=== PATIENT | male | born 1940 | race Caucasian/White ===

== ENCOUNTER → 2016-12-01 | Outpatient (CLI) | payer MEDICARE ==
[~2016-12-01] MED LIST: /WARF5TA; AMLO10TA; ASPI81TA83; CATA0.1T; DIGO0.126; GLUC1000; IMDU60TA; ISOS30BRAN; LASI40TA; LISI40TA; LOPR100T; METO200T3; MEVA40TA; POTA-77; POTA20TA2
[2016-12-01 17:26] LABS: INR 1.79
== END ==
LOC: M WUC 11:57
PROVIDERS: ATTEND Student in an Organized Health Care Education/Training Program
DX: I48.0 Paroxysmal atrial fibrillation (principal)

== ENCOUNTER → 2016-12-08 | Outpatient (CLI) | payer MEDICARE ==
[2016-12-08 13:13] LABS: INR 2.66
== END ==
LOC: M WUC 09:03
PROVIDERS: ATTEND Student in an Organized Health Care Education/Training Program
DX: I48.0 Paroxysmal atrial fibrillation (principal)

== ENCOUNTER → 2016-12-21 | Outpatient (CLI) | payer MEDICARE ==
[2016-12-21 17:55] LABS: INR 3.21
== END ==
LOC: M WUC 11:39
PROVIDERS: ATTEND Student in an Organized Health Care Education/Training Program
DX: I48.0 Paroxysmal atrial fibrillation (principal)

== ENCOUNTER → 2017-01-04 | Outpatient (CLI) | payer MEDICARE ==
[2017-01-04 13:23] LABS: INR 3.26
== END ==
LOC: M WUC 11:01
PROVIDERS: ATTEND Student in an Organized Health Care Education/Training Program
DX: I48.0 Paroxysmal atrial fibrillation (principal)

== ENCOUNTER → 2017-01-19 | Outpatient (CLI) | payer MEDICARE ==
[2017-01-19 12:53] LABS: INR 4.65
== END ==
LOC: M WUC 10:37
PROVIDERS: ATTEND Student in an Organized Health Care Education/Training Program
DX: I48.0 Paroxysmal atrial fibrillation (principal)

== ENCOUNTER → 2017-02-02 | Outpatient (CLI) | payer MEDICARE ==
[2017-02-02 17:40] LABS: INR 2.22
== END ==
LOC: M WUC 10:58
PROVIDERS: ATTEND Student in an Organized Health Care Education/Training Program
DX: I48.0 Paroxysmal atrial fibrillation (principal)

== ENCOUNTER → 2017-02-10 | Outpatient (CLI) | payer MEDICARE ==
[2017-02-10 16:49] LABS: INR 2.53
== END ==
LOC: M WUC 12:43
PROVIDERS: ATTEND Student in an Organized Health Care Education/Training Program
DX: I48.0 Paroxysmal atrial fibrillation (principal)

== ENCOUNTER → 2017-02-25 | Outpatient (CLI) | payer MEDICARE ==
[2017-02-25 14:34] LABS: INR 3.5
== END ==
LOC: M WUC 10:41
PROVIDERS: ATTEND Student in an Organized Health Care Education/Training Program
DX: I48.0 Paroxysmal atrial fibrillation (principal)

== ENCOUNTER → 2017-03-09 | Outpatient (CLI) | payer MEDICARE ==
[2017-03-09 18:02] LABS: INR 1.84
== END ==
LOC: M WUC 13:23
PROVIDERS: ATTEND Student in an Organized Health Care Education/Training Program
DX: I48.0 Paroxysmal atrial fibrillation (principal)

== ENCOUNTER → 2017-03-23 | Outpatient (CLI) | payer MEDICARE ==
[2017-03-23 17:25] LABS: INR 2.8
== END ==
LOC: M WUC 11:18
PROVIDERS: ATTEND Student in an Organized Health Care Education/Training Program
DX: I48.0 Paroxysmal atrial fibrillation (principal)

== ENCOUNTER → 2017-05-19 | Outpatient (CLI) | payer MEDICARE ==
[2017-05-19 16:45] LABS: INR 2.4
== END ==
LOC: M WUC 13:37
PROVIDERS: ATTEND Student in an Organized Health Care Education/Training Program
DX: I48.0 Paroxysmal atrial fibrillation (principal)

== ENCOUNTER 2017-10-06 09:10 | Inpatient (IN) | payer MEDICARE ==
[2017-10-06] MEDS: ALBUTEROL SULFATE 2.5 MG/0.5 ML INH NEB SOLN INH (09:11)
[2017-10-06] MEDS: IPRATROPIUM 0.5MG/ALBUTEROL 2.5MG INH SOL UD 3ML (DUONEB)(J7620) NEB ×3 (09:11→20:49)
[2017-10-06 09:31] LABS: ABG BASE EXCESS -5.6 (-2.0-2.0); ABG HCO3 17.7 MEQ/L (22.0-26.0); ABG O2 SATURATION 98.5 % (95.0-99.0); ABG PARTIAL PRESSURE CO2 27.9 mmHg (35.0-45.0); ABG PARTIAL PRESSURE O2 122.3 mmHg (75.0-100.0); ABG STANDARD HCO3 19.9 MEQ/L (22.0-26.0); ABG TOTAL CO2 18.6 MEQ/L (23.0-31.0); ABG pH (ARTERIAL) 7.421 UNITS (7.350-7.450)
[2017-10-06] MEDS: methylPREDNISolone INJ 125 MG/2 ML VIAL (J2930) IV (09:37)
[2017-10-06] MEDS: CEFEPIME HCL 2 GM in D5W MINI-BAG PLUS 50 ML IV (09:50)
[2017-10-06 09:54] LABS: BASO % 0.1 % (0.0-1.0); EOS # 0.1 10^3/uL (0.0-0.50); EOS % 0.9 % (0.0-3.0); HEMATOCRIT 30.7 % (42.0-52.0); HEMOGLOBIN 10.4 g/dl (13.5-17.5); IMMATURE GRANULOCYTE % 0.5 % (0-3.0); LYMPH # 0.5 10^3/uL (1.5-4.5); LYMPH % 5.5 % (24.0-44.0); MEAN CORPUSCULAR HEMOGLOBIN 30.7 pg (27.0-33.0); MEAN CORPUSCULAR HGB CONC 33.9 g/dl (32.0-36.5); MEAN CORPUSCULAR VOLUME 90.6 fl (80.0-96.0); MONO # 0.5 10^3/uL (0.0-0.8); MONO % 5.4 % (0.0-5.0); NEUTROPHILS # 7.4 10^3/uL (1.8-7.7); NEUTROPHILS % 87.6 % (36.0-66.0); PLATELET COUNT, AUTOMATED 122 10^3/uL (150-450); RED BLOOD COUNT 3.39 10^6/uL (4.30-6.10); RED CELL DISTRIBUTION WIDTH 14.9 % (11.5-14.5); WHITE BLOOD COUNT 8.5 10^3/uL (4.0-10.0)
[2017-10-06] MEDS: NS 500 ML IV ×2 (09:56→10:25)
[2017-10-06 10:08] LABS: ALBUMIN 3.7 GM/DL (3.2-5.2); ALBUMIN/GLOBULIN RATIO 1.12 (1.00-1.93); ALKALINE PHOSPHATASE 82 U/L (45-117); ALT/SGPT 16 U/L (12-78); ANION GAP 11 MEQ/L (8-16); AST/SGOT 14 U/L (7-37); BILIRUBIN,DIRECT 0.2 MG/DL (0.0-0.2); BILIRUBIN,TOTAL 0.9 MG/DL (0.2-1.0); BLOOD UREA NITROGEN 49 MG/DL (7-18); CALCIUM LEVEL 8.3 MG/DL (8.8-10.2); CARBON DIOXIDE LEVEL 20 MEQ/L (21-32); CHLORIDE LEVEL 111 MEQ/L (98-107); CPK CREATINE PHOSPHOKINASE 80 U/L (39-308); CREATININE FOR GFR 2.49 MG/DL (0.70-1.30); GLUCOSE, FASTING 334 MG/DL (70-100); POTASSIUM SERUM 3.8 MEQ/L (3.5-5.1); SODIUM LEVEL 142 MEQ/L (136-145); THYROXINE (T4) 9.2 UG/DL (4.5-12.0); TROPONIN I 0.03 NG/ML (< 0.10)
[2017-10-06 10:11] LABS: INR 2.84; PROTHROMBIN TIME 31.1 SECONDS (12.4-14.5)
[2017-10-06 10:12] LABS: PARTIAL THROMBOPLASTIN TIME 42.7 SECONDS (26.8-37.9)
[2017-10-06 10:14] LABS: CK-MB VALUE MASS 3.1 NG/ML (<3.6); MB/CK RELATIVE INDEX 3.87 (< OR =4); NT-PRO BNP 8286 PG/ML (<450)
[2017-10-06 10:15] LABS: LACTIC ACID SEPSIS PROTOCOL 2.6 MMOL/L (0.4-2.0)
[2017-10-06 10:20] LABS: INFLUENZA A AMPLIFICATION NEGATIVE (NEGATIVE); INFLUENZA B AMPLIFICATION NEGATIVE (NEGATIVE)
[2017-10-06] MEDS: VANCOMYCIN HCL 1,000 MG, VIAL MATE ADAPTER 1 EACH in D5W 250 ML IV (10:40)
[2017-10-06] MEDS ORDERED: ONDANSETRON 4 MG TAB (S0181) PO (11:00)
[2017-10-06] MEDS ORDERED: GLUCOSE 4 GM CHEW TABLET PO (11:00)
[2017-10-06] MEDS ORDERED: GLUCAGON FOR INJ 1 MG VIAL (J1610) SC (11:00)
[2017-10-06] MEDS ORDERED: DEXTROSE 50% 50 ML SYRINGE IV (11:00)
[2017-10-06] MEDS ORDERED: IPRATROPIUM 0.5MG/ALBUTEROL 2.5MG INH SOL UD 3ML (DUONEB)(J7620) NEB (11:00)
[2017-10-06] MEDS ORDERED: ACETAMINOPHEN TAB 650MG DOSE (2X325MG) PO (11:15)
[2017-10-06] MEDS: HumaLOG INSULIN (NovoLOG) PER UNIT SC ×4 (13:05→21:00)
[2017-10-06] MEDS: FUROSEMIDE 40 MG/4 ML VIAL (J1940) IV ×2 (13:06→23:04)
[2017-10-06] MEDS: AZITHROMYCIN INJ 500 MG, VIAL MATE ADAPTER 1 EACH in D5W 250 ML IV (13:06)
[2017-10-06 13:10] LABS: BEDSIDE GLUCOSE 373 MG/DL (83-110)
[2017-10-06] MEDS: **hydrALAZINE HCL** 25 MG TAB PO (13:44)
[2017-10-06] MEDS: NITROGLYCERIN 2% OINT 1 GM *U/D* PKT TOP (16:05)
[2017-10-06 17:26] LABS: BEDSIDE GLUCOSE 395 MG/DL (83-110)
[2017-10-06] MEDS ORDERED: SODIUM CHLORIDE 0.9% 1000 ML IV (17:30)
[2017-10-06] MEDS ORDERED: diltiaZEM **CD** 180 MG CAP PO (17:30)
[2017-10-06] MEDS ORDERED: SLF 3 ML SYR IV (17:30)
[2017-10-06] MEDS ORDERED: **hydrALAZINE** 50 MG TAB PO (17:30)
[2017-10-06] MEDS: WARFARIN SOD 3 MG TAB PO (17:50)
[2017-10-06] MEDS: cefTRIAXone SOD 1 GM in D5W MINI-BAG PLUS 50 ML IV (17:51)
[2017-10-06] MEDS ORDERED: PILL CRUSHER/CUTTER 1 EACH XX (18:30)
[2017-10-06 18:52] LABS: LACTIC ACID SEPSIS PROTOCOL 3.1 MMOL/L (0.4-2.0)
[2017-10-06 20:07] LABS: BEDSIDE GLUCOSE 532 MG/DL (83-110)
[2017-10-06] MEDS: ATORVASTATIN 10 MG TAB PO (20:57)
[2017-10-06] MEDS: CARVedilol 12.5 MG TAB PO (20:57)
[2017-10-06] MEDS: SLF 3 ML SYR IV (20:58)
[2017-10-06] MEDS: **hydrALAZINE** 50 MG TAB PO (20:58)
[2017-10-06 20:59] LABS: BEDSIDE GLUCOSE CONFIRMATION 415 MG/DL (LESS THAN 200)
[2017-10-06] MEDS ORDERED: ATORVASTATIN 5MG PER 1/2 TABLET PO (21:00)
[2017-10-06 22:54] LABS: BEDSIDE GLUCOSE 387 MG/DL (83-110)
[2017-10-07] MEDS: IPRATROPIUM 0.5MG/ALBUTEROL 2.5MG INH SOL UD 3ML (DUONEB)(J7620) NEB ×4 (02:00→19:47)
[2017-10-07 04:56] LABS: BASO % 0.2 % (0.0-1.0); HEMATOCRIT 29.1 % (42.0-52.0); IMMATURE GRANULOCYTE % 0.5 % (0-3.0); LYMPH # 0.3 10^3/uL (1.5-4.5); LYMPH % 5.9 % (24.0-44.0); MEAN CORPUSCULAR HEMOGLOBIN 30.7 pg (27.0-33.0); MEAN CORPUSCULAR HGB CONC 34.4 g/dl (32.0-36.5); MEAN CORPUSCULAR VOLUME 89.3 fl (80.0-96.0); MONO # 0.2 10^3/uL (0.0-0.8); MONO % 3.4 % (0.0-5.0); NEUTROPHILS # 5.1 10^3/uL (1.8-7.7); PLATELET COUNT, AUTOMATED 106 10^3/uL (150-450); RED BLOOD COUNT 3.26 10^6/uL (4.30-6.10); RED CELL DISTRIBUTION WIDTH 14.6 % (11.5-14.5); WHITE BLOOD COUNT 5.6 10^3/uL (4.0-10.0)
[2017-10-07 05:07] LABS: INR 3.26; PROTHROMBIN TIME 34.8 SECONDS (12.4-14.5)
[2017-10-07 05:10] LABS: ANION GAP 11 MEQ/L (8-16); BLOOD UREA NITROGEN 54 MG/DL (7-18); CALCIUM LEVEL 8.2 MG/DL (8.8-10.2); CARBON DIOXIDE LEVEL 19 MEQ/L (21-32); CHLORIDE LEVEL 111 MEQ/L (98-107); CREATININE FOR GFR 2.79 MG/DL (0.70-1.30); GLOMERULAR FILTRATION RATE 23.7 (>42); GLUCOSE, FASTING 295 MG/DL (70-100); POTASSIUM SERUM 3.6 MEQ/L (3.5-5.1); SODIUM LEVEL 141 MEQ/L (136-145)
[2017-10-07] MEDS: FUROSEMIDE 40 MG/4 ML VIAL (J1940) IV (05:26)
[2017-10-07] MEDS: SLF 3 ML SYR IV ×3 (05:27→21:31)
[2017-10-07 08:06] LABS: ALPHA 1 ANTITRYPSIN 124 mg/dL (90-200)
[2017-10-07 08:09] LABS: MAGNESIUM LEVEL 2.3 MG/DL (1.8-2.4)
[2017-10-07] MEDS: ASPIRIN 81 MG ENTERIC TAB PO (09:12)
[2017-10-07] MEDS: CYANOCOBALAMIN 500 MCG TAB PO (09:13)
[2017-10-07] MEDS: predniSONE 20 MG TAB PO (09:13)
[2017-10-07] MEDS: FINASTERIDE 5 MG TAB PO (09:13)
[2017-10-07] MEDS: TAMSULOSIN 0.4 MG CAP PO (09:13)
[2017-10-07] MEDS: CARVedilol 12.5 MG TAB PO ×2 (09:14→21:33)
[2017-10-07] MEDS: diltiaZEM **CD** 180 MG CAP PO (09:14)
[2017-10-07] MEDS: HumaLOG INSULIN (NovoLOG) PER UNIT SC ×4 (09:15→21:31)
[2017-10-07] MEDS: **hydrALAZINE** 50 MG TAB PO (09:15)
[2017-10-07 10:39] LABS: ESTIMATED AVERAGE GLUCOSE 186 MG/DL (60-110); HEMOGLOBIN A1c 8.1 %
[2017-10-07 11:19] LABS: BEDSIDE GLUCOSE 431 MG/DL (83-110)
[2017-10-07] MEDS: CARBAMIDE PEROXIDE 6.5% OTIC SOLN 15ML AS ×2 (12:36→21:32)
[2017-10-07] MEDS: FUROSEMIDE 100 MG/10 ML VIAL (J1940) IV ×2 (12:36→21:32)
[2017-10-07] MEDS: POTASSIUM CHLORIDE 10 MEQ SR TABLET PO ×3 (12:38→21:33)
[2017-10-07 14:19] LABS: APPEARANCE, URINE CLEAR (CLEAR); BACTERIA, URINE AUTO NEGATIVE (NEGATIVE); BILIRUBIN, URINE AUTO NEGATIVE (NEGATIVE); BLOOD, URINE BLOOD NEGATIVE (NEGATIVE); COLOR, URINE STRAW (YELLOW); GLUCOSE, URINE (UA) AUTO 3+ mg/dL (NEGATIVE); KETONE, URINE AUTO NEGATIVE (NEGATIVE); LEUKOCYTE ESTERASE, URINE AUTO NEGATIVE (NEGATIVE); NITRITE, URINE AUTO NEGATIVE (NEGATIVE); PROTEIN, URINE AUTO 2+ mg/dL (NEGATIVE); RBC, URINE AUTO 1 /HPF (0-3); SPECIFIC GRAVITY URINE AUTO 1.007 (1.002-1.035); SQUAMOUS EPITHELIAL CELL UR AU 0 /HPF (0-6); UROBILINOGEN, URINE AUTO 0.2 mg/dL (0.0-2.0); WBC, URINE AUTO 1 /HPF (0-3)
[2017-10-07] MEDS: WARFARIN SOD 3 MG TAB PO (16:30)
[2017-10-07 16:40] LABS: BEDSIDE GLUCOSE 415 MG/DL (83-110)
[2017-10-07 20:37] LABS: BEDSIDE GLUCOSE 438 MG/DL (83-110)
[2017-10-07] MEDS: LEVEMIR (INSULIN DETEMIR) 1 UNITS/0.01ML SC (21:31)
[2017-10-08] MEDS: IPRATROPIUM 0.5MG/ALBUTEROL 2.5MG INH SOL UD 3ML (DUONEB)(J7620) NEB ×4 (01:49→20:14)
[2017-10-08 05:07] LABS: BASO % 0.1 % (0.0-1.0); HEMATOCRIT 31.4 % (42.0-52.0); HEMOGLOBIN 10.7 g/dl (13.5-17.5); IMMATURE GRANULOCYTE % 0.7 % (0-3.0); LYMPH # 0.5 10^3/uL (1.5-4.5); LYMPH % 5.4 % (24.0-44.0); MEAN CORPUSCULAR HEMOGLOBIN 30.7 pg (27.0-33.0); MEAN CORPUSCULAR HGB CONC 34.1 g/dl (32.0-36.5); MONO # 0.7 10^3/uL (0.0-0.8); MONO % 8.6 % (0.0-5.0); NEUTROPHILS # 7.1 10^3/uL (1.8-7.7); NEUTROPHILS % 85.2 % (36.0-66.0); PLATELET COUNT, AUTOMATED 121 10^3/uL (150-450); RED BLOOD COUNT 3.49 10^6/uL (4.30-6.10); WHITE BLOOD COUNT 8.4 10^3/uL (4.0-10.0)
[2017-10-08 05:19] LABS: INR 4.33; PROTHROMBIN TIME 43.8 SECONDS (12.4-14.5)
[2017-10-08 05:31] LABS: ANION GAP 9 MEQ/L (8-16); BLOOD UREA NITROGEN 69 MG/DL (7-18); CALCIUM LEVEL 8.6 MG/DL (8.8-10.2); CARBON DIOXIDE LEVEL 26 MEQ/L (21-32); CHLORIDE LEVEL 109 MEQ/L (98-107); GLOMERULAR FILTRATION RATE 24.6 (>42); GLUCOSE, FASTING 187 MG/DL (70-100); POTASSIUM SERUM 3.4 MEQ/L (3.5-5.1); SODIUM LEVEL 144 MEQ/L (136-145)
[2017-10-08] MEDS: SLF 3 ML SYR IV ×3 (05:35→20:04)
[2017-10-08] MEDS: FUROSEMIDE 100 MG/10 ML VIAL (J1940) IV (05:35)
[2017-10-08] MEDS: HumaLOG INSULIN (NovoLOG) PER UNIT SC ×4 (07:36→20:03)
[2017-10-08] MEDS: FINASTERIDE 5 MG TAB PO (08:51)
[2017-10-08] MEDS: CARVedilol 12.5 MG TAB PO ×2 (08:51→20:01)
[2017-10-08] MEDS: diltiaZEM **CD** 180 MG CAP PO (08:51)
[2017-10-08] MEDS: POTASSIUM CHLORIDE 10 MEQ SR TABLET PO ×3 (08:52→20:01)
[2017-10-08] MEDS: ASPIRIN 81 MG ENTERIC TAB PO (08:52)
[2017-10-08] MEDS: CYANOCOBALAMIN 500 MCG TAB PO (08:52)
[2017-10-08] MEDS: TAMSULOSIN 0.4 MG CAP PO (08:52)
[2017-10-08] MEDS: LEVEMIR (INSULIN DETEMIR) 1 UNITS/0.01ML SC ×2 (08:53→20:02)
[2017-10-08] MEDS: CARBAMIDE PEROXIDE 6.5% OTIC SOLN 15ML AS ×2 (08:53→20:03)
[2017-10-08] MEDS ORDERED: FUROSEMIDE 40 MG TAB PO (09:00)
[2017-10-08 11:57] LABS: BEDSIDE GLUCOSE 275 MG/DL (83-110)
[2017-10-08] MEDS: amLODIPine 10 MG TAB PO (12:23)
[2017-10-08] MEDS: TORSEMIDE 20 MG TAB PO (16:30)
[2017-10-08 16:34] LABS: BEDSIDE GLUCOSE 263 MG/DL (83-110)
[2017-10-08 19:58] LABS: BEDSIDE GLUCOSE 277 MG/DL (83-110)
[2017-10-09] MEDS: IPRATROPIUM 0.5MG/ALBUTEROL 2.5MG INH SOL UD 3ML (DUONEB)(J7620) NEB ×4 (02:00→19:58)
[2017-10-09 03:39] LABS: BASO % 0.1 % (0.0-1.0); EOS # 0.1 10^3/uL (0.0-0.50); EOS % 0.9 % (0.0-3.0); HEMATOCRIT 33.6 % (42.0-52.0); HEMOGLOBIN 11.2 g/dl (13.5-17.5); IMMATURE GRANULOCYTE % 0.6 % (0-3.0); LYMPH # 0.7 10^3/uL (1.5-4.5); LYMPH % 9.4 % (24.0-44.0); MEAN CORPUSCULAR HGB CONC 33.3 g/dl (32.0-36.5); MEAN CORPUSCULAR VOLUME 90.1 fl (80.0-96.0); MONO # 0.7 10^3/uL (0.0-0.8); MONO % 10.3 % (0.0-5.0); NEUTROPHILS # 5.5 10^3/uL (1.8-7.7); NEUTROPHILS % 78.7 % (36.0-66.0); PLATELET COUNT, AUTOMATED 124 10^3/uL (150-450); RED BLOOD COUNT 3.73 10^6/uL (4.30-6.10); RED CELL DISTRIBUTION WIDTH 14.8 % (11.5-14.5)
[2017-10-09 03:55] LABS: INR 4.38; PROTHROMBIN TIME 44.2 SECONDS (12.4-14.5)
[2017-10-09] MEDS: SLF 3 ML SYR IV ×3 (04:10→20:54)
[2017-10-09 04:14] LABS: ANION GAP 8 MEQ/L (8-16); BLOOD UREA NITROGEN 65 MG/DL (7-18); CALCIUM LEVEL 8.1 MG/DL (8.8-10.2); CARBON DIOXIDE LEVEL 27 MEQ/L (21-32); CHLORIDE LEVEL 110 MEQ/L (98-107); CREATININE FOR GFR 2.54 MG/DL (0.70-1.30); GLOMERULAR FILTRATION RATE 26.4 (>42); GLUCOSE, FASTING 240 MG/DL (70-100); POTASSIUM SERUM 3.4 MEQ/L (3.5-5.1); SODIUM LEVEL 145 MEQ/L (136-145)
[2017-10-09 07:15] LABS: ALBUMIN 3.7 GM/DL (3.2-5.2)
[2017-10-09] MEDS: CYANOCOBALAMIN 500 MCG TAB PO (08:28)
[2017-10-09] MEDS: TORSEMIDE 20 MG TAB PO ×2 (08:28→16:54)
[2017-10-09] MEDS: CARVedilol 12.5 MG TAB PO ×2 (08:32→20:51)
[2017-10-09] MEDS: FINASTERIDE 5 MG TAB PO (08:32)
[2017-10-09] MEDS: diltiaZEM **CD** 180 MG CAP PO (08:33)
[2017-10-09] MEDS: ASPIRIN 81 MG ENTERIC TAB PO (08:33)
[2017-10-09] MEDS: POTASSIUM CHLORIDE 10 MEQ SR TABLET PO ×2 (08:33→20:52)
[2017-10-09] MEDS: LEVEMIR (INSULIN DETEMIR) 1 UNITS/0.01ML SC ×2 (08:34→20:53)
[2017-10-09] MEDS: HumaLOG INSULIN (NovoLOG) PER UNIT SC ×4 (08:34→20:53)
[2017-10-09] MEDS: TAMSULOSIN 0.4 MG CAP PO (08:34)
[2017-10-09] MEDS: CARBAMIDE PEROXIDE 6.5% OTIC SOLN 15ML AS ×2 (08:35→20:53)
[2017-10-09] MEDS ORDERED: POTASSIUM CHLORIDE 10 MEQ SR TABLET PO (09:00)
[2017-10-09 12:18] LABS: BEDSIDE GLUCOSE 262 MG/DL (83-110)
[2017-10-09 21:10] LABS: BEDSIDE GLUCOSE 353 MG/DL (83-110)
[2017-10-09] MEDS: amLODIPine 5 MG TAB PO (22:18)
[2017-10-10] MEDS: IPRATROPIUM 0.5MG/ALBUTEROL 2.5MG INH SOL UD 3ML (DUONEB)(J7620) NEB ×4 (02:00→19:17)
[2017-10-10 05:14] LABS: BASO % 0.1 % (0.0-1.0); EOS # 0.2 10^3/uL (0.0-0.50); EOS % 2.2 % (0.0-3.0); HEMOGLOBIN 11.8 g/dl (13.5-17.5); IMMATURE GRANULOCYTE % 0.7 % (0-3.0); LYMPH # 0.9 10^3/uL (1.5-4.5); LYMPH % 12.5 % (24.0-44.0); MEAN CORPUSCULAR HGB CONC 33.7 g/dl (32.0-36.5); MEAN CORPUSCULAR VOLUME 89.1 fl (80.0-96.0); MONO # 0.9 10^3/uL (0.0-0.8); NEUTROPHILS # 5.1 10^3/uL (1.8-7.7); NEUTROPHILS % 71.5 % (36.0-66.0); PLATELET COUNT, AUTOMATED 129 10^3/uL (150-450); RED BLOOD COUNT 3.93 10^6/uL (4.30-6.10); RED CELL DISTRIBUTION WIDTH 14.4 % (11.5-14.5); WHITE BLOOD COUNT 7.2 10^3/uL (4.0-10.0)
[2017-10-10 05:28] LABS: INR 3.02; PROTHROMBIN TIME 32.7 SECONDS (12.4-14.5)
[2017-10-10 05:29] LABS: ANION GAP 6 MEQ/L (8-16); BLOOD UREA NITROGEN 59 MG/DL (7-18); CALCIUM LEVEL 8.7 MG/DL (8.8-10.2); CARBON DIOXIDE LEVEL 30 MEQ/L (21-32); CHLORIDE LEVEL 111 MEQ/L (98-107); CREATININE FOR GFR 2.45 MG/DL (0.70-1.30); GLOMERULAR FILTRATION RATE 27.5 (>42); GLUCOSE, FASTING 139 MG/DL (70-100); POTASSIUM SERUM 3.5 MEQ/L (3.5-5.1); SODIUM LEVEL 147 MEQ/L (136-145)
[2017-10-10] MEDS: SLF 3 ML SYR IV ×3 (06:00→21:59)
[2017-10-10] MEDS: HumaLOG INSULIN (NovoLOG) PER UNIT SC ×4 (07:51→20:21)
[2017-10-10] MEDS: LEVEMIR (INSULIN DETEMIR) 1 UNITS/0.01ML SC ×2 (07:51→20:20)
[2017-10-10] MEDS: CARBAMIDE PEROXIDE 6.5% OTIC SOLN 15ML AS ×2 (07:55→20:20)
[2017-10-10] MEDS: CARVedilol 12.5 MG TAB PO ×2 (07:56→20:19)
[2017-10-10] MEDS: diltiaZEM **CD** 180 MG CAP PO (07:56)
[2017-10-10] MEDS: TORSEMIDE 20 MG TAB PO (07:57)
[2017-10-10] MEDS: FINASTERIDE 5 MG TAB PO (07:57)
[2017-10-10] MEDS: ASPIRIN 81 MG ENTERIC TAB PO (07:57)
[2017-10-10] MEDS: POTASSIUM CHLORIDE 10 MEQ SR TABLET PO ×2 (07:57→20:20)
[2017-10-10] MEDS: CYANOCOBALAMIN 500 MCG TAB PO (07:57)
[2017-10-10] MEDS: TAMSULOSIN 0.4 MG CAP PO (07:58)
[2017-10-10] MEDS: **hydrALAZINE HCL** 25 MG TAB PO (11:26)
[2017-10-10 11:34] LABS: BEDSIDE GLUCOSE 404 MG/DL (83-110)
[2017-10-10] MEDS: WARFARIN SOD 3 MG TAB PO (16:26)
[2017-10-10 17:22] LABS: BEDSIDE GLUCOSE 299 MG/DL (83-110)
[2017-10-10 17:34] LABS: BEDSIDE GLUCOSE 322 MG/DL (83-110)
[2017-10-10 20:07] LABS: BEDSIDE GLUCOSE 322 MG/DL (83-110)
[2017-10-10] MEDS: **hydrALAZINE** 50 MG TAB PO (20:19)
[2017-10-10] MEDS ORDERED: **hydrALAZINE HCL** 25 MG TAB PO (21:00)
[2017-10-11] MEDS: IPRATROPIUM 0.5MG/ALBUTEROL 2.5MG INH SOL UD 3ML (DUONEB)(J7620) NEB ×4 (01:55→20:08)
[2017-10-11 05:49] LABS: BASO % 0.1 % (0.0-1.0); EOS # 0.2 10^3/uL (0.0-0.50); EOS % 3.3 % (0.0-3.0); HEMATOCRIT 34.9 % (42.0-52.0); HEMOGLOBIN 11.9 g/dl (13.5-17.5); LYMPH # 0.9 10^3/uL (1.5-4.5); LYMPH % 12.8 % (24.0-44.0); MEAN CORPUSCULAR HEMOGLOBIN 30.5 pg (27.0-33.0); MEAN CORPUSCULAR HGB CONC 34.1 g/dl (32.0-36.5); MEAN CORPUSCULAR VOLUME 89.5 fl (80.0-96.0); MONO # 0.8 10^3/uL (0.0-0.8); MONO % 11.6 % (0.0-5.0); NEUTROPHILS # 4.9 10^3/uL (1.8-7.7); NEUTROPHILS % 71.2 % (36.0-66.0); PLATELET COUNT, AUTOMATED 127 10^3/uL (150-450); RED CELL DISTRIBUTION WIDTH 14.5 % (11.5-14.5); WHITE BLOOD COUNT 6.9 10^3/uL (4.0-10.0)
[2017-10-11 06:00] LABS: INR 2.23; PROTHROMBIN TIME 25.5 SECONDS (12.4-14.5)
[2017-10-11] MEDS: SLF 3 ML SYR IV ×3 (06:00→20:59)
[2017-10-11 06:11] LABS: ANION GAP 7 MEQ/L (8-16); BLOOD UREA NITROGEN 51 MG/DL (7-18); CALCIUM LEVEL 8.3 MG/DL (8.8-10.2); CARBON DIOXIDE LEVEL 27 MEQ/L (21-32); CHLORIDE LEVEL 112 MEQ/L (98-107); CREATININE FOR GFR 2.24 MG/DL (0.70-1.30); GLOMERULAR FILTRATION RATE 30.5 (>42); GLUCOSE, FASTING 146 MG/DL (70-100); POTASSIUM SERUM 3.7 MEQ/L (3.5-5.1); SODIUM LEVEL 146 MEQ/L (136-145)
[2017-10-11] MEDS: HumaLOG INSULIN (NovoLOG) PER UNIT SC ×4 (08:40→20:58)
[2017-10-11] MEDS: TORSEMIDE 20 MG TAB PO (08:41)
[2017-10-11] MEDS: CYANOCOBALAMIN 500 MCG TAB PO (08:41)
[2017-10-11] MEDS: ASPIRIN 81 MG ENTERIC TAB PO (08:41)
[2017-10-11] MEDS: **hydrALAZINE** 50 MG TAB PO ×2 (08:41→20:57)
[2017-10-11] MEDS: LEVEMIR (INSULIN DETEMIR) 1 UNITS/0.01ML SC ×2 (08:41→20:57)
[2017-10-11] MEDS: FINASTERIDE 5 MG TAB PO (08:42)
[2017-10-11] MEDS: CARVedilol 12.5 MG TAB PO ×2 (08:42→20:56)
[2017-10-11] MEDS: TAMSULOSIN 0.4 MG CAP PO (08:42)
[2017-10-11] MEDS: diltiaZEM **CD** 180 MG CAP PO (08:42)
[2017-10-11] MEDS: POTASSIUM CHLORIDE 10 MEQ SR TABLET PO ×2 (08:43→20:57)
[2017-10-11 12:18] LABS: BEDSIDE GLUCOSE 231 MG/DL (83-110)
[2017-10-11] MEDS: WARFARIN SOD 2.5 MG TAB PO (17:28)
[2017-10-11 20:29] LABS: BEDSIDE GLUCOSE 275 MG/DL (83-110)
[2017-10-12] MEDS: IPRATROPIUM 0.5MG/ALBUTEROL 2.5MG INH SOL UD 3ML (DUONEB)(J7620) NEB ×4 (00:57→20:28)
[2017-10-12 05:20] LABS: BASO % 0.2 % (0.0-1.0); EOS # 0.2 10^3/uL (0.0-0.50); EOS % 3.4 % (0.0-3.0); HEMATOCRIT 34.1 % (42.0-52.0); HEMOGLOBIN 11.6 g/dl (13.5-17.5); IMMATURE GRANULOCYTE % 1.3 % (0-3.0); LYMPH # 0.9 10^3/uL (1.5-4.5); LYMPH % 14.2 % (24.0-44.0); MEAN CORPUSCULAR HEMOGLOBIN 30.3 pg (27.0-33.0); MONO # 0.7 10^3/uL (0.0-0.8); MONO % 11.3 % (0.0-5.0); NEUTROPHILS # 4.3 10^3/uL (1.8-7.7); NEUTROPHILS % 69.6 % (36.0-66.0); PLATELET COUNT, AUTOMATED 121 10^3/uL (150-450); RED BLOOD COUNT 3.83 10^6/uL (4.30-6.10); RED CELL DISTRIBUTION WIDTH 14.3 % (11.5-14.5); WHITE BLOOD COUNT 6.2 10^3/uL (4.0-10.0)
[2017-10-12 05:31] LABS: INR 1.69; PROTHROMBIN TIME 20.3 SECONDS (12.4-14.5)
[2017-10-12 05:35] LABS: ANION GAP 4 MEQ/L (8-16); BLOOD UREA NITROGEN 53 MG/DL (7-18); CALCIUM LEVEL 8.4 MG/DL (8.8-10.2); CARBON DIOXIDE LEVEL 27 MEQ/L (21-32); CHLORIDE LEVEL 111 MEQ/L (98-107); CREATININE FOR GFR 2.22 MG/DL (0.70-1.30); GLOMERULAR FILTRATION RATE 30.8 (>42); GLUCOSE, FASTING 147 MG/DL (70-100); MAGNESIUM LEVEL 2.1 MG/DL (1.8-2.4); POTASSIUM SERUM 3.9 MEQ/L (3.5-5.1); SODIUM LEVEL 142 MEQ/L (136-145)
[2017-10-12] MEDS: SLF 3 ML SYR IV ×3 (06:01→20:52)
[2017-10-12] MEDS: CARVedilol 12.5 MG TAB PO ×2 (08:24→20:50)
[2017-10-12] MEDS: TORSEMIDE 20 MG TAB PO (08:25)
[2017-10-12] MEDS: **hydrALAZINE** 50 MG TAB PO ×2 (08:25→20:51)
[2017-10-12] MEDS: POTASSIUM CHLORIDE 10 MEQ SR TABLET PO (08:25)
[2017-10-12] MEDS: CYANOCOBALAMIN 500 MCG TAB PO (08:25)
[2017-10-12] MEDS: TAMSULOSIN 0.4 MG CAP PO (08:25)
[2017-10-12] MEDS: HumaLOG INSULIN (NovoLOG) PER UNIT SC ×4 (08:26→20:52)
[2017-10-12] MEDS: ASPIRIN 81 MG ENTERIC TAB PO (08:26)
[2017-10-12] MEDS: FINASTERIDE 5 MG TAB PO (08:26)
[2017-10-12] MEDS: diltiaZEM **CD** 180 MG CAP PO (08:26)
[2017-10-12] MEDS: LEVEMIR (INSULIN DETEMIR) 1 UNITS/0.01ML SC ×2 (08:27→20:51)
[2017-10-12] MEDS: SPIRONOLACTONE 12.5MG PER 1/2 TABLET PO (10:14)
[2017-10-12 10:50] LABS: BEDSIDE GLUCOSE 296 MG/DL (83-110)
[2017-10-12 12:03] LABS: BEDSIDE GLUCOSE 215 MG/DL (83-110)
[2017-10-12 15:21] LABS: CK-MB VALUE MASS 1.4 NG/ML (<3.6); CPK CREATINE PHOSPHOKINASE 49 U/L (39-308); MB/CK RELATIVE INDEX 2.85 (< OR =4); TROPONIN I 0.02 NG/ML (< 0.10)
[2017-10-12 16:46] LABS: BEDSIDE GLUCOSE 322 MG/DL (83-110)
[2017-10-12] MEDS: WARFARIN SOD 3 MG TAB PO (16:58)
[2017-10-12 20:30] LABS: BEDSIDE GLUCOSE 263 MG/DL (83-110)
[2017-10-12 23:19] LABS: CPK CREATINE PHOSPHOKINASE 42 U/L (39-308); TROPONIN I 0.02 NG/ML (< 0.10)
[2017-10-12 23:20] LABS: CK-MB VALUE MASS 1.6 NG/ML (<3.6)
[2017-10-13] MEDS: IPRATROPIUM 0.5MG/ALBUTEROL 2.5MG INH SOL UD 3ML (DUONEB)(J7620) NEB ×2 (02:35→07:47)
[2017-10-13] MEDS: SLF 3 ML SYR IV (05:47)
[2017-10-13 06:36] LABS: BASO % 0.2 % (0.0-1.0); EOS # 0.2 10^3/uL (0.0-0.50); EOS % 3.1 % (0.0-3.0); HEMATOCRIT 34.3 % (42.0-52.0); HEMOGLOBIN 11.6 g/dl (13.5-17.5); IMMATURE GRANULOCYTE % 0.9 % (0-3.0); LYMPH # 0.9 10^3/uL (1.5-4.5); LYMPH % 13.6 % (24.0-44.0); MEAN CORPUSCULAR HEMOGLOBIN 30.2 pg (27.0-33.0); MEAN CORPUSCULAR HGB CONC 33.8 g/dl (32.0-36.5); MEAN CORPUSCULAR VOLUME 89.3 fl (80.0-96.0); MONO # 0.8 10^3/uL (0.0-0.8); MONO % 12.1 % (0.0-5.0); NEUTROPHILS # 4.5 10^3/uL (1.8-7.7); NEUTROPHILS % 70.1 % (36.0-66.0); PLATELET COUNT, AUTOMATED 109 10^3/uL (150-450); RED BLOOD COUNT 3.84 10^6/uL (4.30-6.10); RED CELL DISTRIBUTION WIDTH 14.4 % (11.5-14.5); WHITE BLOOD COUNT 6.4 10^3/uL (4.0-10.0)
[2017-10-13 06:49] LABS: INR 1.56; PROTHROMBIN TIME 19.1 SECONDS (12.4-14.5)
[2017-10-13 07:15] LABS: ANION GAP 6 MEQ/L (8-16); BLOOD UREA NITROGEN 47 MG/DL (7-18); CALCIUM LEVEL 8.5 MG/DL (8.8-10.2); CARBON DIOXIDE LEVEL 26 MEQ/L (21-32); CHLORIDE LEVEL 111 MEQ/L (98-107); CK-MB VALUE MASS 1.5 NG/ML (<3.6); CPK CREATINE PHOSPHOKINASE 35 U/L (39-308); CREATININE FOR GFR 2.24 MG/DL (0.70-1.30); GLOMERULAR FILTRATION RATE 30.5 (>42); GLUCOSE, FASTING 145 MG/DL (70-100); MB/CK RELATIVE INDEX 4.28 (< OR =4); POTASSIUM SERUM 4.1 MEQ/L (3.5-5.1); SODIUM LEVEL 143 MEQ/L (136-145); TROPONIN I 0.02 NG/ML (< 0.10)
[2017-10-13] MEDS: HumaLOG INSULIN (NovoLOG) PER UNIT SC ×2 (07:33→11:48)
[2017-10-13] MEDS: TAMSULOSIN 0.4 MG CAP PO (08:39)
[2017-10-13] MEDS: ASPIRIN 81 MG ENTERIC TAB PO (08:40)
[2017-10-13] MEDS: FINASTERIDE 5 MG TAB PO (08:40)
[2017-10-13] MEDS: SPIRONOLACTONE 12.5MG PER 1/2 TABLET PO (08:40)
[2017-10-13] MEDS: diltiaZEM **CD** 180 MG CAP PO (08:40)
[2017-10-13] MEDS: TORSEMIDE 20 MG TAB PO (08:41)
[2017-10-13] MEDS: CARVedilol 12.5 MG TAB PO (08:41)
[2017-10-13] MEDS: **hydrALAZINE** 50 MG TAB PO (08:41)
[2017-10-13] MEDS: CYANOCOBALAMIN 500 MCG TAB PO (08:41)
[2017-10-13] MEDS: LEVEMIR (INSULIN DETEMIR) 1 UNITS/0.01ML SC (08:42)
[2017-10-13 11:52] LABS: BEDSIDE GLUCOSE 249 MG/DL (83-110)
== END 2017-10-13 13:00 | disposition home or self-care (01) | DRG 291 ==
LOC: M ED 09:10 → M ED INP 10:16 → M PCU 16:55
DX: I13.0 Hypertensive heart and chronic kidney disease with heart failure and stage 1 through stage 4 chronic kidney disease, or unspecified chronic kidney disease (principal); I50.33 Acute on chronic diastolic (congestive) heart failure; E87.2 Acidosis; N17.9 Acute kidney failure, unspecified; E87.0 Hyperosmolality and hypernatremia; N18.3 Chronic kidney disease, stage 3 (moderate); H61.22 Impacted cerumen, left ear; E11.9 Type 2 diabetes mellitus without complications; H00.11 Chalazion right upper eyelid; N13.9 Obstructive and reflux uropathy, unspecified; I27.20 Pulmonary hypertension, unspecified; G47.33 Obstructive sleep apnea (adult) (pediatric); I48.91 Unspecified atrial fibrillation; E78.5 Hyperlipidemia, unspecified; D69.6 Thrombocytopenia, unspecified; Z79.82 Long term (current) use of aspirin; Z79.01 Long term (current) use of anticoagulants; Z79.84 Long term (current) use of oral hypoglycemic drugs; Z79.899 Other long term (current) drug therapy; Z90.49 Acquired absence of other specified parts of digestive tract; Z87.442 Personal history of urinary calculi; Z87.891 Personal history of nicotine dependence

== ENCOUNTER → 2017-10-27 | Outpatient (CLI) | payer MEDICARE ==
[2017-10-27 15:07] LABS: INR 3.24; PROTHROMBIN TIME 34.6 SECONDS (12.4-14.5)
[2017-10-27 15:11] LABS: ANION GAP 13 MEQ/L (8-16); BLOOD UREA NITROGEN 44 MG/DL (7-18); CALCIUM LEVEL 8.5 MG/DL (8.8-10.2); CARBON DIOXIDE LEVEL 22 MEQ/L (21-32); CHLORIDE LEVEL 107 MEQ/L (98-107); CREATININE FOR GFR 2.53 MG/DL (0.70-1.30); GLOMERULAR FILTRATION RATE 26.5 (>42); GLUCOSE, FASTING 223 MG/DL (70-100); POTASSIUM SERUM 3.8 MEQ/L (3.5-5.1); SODIUM LEVEL 142 MEQ/L (136-145)
[2017-10-29 00:08] LABS: PSA TOTAL 3.1 ng/mL (0.0-4.0)
== END ==
LOC: M WUC 13:39
DX: R97.20 Elevated prostate specific antigen [PSA] (principal); I48.2 Chronic atrial fibrillation; I50.30 Unspecified diastolic (congestive) heart failure
CPT/HCPCS: 80048

== ENCOUNTER → 2017-11-12 | Outpatient (CLI) | payer MEDICARE ==
[2017-11-12 17:20] LABS: PROTHROMBIN TIME 35.9 SECONDS (12.4-14.5)
== END ==
LOC: M WUC 12:26
DX: I48.2 Chronic atrial fibrillation (principal)
CPT/HCPCS: 85610

== ENCOUNTER → 2017-12-03 | Outpatient (CLI) | payer MEDICARE ==
[2017-12-03 13:02] LABS: ANION GAP 12 MEQ/L (8-16); BLOOD UREA NITROGEN 57 MG/DL (7-18); CALCIUM LEVEL 8.7 MG/DL (8.8-10.2); CARBON DIOXIDE LEVEL 23 MEQ/L (21-32); CHLORIDE LEVEL 107 MEQ/L (98-107); CREATININE FOR GFR 2.66 MG/DL (0.70-1.30); GLUCOSE, FASTING 234 MG/DL (70-100); NT-PRO BNP 3922 PG/ML (<450); POTASSIUM SERUM 4.3 MEQ/L (3.5-5.1); SODIUM LEVEL 142 MEQ/L (136-145)
[2017-12-03 13:07] LABS: INR 3.77; PROTHROMBIN TIME 39.1 SECONDS (12.4-14.5)
[2017-12-03 13:25] LABS: MAU/CREAT RATIO 787.3 MCG/MG (0.0-30.0)
[2017-12-03 13:27] LABS: ESTIMATED AVERAGE GLUCOSE 160 MG/DL (60-110); HEMOGLOBIN A1c 7.2 %
== END ==
LOC: M WUC 09:02
DX: R91.8 Other nonspecific abnormal finding of lung field (principal)
CPT/HCPCS: 83036

== ENCOUNTER → 2017-12-22 | Outpatient (CLI) | payer MEDICARE ==
[2017-12-22 13:27] LABS: INR 3.19; PROTHROMBIN TIME 33.4 SECONDS (12.1-14.4)
== END ==
LOC: M WUC 10:21
DX: I48.2 Chronic atrial fibrillation (principal)
CPT/HCPCS: 85610

== ENCOUNTER → 2018-01-05 | Outpatient (CLI) | payer MEDICARE ==
[2018-01-05 15:15] LABS: INR 2.73; PROTHROMBIN TIME 29.5 SECONDS (12.1-14.4)
== END ==
LOC: M WUC 13:41
DX: Z51.81 Encounter for therapeutic drug level monitoring (principal); Z79.01 Long term (current) use of anticoagulants
CPT/HCPCS: 85610

== ENCOUNTER → 2018-01-19 | Outpatient (CLI) | payer MEDICARE | LOC: M RAD 15:10 | DX: R91.8 Other nonspecific abnormal finding of lung field (principal); J90 Pleural effusion, not elsewhere classified; I31.3 Pericardial effusion (noninflammatory); R59.0 Localized enlarged lymph nodes; Z95.828 Presence of other vascular implants and grafts | CPT/HCPCS: 71250 ==

== ENCOUNTER → 2018-01-31 | Outpatient (CLI) | payer MEDICARE | LOC: M RAD 06:21 | DX: I70.1 Atherosclerosis of renal artery (principal); N28.1 Cyst of kidney, acquired; N40.0 Benign prostatic hyperplasia without lower urinary tract symptoms; N18.9 Chronic kidney disease, unspecified | CPT/HCPCS: 76775 ==

== ENCOUNTER 2018-02-18 11:11 | Emergency (ER) | payer MEDICARE ==
[2018-02-18 12:11] LABS: BASO % 0.1 % (0.0-1.0); EOS # 0.1 10^3/uL (0.0-0.50); EOS % 0.7 % (0.0-3.0); HEMATOCRIT 33.7 % (42.0-52.0); HEMOGLOBIN 11.6 g/dl (13.5-17.5); IMMATURE GRANULOCYTE % 0.5 % (0-3.0); LYMPH # 0.6 10^3/uL (1.5-4.5); LYMPH % 6.9 % (24.0-44.0); MEAN CORPUSCULAR HEMOGLOBIN 30.1 pg (27.0-33.0); MEAN CORPUSCULAR HGB CONC 34.4 g/dl (32.0-36.5); MEAN CORPUSCULAR VOLUME 87.3 fl (80.0-96.0); MONO # 0.9 10^3/uL (0.0-0.8); MONO % 10.4 % (0.0-5.0); NEUTROPHILS # 6.9 10^3/uL (1.8-7.7); NEUTROPHILS % 81.4 % (36.0-66.0); PLATELET COUNT, AUTOMATED 113 10^3/uL (150-450); RED BLOOD COUNT 3.86 10^6/uL (4.30-6.10); RED CELL DISTRIBUTION WIDTH 14.5 % (11.5-14.5); WHITE BLOOD COUNT 8.5 10^3/uL (4.0-10.0)
[2018-02-18 12:34] LABS: ANION GAP 11 MEQ/L (8-16); BLOOD UREA NITROGEN 46 MG/DL (7-18); CALCIUM LEVEL 8.7 MG/DL (8.8-10.2); CARBON DIOXIDE LEVEL 24 MEQ/L (21-32); CHLORIDE LEVEL 106 MEQ/L (98-107); CREATININE FOR GFR 2.75 MG/DL (0.70-1.30); GLUCOSE, FASTING 268 MG/DL (70-100); POTASSIUM SERUM 3.9 MEQ/L (3.5-5.1); SODIUM LEVEL 141 MEQ/L (136-145)
[2018-02-18] MEDS: IPRATROPIUM 0.5MG/ALBUTEROL 2.5MG INH SOL UD 3ML (DUONEB)(J7620) NEB (13:11)
[2018-02-18 13:28] LABS: ABG BASE EXCESS -0.4 (-2.0-2.0); ABG HCO3 23.1 MEQ/L (22.0-26.0); ABG O2 SATURATION 94.8 % (95.0-99.0); ABG PARTIAL PRESSURE CO2 34.2 mmHg (35.0-45.0); ABG PARTIAL PRESSURE O2 74.6 mmHg (75.0-100.0); ABG STANDARD HCO3 24.1 MEQ/L (22.0-26.0); ABG TOTAL CO2 24.1 MEQ/L (23.0-31.0); ABG pH (ARTERIAL) 7.447 UNITS (7.350-7.450)
[2018-02-18 13:38] LABS: INR 2.61; PROTHROMBIN TIME 28.5 SECONDS (12.1-14.4)
[2018-02-18] MEDS: **hydrALAZINE HCL** 25 MG TAB PO (14:26)
[2018-02-18] MEDS: SPIRONOLACTONE 12.5MG PER 1/2 TABLET PO (14:30)
[2018-02-19] MEDS ORDERED: SPIRONOLACTONE 12.5MG PER 1/2 TABLET PO (09:00)
== END 2018-02-18 14:52 | disposition home or self-care (01) ==
LOC: M ED 11:11
DX: R91.8 Other nonspecific abnormal finding of lung field (principal); J02.0 Streptococcal pharyngitis; I48.91 Unspecified atrial fibrillation; I11.9 Hypertensive heart disease without heart failure; N17.9 Acute kidney failure, unspecified; F79 Unspecified intellectual disabilities; Z79.899 Other long term (current) drug therapy; Z79.82 Long term (current) use of aspirin; Z79.01 Long term (current) use of anticoagulants
CPT/HCPCS: 71045

== ENCOUNTER → 2018-02-21 | Outpatient (CLI) | payer MEDICARE ==
[2018-02-21 12:38] LABS: PROTHROMBIN TIME 33.5 SECONDS (12.1-14.4)
== END ==
LOC: M WUC 09:47
DX: Z79.01 Long term (current) use of anticoagulants (principal)
CPT/HCPCS: 85610

== ENCOUNTER → 2018-04-06 | Outpatient (CLI) | payer MEDICARE ==
[2018-04-06 18:18] LABS: INR 3.55; PROTHROMBIN TIME 36.3 SECONDS (12.1-14.4)
== END ==
LOC: M WUC 14:02
DX: Z51.81 Encounter for therapeutic drug level monitoring (principal); Z79.01 Long term (current) use of anticoagulants
CPT/HCPCS: 85610

== ENCOUNTER → 2018-05-30 | Outpatient (CLI) | payer MEDICARE ==
[~2018-05-30] MED LIST changes: +ASPI1TAB PO; +ATOR1TAB19; +ATOR1TAB19 PO; +BREO1INH INH; +CARV25TA; +CATA0.2D TD; +CHLO50TA; +CHLO50TA PO; +CLON0.1D3 TD; +CORE25TA PO; +DEMA20TA6 PO; +DILT1CAP46 PO; +DILT360C16; +FINA5TAB2 PO; +FLOM0.4C39 PO; +GLIM4TAB; +GLIM4TAB PO; +HYDR100T; +HYDR100T PO; +HYDR50TA PO; +LISI-538; +LISI-538 PO; +PENI500T PO; +POTA10TA67 PO; +SPIR-10 PO; +TORS10TA3; +TORS10TA3 PO; +VENTAER INH; +VITA500T3; +VITRTAB4; +VITRTAB4 PO; +WARF4TAB52 PO; +[UNRECOGNIZED DRUG - OTHER] PO
[2018-05-30 12:28] LABS: BASO % 0.3 % (0.0-1.0); EOS % 0.4 % (0.0-3.0); HEMATOCRIT 36.8 % (42.0-52.0); HEMOGLOBIN 11.6 g/dl (13.5-17.5); LYMPH # 0.6 10^3/uL (1.5-4.5); LYMPH % 8.2 % (24.0-44.0); MEAN CORPUSCULAR HEMOGLOBIN 28.9 pg (27.0-33.0); MEAN CORPUSCULAR HGB CONC 31.5 g/dl (32.0-36.5); MEAN CORPUSCULAR VOLUME 91.8 fl (80.0-96.0); MONO # 0.7 10^3/uL (0.0-0.8); MONO % 10.1 % (0.0-5.0); NEUTROPHILS # 5.4 10^3/uL (1.8-7.7); NEUTROPHILS % 80.4 % (36.0-66.0); PLATELET COUNT, AUTOMATED 122 10^3/uL (150-450); RED BLOOD COUNT 4.01 10^6/uL (4.30-6.10); WHITE BLOOD COUNT 6.7 10^3/uL (4.0-10.0)
[2018-05-30 12:52] LABS: INR 3.65; PROTHROMBIN TIME 37.2 SECONDS (12.1-14.4)
[2018-05-30 13:05] LABS: CALCIUM LEVEL 8.2 MG/DL (8.8-10.2); CREATININE FOR GFR 2.34 MG/DL (0.70-1.30); GLOMERULAR FILTRATION RATE 28.9 (>42); POTASSIUM SERUM 4.1 MEQ/L (3.5-5.1)
== END ==
LOC: M WUC 10:45
PROVIDERS: ATTEND Surgery Vascular Surgery
DX: Z01.818 Encounter for other preprocedural examination (principal); I70.213 Atherosclerosis of native arteries of extremities with intermittent claudication, bilateral legs; D69.8 Other specified hemorrhagic conditions

== ENCOUNTER → 2018-07-07 | Outpatient (CLI) | payer MEDICARE ==
[2018-07-07 13:09] LABS: INR 3.45; PROTHROMBIN TIME 35.5 SECONDS (12.1-14.4)
[2018-07-07 13:37] LABS: CALCIUM LEVEL 8.4 MG/DL (8.8-10.2); CREATININE FOR GFR 2.63 MG/DL (0.70-1.30); GLOMERULAR FILTRATION RATE 25.3 (>42); POTASSIUM SERUM 4.2 MEQ/L (3.5-5.1)
[2018-07-07 16:01] LABS: HEMOGLOBIN A1c 8.2 %
[2018-07-07 18:23] LABS: CREATININE, URINE 92.4 MG/DL; MAU/CREAT RATIO 286.7 MCG/MG (0.0-30.0)
== END ==
LOC: M WUC 10:38
PROVIDERS: ATTEND Family Medicine
DX: Z51.81 Encounter for therapeutic drug level monitoring (principal); Z79.01 Long term (current) use of anticoagulants; E11.22 Type 2 diabetes mellitus with diabetic chronic kidney disease; N18.9 Chronic kidney disease, unspecified

== ENCOUNTER → 2018-07-23 | Outpatient (CLI) | payer MEDICARE ==
[~2018-07-23] MED LIST changes: +CARV25TA PO; +ESCI10TA2 PO; +GLIP-163 PO; +TORS20TA2 PO
[2018-07-23 13:32] LABS: INR 2.38; PROTHROMBIN TIME 26.5 SECONDS (12.1-14.4)
== END ==
LOC: M WUC 11:15
PROVIDERS: ATTEND Family Medicine
DX: Z51.81 Encounter for therapeutic drug level monitoring (principal); Z79.01 Long term (current) use of anticoagulants

== ENCOUNTER 2018-07-25 09:09 | Inpatient (IN) | payer MEDICARE ==
[~2018-07-25] VITALS: Ht 175.3 cm; Wt 78.8 kg
[~2018-07-25 09:09] MED LIST changes: -CARV25TA PO; -ESCI10TA2 PO; -GLIP-163 PO; -TORS20TA2 PO
--- NOTE | 2018-07-25 09:49 | REP ---
Portable chest, 09:20 a.m., single AP view, the patient upright: Comparisons are the portable chest dated 02/18/[address] of 01/19/2018. Multiple lung parenchymal densities are again noted bilaterally, unchanged from the comparison portable chest and comparison chest CT. No acute infiltrates or effusions are identified. Cardiac size appears enlarged, unchanged. [place], mediastinum, and skeletal structures are unremarkable. Impression: Chronic parenchymal densities bilaterally. Chronic cardiomegaly. No new or acute cardiopulmonary findings. Electronically Signed by Chris Monk MD 07/25/2018 09:40 A
[2018-07-25 09:52] LABS: ABG HCO3 18.4 MEQ/L (22.0-26.0); ABG O2 SATURATION 96.4 % (95.0-99.0); ABG PARTIAL PRESSURE CO2 32.4 mmHg (35.0-45.0); ABG PARTIAL PRESSURE O2 88.4 mmHg (75.0-100.0); ABG STANDARD HCO3 19.6 MEQ/L (22.0-26.0); ABG TOTAL CO2 19.4 MEQ/L (23.0-31.0); ABG pH (ARTERIAL) 7.372 UNITS (7.350-7.450)
[2018-07-25 09:55] LABS: BASO % 0.4 % (0.0-1.0); EOS % 0.2 % (0.0-3.0); HEMATOCRIT 34.1 % (42.0-52.0); HEMOGLOBIN 10.7 g/dl (13.5-17.5); LYMPH # 0.3 10^3/uL (1.5-4.5); LYMPH % 5.3 % (24.0-44.0); MEAN CORPUSCULAR HEMOGLOBIN 29.2 pg (27.0-33.0); MEAN CORPUSCULAR HGB CONC 31.4 g/dl (32.0-36.5); MEAN CORPUSCULAR VOLUME 92.9 fl (80.0-96.0); MONO # 0.5 10^3/uL (0.0-0.8); NEUTROPHILS # 4.5 10^3/uL (1.8-7.7); NEUTROPHILS % 84.3 % (36.0-66.0); PLATELET COUNT, AUTOMATED 101 10^3/uL (150-450); RED BLOOD COUNT 3.67 10^6/uL (4.30-6.10); WHITE BLOOD COUNT 5.3 10^3/uL (4.0-10.0)
[2018-07-25 10:05] LABS: INR 3.15; PROTHROMBIN TIME 33.1 SECONDS (12.1-14.4)
[2018-07-25 10:28] LABS: ALBUMIN 3.9 GM/DL (3.2-5.2); BILIRUBIN,DIRECT 0.2 MG/DL (0.0-0.2); BILIRUBIN,TOTAL 0.6 MG/DL (0.2-1.0); CALCIUM LEVEL 8.6 MG/DL (8.8-10.2); CREATININE FOR GFR 2.65 MG/DL (0.70-1.30); GLOMERULAR FILTRATION RATE 25.1 (>42); MB/CK RELATIVE INDEX 5.39 (< OR =4); THYROID STIMULATING HORMONE 1.2 uIU/ML (0.358-3.740); TOTAL PROTEIN 7.1 GM/DL (6.4-8.2); TROPONIN I 0.36 NG/ML (< 0.10)
[2018-07-25 10:43] LABS: INFLUENZA A AMPLIFICATION NEGATIVE (NEGATIVE); INFLUENZA B AMPLIFICATION NEGATIVE (NEGATIVE)
[2018-07-25] MEDS ORDERED: IPRATROPIUM 0.5MG/ALBUTEROL 2.5MG INH SOL UD 3ML (DUONEB)(J7620) NEB ONE (12:30)
[2018-07-25] MEDS ORDERED: FUROSEMIDE 100 MG/10 ML VIAL (J1940) IV ONE (14:15)
--- NOTE | 2018-07-25 14:27 | REP ---
CT NECK WITHOUT CONTRAST: HISTORY: Dyspnea. Calcifications are present in the tonsils and lateral flynn of the oropharynx. This is secondary to previous inflammatory disease. The naso-, rima-, and hypopharynx, larynx, and subglottic trachea are otherwise normal in appearance. The salivary and thyroid glands are normal in size and density. Small lymph nodes less than 1 cm in size are present in the internal jugular chains, posterior triangles, and submandibular areas. Atherosclerotic calcification is present at the carotid bifurcations. Degenerative change is present in the cervical spine. A right pleural effusion is present. The visualized sinuses are clear. IMPRESSION: 1. There is no neck mass or adenopathy. 2. Right pleural effusion. Electronically Signed by Esteban Webb MD 07/25/2018 02:39 P
[2018-07-25 14:33] LABS: MB/CK RELATIVE INDEX 5.45 (< OR =4); TROPONIN I 0.36 NG/ML (< 0.10)
[2018-07-25] MEDS ORDERED: METOPROLOL 5 MG/5 ML VIAL IV STA (15:58)
[2018-07-25] MEDS ORDERED: BISACODYL 5 MG TAB PO PRN (16:00)
[2018-07-25] MEDS ORDERED: FLOM0.4C39 PO (16:00)
[2018-07-25] MEDS ORDERED: FINA5TAB2 PO (16:00)
[2018-07-25] MEDS ORDERED: CARV25TA PO (16:00)
[2018-07-25] MEDS ORDERED: WARF4TAB52 PO ×2 (16:00)
[2018-07-25] MEDS ORDERED: ESCI10TA2 PO (16:00)
[2018-07-25] MEDS ORDERED: SPIR-10 PO (16:00)
[2018-07-25] MEDS ORDERED: HYDR100T PO (16:00)
[2018-07-25] MEDS ORDERED: TORS20TA2 PO (16:00)
[2018-07-25] MEDS ORDERED: ALBUTEROL 90 MCG/ACT 8GM HFA INHALER INH PRN (16:00)
[2018-07-25] MEDS ORDERED: GLIP-163 PO (16:01)
[2018-07-25] MEDS ORDERED: GLUCOSE 4 GM CHEW TABLET PO PRN (16:15)
[2018-07-25] MEDS ORDERED: DEXTROSE 50% 50 ML SYRINGE IV PRN (16:15)
[2018-07-25] MEDS ORDERED: GLUCAGON FOR INJ 1 MG VIAL (J1610) SC PRN (16:15)
[2018-07-25 16:28] LABS: MAGNESIUM LEVEL 2.3 MG/DL (1.8-2.4)
[2018-07-25] MEDS ORDERED: PILL CRUSHER/CUTTER 1 EACH XX PRN (16:30)
--- NOTE | 2018-07-25 16:41 | REP ---
CT CHEST WITHOUT IV CONTRAST: CT chest was performed without IV contrast. Sagittal and coronal reconstruction images are performed. Comparison made with prior study of 01/19/2018. Once again, there are nodular areas of scarring in the right upper lobe with some mild scattered bilateral scarring more inferiorly. There are new interstitial infiltrates/edema in both lower lung zones. There is a moderate right pleural effusion. There is a small left pleural effusion. Multiple lymph nodes are seen in the mediastinum. A few enlarged up to 1.5 cm in short axis. There is moderate atherosclerotic calcification of the thoracic aorta without aneurysm. There is cardiomegaly. There is a tiny amount of pericardial fluid. There are degenerative changes of the spine. In the visualized portions of the upper abdomen there is a tiny amount of perihepatic ascites. IMPRESSION: Cardiomegaly. Bilateral interstitial infiltrates/edema. Moderate right pleural effusion. Small left pleural effusion. A tiny amount of pericardial fluid. Tiny amount of perihepatic ascites. Electronically Signed by Chris Bird MD 07/25/2018 11:52 P
[2018-07-25] MEDS: HumaLOG INSULIN (NovoLOG) PER UNIT SC SCH ×2 (18:25→20:53)
[2018-07-25 18:45] VITALS: BP 127/73
--- NOTE | 2018-07-25 20:00 | HPE ---
DATE OF ADMISSION: 07/25/[address] Katherine Booth PRIMARY CARE PROVIDER: Dr. Adrian Herrera HISTORY OF THE PRESENT ILLNESS: Mr. Zuleta is a 77-year-old male with an extensive past medical history listed below. He is overall hard of hearing and a poor historian. He presented to the emergency room (ER) for gradually worsening shortness of breath over the past few weeks. He denies any recent fevers, chills, changes in medications, sick contacts, or recent travel. Denies orthopnea, paroxysmal nocturnal dyspnea, and lower extremity edema. He states he does have a cough where he sometimes brings up brown sputum but otherwise has no other symptoms. Denies any chest pain or chest tightness. He states his dyspnea is worse with activity and movement, better with rest. No other notable aggravating or alleviating factors. He states he has had similar episodes a few times in the past where those episodes of shortness of breath were also found to be secondary to his heart failure. On this admission thus far in the ER, he has received one DuoNeb treatment and Lasix 60 mg IV times one. On chest x-ray, there is notable cardiomegaly, as well as pleural effusion, greater on the right than the left. Hospitalist was called to admit for dyspnea and pleural effusion. PAST MEDICAL HISTORY: Diastolic congestive heart failure (CHF) with an ejection fraction (EF) of 65% with severe pulmonary hypertension and left ventricular hypertrophy as of 09/2017 echo. Type 2 diabetes mellitus. Severe central sleep apnea. Chronic kidney disease stage III with a baseline creatinine of 1.6 to 1.7. Renal artery stenosis, status post stent. Severe hypertension with hypertensive heart disease. Chronic atrial fibrillation, on long-term Coumadin. Hyperlipidemia. Chronic anemia. Cirrhosis of the liver. Obstructive uropathy with renal cysts and trabeculated bladder. Valvular heart disease. Moderate aortic and mitral valve stenosis. HOME MEDICATIONS: - Ventolin - aspirin 81 mg - atorvastatin 5 mg - carvedilol 25 mg by mouth twice a day - diltiazem 360 mg by mouth daily - escitalopram oxalate 10 mg by mouth daily - cyanocobalamin - ferrous ascorbate - finasteride 5 mg by mouth daily - glimepiride 4 mg by mouth daily - glipizide 2.5 mg by mouth daily - hydralazine 100 mg by mouth twice a day - spironolactone 12.5 mg by mouth twice a day - Flomax daily - torsemide 20 mg by mouth daily - warfarin 1 mg on Wednesday, Wednesday, Wednesday and 2 mg on Wednesday, Wednesday, , Wednesday. ALLERGIES: No known allergies. SURGICAL HISTORY: Left arm hematoma. Cholecystectomy. Appendectomy. Mid back surgery secondary to trauma. Left kidney stone status post lithotripsy and a left renal artery stent. SOCIAL HISTORY: Quit cigarettes 30 years ago. Smoked one pack per day for about 10 years. Currently drinks about two glasses of whisky per night. Denies any other illicit substances. Currently is and retired. FAMILY HISTORY: Noncontributory. REVIEW OF SYSTEMS: GENERAL: Denies fever, chills, night sweats, weight loss. HEENT: Denies blurred vision, eye pain, ear pain, dysphagia, or headache. CARDIAC: Denies any chest pain or palpitations, or tightness. Denies any extremity edema. No orthopnea, paroxysmal nocturnal dyspnea. RESPIRATORY: Admits to gradually worsening dyspnea on exertion over the past few weeks associated with brown sputum. No wheezing. GASTROINTESTINAL: Denies nausea, vomiting, abdominal pain, or change in bowel habits. SKIN: Denies any new rashes or lesions. HEMATOLOGIC/ONCOLOGIC: Admits to easy bleeding and bruising due to being on blood thinners. MUSCULOSKELETAL: Denies any new muscle aches or weaknesses. NEUROLOGIC: Denies any new loss of sensations. PHYSICAL EXAMINATION; VITAL SIGNS: Temperature 97.8, pulse 90, respirations 20, blood pressure 170/92, mean arterial pressure (MAP) of 118, pulse oximetry (ox) 97% on two liters nasal cannula. GENERAL: Pleasant elderly gentleman, resting comfortably in bed, in no acute distress, able to converse in full sentences, is a poor historian overall and hard of hearing. HEENT: Normocephalic, atraumatic. Pupils equal, round, reactive to light and accommodation. Extraocular muscles intact. Anicteric sclerae. Dry mucous membranes. NECK: Neck is supple without any appreciable jugular venous distention (JVD). CARDIAC: Irregular rhythm. Rate is controlled in the 80s to 90s, on the monitor, is in atrial fibrillation, which he has a history of. No appreciable murmurs. LUNGS: Clear to auscultation bilaterally. No appreciable wheezing, rhonchi, or rales. Equal chest rise bilaterally. Equal breath sounds bilaterally. He is in no respiratory distress. No accessory muscle use. ABDOMEN: Soft, nontender, nondistended. Positive bowel sounds. EXTREMITIES: 2+ radial pulses bilaterally. No peripheral edema. Appears euvolemic on exam. SKIN: No visible rashes. There is an area of ecchymosis on the right posterior flank, which he states is from a recent fall and him being on anticoagulants. MUSCULOSKELETAL: Able to move all extremities. LABORATORY: WBC 5.3, hemoglobin and hematocrit 10.7 and 34.1, platelets 101. Sodium, potassium 140 and 4. BUN and creatinine 69 and 2.67 with a GFR of 25. Liver panel normal. Troponin 0.36. Pro-BNP 12,880. TSH normal 1.2. ABG essentially normal. PT/INR 33.1 and 3.15 respectively. Influenza negative. Blood culture is pending. Respiratory panel negative. IMAGING: Chest x-ray reveals chronic densities of the parenchyma bilaterally and cardiomegaly. No new findings. Neck CT: No neck mass or adenopathy. There is a right pleural effusion. Chest CT: Cardiomegaly. Bilateral interstitial infiltrate/edema. Moderate right pleural effusion. Small left pleural effusion. Tiny amount of pericardial effusion. Tiny amount of perihepatic ascites. IMPRESSION AND PLAN: 1. Gradually progressive dyspnea on exertion. Patient has had worsened shortness of breath with brown sputum over the past few months. He states this is similar to his previous episodes of CHF. On this admission, his pro-BNP is greater than 12,000 with notable infiltrates bilaterally on imaging, as well as cardiomegaly. He does have a history of diastolic CHF, as well as hypertensive heart disease and preserved ejection fraction of 65% on the echo as of 09/2017. We will repeat an echo and treat this as CHF exacerbation. Start IV Lasix, strict intake and output, elevate head of bed and fluid restriction. Will continue his home spironolactone and hold his home torsemide. His respiratory panel and influenza screen was negative on admission. This is less likely to be infectious given he is afebrile with a normal white count. However, we will culture his brown sputum. Pulmonary embolism (PE) is lower on the differential. He is in no respiratory distress and this has been ongoing over the past few months. He is not tachycardic or showing signs of PE on EKG. He also is chronically anticoagulated with warfarin for his atrial fibrillation (a fib) and has a supratherapeutic international normalized ratio (INR) on admission. Also, he is saturating well on room air on admission. He did improve slightly with Lasix dose in the ER. Consider a V/Q scan if he does not improve over time given he has chronic kidney disease and will not tolerate a CT angiogram. His cardiomegaly and bilateral pleural effusions raise suspicion of CHF exacerbation the most. Currently, interventional radiology is not available. However, when services are available tomorrow during work hours, consider thoracentesis, especially on the right side of effusion for culture and for cell counts. Malignancy cannot be ruled out; it is lower on the differential. 2. Supratherapeutic INR. Patient has a history of atrial fibrillation for which he is on warfarin. His INR is 3.15 on admission. We will currently place the Coumadin on hold and check INR daily and consider resuming once he is in his goal of 2-3 INR. 3. Elevated troponins. The patient does not complain of any chest pain or tightness. He is in no distress. Admission EKG revealed atrial fibrillation with a heart rate of 80. No appreciable ST changes. His troponin is 0.36, remains stable when rechecked 4 hours later in the ER. We will recheck additional set every 8 hours, as well as an EKG in the morning. This is unlikely to be a concern for acute coronary syndrome (ACS) and more likely to be secondary to his acutely decompensated CHF in the setting of his chronic kidney disease. 4. For the remainder of his chronic medical conditions, we will continue his home medications and replace his diabetic regimen with insulin sliding scale inpatient. 5. Deep vein thrombosis (DVT) prophylaxis. Thromboembolism deterrents (TEDs) and sequential compression devices (SCDs). He is chronically on Coumadin, which is currently on hold given his supratherapeutic INR. DISPOSITION: Will admit to the hospital and sign out to the appropriate team who will be taking over care. My faculty preceptor for this patient encounter was physically present during the encounter and was fully available. All aspects of the patient interview, examination, medical decision making process, and medical care plan development were reviewed and approved by the faculty preceptor. The faculty preceptor is aware and concurs with the plan as stated in the body of this note and will attest to such by his/her cosignature. GALO
[2018-07-25] MEDS: ATORVASTATIN 10 MG TAB PO SCH (20:52)
[2018-07-25] MEDS: **hydrALAZINE** 50 MG TAB PO SCH (20:52)
[2018-07-25] MEDS: CARVedilol 12.5 MG TAB PO SCH (20:53)
[2018-07-25 22:00] VITALS: BP 162/78
[2018-07-25 22:10] LABS: MB/CK RELATIVE INDEX 4.38 (< OR =4); TROPONIN I 0.27 NG/ML (< 0.10)
[2018-07-26] MEDS ORDERED: FUROSEMIDE 40 MG/4 ML VIAL (J1940) IV SCH
[2018-07-26 01:00] VITALS: BP 162/80
[2018-07-26] MEDS: FUROSEMIDE 40 MG/4 ML VIAL (J1940) IV SCH ×2 (01:00→12:44)
[2018-07-26 06:00] VITALS: BP 164/90
[2018-07-26 06:56] LABS: HEMATOCRIT 34.7 % (42.0-52.0); HEMOGLOBIN 10.9 g/dl (13.5-17.5); MEAN CORPUSCULAR HEMOGLOBIN 28.8 pg (27.0-33.0); MEAN CORPUSCULAR HGB CONC 31.4 g/dl (32.0-36.5); MEAN CORPUSCULAR VOLUME 91.8 fl (80.0-96.0); PLATELET COUNT, AUTOMATED 105 10^3/uL (150-450); RED BLOOD COUNT 3.78 10^6/uL (4.30-6.10); WHITE BLOOD COUNT 4.5 10^3/uL (4.0-10.0)
[2018-07-26 07:10] LABS: INR 2.82; PROTHROMBIN TIME 30.3 SECONDS (12.1-14.4)
[2018-07-26 07:25] LABS: CALCIUM LEVEL 8.8 MG/DL (8.8-10.2); CREATININE FOR GFR 2.48 MG/DL (0.70-1.30); MAGNESIUM LEVEL 2.3 MG/DL (1.8-2.4); MB/CK RELATIVE INDEX 4.29 (< OR =4); POTASSIUM SERUM 3.2 MEQ/L (3.5-5.1); TROPONIN I 0.31 NG/ML (< 0.10)
[2018-07-26] MEDS ORDERED: POTASSIUM CHLORIDE 10 MEQ SR TABLET PO ONE (08:00)
--- NOTE | 2018-07-26 08:03 | ECGEPIP ---
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
[2018-07-26] MEDS: HumaLOG INSULIN (NovoLOG) PER UNIT SC SCH ×4 (09:04→21:31)
[2018-07-26] MEDS: **hydrALAZINE** 50 MG TAB PO SCH ×2 (09:05→21:32)
[2018-07-26] MEDS: CARVedilol 12.5 MG TAB PO SCH ×2 (09:06→21:31)
[2018-07-26] MEDS: FINASTERIDE 5 MG TAB PO SCH (09:06)
[2018-07-26] MEDS: TAMSULOSIN 0.4 MG CAP PO SCH (09:07)
[2018-07-26] MEDS: ASPIRIN 81 MG ENTERIC TAB PO SCH (09:07)
[2018-07-26] MEDS: ESCITALOPRAM OXALATE 10 MG TAB (LEXAPRO) PO SCH (09:07)
[2018-07-26] MEDS: CYANOCOBALAMIN 500 MCG TAB PO SCH (09:07)
[2018-07-26] MEDS: diltiaZEM **CD** 180 MG CAP PO SCH (09:15)
[2018-07-26 14:00] VITALS: BP 147/87
--- NOTE | 2018-07-26 14:39 | IPNPDOC ---
Text Note Date of Service The patient was seen on 07/26/18. NOTE Subjective: Patient is a 77-year-old male with a PMHx of Diastolic CHF, Chronic A. fib (on Coumadin), Moderate Aortic and Mitral valve stenosis, HTN, DM2, DLP, Central sleep apnea, CKD3, Renal artery stenosis s/p stent, Anemia, Cirrhosis, Obstructive uropathy with trabeculated bladder, who presented to the ER with complaints of worsening shortness of breath. Patient has noted that he has some sputum for reduction with brown colored expectorate. Patient was made to hospitalist service for suspected CHF exacerbation. Patient was seen and examined at the bedside. Patient noted some improvement in his breathing. He denies any chest pain or palpitations. Still reports a cough with brown sputum. Denies any nausea, vomiting, abdominal pain, constipation, diarrhea or discomfort with urination. Objective: Vitals (See below) General: Lying in bed, no acute distress, comfortable, AAOx3 HEENT: NC, AT CVS: RRR, +S1S2 Lungs: Fair air entry b/l, -w/r/r Abdomen: Soft, ND, NT Extremities: - Edema, - Calf tenderness Assessment and plan: Shortness of breath - likely 2/2 acute Diastolic CHF exacerbation, less likely 2/2 pneumonia - Presented to the ER with complaints of shortness of breath, associate with sputum production - Physical does not reveal any signs of fluid overload; has remained afebrile since admission - BNP on admission was significantly elevated - No leukocytosis or lactic acidosis - CTA Chest 07/25: Cardiomegaly. Bilateral interstitial infiltrates/edema. Moderate right pleural effusion. Small left pleural effusion. A tiny amount of pericardial fluid. Tiny amount of perihepatic ascites. - Continue with strict ins and outs, daily weights, and head of bed elevation - Continue with furosemide 40 IV q12h and Spironolactone Right sided pleural effusion - possibly 2/2 above - Will c/w Diuresis - Will repeat imaging in next 24 hours to evaluate for improvement Troponin elevation - likely 2/2 demand ischemia - 2/2 diastolic CHF exacerbation - Patient denies any chest pain or palpitations - Troponin count has remained stable - EKG without ischemic change Chronic A. fib - c/w rate control with Carvedilol and Diltiazem - INR therapeutic; will resume - c/w full anticoagulation with Coumadin Moderate Aortic and Mitral valve stenosis HTN - BP well controlled - c/w Carvedilol, Diltiazem, Hydralazine, DM2 - c/w ISS DLP - c/w Atorvastatin Central sleep apnea CKD3 / Obstructive uropathy with trabeculated bladder - Baseline creatinine of 2.3-2.7 - Creatinine appears to be improving over last 24 hours; appears to be at baseline - c/w Finasteride, Tamsulosin Renal artery stenosis s/p stent Anemia - Hg baseline of - - Anemia appears to be around baseline Cirrhosis - Liver function test appear to be within normal limits Depression - c/w Escitalopram DVT prophylaxis - On full anticoagulation with Coumadin VS,Fishbone, I+O VS, Fishbone, I+O Laboratory Tests 07/26/18 05:57 Red Blood Count 3.78 L, Mean Corpuscular Volume 91.8, Mean Corpuscular Hemoglobin 28.8, Mean Corpuscular Hemoglobin Concent 31.4 L, Red Cell Distribution Width 14.9 H, Calcium Level 8.8, Total Creatine Kinase 63 Vital Signs Date Time Temp Pulse Resp B/P (MAP) Pulse Ox O2 Delivery O2 Flow Rate FiO2 07/26/18 09:15 97 07/26/18 09:05 182/84 07/26/18 09:00 1.0 07/26/18 06:00 98.6 22 95 07/25/18 18:30 Room Air I&O- Last 24 Hours up to 6 AM 07/26/18 06:00 Intake Total 565 ml Output Total 1675 ml Balance -1110 ml AMANDEEP CARMEN MD Jul 26, 2018 14:39
[2018-07-26] MEDS: WARFARIN SOD 2 MG TAB PO SCH (16:15)
[2018-07-26] MEDS: SPIRONOLACTONE 12.5MG PER 1/2 TABLET PO SCH (16:15)
--- NOTE | 2018-07-26 18:44 | ECGEPIP ---
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
[2018-07-26] MEDS: ATORVASTATIN 10 MG TAB PO SCH (21:32)
[2018-07-26 22:00] VITALS: BP 134/63
[2018-07-27] MEDS: FUROSEMIDE 40 MG/4 ML VIAL (J1940) IV SCH ×2 (00:13→17:38)
[2018-07-27 06:00] VITALS: BP 144/78
[2018-07-27 06:29] LABS: HEMATOCRIT 33.5 % (42.0-52.0); HEMOGLOBIN 10.6 g/dl (13.5-17.5); MEAN CORPUSCULAR HEMOGLOBIN 28.9 pg (27.0-33.0); MEAN CORPUSCULAR HGB CONC 31.6 g/dl (32.0-36.5); MEAN CORPUSCULAR VOLUME 91.3 fl (80.0-96.0); RED BLOOD COUNT 3.67 10^6/uL (4.30-6.10); WHITE BLOOD COUNT 4.2 10^3/uL (4.0-10.0)
[2018-07-27 06:30] LABS: PLATELET COUNT, AUTOMATED 104 10^3/uL (150-450)
[2018-07-27 06:41] LABS: INR 2.64; PROTHROMBIN TIME 28.7 SECONDS (12.1-14.4)
[2018-07-27 06:51] LABS: CALCIUM LEVEL 8.5 MG/DL (8.8-10.2); CREATININE FOR GFR 2.63 MG/DL (0.70-1.30); GLOMERULAR FILTRATION RATE 25.3 (>42); MAGNESIUM LEVEL 2.2 MG/DL (1.8-2.4); POTASSIUM SERUM 3.4 MEQ/L (3.5-5.1)
[2018-07-27] MEDS ORDERED: POTASSIUM CHLORIDE 10 MEQ SR TABLET PO ONE (08:00)
[2018-07-27] MEDS: HumaLOG INSULIN (NovoLOG) PER UNIT SC SCH ×4 (08:17→21:00)
[2018-07-27] MEDS: TAMSULOSIN 0.4 MG CAP PO SCH (08:18)
[2018-07-27] MEDS: diltiaZEM **CD** 180 MG CAP PO SCH (08:18)
[2018-07-27] MEDS: ASPIRIN 81 MG ENTERIC TAB PO SCH (08:18)
[2018-07-27] MEDS: CYANOCOBALAMIN 500 MCG TAB PO SCH (08:18)
[2018-07-27] MEDS: SPIRONOLACTONE 12.5MG PER 1/2 TABLET PO SCH (08:18)
[2018-07-27] MEDS: FINASTERIDE 5 MG TAB PO SCH (08:19)
[2018-07-27] MEDS: ESCITALOPRAM OXALATE 10 MG TAB (LEXAPRO) PO SCH (08:19)
[2018-07-27] MEDS: **hydrALAZINE** 50 MG TAB PO SCH ×2 (08:19→21:07)
[2018-07-27] MEDS: CARVedilol 12.5 MG TAB PO SCH ×2 (08:19→21:06)
--- NOTE | 2018-07-27 10:58 | REP ---
Chest two views HISTORY: Right pleural effusion Comparison: 07/25/2018 An increase in interstitial markings is present in the lungs unchanged compared to the previous study. Nodular parenchymal densities are present in the right upper lobe unchanged compared to the previous study. Small bilateral pleural effusions are present. The cardiac silhouette is enlarged. The pulmonary vasculature is prominent. The bony structure is intact. IMPRESSION: 1. There is an increase in interstitial markings in the lungs unchanged compared to the previous study. 2. There are nodular parenchymal densities in the right upper lobe unchanged compared to the previous study. 3. Small bilateral pleural effusions. 4. Cardiomegaly. Electronically Signed by Esteban Webb MD 07/27/2018 10:49 A
[2018-07-27 14:00] VITALS: BP 153/73
--- NOTE | 2018-07-27 16:30 | IPNPDOC ---
Text Note Date of Service The patient was seen on 07/27/18. NOTE Subjective: Patient is a 77-year-old male with a PMHx of Diastolic CHF, Chronic A. fib (on Coumadin), Moderate Aortic and Mitral valve stenosis, HTN, DM2, DLP, Central sleep apnea, CKD3, Renal artery stenosis s/p stent, Anemia, Cirrhosis, Obstructive uropathy with trabeculated bladder, who presented to the ER with complaints of worsening shortness of breath. Patient has noted that he has some sputum for reduction with brown colored expectorate. Patient was made to hospitalist service for suspected CHF exacerbation. Patient was seen and examined at the bedside. Currently patient notes that he feels slightly better, however, still some shortness of breath. Denies any chest pain or palpitations. Denies any nausea, vomiting, abdominal pain, consultation, diarrhea or discomfort with urination. Objective: Vitals (See below) General: Lying in bed, no acute distress, comfortable, AAOx3 HEENT: NC, AT CVS: RRR, +S1S2 Lungs: Fair air entry b/l, no evidence of rhonchi or wheezing, crackles at bilateral bases Abdomen: Soft, nondistended, without tenderness Extremities: No evidence of LE edema, - Calf tenderness Assessment and plan: Shortness of breath - likely 2/2 acute diastolic CHF exacerbation, less likely 2/2 pneumonia - Presented to the ER with complaints of shortness of breath associate with sputum production - . She notes that his sputum production has resolved - Physical does not reveal any signs of fluid overload; has remained afebrile since admission - BNP on admission was significantly elevated - No leukocytosis or lactic acidosis - CTA Chest 07/25: Cardiomegaly. Bilateral interstitial infiltrates/edema. Moderate right pleural effusion. Small left pleural effusion. A tiny amount of pericardial fluid. Tiny amount of perihepatic ascites. - c/w strict ins and outs, daily weights, and head of bed elevation - c/w Spironolactone; will increase furosemide into net negative protocol Right sided pleural effusion - possibly 2/2 above - Repeat CXR 07/27: 1. There is an increase in interstitial markings in the lungs unchanged compared to the previous study. 2. There are nodular parenchymal densities in the right upper lobe unchanged compared to the previous study. 3. Small bilateral pleural effusions. 4. Cardiomegaly. - c/w Diuresis; will increase frequency Troponin elevation - likely 2/2 demand ischemia - 2/2 diastolic CHF exacerbation - Patient denies any chest pain or palpitations - Troponin count has remained stable - EKG without ischemic change Chronic A. fib - c/w rate control with Carvedilol and Diltiazem - INR therapeutic - c/w full anticoagulation with Coumadin - continue with outpatient regimen Moderate Aortic and Mitral valve stenosis HTN - BP well controlled - c/w Carvedilol, Diltiazem, Hydralazine, DM2 - c/w ISS DLP - c/w Atorvastatin Central sleep apnea CKD3 / Obstructive uropathy with trabeculated bladder - Baseline creatinine of 2.3-2.7 - Creatinine appears to be improving over last 24 hours; appears to be at baseline - c/w Finasteride, Tamsulosin Renal artery stenosis s/p stent Anemia - Hg baseline of 11-12 - Anemia appears to be around baseline Cirrhosis - Liver function test appear to be within normal limits Depression - c/w Escitalopram DVT prophylaxis - On full anticoagulation with Coumadin VS,Toño, I+O VS, Toño, I+O Laboratory Tests 07/27/18 06:05 Red Blood Count 3.67 L, Mean Corpuscular Volume 91.3, Mean Corpuscular Hemoglobin 28.9, Mean Corpuscular Hemoglobin Concent 31.6 L, Red Cell Distribution Width 14.7 H, Calcium Level 8.5 L Vital Signs Date Time Temp Pulse Resp B/P (MAP) Pulse Ox O2 Delivery O2 Flow Rate FiO2 07/27/18 14:36 94 07/27/18 14:00 97.4 66 18 153/73 (99) 07/27/18 12:59 1.0 07/25/18 18:30 Room Air I&O- Last 24 Hours up to 6 AM 07/27/18 06:00 Intake Total 1810 ml Output Total 3171 ml Balance -1361 ml AMANDEEP CARMEN MD Jul 27, 2018 16:30
[2018-07-27] MEDS ORDERED: WARFARIN SOD 1 MG TAB PO SCH (17:00)
[2018-07-27] MEDS: ATORVASTATIN 10 MG TAB PO SCH (21:07)
[2018-07-27 22:00] VITALS: BP 132/80
[2018-07-28] MEDS: FUROSEMIDE 40 MG/4 ML VIAL (J1940) IV SCH ×4 (00:29→18:18)
[2018-07-28 06:00] VITALS: BP 135/86
[2018-07-28 06:22] LABS: HEMATOCRIT 34.6 % (42.0-52.0); MEAN CORPUSCULAR HGB CONC 31.8 g/dl (32.0-36.5); PLATELET COUNT, AUTOMATED 111 10^3/uL (150-450); RED BLOOD COUNT 3.93 10^6/uL (4.30-6.10); WHITE BLOOD COUNT 4.7 10^3/uL (4.0-10.0)
[2018-07-28 06:38] LABS: INR 2.06; PROTHROMBIN TIME 23.6 SECONDS (12.1-14.4)
[2018-07-28 06:50] LABS: CALCIUM LEVEL 8.6 MG/DL (8.8-10.2); CREATININE FOR GFR 2.38 MG/DL (0.70-1.30); GLOMERULAR FILTRATION RATE 28.4 (>42); MAGNESIUM LEVEL 2.3 MG/DL (1.8-2.4); POTASSIUM SERUM 3.6 MEQ/L (3.5-5.1)
[2018-07-28] MEDS: SPIRONOLACTONE 12.5MG PER 1/2 TABLET PO SCH (08:39)
[2018-07-28] MEDS: FINASTERIDE 5 MG TAB PO SCH (08:39)
[2018-07-28] MEDS: ESCITALOPRAM OXALATE 10 MG TAB (LEXAPRO) PO SCH (08:40)
[2018-07-28] MEDS: TAMSULOSIN 0.4 MG CAP PO SCH (08:40)
[2018-07-28] MEDS: CARVedilol 12.5 MG TAB PO SCH ×2 (08:40→20:16)
[2018-07-28] MEDS: **hydrALAZINE** 50 MG TAB PO SCH ×2 (08:40→20:16)
[2018-07-28] MEDS: CYANOCOBALAMIN 500 MCG TAB PO SCH (08:41)
[2018-07-28] MEDS: diltiaZEM **CD** 180 MG CAP PO SCH (08:41)
[2018-07-28] MEDS: HumaLOG INSULIN (NovoLOG) PER UNIT SC SCH ×4 (08:41→20:18)
[2018-07-28] MEDS: ASPIRIN 81 MG ENTERIC TAB PO SCH (08:41)
--- NOTE | 2018-07-28 12:27 | IPNPDOC ---
Text Note Date of Service The patient was seen on 07/28/18. NOTE Subjective: Patient is a 77-year-old male with a PMHx of Diastolic CHF, Chronic A. fib (on Coumadin), Moderate Aortic and Mitral valve stenosis, HTN, DM2, DLP, Central sleep apnea, CKD3, Renal artery stenosis s/p stent, Anemia, Cirrhosis, Obstructive uropathy with trabeculated bladder, who presented to the ER with complaints of worsening shortness of breath. Patient has noted that he has some sputum for reduction with brown colored expectorate. Patient was made to hospitalist service for suspected CHF exacerbation. Patient was seen and examined at the bedside. Patient is that his breathing is doing better. Denies any chest pain, shortness breath or palpitations. Denies nausea, vomiting, abdominal pain, constipation, diarrhea or discomfort with urination. Patient was seen on room air without nasal cannula in place, was not expressing any issues. Objective: Vitals (See below) General: Lying in bed, no acute distress, comfortable, AAOx3 HEENT: NC, AT CVS: RRR, +S1S2 Lungs: Fair air entry b/l, there does not appear to be auscultated evidence of wheezing, rhonchi or rales Abdomen: Soft, abdomen is nondistended without tenderness Extremities: No evidence of LE edema, - Calf tenderness Assessment and plan: Shortness of breath - likely 2/2 acute diastolic CHF exacerbation, less likely 2/2 pneumonia - Presented to the ER with complaints of shortness of breath associate with sputum production - . She notes that his sputum production has resolved - Physical does not reveal any signs of fluid overload; has remained afebrile since admission - BNP on admission was significantly elevated - No leukocytosis or lactic acidosis - CTA Chest 07/25: Cardiomegaly. Bilateral interstitial infiltrates/edema. Moderate right pleural effusion. Small left pleural effusion. A tiny amount of pericardial fluid. Tiny amount of perihepatic ascites. - c/w strict ins and outs, daily weights, and head of bed elevation - Will repeat CXR tomorrow AM - c/w Spironolactone and Furosemide (Net negative protocol) Right sided pleural effusion - possibly 2/2 above - Repeat CXR 07/27: 1. There is an increase in interstitial markings in the lungs unchanged compared to the previous study. 2. There are nodular parenchymal densities in the right upper lobe unchanged compared to the previous study. 3. Small bilateral pleural effusions. 4. Cardiomegaly. - c/w Diuresis (see above) Troponin elevation - likely 2/2 demand ischemia - 2/2 diastolic CHF exacerbation - Patient denies any chest pain or palpitations - Troponin count has remained stable - EKG without ischemic change Chronic A. fib - c/w rate control with Carvedilol and Diltiazem - INR therapeutic - c/w full anticoagulation with Coumadin - continue with outpatient regimen Moderate Aortic and Mitral valve stenosis HTN - BP well controlled - c/w Carvedilol, Diltiazem, Hydralazine, DM2 - c/w ISS DLP - c/w Atorvastatin Central sleep apnea CKD3 / Obstructive uropathy with trabeculated bladder - Baseline creatinine of 2.3-2.7 - Creatinine appears to be improving over last 24 hours; appears to be at baseline - c/w Finasteride, Tamsulosin Renal artery stenosis s/p stent Anemia - Hg baseline of 11-12 - Anemia appears to be around baseline Cirrhosis - Liver function test appear to be within normal limits Depression - c/w Escitalopram DVT prophylaxis - On full anticoagulation with Coumadin VS,Fishbone, I+O VS, Fishbone, I+O Laboratory Tests 07/28/18 06:04 Red Blood Count 3.93 L, Mean Corpuscular Volume 88.0, Mean Corpuscular Hemoglobin 28.0, Mean Corpuscular Hemoglobin Concent 31.8 L, Red Cell Distribution Width 14.7 H, Calcium Level 8.6 L Vital Signs Date Time Temp Pulse Resp B/P (MAP) Pulse Ox O2 Delivery O2 Flow Rate FiO2 07/28/18 08:40 101 187/85 07/28/18 06:00 96.9 18 95 07/27/18 12:59 1.0 07/25/18 18:30 Room Air I&O- Last 24 Hours up to 6 AM 07/28/18 06:00 Intake Total 1988 ml Output Total 3575 ml Balance -1587 ml AMANDEEP CARMEN MD Jul 28, 2018 12:27
[2018-07-28 14:00] VITALS: BP 132/75
[2018-07-28] MEDS: WARFARIN SOD 2 MG TAB PO SCH (18:19)
[2018-07-28] MEDS: ATORVASTATIN 10 MG TAB PO SCH (20:17)
[2018-07-28 22:00] VITALS: BP 165/93
[2018-07-29] MEDS: FUROSEMIDE 40 MG/4 ML VIAL (J1940) IV SCH ×2 (00:15→05:32)
[2018-07-29 05:50] LABS: HEMATOCRIT 36.6 % (42.0-52.0); HEMOGLOBIN 11.9 g/dl (13.5-17.5); MEAN CORPUSCULAR HEMOGLOBIN 28.9 pg (27.0-33.0); MEAN CORPUSCULAR HGB CONC 32.5 g/dl (32.0-36.5); MEAN CORPUSCULAR VOLUME 88.8 fl (80.0-96.0); PLATELET COUNT, AUTOMATED 118 10^3/uL (150-450); RED BLOOD COUNT 4.12 10^6/uL (4.30-6.10); WHITE BLOOD COUNT 5.4 10^3/uL (4.0-10.0)
[2018-07-29 05:59] LABS: INR 1.69; PROTHROMBIN TIME 20.2 SECONDS (12.1-14.4)
[2018-07-29 06:00] VITALS: BP 158/92
[2018-07-29 06:10] LABS: CALCIUM LEVEL 8.8 MG/DL (8.8-10.2); CREATININE FOR GFR 2.57 MG/DL (0.70-1.30); POTASSIUM SERUM 3.6 MEQ/L (3.5-5.1)
--- NOTE | 2018-07-29 06:29 | ECHO ---
DATE OF PROCEDURE: 07/27/2018 DATE OF : 1940 AGE: 77 GENDER: Male. HEIGHT: 69 inches. WEIGHT: 175 pounds BODY SURFACE AREA: 1.95 meter squared INPATIENT: [address] [place] [address], Room 4213 REFERRING PHYSICIAN: Dr. Kenyon Barron INDICATION: Dyspnea. MEASUREMENTS: 2-D Measurements: RV: 5.1 cm LV: 4.9 cm Septum: 1.4 cm Posterior wall: 1.3 cm Aortic root: 3.4 cm LA: 4.9 cm LVEF: 65% Doppler Measurements: AV: 1.4 m/s LVOT: 0.68 m/s LVOT diameter: 1.9 cm MV - E 92 Early mitral deceleration time: 102 ms E prime: 6.1 E/E prime ratio: 15 PCWP: 18 mmHg PV: 0.75 m/s Pulmonary artery acceleration time: 67 ms RVSP: 89 mmHg IVC: 3.0 cm COMMENTS: Underlying atrial fibrillation with controlled ventricular response. No apparent intraventricular conduction disturbance. Technically challenging study in light of the patient's body habitus but diagnostically useful information was still obtained. At least mild concentric left ventricle hypertrophy with septal wall motion abnormality due to right ventricular pressure overload yet preserved global resting systolic function. Prominently dilated left atrium with current estimated mean left atrial pressure at least mildly increased. Prominently dilated right heart chambers with right ventricular hypokinesis and Doppler evidence of severe pulmonary hypertension. Prominently dilated inferior vena cava with absent respiratory collapse in keeping with elevated central venous pressure/right heart failure. Aortic valvular sclerosis with adequate cusp separation, but premature cusp closure in keeping with reduced forward stroke volume. Normal aortic root size. Mitral annular calcification with "low flow "appearance to leaflet excursion. No posterior systolic buckling, but at least moderate insufficiency. Normal appearing tricuspid valve with severe tricuspid insufficiency. No apparent intracardiac mass or pericardial effusion. MTDD
--- NOTE | 2018-07-29 08:16 | REP ---
PA and lateral chest: Comparisons are the PA and lateral chest dated 07/27/[address] dated 07/25/2018. There is a right pleural effusion, unchanged. By CT there is a small left pleural effusion, not visible on plain films. There are nodular densities in the right lung, better appreciated on the comparison CT. Cardiac size is enlarged, unchanged. The accentuated interstitium identified on 07/27/2018 is no longer appreciated. Electronically Signed by Chris Monk MD 07/29/2018 08:08 A
[2018-07-29] MEDS: FINASTERIDE 5 MG TAB PO SCH (08:59)
[2018-07-29] MEDS: ASPIRIN 81 MG ENTERIC TAB PO SCH (08:59)
[2018-07-29] MEDS: diltiaZEM **CD** 180 MG CAP PO SCH (08:59)
[2018-07-29] MEDS: CYANOCOBALAMIN 500 MCG TAB PO SCH (08:59)
[2018-07-29] MEDS: HumaLOG INSULIN (NovoLOG) PER UNIT SC SCH ×4 (08:59→22:18)
[2018-07-29] MEDS: **hydrALAZINE** 50 MG TAB PO SCH ×2 (08:59→22:17)
[2018-07-29] MEDS: TAMSULOSIN 0.4 MG CAP PO SCH (08:59)
[2018-07-29] MEDS: ESCITALOPRAM OXALATE 10 MG TAB (LEXAPRO) PO SCH (09:00)
[2018-07-29] MEDS: CARVedilol 12.5 MG TAB PO SCH ×2 (09:00→22:18)
[2018-07-29] MEDS: SPIRONOLACTONE 12.5MG PER 1/2 TABLET PO SCH (09:00)
[2018-07-29 14:00] VITALS: BP 130/67
[2018-07-29] MEDS: TORSEMIDE 20 MG TAB PO SCH (14:29)
--- NOTE | 2018-07-29 15:38 | IPNPDOC ---
Text Note Date of Service The patient was seen on 07/29/18. NOTE Subjective: Patient is a 77-year-old male with a PMHx of Diastolic CHF, Chronic A. fib (on Coumadin), Moderate Aortic and Mitral valve stenosis, HTN, DM2, DLP, Central sleep apnea, CKD3, Renal artery stenosis s/p stent, Anemia, Cirrhosis, Obstructive uropathy with trabeculated bladder, who presented to the ER with complaints of worsening shortness of breath. Patient has noted that he has some sputum for reduction with brown colored expectorate. Patient was made to hospitalist service for suspected CHF exacerbation. Patient was seen and examined at the bedside. Currently patient denies any chest pain, shortness of breath or palpitations. Patient denies any nausea, vomiting, abdominal pain, constipation or diarrhea. Objective: Vitals (See below) General: Lying in bed, no acute distress, comfortable, AAOx3 HEENT: NC, AT CVS: RRR, +S1S2 Lungs: Fair air entry b/l, auscultation is, again without any rhonchi, rales or wheezing Abdomen: Abdomen remains soft, nontender and nondistended Extremities: No evidence of LE edema, - Calf tenderness Assessment and plan: Shortness of breath - likely 2/2 acute diastolic CHF exacerbation, less likely 2/2 pneumonia - Presented to the ER with complaints of shortness of breath associate with sputum production - Physical does not reveal any signs of fluid overload; has remained afebrile since admission - BNP on admission was significantly elevated - No leukocytosis or lactic acidosis - CTA Chest 07/25: Cardiomegaly. Bilateral interstitial infiltrates/edema. Moderate right pleural effusion. Small left pleural effusion. A tiny amount of pericardial fluid. Tiny amount of perihepatic ascites. - c/w strict ins and outs, daily weights - c/w Spironolactone; will c/w Furosemide; will transition to PO Right sided pleural effusion - possibly 2/2 above - Repeat CXR 07/27: 1. There is an increase in interstitial markings in the lungs unchanged compared to the previous study. 2. There are nodular parenchymal densities in the right upper lobe unchanged compared to the previous study. 3. Small bilateral pleural effusions. 4. Cardiomegaly. - Repeat CXR 07/29: Comparisons are the PA and lateral chest dated 07/27/[address] dated 07/25/2018. There is a right pleural effusion, unchanged. By CT there is a small left pleural effusion, not visible on plain films. There are nodular densities in the right lung, better appreciated on the comparison CT. Cardiac size is enlarged, unchanged. The accentuated interstitium identified on 07/27/2018 is no longer appreciated. - c/w Diuresis (see above) Troponin elevation - likely 2/2 demand ischemia - 2/2 diastolic CHF exacerbation - Patient denies any chest pain or palpitations - Troponin count has remained stable - EKG without ischemic change Chronic A. fib - c/w rate control with Carvedilol and Diltiazem - INR subtherapeutic - c/w full anticoagulation with Coumadin; dose increased Moderate Aortic and Mitral valve stenosis HTN - BP well controlled - c/w Carvedilol, Diltiazem, Hydralazine, DM2 - c/w ISS DLP - c/w Atorvastatin Central sleep apnea CKD3 / Obstructive uropathy with trabeculated bladder - Baseline creatinine of 2.3-2.7 - Creatinine appears to be improving over last 24 hours; appears to be at baseline - c/w Finasteride, Tamsulosin Renal artery stenosis s/p stent Anemia - Hg baseline of 11-12 - Anemia appears to be around baseline Cirrhosis - Liver function test appear to be within normal limits Depression - c/w Escitalopram DVT prophylaxis - On full anticoagulation with Coumadin Disposition: - Anticipate discharge within 24 hours VS,Toño, I+O VS, Kerwinbone, I+O Laboratory Tests 07/29/18 05:25 Red Blood Count 4.12 L, Mean Corpuscular Volume 88.8, Mean Corpuscular Hemog lobin 28.9, Mean Corpuscular Hemoglobin Concent 32.5, Red Cell Distribution Width 14.5, Calcium Level 8.8 Vital Signs Date Time Temp Pulse Resp B/P (MAP) Pulse Ox O2 Delivery O2 Flow Rate FiO2 07/29/18 14:00 97.3 76 17 130/67 (88) 96 07/27/18 12:59 1.0 07/25/18 18:30 Room Air I&O- Last 24 Hours up to 6 AM 07/29/18 06:00 Intake Total 1980 ml Output Total 2600 ml Balance -620 ml AMANDEEP CARMEN MD Jul 29, 2018 15:38
[2018-07-29] MEDS: WARFARIN SOD 3 MG TAB PO SCH (17:26)
[2018-07-29 22:00] VITALS: BP 176/82
[2018-07-29] MEDS: ATORVASTATIN 10 MG TAB PO SCH (22:16)
[2018-07-30 06:00] VITALS: BP 150/74
[2018-07-30 06:29] LABS: HEMATOCRIT 35.6 % (42.0-52.0); HEMOGLOBIN 11.3 g/dl (13.5-17.5); MEAN CORPUSCULAR HEMOGLOBIN 28.1 pg (27.0-33.0); MEAN CORPUSCULAR HGB CONC 31.7 g/dl (32.0-36.5); MEAN CORPUSCULAR VOLUME 88.6 fl (80.0-96.0); PLATELET COUNT, AUTOMATED 115 10^3/uL (150-450); RED BLOOD COUNT 4.02 10^6/uL (4.30-6.10); WHITE BLOOD COUNT 5.7 10^3/uL (4.0-10.0)
[2018-07-30 06:43] LABS: INR 1.8; PROTHROMBIN TIME 21.2 SECONDS (12.1-14.4)
[2018-07-30 06:52] LABS: CALCIUM LEVEL 8.8 MG/DL (8.8-10.2); CREATININE FOR GFR 2.5 MG/DL (0.70-1.30); GLOMERULAR FILTRATION RATE 26.8 (>42); MAGNESIUM LEVEL 1.9 MG/DL (1.8-2.4); POTASSIUM SERUM 3.4 MEQ/L (3.5-5.1)
[2018-07-30] MEDS ORDERED: POTASSIUM CHLORIDE 10 MEQ SR TABLET PO ONE (07:15)
[2018-07-30] MEDS: TAMSULOSIN 0.4 MG CAP PO SCH (09:00)
[2018-07-30] MEDS ORDERED: FUROSEMIDE 80 MG TAB PO SCH (09:00)
[2018-07-30] MEDS: FINASTERIDE 5 MG TAB PO SCH (09:01)
[2018-07-30] MEDS: CYANOCOBALAMIN 500 MCG TAB PO SCH (09:01)
[2018-07-30] MEDS: ASPIRIN 81 MG ENTERIC TAB PO SCH (09:01)
[2018-07-30] MEDS: SPIRONOLACTONE 25 MG TAB PO SCH (09:01)
[2018-07-30] MEDS: ESCITALOPRAM OXALATE 10 MG TAB (LEXAPRO) PO SCH (09:01)
[2018-07-30] MEDS: CARVedilol 12.5 MG TAB PO SCH ×2 (09:02→21:33)
[2018-07-30] MEDS: **hydrALAZINE** 50 MG TAB PO SCH ×2 (09:03→21:34)
[2018-07-30] MEDS: diltiaZEM **CD** 180 MG CAP PO SCH (09:03)
[2018-07-30] MEDS: HumaLOG INSULIN (NovoLOG) PER UNIT SC SCH ×4 (09:03→21:33)
[2018-07-30] MEDS ORDERED: TORS20TA2 PO (09:28)
[2018-07-30] MEDS ORDERED: SPIR-10 PO (09:28)
[2018-07-30] MEDS ORDERED: WARF-58 PO (09:28)
[2018-07-30] MEDS ORDERED: CORE25TA PO (09:28)
[2018-07-30 14:00] VITALS: BP 129/60
[2018-07-30] MEDS: TORSEMIDE 20 MG TAB PO SCH (14:31)
--- NOTE | 2018-07-30 14:53 | IPNPDOC ---
Text Note Date of Service The patient was seen on 07/30/18. NOTE Subjective: Patient is a 77-year-old male with a PMHx of Diastolic CHF, Chronic A. fib (on Coumadin), Moderate Aortic and Mitral valve stenosis, HTN, DM2, DLP, Central sleep apnea, CKD3, Renal artery stenosis s/p stent, Anemia, Cirrhosis, Obstructive uropathy with trabeculated bladder, who presented to the ER with complaints of worsening shortness of breath. Patient has noted that he has some sputum for reduction with brown colored expectorate. Patient was made to hospitalist service for suspected CHF exacerbation. Patient was seen and examined at the bedside. Currently patient will be working with physical therapy. Diuretics have been adjusted to oral. Currently, he denies any chest pain, shortness breath or palpitations. Denies any cough. D enies nausea, vomiting, abdominal pain, constipation, diarrhea or discomfort with urination. Objective: Vitals (See below) General: Lying in bed, no acute distress, comfortable, AAOx3 HEENT: NC, AT CVS: RRR, +S1S2 Lungs: Fair air entry b/l, auscultation does not reveal any evidence of rhonchi, wheezing or rales Abdomen: Abdomen remains soft, ND without tenderness Extremities: LE are without edema, - Calf tenderness Assessment and plan: Shortness of breath - likely 2/2 acute diastolic CHF exacerbation, less likely 2/2 pneumonia - Clinically has had resolution of his symptoms; denies shortness of breath or cough - Physical does not reveal any signs of fluid overload; has remained afebrile since admission - BNP on admission was significantly elevated - No leukocytosis or lactic acidosis - CTA Chest 07/25: Cardiomegaly. Bilateral interstitial infiltrates/edema. Moderate right pleural effusion. Small left pleural effusion. A tiny amount of pericardial fluid. Tiny amount of perihepatic ascites. - c/w strict ins and outs, daily weights - c/w Spironolactone; c/w Torsemide PO at adjust dose Right sided pleural effusion - possibly 2/2 above - Repeat CXR 07/27: 1. There is an increase in interstitial markings in the lungs unchanged compared to the previous study. 2. There are nodular parenchymal densities in the right upper lobe unchanged compared to the previous study. 3. Small bilateral pleural effusions. 4. Cardiomegaly. - Repeat CXR 07/29: Comparisons are the PA and lateral chest dated 07/27/[address] dated 07/25/2018. There is a right pleural effusion, unchanged. By CT there is a small left pleural effusion, not visible on plain films. There are nodular densities in the right lung, better appreciated on the comparison CT. Cardiac size is enlarged, unchanged. The accentuated interstitium identified on 07/27/2018 is no longer appreciated. - c/w Diuresis (see above) Troponin elevation - likely 2/2 demand ischemia - 2/2 diastolic CHF exacerbation - Patient denies any chest pain or palpitations - Troponin count has remained stable - EKG without ischemic change Chronic A. fib - c/w rate control with Carvedilol and Diltiazem - INR subtherapeutic - c/w full anticoagulation with Coumadin; dose increased Moderate Aortic and Mitral valve stenosis HTN - BP well controlled - c/w Carvedilol, Diltiazem, Hydralazine, DM2 - c/w ISS DLP - c/w Atorvastatin Central sleep apnea CKD3 / Obstructive uropathy with trabeculated bladder - Baseline creatinine of 2.3-2.7 - Creatinine appears to be improving over last 24 hours; appears to be at baseline - c/w Finasteride, Tamsulosin Renal artery stenosis s/p stent Anemia - Hg baseline of 11-12 - Anemia appears to be around baseline Cirrhosis - Liver function test appear to be within normal limits Depression - c/w Escitalopram DVT prophylaxis - On full anticoagulation with Coumadin Disposition: - Will likely discharge Wednesday after clearance with PT VS,Fishbone, I+O VS, Fishbone, I+O Laboratory Tests 07/30/18 06:09 Red Blood Count 4.02 L, Mean Corpuscular Volume 88.6, Mean Corpuscular Hemoglobin 28.1, Mean Corpuscular Hemoglobin Concent 31.7 L, Red Cell Distribution Width 14.1, Calcium Level 8.8 Vital Signs Date Time Temp Pulse Resp B/P (MAP) Pulse Ox O2 Delivery O2 Flow Rate FiO2 07/30/18 14:00 98.2 80 18 129/60 (83) 93 07/27/18 12:59 1.0 07/25/18 18:30 Room Air I&O- Last 24 Hours up to 6 AM 07/30/18 06:00 Intake Total 900 ml Output Total 1920 ml Balance -1020 ml AMANDEEP CARMEN MD Jul 30, 2018 14:53
[2018-07-30] MEDS: WARFARIN SOD 3 MG TAB PO SCH (17:08)
[2018-07-30] MEDS: ATORVASTATIN 10 MG TAB PO SCH (21:34)
[2018-07-30 22:00] VITALS: BP 180/76
[2018-07-31 06:00] VITALS: BP 170/70
[2018-07-31 06:38] LABS: HEMATOCRIT 34.3 % (42.0-52.0); HEMOGLOBIN 11.1 g/dl (13.5-17.5); MEAN CORPUSCULAR HEMOGLOBIN 28.4 pg (27.0-33.0); MEAN CORPUSCULAR HGB CONC 32.4 g/dl (32.0-36.5); MEAN CORPUSCULAR VOLUME 87.7 fl (80.0-96.0); PLATELET COUNT, AUTOMATED 114 10^3/uL (150-450); RED BLOOD COUNT 3.91 10^6/uL (4.30-6.10)
[2018-07-31 07:00] LABS: INR 2.11; PROTHROMBIN TIME 24.1 SECONDS (12.1-14.4)
[2018-07-31 07:12] LABS: CALCIUM LEVEL 8.5 MG/DL (8.8-10.2); CREATININE FOR GFR 3.09 MG/DL (0.70-1.30); MAGNESIUM LEVEL 2.4 MG/DL (1.8-2.4); POTASSIUM SERUM 4.3 MEQ/L (3.5-5.1)
[2018-07-31] MEDS: CYANOCOBALAMIN 500 MCG TAB PO SCH (08:39)
[2018-07-31] MEDS: CARVedilol 12.5 MG TAB PO SCH ×2 (08:39→21:06)
[2018-07-31] MEDS: TAMSULOSIN 0.4 MG CAP PO SCH (08:39)
[2018-07-31] MEDS: SPIRONOLACTONE 25 MG TAB PO SCH (08:39)
[2018-07-31] MEDS: ESCITALOPRAM OXALATE 10 MG TAB (LEXAPRO) PO SCH (08:39)
[2018-07-31] MEDS: ASPIRIN 81 MG ENTERIC TAB PO SCH (08:39)
[2018-07-31] MEDS: FINASTERIDE 5 MG TAB PO SCH (08:39)
[2018-07-31] MEDS: **hydrALAZINE** 50 MG TAB PO SCH ×2 (08:40→21:05)
[2018-07-31] MEDS: HumaLOG INSULIN (NovoLOG) PER UNIT SC SCH ×4 (08:40→21:07)
[2018-07-31] MEDS: diltiaZEM **CD** 180 MG CAP PO SCH (08:44)
--- NOTE | 2018-07-31 12:07 | IPNPDOC ---
Text Note Date of Service The patient was seen on 07/31/18. NOTE Subjective: Patient is a 77-year-old male with a PMHx of Diastolic CHF, Chronic A. fib (on Coumadin), Moderate Aortic and Mitral valve stenosis, HTN, DM2, DLP, Central sleep apnea, CKD3, Renal artery stenosis s/p stent, Anemia, Cirrhosis, Obstructive uropathy with trabeculated bladder, who presented to the ER with complaints of worsening shortness of breath. Patient has noted that he has some sputum for reduction with brown colored expectorate. Patient was made to hospitalist service for suspected CHF exacerbation. Patient was seen and examined at the bedside. He notes his breathing is doing better. Denies any shortness of breath or palpitations. Denies any significant cough. Has not experienced nausea, vomiting. Denies abdominal pain, consti pation, diarrhea or discomfort with urination. Objective: Vitals (See below) General: Lying in bed, no acute distress, comfortable, AAOx3 HEENT: NC, AT CVS: RRR, +S1S2 Lungs: Fair air entry b/l, no evidence of wheezing, rhonchi, rales upon auscultation Abdomen: Abdomen remains soft, ND without tenderness Extremities: LE do not reveal edema, - Calf tenderness Assessment and plan: Shortness of breath - likely 2/2 acute diastolic CHF exacerbation, less likely 2/2 pneumonia - Clinically has had resolution of his symptoms; denies shortness of breath or cough - Physical does not reveal any signs of fluid overload; has remained afebrile since admission - BNP on admission was significantly elevated - No leukocytosis or lactic acidosis - CTA Chest 07/25: Cardiomegaly. Bilateral interstitial infiltrates/edema. Moderate right pleural effusion. Small left pleural effusion. A tiny amount of pericardial fluid. Tiny amount of perihepatic ascites. - c/w strict ins and outs, daily weights - Will hold Spironolactone and Torsemide (re: elevation of Cr) Right sided pleural effusion - possibly 2/2 above - Repeat CXR 07/27: 1. There is an increase in interstitial markings in the lungs unchanged compared to the previous study. 2. There are nodular parenchymal densities in the right upper lobe unchanged compared to the previous study. 3. Small bilateral pleural effusions. 4. Cardiomegaly. - Repeat CXR 07/29: Comparisons are the PA and lateral chest dated 07/27/[address] dated 07/25/2018. There is a right pleural effusion, unchanged. By CT there is a small left pleural effusion, not visible on plain films. There are nodular densities in the right lung, better appreciated on the comparison CT. Cardiac size is enlarged, unchanged. The accentuated interstitium identified on 07/27/2018 is no longer appreciated. - c/w Diuresis (see above) Troponin elevation - likely 2/2 demand ischemia - 2/2 diastolic CHF exacerbation - Patient denies any chest pain or palpitations - Troponin count has remained stable - EKG without ischemic change Chronic A. fib - c/w rate control with Carvedilol and Diltiazem - INR subtherapeutic - c/w full anticoagulation with Coumadin; dose adjusted Moderate Aortic and Mitral valve stenosis HTN - BP well controlled - c/w Carvedilol, Diltiazem, Hydralazine, DM2 - c/w ISS DLP - c/w Atorvastatin Central sleep apnea CKD3 / Obstructive uropathy with trabeculated bladder - Baseline creatinine of 2.5-2.7 - Creatinine higher than baseline - c/w Finasteride, Tamsulosin - Will hold diuresis Renal artery stenosis s/p stent Anemia - Hg baseline of 11-12 - Anemia appears to be around baseline Cirrhosis - Liver function test appear to be within normal limits Depression - c/w Escitalopram DVT prophylaxis - On full anticoagulation with Coumadin Disposition: - Anticipate discharge in 24-48 hours VS,Fishbone, I+O VS, Fishbone, I+O Laboratory Tests 07/31/18 06:21 Red Blood Count 3.91 L, Mean Corpuscular Volume 87.7, Mean Corpuscular Hemoglobin 28.4, Mean Corpuscular Hemoglobin Concent 32.4, Red Cell Distribution Width 14.2, Calcium Level 8.5 L Vital Signs Date Time Temp Pulse Resp B/P (MAP) Pulse Ox O2 Delivery O2 Flow Rate FiO2 07/31/18 08:44 94 143/80 07/31/18 06:00 97.8 18 96 07/27/18 12:59 1.0 07/25/18 18:30 Room Air I&O- Last 24 Hours up to 6 AM 07/31/18 06:00 Intake Total 2090 ml Output Total 2450 ml Balance -360 ml CARMEN,VIJESH MD Jul 31, 2018 12:07
[2018-07-31 14:00] VITALS: BP 138/66
[2018-07-31 14:23] LABS: CALCIUM LEVEL 8.6 MG/DL (8.8-10.2); CREATININE FOR GFR 2.91 MG/DL (0.70-1.30); GLOMERULAR FILTRATION RATE 22.5 (>42)
[2018-07-31] MEDS: WARFARIN SOD 3 MG TAB PO SCH (17:04)
[2018-07-31] MEDS: ATORVASTATIN 10 MG TAB PO SCH (21:06)
[2018-07-31 22:00] VITALS: BP 154/70
[2018-08-01 06:00] VITALS: BP 137/68
[2018-08-01 06:26] LABS: HEMATOCRIT 34.1 % (42.0-52.0); HEMOGLOBIN 11.2 g/dl (13.5-17.5); MEAN CORPUSCULAR HEMOGLOBIN 28.9 pg (27.0-33.0); MEAN CORPUSCULAR HGB CONC 32.8 g/dl (32.0-36.5); MEAN CORPUSCULAR VOLUME 87.9 fl (80.0-96.0); PLATELET COUNT, AUTOMATED 113 10^3/uL (150-450); RED BLOOD COUNT 3.88 10^6/uL (4.30-6.10); WHITE BLOOD COUNT 6.3 10^3/uL (4.0-10.0)
[2018-08-01 06:33] LABS: INR 2.38; PROTHROMBIN TIME 26.5 SECONDS (12.1-14.4)
[2018-08-01 06:52] LABS: CALCIUM LEVEL 8.4 MG/DL (8.8-10.2); CREATININE FOR GFR 2.77 MG/DL (0.70-1.30); GLOMERULAR FILTRATION RATE 23.8 (>42); MAGNESIUM LEVEL 2.3 MG/DL (1.8-2.4); POTASSIUM SERUM 4.1 MEQ/L (3.5-5.1)
[2018-08-01] MEDS ORDERED: SPIRONOLACTONE 25 MG TAB PO SCH (09:00)
[2018-08-01] MEDS ORDERED: TORSEMIDE 20 MG TAB PO SCH (09:00)
[2018-08-01] MEDS: HumaLOG INSULIN (NovoLOG) PER UNIT SC SCH ×2 (09:28→12:49)
[2018-08-01 09:29] VITALS: BP 178/79
[2018-08-01] MEDS: diltiaZEM **CD** 180 MG CAP PO SCH (09:29)
[2018-08-01] MEDS: CARVedilol 12.5 MG TAB PO SCH (09:29)
[2018-08-01] MEDS: TAMSULOSIN 0.4 MG CAP PO SCH (09:29)
[2018-08-01] MEDS: **hydrALAZINE** 50 MG TAB PO SCH (09:30)
[2018-08-01] MEDS: CYANOCOBALAMIN 500 MCG TAB PO SCH (09:30)
[2018-08-01] MEDS: ESCITALOPRAM OXALATE 10 MG TAB (LEXAPRO) PO SCH (09:30)
[2018-08-01] MEDS: ASPIRIN 81 MG ENTERIC TAB PO SCH (09:31)
[2018-08-01] MEDS: FINASTERIDE 5 MG TAB PO SCH (09:31)
[2018-08-01 14:00] VITALS: BP 137/76
[2018-08-01] MEDS: WARFARIN SOD 3 MG TAB PO SCH (16:00)
--- NOTE | 2018-08-01 16:07 | DS.PDOC ---
Discharge Summary General Date of Admission Jul 25, 2018 at 15:52 Date of Discharge 08/01/2018 Discharge Summary PROCEDURES PERFORMED DURING STAY: [None]. ADMITTING DIAGNOSES / DISCHARGE DIAGNOSES: Shortness of breath - likely 2/2 acute diastolic CHF exacerbation, less likely 2/2 pneumonia Right sided pleural effusion - possibly 2/2 above Troponin elevation - likely 2/2 demand ischemia - 2/2 diastolic CHF exacerbation Chronic A. fib Moderate Aortic and Mitral valve stenosis HTN DM2 DLP Central sleep apnea CKD3 / Obstructive uropathy with trabeculated bladder Renal artery stenosis s/p stent Anemia Cirrhosis Depression DVT prophylaxis COMPLICATIONS/CHIEF COMPLAINT: Shortness of breath HISTORY OF PRESENT ILLNESS: Patient is a 77-year-old male with a PMHx of Diastolic CHF, Chronic A. fib (on Coumadin), Moderate Aortic and Mitral valve stenosis, HTN, DM2, DLP, Central sleep apnea, CKD3, Renal artery stenosis s/p stent, Anemia, Cirrhosis, Obstructive uropathy with trabeculated bladder, who presented to the ER with complaints of worsening shortness of breath. Patient has noted that he has some sputum for reduction with brown colored expectorate. Patient was made to hospitalist service for suspected CHF exacerbation. HOSPITAL COURSE: Shortness of breath - likely 2/2 acute diastolic CHF exacerbation, less likely 2/2 pneumonia - Clinically has had resolution of his symptoms; denies shortness of breath or cough - Physical does not reveal any signs of fluid overload; has remained afebrile since admission - BNP on admission was significantly elevated - No leukocytosis or lactic acidosis - CTA Chest 07/25: Cardiomegaly. Bilateral interstitial infiltrates/edema. Moderate right pleural effusion. Small left pleural effusion. A tiny amount of pericardial fluid. Tiny amount of perihepatic ascites. - c/w strict ins and outs, daily weights - Resume adjusted dose of Spironolactone and Torsemide - will continue this on discharge Right sided pleural effusion - possibly 2/2 above - Repeat CXR 07/27: 1. There is an increase in interstitial markings in the lungs unchanged compared to the previous study. 2. There are nodular parenchymal densities in the right upper lobe unchanged compared to the previous study. 3. Small bilateral pleural effusions. 4. Cardiomegaly. - Repeat CXR 07/29: Comparisons are the PA and lateral chest dated 07/27/[address] dated 07/25/2018. There is a right pleural effusion, unchanged. By CT there is a small left pleural effusion, not visible on plain films. There are nodular densities in the right lung, better appreciated on the comparison CT. Cardiac size is enlarged, unchanged. The accentuated interstitium identified on 07/27/2018 is no longer appreciated. - c/w Diuresis (see above) Troponin elevation - likely 2/2 demand ischemia - 2/2 diastolic CHF exacerbation - Patient denies any chest pain or palpitations - Troponin count has remained stable - EKG without ischemic change Chronic A. fib - c/w rate control with Carvedilol and Diltiazem - INR therapeutic - will have outpatient f/u of INR with PCP - c/w full anticoagulation with Coumadin; dose adjusted - c/w adjusted dose Moderate Aortic and Mitral valve stenosis HTN - BP well controlled - c/w Carvedilol, Diltiazem, Hydralazine, DM2 - c/w ISS DLP - c/w Atorvastatin Central sleep apnea CKD3 / Obstructive uropathy with trabeculated bladder - Baseline creatinine of 2.5-2.7 - Creatinine higher than baseline - c/w Finasteride and Tamsulosin Renal artery stenosis s/p stent Anemia - Hg baseline of 11-12 - Anemia appears to be around baseline Cirrhosis - Liver function test appear to be within normal limits Depression - c/w Escitalopram DVT prophylaxis - On full anticoagulation with Coumadin DISCHARGE MEDICATIONS: Please see below. ALLERGIES: Please see below. PHYSICAL EXAMINATION ON DISCHARGE: Vitals (See below) General: Lying in bed, no acute distress, comfortable, AAOx3 HEENT: NC, AT CVS: +S1S2 Lungs: Fair air entry b/l, no evidence of wheezing, rhonchi, or rales Abdomen: Abdomen is soft, without distention and tenderness Extremities: LE are without any reveal edema, - Calf tenderness LABORATORY DATA: Please see below. ACTIVITY: [As tolerated]. DISCHARGE PLAN: Follow up with Dr. Dilcia Herrera within the next 7 days Remain compliant with treatment plan and medications Return to the ER if you experience any problems. DISPOSITION: Home with services DISCHARGE CONDITION: [Stable]. TIME SPENT ON DISCHARGE: Greater than [35] minutes. Vital Signs/I&Os Vital Signs Date Time Temp Pulse Resp B/P (MAP) Pulse Ox O2 Delivery O2 Flow Rate FiO2 08/01/18 14:00 96.9 53 19 137/76 (96) 94 07/27/18 12:59 1.0 I&O- Last 24 Hours up to 6 AM 08/01/18 06:00 Intake Total 1870 ml Output Total 1325 ml Balance 545 ml Laboratory Data Labs 24H Laboratory Tests 2 07/31/18 16:26: Bedside Glucose (Misc Panel) 205H 07/31/18 20:41: Bedside Glucose (Misc Panel) 277H 08/01/18 06:06: Nucleated Red Blood Cells % (auto) 0.0, Prothrombin Time 26.5H, Prothromb Time International Ratio 2.38, Anion Gap 7L, Glomerular Filtration Rate 23.8L, Blood Urea Nitrogen 65H, Creatinine 2.77H, Sodium Level 137, Potassium Level 4.1, Chloride Level 105, Carbon Dioxide Level 25, Calcium Level 8.4L, Magnesium Level 2.3 08/01/18 11:39: Bedside Glucose (Misc Panel) 216H CBC/BMP Laboratory Tests 08/01/18 06:06 Red Blood Count 3.88 L, Mean Corpuscular Volume 87.9, Mean Corpuscular Hemoglobin 28.9, Mean Corpuscular Hemoglobin Concent 32.8, Red Cell Distribution Width 14.2, Calcium Level 8.4 L FSBS Laboratory Tests Test 07/31/18 16:26 07/31/18 20:41 08/01/18 11:39 Range/Units Bedside Glucose (Misc Panel) 205 277 216 83-110 MG/DL Microbiology Microbiology 07/25/18 Blood Culture - Final, Complete NO GROWTH AFTER 5 DAYS 07/25/18 Blood Culture - Final, Complete NO GROWTH AFTER 5 DAYS 07/25/18 Respiratory Virus Panel (PCR) (NATA) - Final, Complete Discharge Medications Scheduled Aspirin (Aspirin 81) 81 Mg Tab, 81 MG PO DAILY, (Reported) Atorvastatin Calcium (Atorvastatin Calcium) 10 Mg Tab, 5 MG PO QHS, (Reported) Carvedilol (Coreg) 25 Mg Tab, 37.5 MG PO BID Cyanocobalamin (Hm Vitamin B12) 500 Mcg Tab, 500 MCG PO DAILY, (Reported) Diltiazem Hcl (Diltiazem HCl ER) 360 Mg Cap, 360 MG PO DAILY, (Reported) Escitalopram Oxalate (Escitalopram Oxalate) 10 Mg Tab, 10 MG PO DAILY, (Reported) Ferrous Ascorbate (Vitron-C 65-125 mg) 1 Tab Tab, 1 TAB PO DAILY, (Reported) Finasteride (Finasteride) 5 Mg Tab, 5 MG PO DAILY, (Reported) Glimepiride (Glimepiride) 4 Mg Tab, 4 MG PO DAILY, (Reported) Glipizide (Glipizide Xl) 2.5 Mg Tab, 2.5 MG PO DAILY, (Reported) Spironolactone (Spironolactone) 25 Mg Tab, 25 MG PO DAILY Tamsulosin Hydrochloride (Flomax) 0.4 Mg Cap, 0.8 MG PO DAILY, (Reported) Torsemide (Torsemide) 20 Mg Tab, 40 MG PO DAILY Warfarin Sod (Warfarin Sodium) 3 Mg Tab, 3 MG PO DAILY hydrALAZINE HCL (Hydralazine HCl) 100 Mg Tab, 100 MG PO BID, (Reported) Scheduled PRN Albuterol Sulfate (Ventolin Hfa) 108 Mcg/Act Aer, 2 PUFFS INH Q4H PRN for SHORTNESS OF BREATH, (Reported) Allergies Coded Allergies: No Known Allergies (Unverified Allergy, Mild, 02/23/08) AMANDEEP CARMEN MD Aug 01, 2018 16:07
== END 2018-08-01 16:33 | disposition home health service (06) | DRG 291 ==
LOC: M ED 09:09 → M ED INP 15:52 → M MSPAV 18:49
PROVIDERS: ADMIT Internal Medicine; ATTEND Internal Medicine
DX: I13.0 Hypertensive heart and chronic kidney disease with heart failure and stage 1 through stage 4 chronic kidney disease, or unspecified chronic kidney disease (principal); I50.33 Acute on chronic diastolic (congestive) heart failure; J90 Pleural effusion, not elsewhere classified; I27.20 Pulmonary hypertension, unspecified; E11.22 Type 2 diabetes mellitus with diabetic chronic kidney disease; G47.31 Primary central sleep apnea; N18.3 Chronic kidney disease, stage 3 (moderate); I48.2 Chronic atrial fibrillation; E78.5 Hyperlipidemia, unspecified; D64.9 Anemia, unspecified; K74.60 Unspecified cirrhosis of liver; F32.9 Major depressive disorder, single episode, unspecified; N28.1 Cyst of kidney, acquired; N32.89 Other specified disorders of bladder; I08.0 Rheumatic disorders of both mitral and aortic valves; Z79.82 Long term (current) use of aspirin; Z79.84 Long term (current) use of oral hypoglycemic drugs; Z79.01 Long term (current) use of anticoagulants; Z79.899 Other long term (current) drug therapy; Z90.49 Acquired absence of other specified parts of digestive tract; Z87.442 Personal history of urinary calculi; Z87.891 Personal history of nicotine dependence

== ENCOUNTER → 2018-08-19 | Outpatient (CLI) | payer MEDICARE ==
[~2018-08-19] MED LIST changes: +CARV25TA PO; +ESCI10TA2 PO; +GLIP-163 PO; +TORS20TA2 PO; +WARF-58 PO
[2018-08-19 12:57] LABS: PROTHROMBIN TIME 55.3 SECONDS (12.1-14.4)
[2018-08-19 13:32] LABS: INR 6.02
== END ==
LOC: M WUC 08:54
PROVIDERS: ATTEND Family Medicine
DX: Z79.01 Long term (current) use of anticoagulants (principal)

== ENCOUNTER → 2018-08-22 | Outpatient (CLI) | payer MEDICARE ==
[2018-08-22 14:00] LABS: INR 3.5
== END ==
LOC: M WUC 12:33
PROVIDERS: ATTEND Family Medicine
DX: Z51.81 Encounter for therapeutic drug level monitoring (principal); Z79.01 Long term (current) use of anticoagulants

== ENCOUNTER → 2018-09-07 | Outpatient (CLI) | payer MEDICARE ==
[2018-09-07 16:45] LABS: INR 1.99
== END ==
LOC: M WUC 11:40
PROVIDERS: ATTEND Family Medicine
DX: Z79.01 Long term (current) use of anticoagulants (principal)

== ENCOUNTER 2018-09-19 20:01 | Inpatient (IN) | payer MEDICARE ==
[~2018-09-19] VITALS: Ht 177.8 cm; Wt 78.9 kg
[~2018-09-19 20:01] MED LIST changes: -/WARF5TA; -ASPI1TAB PO; +ASPI81TA26 PO; +COUM1TAB17; +DILT1CAP9; -DILT360C16; +VITA-172 PO; -[UNRECOGNIZED DRUG - OTHER] PO
[2018-09-19] MEDS ORDERED: SPIRONOLACTONE 25 MG TAB PO SCH (21:00)
[2018-09-19] MEDS: ATORVASTATIN 10 MG TAB PO SCH (21:00)
[2018-09-19] MEDS ORDERED: WARFARIN SOD 1 MG TAB PO SCH (21:00)
[2018-09-19] MEDS: TAMSULOSIN 0.4 MG CAP PO SCH (21:00)
[2018-09-19 21:28] LABS: BASO % 0.1 % (0.0-1.0); HEMATOCRIT 31.6 % (42.0-52.0); HEMOGLOBIN 10.4 g/dl (13.5-17.5); LYMPH # 0.4 10^3/uL (1.5-4.5); LYMPH % 3.9 % (24.0-44.0); MEAN CORPUSCULAR HEMOGLOBIN 29.2 pg (27.0-33.0); MEAN CORPUSCULAR HGB CONC 32.9 g/dl (32.0-36.5); MEAN CORPUSCULAR VOLUME 88.8 fl (80.0-96.0); MONO # 0.9 10^3/uL (0.0-0.8); MONO % 8.2 % (0.0-5.0); NEUTROPHILS # 9.1 10^3/uL (1.8-7.7); NEUTROPHILS % 86.9 % (36.0-66.0); RED BLOOD COUNT 3.56 10^6/uL (4.30-6.10); WHITE BLOOD COUNT 10.5 10^3/uL (4.0-10.0)
--- NOTE | 2018-09-19 21:30 | REPVR ---
EXAM: CT Head Without Contrast EXAM DATE/TIME: 09/19/2018 9:02 PM CLINICAL HISTORY: 77 years old, male; Injury or trauma; Fall; Initial encounter; Concussion / head injury; Consciousness not specified TECHNIQUE: Imaging protocol: Axial computed tomography images of the head/brain without contrast. Radiation optimization: All CT scans at this facility use at least one of these dose optimization techniques: automated exposure control; mA and/or kV adjustment per patient size (includes targeted exams where dose is matched to clinical indication); or iterative reconstruction. COMPARISON: No relevant prior studies available. FINDINGS: Brain: Patchy areas of hypoattenuation in the periventricular and subcortical white matter, consistent with chronic small vessel ischemic disease. No CT evidence of acute intracranial hemorrhage or acute territorial infarction. No significant mass effect or midline shift. Basal cisterns patent. Ventricles: Prominence of the cortical sulci, cisterns and ventricular system, consistent with cerebral and cerebellar volume loss. Bones/joints: No acute osseous abnormality. Sinuses: Mild ethmoid mucosal thickening. Mastoid air cells: Grossly unremarkable. Soft tissues: Grossly unremarkable. Vasculature: Calcific atherosclerotic disease in the cavernous internal carotid arteries, as well as the vertebro-basilar system. IMPRESSION: 1. No CT evidence of acute intracranial pathology. 2. Additional findings, as above. Electronically signed by: Jarod Kearney On 09/19/2018 21:30:04 PM
--- NOTE | 2018-09-19 21:35 | REPVR ---
EXAM: CT Cervical Spine Without Contrast EXAM DATE/TIME: 09/19/2018 9:02 PM CLINICAL HISTORY: 77 years old, male; Injury or trauma; Fall; Initial encounter; Concussion /head injury TECHNIQUE: Imaging protocol: Axial computed tomography images of the cervical spine without intravenous contrast. Coronal and sagittal reformatted images were created and reviewed. Radiation optimization: All CT scans at this facility use at least one of these dose optimization techniques: automated exposure control; mA and/or kV adjustment per patient size (includes targeted exams where dose is matched to clinical indication); or iterative reconstruction. COMPARISON: CT Neck without contrast 07/25/2018 10:42 AM FINDINGS: Vertebrae: Osteopenia. Reversal of the normal cervical lordosis. Dextroscoliosis. Mild anterolisthesis of C2 on C3, C3 on C4 and C6 on C7. Alignment otherwise anatomic. No CT evidence of acute fracture, dislocation or subluxation. Vertebral body heights maintained. Discs/Spinal canal/Neural foramina: Multilevel degenerative changes, characterized by disc space narrowing, osteophytosis and uncovertebral and facet joint hypertrophy. Multilevel spinal canal and neural foraminal stenosis. Soft tissues: Grossly unremarkable. Lungs: Nonspecific patchy nodular infiltrates in the right upper lobe. IMPRESSION: 1. No CT evidence of acute cervical spine traumatic injury. 2. Nonspecific patchy nodular infiltrates in the right upper lobe. 3. Additional findings, as above. Electronically signed by: Jarod Kearney On 09/19/2018 21:35:06 PM
[2018-09-19 21:42] LABS: BLOOD UREA NITROGEN 107 MG/DL (7-18); CALCIUM LEVEL 8.2 MG/DL (8.8-10.2); CARBON DIOXIDE LEVEL 20 MEQ/L (21-32); CHLORIDE LEVEL 102 MEQ/L (98-107); CPK CREATINE PHOSPHOKINASE 43 U/L (39-308); ETHYL ALCOHOL (ETHANOL) < 0.003 % (0.000-0.010); GLOMERULAR FILTRATION RATE 18.2 (>42); GLUCOSE, FASTING 374 MG/DL (70-100); MAGNESIUM LEVEL 2.3 MG/DL (1.8-2.4); MB/CK RELATIVE INDEX 5.12 (< OR =4); POTASSIUM SERUM 5.1 MEQ/L (3.5-5.1); SODIUM LEVEL 131 MEQ/L (136-145); THYROID STIMULATING HORMONE 0.763 uIU/ML (0.358-3.740); TROPONIN I < 0.02 NG/ML (< 0.10)
--- NOTE | 2018-09-19 21:42 | ECGEPIP ---
Stationary ECG Study [facility] - ED Test Date: 2018-09-19 Pat Name: TORSTEN DAY Department: Room: - Gender: M [employer] Clerk: maritza : [id number] Requested By: FELIPE Ha Order Number: [id number] Reading MD: Javier Gardner Measurements Intervals [place] Rate: 55 P: VA: 0 QRS: 111 QRSD: 98 T: 208 QT: 463 QTc: 446 Interpretive Statements ATRIAL FIBRILLATION WITH SLOW VENTRICULAR RESPONSE WITH ABERRANT CONDUCTION OR VENTRICULAR PREMATURE COMPLEXES POSSIBLE RIGHT VENTRICULAR HYPERTROPHY MODERATE ST DEPRESSION ABNORMAL QRS-T ANGLE Electronically Signed On 09-19-2018 21:41:46 EDT by Javier Gardner
[2018-09-19 22:20] LABS: PLATELET COUNT, AUTOMATED 96 10^3/uL (150-450)
[2018-09-19] MEDS ORDERED: NS 500 ML IV ONE (22:30)
[2018-09-19] MEDS ORDERED: cefTRIAXone SOD 1 GM in D5W MINI-BAG PLUS 50 ML IV ONE (23:00)
[2018-09-19] MEDS ORDERED: SPIR-10 PO (23:22)
[2018-09-19] MEDS ORDERED: WARF4TAB51 PO (23:22)
[2018-09-19] MEDS ORDERED: LEVA1.2525 INH (23:22)
[2018-09-19] MEDS ORDERED: TORS20TA2 PO (23:22)
[2018-09-19] MEDS ORDERED: WARF4TAB52 PO (23:22)
[2018-09-19] MEDS ORDERED: DILT180C28 PO (23:22)
[2018-09-19] MEDS ORDERED: CARV25TA PO (23:22)
[2018-09-20] VITALS (10 sets, daily range): BP systolic 136–192; BP diastolic 70–110
[2018-09-20] MEDS ORDERED: NS 1,000 ML IV SCH (04:39)
--- NOTE | 2018-09-20 04:52 | HPEPDOC ---
[facility] Medical History & Physical Date of Admission Sep 20, 2018 History and Physical CHIEF COMPLAINT: Nausea/vomiting and fall today HISTORY OF PRESENT ILLNESS: Jeremias Zuleta is a 77 YO M with history of dCHF (EF 65% 09/2017), T2DM, Atrial fibrillation and hypertension who presents after a fall at home earlier today. Per the patient, he has been nauseous, vomiting, and has diarrhea for the past 4 days. Today, he went to the bathroom at his d aughter's house to vomit, suddenly felt dizzy and lightheaded, and fell backwards in front of the toilet. This was unwitnessed. He denies any loss of consciousness, did not bite his tongue, and says he did not hit his head. He states that with his diarrhea and and vomiting he feels he has lost a lot of fluid and has not been drinking very much. In the ED he was found to have HR in the 40s-50s and positive orthostasis. PAST MEDICAL HISTORY: 1. Diastolic heart failure with ejection fraction 65%, moderate aortic stenosis, moderate mitral stenosis, severe pulmonary hypertension, biatrial dilation, left ventricular hypertrophy on echo 09/2017 2. Obstructive uropathy 3. Type 2 diabetes 4. Central sleep apnea. 5. CK D stage III, baseline creatinine 1.6-1.7. 6. Renal artery stenosis status post stent. 7. Severe hypertension, hypertensive heart disease. 8. A. fib with RVR on Coumadin. 9. Hyperlipidemia. 10. Chronic anemia, thrombocytopenia. 11. Cirrhosis of the liver. 12. Trabeculated bladder. 13. History of pulmonary nodule, follows with Dr. Harvinder Vital 14. COPD 15. History of NEERAJ PAST SURGICAL HISTORY: 1. Left arm hematoma evacuation 2. Cholecystectomy 3. Appendectomy 4. Mid-back surgery 2/2 trauma 5. L kidney stones s/p lithotripsy 6. L renal artery stent SOCIAL HISTORY: Former smoker, quit >10 years ago Occasional alcohol consumption, denies any drug use FAMILY HISTORY: noncontributory ALLERGIES: Please see below. REVIEW OF SYSTEMS: Negative for fevers, chills Positive for SOB Negative for CP Positive for abdominal pain HOME MEDICATIONS: Please see below. PHYSICAL EXAMINATION: VITAL SIGNS: Temperature 97.1, pulse 73, respiratory rate 18, blood pressure 168/78, pulse oximetry 92% on room air. GENERAL APPEARANCE: calm, cooperative, laying in bed in no acute distress HEENT: moist mucus membranes, no thyromegaly CARDIOVASCULAR: RRR, 2/6 murmur in RUSB, no gallops/rubs LUNGS: Rhonchi in lower lobes bilaterally ABDOMEN: soft, nontender, +BS, no masses, no organomegaly MUSCULOSKELETAL: moves all extremities well EXTREMITIES: no clubbing/cyanosis/edema NEUROLOGICAL: no focal deficits appreciated PSYCHIATRIC: normal mood, normal affect LABORATORY DATA: See below. IMAGING: CT HEAD: Brain: Patchy areas of hypoattenuation in the periventricular and subcortical white matter, consistent with chronic small vessel ischemic disease. No CT evidence of acute intracranial hemorrhage or acute territorial infarction. No significant mass effect or midline shift. Basal cisterns patent. Ventricles: Prominence of the cortical sulci, cisterns and ventricular system, consistent with cerebral and cerebellar volume loss. CT SPINE: 1. No CT evidence of acute cervical spine traumatic injury. 2. Nonspecific patchy nodular infiltrates in the right upper lobe. CXR: pending read MICROBIOLOGY: Please see below. ASSESSMENT: This is a 77 YO M with a history of Atrial fibrillation on Warfarin who presented with 4 days nausea/vomiting/diarrhea and fell at home found to be bradycardic and have RUL pneumonia. The fall was unlikely syncope--more likely volume depletion. He will be admitted to the PCU for continuous cardiac monitoring and IV antibiotic treatment. PLAN: 1. Sinus bradycardia and history of Atrial fibrillation: -The patient was found to have a HR 46 when he arrived to the ED. Cardiology (Dr. Amaya) was called and it was suggested to hold his home Cardizem and Coreg for the time being and to monitor his HR. -Positive orthostasis in the ED, possibly from fluid depletion. Patient will be given IVF resuscitation given recent history of vomiting/diarrhea -Cardizem and Coreg are being held for the time being, but will restart once patient's HR increases -Patient is on Coumadin at home. 2. RUL PNA: will consider community-acquired PNA -s/p Rocephin in ED -Azithromycin and Ceftriaxone -Patient uses CPAP at home. Will need to use at night while inpatient 3. BRENDON: Patient has a history of CKD but Cr today is 3.5, up from baseline 2.5. Most likely 2/2 dehydration -IVF NS 150cc/hr -Will continue to monitor 4. History of obstructive uropathy -Continue home Flomax DVT Ppx: TEDs/sequentials CODE STATUS: FULL CODE Vital Signs Vital Signs Date Time Temp Pulse Resp B/P (MAP) Pulse Ox O2 Delivery O2 Flow Rate FiO2 09/20/18 01:26 168/78 (108) 09/20/18 00:15 97.1 73 18 92 Room Air Laboratory Data Labs 24H Laboratory Tests 2 09/19/18 20:58: Urine Color YELLOW, Urine Appearance CLEAR, Urine pH 5.0, Urine Specific David 1.012, Urine Protein NEGATIVE, Urine Glucose (UA) 1+H, Urine Ketones NEGATIVE, Urine Blood NEGATIVE, Urine Nitrite NEGATIVE, Urine Bilirubin NEGATIVE, Urine Urobilinogen 0.2, Urine Leukocyte Esterase NEGATIVE, Urine WBC (Auto) 0, Urine RBC (Auto) 1, Urine Hyaline Casts (Auto) 0, Urine Bacteria (Auto) NEGATIVE, Urine Squamous Epithelial Cells 0, Urine Mucus (Auto) SMALL, Urine Sperm (Auto) 09/19/18 20:59: Immature Granulocyte % (Auto) 0.9, White Blood Count 10.5H, Red Blood Count 3.56L, Hemoglobin 10.4L, Hematocrit 31.6L, Mean Corpuscular Volume 88.8, Mean Corpuscular Hemoglobin 29.2, Mean Corpuscular Hemoglobin Concent 32.9, Red Cell Distribution Width 14.5, Platelet Count 96L, Neutrophils (%) (Auto) 86.9H, Lymphocytes (%) (Auto) 3.9L, Monocytes (%) (Auto) 8.2H, Eosinophils (%) (Auto) 0.0, Basophils (%) (Auto) 0.1, Neutrophils # (Auto) 9.1H, Lymphocytes # (Auto) 0.4L, Monocytes # (Auto) 0.9H, Eosinophils # (Auto) 0.0, Basophils # (Auto) 0.0, Nucleated Red Blood Cells % (auto) 0.0, Immature Platelet Fraction 3.4, Anion Gap 9, Glomerular Filtration Rate 18.2L, Blood Urea Nitrogen 107H, Creatinine 3.50H, Sodium Level 131L, Potassium Level 5.1, Chloride Level 102, Carbon Dioxide Level 20L, Calcium Level 8.2L, Total Creatine Kinase 43, Magnesium Level 2.3, Creatine Kinase MB 2.0, Creatine Kinase MB Relative Index 5.12H, Troponin I < 0.02, Thyroid Stimulating Hormone (TSH) 0.763, Ethyl Alcohol Level < 0.003 CBC/BMP Laboratory Tests 09/19/18 20:59 Red Blood Count 3.56 L, Mean Corpuscular Volume 88.8, Mean Corpuscular Hemoglobin 29.2, Mean Corpuscular Hemoglobin Concent 32.9, Red Cell Distribution Width 14.5, Neutrophils (%) (Auto) 86.9 H, Lymphocytes (%) (Auto) 3.9 L, Monocytes (%) (Auto) 8.2 H, Eosinophils (%) (Auto) 0.0, Basophils (%) (Auto) 0.1, Neutrophils # (Auto) 9.1 H, Lymphocytes # (Auto) 0.4 L, Monocytes # (Auto) 0.9 H, Eosinophils # (Auto) 0.0, Basophils # (Auto) 0.0, Calcium Level 8.2 L, Total Creatine Kinase 43 Home Medications Scheduled Aspirin (Aspirin EC) 81 Mg Tab, 81 MG PO DAILY Atorvastatin Calcium (Atorvastatin Calcium) 10 Mg Tab, 5 MG PO QHS Carvedilol (Carvedilol) 25 Mg Tablet, 37.5 MG PO BID Cyanocobalamin (Vitamin B-12) (Vitamin B-12) 500 Mcg Tab, 500 MCG PO DAILY AT LUNCH Diltiazem HCl (Dilt-Xr) 180 Mg Cap.er.deg, 180 MG PO DAILY Escitalopram Oxalate (Escitalopram Oxalate) 10 Mg Tab, 10 MG PO DAILY Finasteride (Finasteride) 5 Mg Tab, 5 MG PO DAILY Glimepiride (Glimepiride) 4 Mg Tab, 4 MG PO DAILY Glipizide (Glipizide Xl) 2.5 Mg Tab, 2.5 MG PO DAILY WITH FOOD AT LUNCH Iron,Carbonyl/Ascorbic Acid (Vitron-C Tablet) 1 Tab Tab, 1 TAB PO DAILY AT LUNCH Spironolactone (Spironolactone) 25 Mg Tablet, 25 MG PO QHS Tamsulosin HCl (Flomax) 0.4 Mg Cap, 0.8 MG PO QHS Torsemide (Torsemide) 20 Mg Tablet, 20 MG PO QAM Warfarin Sodium (Warfarin Sodium) 1 Mg Tablet, 1 MG PO 3XW ON WEDNESDAY, WEDNESDAY, AND WEDNESDAY; AT BEDTIME Warfarin Sodium (Warfarin Sodium) 2 Mg Tablet, 2 MG PO 4XWK ON WEDNESDAY, WEDNESDAY, WEDNESDAY, AND WEDNESDAY; AT BEDTIME hydrALAZINE HCL (Hydralazine HCl) 100 Mg Tab, 100 MG PO BID Scheduled PRN Albuterol Sulfate (Ventolin Hfa) 108 Mcg/Act Aer, 2 PUFFS INH Q4H PRN for SHORTNESS OF BREATH Levalbuterol HCl (Levalbuterol HCl) 1.25 Mg/3 Ml Vial.neb, 1.25 MG INH BID PRN for SHORTNESS OF BREATH Allergies Coded Allergies: No Known Allergies (Unverified , 02/23/08) GME ATTESTATION GME ATTESTATION My faculty preceptor for this patient encounter was physically present during the encounter and was fully available. All aspects of the patient interview, examination, medical decision making process, and medical care plan development were reviewed and approved by the faculty preceptor. The faculty preceptor is aware and concurs with the plan as stated in the body of this note and will attest to such by his/her cosignature. ATTENDING NOTE ATTENDING ATTESTATION: I discussed and reviewed the findings and plan with resident. I have personally assessed patient at bedside and agreed with resident's assessment and plans. CANDIDA LAMB MD Sep 20, 2018 01:53 GAB JADE MD Sep 20, 2018 06:36
[2018-09-20 05:14] LABS: HEMATOCRIT 33.1 % (42.0-52.0); LYMPH # 0.3 10^3/uL (1.5-4.5); LYMPH % 3.2 % (24.0-44.0); MEAN CORPUSCULAR HEMOGLOBIN 29.2 pg (27.0-33.0); MEAN CORPUSCULAR HGB CONC 33.2 g/dl (32.0-36.5); MEAN CORPUSCULAR VOLUME 87.8 fl (80.0-96.0); MONO # 0.7 10^3/uL (0.0-0.8); NEUTROPHILS # 8.1 10^3/uL (1.8-7.7); NEUTROPHILS % 87.8 % (36.0-66.0); RED BLOOD COUNT 3.77 10^6/uL (4.30-6.10); WHITE BLOOD COUNT 9.2 10^3/uL (4.0-10.0)
[2018-09-20 05:22] LABS: PLATELET COUNT, AUTOMATED 93 10^3/uL (150-450)
[2018-09-20 05:25] LABS: INR 4.19; PROTHROMBIN TIME 41.5 SECONDS (12.1-14.4)
[2018-09-20 05:38] LABS: CALCIUM LEVEL 8.2 MG/DL (8.8-10.2); CREATININE FOR GFR 3.43 MG/DL (0.70-1.30); GLOMERULAR FILTRATION RATE 18.6 (>42); MAGNESIUM LEVEL 2.3 MG/DL (1.8-2.4); POTASSIUM SERUM 4.6 MEQ/L (3.5-5.1)
[2018-09-20] MEDS: NS 1,000 ML IV SCH ×2 (05:42→17:10)
[2018-09-20] MEDS: AZITHROMYCIN INJ 500 MG, VIAL MATE ADAPTER 1 EACH in D5W 250 ML IV SCH (06:02)
[2018-09-20] MEDS ORDERED: **hydrALAZINE** 50 MG TAB PO ONE (06:30)
--- NOTE | 2018-09-20 07:33 | REP ---
Portable chest, 10:58 p.m., single AP upright view: Comparison is 07/29/2018. There is a large infiltrate inferiorly in the right upper lobe as an interval change. The previous small right pleural effusion has resolved. There is no left pleural effusion. There is cardiomegaly, unchanged. The bandar, mediastinum, skeletal structures are unchanged. Impression: Right upper lobe infiltrate as an interval change. Cardiomegaly, unchanged. The previous right pleural effusion has resolved. Electronically Signed by Chris Monk MD 09/20/2018 07:24 A
[2018-09-20] MEDS ORDERED: DEXTROSE 50% 50 ML SYRINGE IV PRN (07:45)
[2018-09-20] MEDS ORDERED: GLUCAGON FOR INJ 1 MG VIAL (J1610) SC PRN (07:45)
[2018-09-20] MEDS ORDERED: GLUCOSE 4 GM CHEW TABLET PO PRN (07:45)
[2018-09-20] MEDS ORDERED: TORSEMIDE 20 MG TAB PO SCH (09:00)
[2018-09-20] MEDS ORDERED: GLIMEPIRIDE 2 MG TAB PO SCH (09:00)
[2018-09-20 09:01] LABS: CPK CREATINE PHOSPHOKINASE 40 U/L (39-308); TROPONIN I < 0.02 NG/ML (< 0.10)
[2018-09-20] MEDS: FINASTERIDE 5 MG TAB PO SCH (09:44)
[2018-09-20] MEDS: ASPIRIN 81 MG ENTERIC TAB PO SCH (09:44)
[2018-09-20] MEDS: ESCITALOPRAM OXALATE 10 MG TAB (LEXAPRO) PO SCH (09:44)
[2018-09-20] MEDS: HumaLOG INSULIN (NovoLOG) PER UNIT SC SCH ×4 (09:45→20:46)
[2018-09-20] MEDS: ALBUTEROL 90 MCG/ACT 8GM HFA INHALER INH PRN ×3 (09:52→18:02)
[2018-09-20] MEDS: CYANOCOBALAMIN 500 MCG TAB PO SCH (13:38)
[2018-09-20 16:06] LABS: MB/CK RELATIVE INDEX 4.22 (< OR =4); TROPONIN I 0.02 NG/ML (< 0.10)
[2018-09-20] MEDS ORDERED: IPRATROPIUM 0.5MG/ALBUTEROL 2.5MG INH SOL UD 3ML (DUONEB)(J7620) NEB PRN (18:15)
[2018-09-20] MEDS: TAMSULOSIN 0.4 MG CAP PO SCH (20:47)
[2018-09-20] MEDS: ATORVASTATIN 10 MG TAB PO SCH (20:47)
[2018-09-20] MEDS ORDERED: WARFARIN SOD 2 MG TAB PO SCH (21:00)
[2018-09-20] MEDS: **hydrALAZINE** 50 MG TAB PO SCH (21:07)
[2018-09-21] VITALS (7 sets, daily range): BP systolic 130–161; BP diastolic 79–92
[2018-09-21] MEDS: cefTRIAXone SOD 1 GM in D5W MINI-BAG PLUS 50 ML IV SCH (02:44)
[2018-09-21] MEDS: AZITHROMYCIN INJ 500 MG, VIAL MATE ADAPTER 1 EACH in D5W 250 ML IV SCH (05:52)
[2018-09-21] MEDS: ALBUTEROL 90 MCG/ACT 8GM HFA INHALER INH PRN ×2 (06:13→21:37)
[2018-09-21 06:16] LABS: EOS % 0.1 % (0.0-3.0); HEMATOCRIT 30.1 % (42.0-52.0); HEMOGLOBIN 9.9 g/dl (13.5-17.5); LYMPH # 0.4 10^3/uL (1.5-4.5); LYMPH % 5.4 % (24.0-44.0); MEAN CORPUSCULAR HEMOGLOBIN 28.9 pg (27.0-33.0); MEAN CORPUSCULAR HGB CONC 32.9 g/dl (32.0-36.5); MEAN CORPUSCULAR VOLUME 87.8 fl (80.0-96.0); MONO # 0.7 10^3/uL (0.0-0.8); MONO % 10.6 % (0.0-5.0); NEUTROPHILS # 5.7 10^3/uL (1.8-7.7); NEUTROPHILS % 82.7 % (36.0-66.0); RED BLOOD COUNT 3.43 10^6/uL (4.30-6.10); WHITE BLOOD COUNT 6.9 10^3/uL (4.0-10.0)
[2018-09-21 06:21] LABS: PLATELET COUNT, AUTOMATED 84 10^3/uL (150-450)
[2018-09-21 06:39] LABS: CALCIUM LEVEL 8.3 MG/DL (8.8-10.2); CREATININE FOR GFR 2.66 MG/DL (0.70-1.30); GLOMERULAR FILTRATION RATE 24.9 (>42); POTASSIUM SERUM 4.5 MEQ/L (3.5-5.1)
[2018-09-21] MEDS: HumaLOG INSULIN (NovoLOG) PER UNIT SC SCH ×4 (08:17→20:55)
[2018-09-21] MEDS: ASPIRIN 81 MG ENTERIC TAB PO SCH (08:18)
[2018-09-21] MEDS: FINASTERIDE 5 MG TAB PO SCH (08:18)
[2018-09-21] MEDS: **hydrALAZINE** 50 MG TAB PO SCH ×2 (08:18→21:28)
[2018-09-21] MEDS: ESCITALOPRAM OXALATE 10 MG TAB (LEXAPRO) PO SCH (08:18)
[2018-09-21 08:29] LABS: INR 3.54; PROTHROMBIN TIME 36.3 SECONDS (12.1-14.4)
[2018-09-21] MEDS ORDERED: CARVedilol 12.5 MG TAB PO SCH ×2 (09:00→21:00)
--- NOTE | 2018-09-21 10:06 | IPNPDOC ---
Text Note Date of Service The patient was seen on 09/21/18. NOTE S: pt examined at bedside. No reported events overnight. Required neb tx, responded well. No new complaints today. Continues to have cough with sputum. No f/c/n/v/abd pain. PE: Vitals: see below General: NAD, A&O, resting comfortably Tele: no overnight events HEENT: NCAT, EOMI, anicteric sclera, MMM CV: irregular rhythm with hx AFib, rate tachycardic in 110s RESP: exp wheezing, b/l rhonchi ABD: soft, NT, ND. Benign EXTREMITIES: no edema or calf tenderness NEURO: no deficits or acute changes A/P: 1. Community-acquired PNA RUL infiltrate on admission, sputum culture pending pt feels he is improving. WBC normalized, remains afebrile still requiring supplemental O2, wean off as tolerated. No O2 at baseline continue Ceftriaxone & Azithro day 2 continue duoneb prn 2. 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 Will consider resuming diuretics with improvement 3. Supratherapeutic INR INR down from 4.19 to 3.54 today. Continue holding Coumadin. Goal 2-3 with hx AFib 4. Bradycardia Pt initially presented HR in 40-50s, now better since withholding home Diltiazem & Coreg, per initial discussions with Cardio on admission No events on tele & HR now back up to 90-110s. Will resume Coreg and monitor 5. Chronic AFib resume home Coreg, will uptitrate with goal of hopefully only requiring 1 rate- control med and possibly d/c'ing Diltiazem long-term, especially given hx of cirrhosis continue holding home Diltiazem. Monitor on tele chronically on Coumadin-see above 6. 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 Monitor vol status Cirrhosis with chronic thrombocytopenia stable without signs of bleeding or ascites monitor, diuretics on hold as stated above NIDDM2 ISS & consistent carb diet home glipizie & glimiperide on hold NEERAJ on NEERAJ protocol may use own CPAP HTN with hypertensive heart ds continue Hydralazine Depression stable, continue Lexapro Obstructive Uropathy continue Proscar & Flomax B12 deficiency continue home supplement HLD continue asa, statin DVT ppx: mechanical, chronically Coumadin DISPO: Pending clinical improvement, possible dc this week VS,Fishbone, I+O VS, Fishbone, I+O Laboratory Tests 09/21/18 05:24 Red Blood Count 3.43 L, Mean Corpuscular Volume 87.8, Mean Corpuscular Hemoglobin 28.9, Mean Corpuscular Hemoglobin Concent 32.9, Red Cell Distribution Width 14.7 H, Neutrophils (%) (Auto) 82.7 H, Lymphocytes (%) (Auto) 5.4 L, Monoc ytes (%) (Auto) 10.6 H, Eosinophils (%) (Auto) 0.1, Basophils (%) (Auto) 0.0, Neutrophils # (Auto) 5.7, Lymphocytes # (Auto) 0.4 L, Monocytes # (Auto) 0.7, Eosinophils # (Auto) 0.0, Basophils # (Auto) 0.0, Calcium Level 8.3 L Vital Signs Date Time Temp Pulse Resp B/P (MAP) Pulse Ox O2 Delivery O2 Flow Rate FiO2 09/21/18 08:18 110 158/90 09/21/18 08:00 98.1 20 95 09/21/18 04:00 Nasal Cannula 1.0 I&O- Last 24 Hours up to 6 AM 09/21/18 06:00 Intake Total 2210 ml Output Total 1000 ml Balance 1210 ml GME ATTESTATION GME ATTESTATION My faculty preceptor for this patient encounter was physically present during the encounter and was fully available. All aspects of the patient interview, examination, medical decision making process, and medical care plan development were reviewed and approved by the faculty preceptor. The faculty preceptor is aware and concurs with the plan as stated in the body of this note and will attest to such by his/her cosignature. CY SAM DO Sep 21, 2018 08:24
[2018-09-21] MEDS ORDERED: CARVedilol 12.5 MG TAB PO ONE (11:45)
[2018-09-21] MEDS: CYANOCOBALAMIN 500 MCG TAB PO SCH (12:35)
[2018-09-21] MEDS: ATORVASTATIN 10 MG TAB PO SCH (21:28)
[2018-09-21] MEDS: TAMSULOSIN 0.4 MG CAP PO SCH (21:28)
[2018-09-22] MEDS: cefTRIAXone SOD 1 GM in D5W MINI-BAG PLUS 50 ML IV SCH (01:47)
[2018-09-22 03:59] VITALS: BP 162/90
[2018-09-22] MEDS: AZITHROMYCIN INJ 500 MG, VIAL MATE ADAPTER 1 EACH in D5W 250 ML IV SCH (05:25)
[2018-09-22 05:46] LABS: EOS # 0.1 10^3/uL (0.0-0.50); EOS % 0.7 % (0.0-3.0); HEMATOCRIT 30.8 % (42.0-52.0); HEMOGLOBIN 10.1 g/dl (13.5-17.5); LYMPH # 0.4 10^3/uL (1.5-4.5); LYMPH % 5.2 % (24.0-44.0); MEAN CORPUSCULAR HEMOGLOBIN 28.5 pg (27.0-33.0); MEAN CORPUSCULAR HGB CONC 32.8 g/dl (32.0-36.5); MEAN CORPUSCULAR VOLUME 86.8 fl (80.0-96.0); MONO # 0.7 10^3/uL (0.0-0.8); MONO % 9.6 % (0.0-5.0); NEUTROPHILS # 5.8 10^3/uL (1.8-7.7); NEUTROPHILS % 83.5 % (36.0-66.0); RED BLOOD COUNT 3.55 10^6/uL (4.30-6.10); WHITE BLOOD COUNT 6.9 10^3/uL (4.0-10.0)
[2018-09-22 05:49] LABS: PLATELET COUNT, AUTOMATED 83 10^3/uL (150-450)
[2018-09-22 05:57] LABS: INR 3.2; PROTHROMBIN TIME 33.5 SECONDS (12.1-14.4)
[2018-09-22 06:07] LABS: CALCIUM LEVEL 8.2 MG/DL (8.8-10.2); CREATININE FOR GFR 2.33 MG/DL (0.70-1.30); GLOMERULAR FILTRATION RATE 29.1 (>42); POTASSIUM SERUM 4.9 MEQ/L (3.5-5.1)
[2018-09-22] MEDS: HumaLOG INSULIN (NovoLOG) PER UNIT SC SCH ×4 (07:55→21:11)
[2018-09-22 08:00] VITALS: BP 170/108
[2018-09-22] MEDS: FINASTERIDE 5 MG TAB PO SCH (08:26)
[2018-09-22] MEDS: **hydrALAZINE** 50 MG TAB PO SCH ×2 (08:26→21:09)
[2018-09-22] MEDS: ASPIRIN 81 MG ENTERIC TAB PO SCH (08:27)
[2018-09-22] MEDS: ESCITALOPRAM OXALATE 10 MG TAB (LEXAPRO) PO SCH (08:27)
[2018-09-22] MEDS: CARVedilol 12.5 MG TAB PO SCH ×2 (08:27→21:09)
[2018-09-22] MEDS: diltiaZEM **CD** 180 MG CAP PO SCH (08:28)
[2018-09-22] MEDS: TORSEMIDE 20 MG TAB PO SCH (11:10)
[2018-09-22 12:00] VITALS: BP 170/98
[2018-09-22] MEDS: CYANOCOBALAMIN 500 MCG TAB PO SCH (13:23)
[2018-09-22 16:00] VITALS: BP 123/91
--- NOTE | 2018-09-22 18:11 | IPNPDOC ---
Text Note Date of Service The patient was seen on 09/22/18. NOTE S: pt examined at bedside. No events overnight or complaints today. States he is breathing better. Is off of O2 this am, and continues with PT. Having light red/bloody sputum with coughing, but no pain or discomfort. No f/c/n/v/abd pain. PE: Vitals: see below General: NAD, A&O, resting comfortably Tele: no overnight events HEENT: NCAT, EOMI, anicteric sclera, MMM CV: irregular rhythm with hx AFib, rate tachycardic in 110s RESP: exp wheezing, b/l rhonchi ABD: soft, NT, ND. Benign EXTREMITIES: no edema or calf tenderness NEURO: no deficits or acute changes A/P: 1. Community-acquired PNA RUL infiltrate on admission, sputum culture +E.Coli continue Ceftriaxone & Azithro day 3 pt feels he is improving. WBC normalized, remains afebrile weaned off O2 as of this am. continue monitoring continue duoneb prn 2. Hemoptysis H&H remain stable blood-tinged tissues in room-pt states started with coughing last week no pain. H&H remain stable. Clinically is improving Continue monitoring. Likely 2/2 PNA. Pt aware this may require further o/p f/u & is agreeable 3. 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 Supratherapeutic INR INR down to 3.2 today. Continue holding Coumadin. Goal 2-3 with hx AFib 5. Bradycardia Pt initially presented HR in 40-50s, now better since withholding home Diltiazem & Coreg, per initial discussions with Cardio on admission continue Coreg & Diltiazem at lower dose and monitor HR/tele 6. Chronic AFib Coreg & Diltiazem resumed chronically on Coumadin-see above 7. 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 continue PT/OT Diastolic CHF with severe pulmonary HTN compensated, EF 65% per 08/02 echo home torsemide & spironolactone resumed Cirrhosis with chronic thrombocytopenia stable without signs of bleeding or ascites monitor, diuretics resumed NIDDM2 ISS & consistent carb diet home glipizie & glimiperide on hold NEERAJ on NEERAJ protocol may use own CPAP HTN with hypertensive heart ds continue Hydralazine Depression stable, continue Lexapro Obstructive Uropathy continue Proscar & Flomax B12 deficiency continue home supplement HLD continue asa, statin DVT ppx: mechanical, chronically Coumadin DISPO: Pending clinical improvement, PT/OT. Possible dc this week VS,Fishbone, I+O VS, Fishbone, I+O Laboratory Tests 09/22/18 05:29 Red Blood Count 3.55 L, Mean Corpuscular Volume 86.8, Mean Corpuscular Hemoglobin 28.5, Mean Corpuscular Hemoglobin Concent 32.8, Red Cell Distribution Width 14.6 H, Neutrophils (%) (Auto) 83.5 H, Lymphocytes (%) (Auto) 5.2 L, Monocytes (%) (Auto) 9.6 H, Eosinophils (%) (Auto) 0.7, Basophils (%) (Auto) 0.0, Neutrophils # (Auto) 5.8, Lymphocytes # (Auto) 0.4 L, Monocytes # (Auto) 0.7, Eosinophils # (Auto) 0.1, Basophils # (Auto) 0.0, Calcium Level 8.2 L Vital Signs Date Time Temp Pulse Resp B/P (MAP) Pulse Ox O2 Delivery O2 Flow Rate FiO2 09/22/18 16:00 96.9 80 24 123/91 (102) 98 09/22/18 00:00 09/21/18 19:00 Room Air I&O- Last 24 Hours up to 6 AM 09/22/18 06:00 Intake Total 1875 ml Output Total 1225 ml Balance 650 ml GME ATTESTATION GME ATTESTATION My faculty preceptor for this patient encounter was physically present during the encounter and was fully available. All aspects of the patient interview, examination, medical decision making process, and medical care plan development were reviewed and approved by the faculty preceptor. The faculty preceptor is aware and concurs with the plan as stated in the body of this note and will attest to such by his/her cosignature. YC SAM DO Sep 22, 2018 18:11
[2018-09-22 20:00] VITALS: BP 165/81
[2018-09-22] MEDS: SPIRONOLACTONE 25 MG TAB PO SCH (21:09)
[2018-09-22] MEDS: ATORVASTATIN 10 MG TAB PO SCH (21:09)
[2018-09-22] MEDS: TAMSULOSIN 0.4 MG CAP PO SCH (21:09)
[2018-09-22] MEDS: ALBUTEROL 90 MCG/ACT 8GM HFA INHALER INH PRN (21:52)
[2018-09-23] VITALS (7 sets, daily range): BP systolic 140–170; BP diastolic 62–100
[2018-09-23] MEDS: cefTRIAXone SOD 1 GM in D5W MINI-BAG PLUS 50 ML IV SCH (02:21)
[2018-09-23 05:14] LABS: BASO % 0.2 % (0.0-1.0); EOS # 0.1 10^3/uL (0.0-0.50); EOS % 1.2 % (0.0-3.0); HEMATOCRIT 29.3 % (42.0-52.0); HEMOGLOBIN 9.6 g/dl (13.5-17.5); LYMPH # 0.4 10^3/uL (1.5-4.5); LYMPH % 5.4 % (24.0-44.0); MEAN CORPUSCULAR HEMOGLOBIN 28.7 pg (27.0-33.0); MEAN CORPUSCULAR HGB CONC 32.8 g/dl (32.0-36.5); MEAN CORPUSCULAR VOLUME 87.5 fl (80.0-96.0); MONO # 0.6 10^3/uL (0.0-0.8); MONO % 9.2 % (0.0-5.0); NEUTROPHILS # 5.4 10^3/uL (1.8-7.7); NEUTROPHILS % 82.3 % (36.0-66.0); RED BLOOD COUNT 3.35 10^6/uL (4.30-6.10); WHITE BLOOD COUNT 6.5 10^3/uL (4.0-10.0)
[2018-09-23 05:16] LABS: PLATELET COUNT, AUTOMATED 89 10^3/uL (150-450)
[2018-09-23 05:33] LABS: INR 2.74; PROTHROMBIN TIME 29.6 SECONDS (12.1-14.4)
[2018-09-23 05:39] LABS: CALCIUM LEVEL 8.4 MG/DL (8.8-10.2); CREATININE FOR GFR 2.21 MG/DL (0.70-1.30); GLOMERULAR FILTRATION RATE 30.9 (>42); POTASSIUM SERUM 4.8 MEQ/L (3.5-5.1)
[2018-09-23] MEDS: HumaLOG INSULIN (NovoLOG) PER UNIT SC SCH ×4 (07:47→20:48)
[2018-09-23] MEDS: FINASTERIDE 5 MG TAB PO SCH (10:04)
[2018-09-23] MEDS: AZITHROMYCIN 250 MG TAB PO SCH (10:04)
[2018-09-23] MEDS: **hydrALAZINE** 50 MG TAB PO SCH ×2 (10:05→20:51)
[2018-09-23] MEDS: diltiaZEM **CD** 180 MG CAP PO SCH (10:06)
[2018-09-23] MEDS: CARVedilol 12.5 MG TAB PO SCH ×2 (10:06→20:53)
[2018-09-23] MEDS: ESCITALOPRAM OXALATE 10 MG TAB (LEXAPRO) PO SCH (10:07)
[2018-09-23] MEDS: ASPIRIN 81 MG ENTERIC TAB PO SCH (10:07)
[2018-09-23] MEDS: TORSEMIDE 20 MG TAB PO SCH (10:07)
--- NOTE | 2018-09-23 10:41 | REP ---
CT of the abdomen and pelvis without IV or bowel contrast for right lower quadrant abdominal pain and distension. The patient has clinical history of cholecystectomy, appendectomy, left lithotripsy and ureteral stent. There are bilateral small pleural effusions, decreased in size from the chest CT dated 07/25/2018. There are scattered subsegmental infiltrates in the lower lobes bilaterally. They were not definitely present on the comparison chest CT of 07/25/2018. The unenhanced hepatic parenchyma, pancreas and spleen are normal size, unremarkable and unchanged. Calcified atheroma is again identified in the celiac artery, superior mesenteric artery, splenic artery and renal arteries. The adrenals are unremarkable. The renal cortices appear somewhat atrophic bilaterally. This is unchanged. There are occasional renal cortical cyst. This is unchanged. There is vascular calcified atheroma in the renal arteries. This is unchanged. There is no hydronephrosis. No perinephric stranding. The abdominal aorta is unremarkable except for calcified atheroma. There is no retroperitoneal adenopathy or mass. There is no mesenteric adenopathy, mass or inflammation. There is no ascites. There is no bowel distension or obstruction. There are occasional diverticula in the sigmoid colon without diverticulitis. There is diffuse enlargement of the right rectus abdominus muscle as an interval change compatible with a rectus sheath hematoma. Pelvis: The terminal ileum is unremarkable. The appendix is surgically absent. There is no ascites or adenopathy. There is focal induration of the mesenteric fat in the pelvis on the right anterior to the distal right so as muscle on image 106. This is immediately adjacent to a loop of sigmoid colon. No definite diverticuli are identified within this loop of sigmoid colon. Nevertheless, focal diverticulitis is a possibility. There is no fluid collection to suggest abscess. The bladder is unremarkable. The prostate is moderately enlarged and effaces the bladder base. There are bilateral laminectomies in the lumbar spine available for and L5. There is surgical fusion of the lumbar spine L4-L5 - S1. Impression: Findings compatible with right rectus sheath hematoma as an interval change. Focal induration of the mesial tarry fat anterior to the distal right so as muscle in the pelvis as described. This is immediately adjacent to a loop of sigmoid colon. There are no diverticula in this loop of colon, however, diverticulitis is a possibility. There is no focal fluid collection to suggest abscess. No ascites. Postsurgical changes in the lumbar spine as described. There are diverticula in the distal descending colon and proximal sigmoid colon without diverticulitis in these locations. Bilateral renal cortical atrophy. There is no hydronephrosis. There is no ureteral stent on the current study. Small bilateral pleural effusions, decreased from the chest CT of 07/25/2018. Scattered subsegmental bibasilar infiltrates. Electronically Signed by Chris Monk MD 09/23/2018 10:32 A
[2018-09-23] MEDS: CYANOCOBALAMIN 500 MCG TAB PO SCH (12:38)
--- NOTE | 2018-09-23 16:20 | IPNPDOC ---
Text Note Date of Service The patient was seen on 09/23/18. NOTE S: pt examined at bedside. Complains of right lower abd pain-imaging today revealed hematoma in RLQ consistent with his pain, but otherwise stable. States he is breathing better & HR better controlled since resuming home Diltiazem & Coreg. Hemoptysis persists, but states is overall feeling close to his normal. No other complaints. Continues with PT. No f/c/n/v. PE: Vitals: see below General: NAD, A&O, resting comfortably Tele: no overnight events HEENT: NCAT, EOMI, anicteric sclera, MMM CV: irregular rhythm with hx AFib, rate tachycardic in 110s RESP: exp wheezing, b/l rhonchi ABD: soft, tender to palpation in RLQ with mild tension and protruding mass without ecchymosis, positive bowel sounds EXTREMITIES: no edema or calf tenderness NEURO: no deficits or acute changes A/P: 1. Community-acquired PNA RUL infiltrate on admission, repeat sputum culture +E.Coli overall improving: weaned off O2, afebrile, WBC WNL continue Ceftriaxone & Azithro day 4 continue duoneb prn 2. Hemoptysis H&H remain stable blood-tinged tissues in room-pt states started with coughing last week no chest pain or discomfort. Clinically is improving Continue monitoring. Likely 2/2 PNA. Pt aware this may require further o/p f/u & is agreeable 3. Hematoma in RLQ noted on CT today. Is where pt complains of abd pain possibly 2/2 recent fall prior to admission H&H at baseline. Hemodynamically stable continue supportive care, warm compresses, pain control 4. BRENDON on CKD IV with hx of renal A stenosis s/p stent resolved s/p gentle IVF & holding nephrotoxins Cr remains at baseline after resuming diuretics yesterday, Cr 2.3-2.6 4. Chronic Anticoagulation INR in target range today, goal 2-3 with hx AFib resume Coumadin and daily INR checks 5. Bradycardia Pt initially presented HR in 40-50s, now better since withholding home Diltiazem & Coreg, per initial discussions with Cardio on admission continue Coreg & Diltiazem home doses, no events on tele. HR WNL now. Continue monitoring 6. Chronic AFib continue Coreg & Diltiazem chronically on Coumadin 7. 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 continue PT/OT & B12 supplement Diastolic CHF with severe pulmonary HTN compensated, EF 65% per 08/02 echo continue home torsemide & spironolactone Cirrhosis with chronic thrombocytopenia stable without signs of bleeding or ascites monitor, continue diuretics NIDDM2 ISS & consistent carb diet home glipizie & glimiperide on hold NEERAJ on NEERAJ protocol may use own CPAP HTN with hypertensive heart ds continue Hydralazine Depression stable, continue Lexapro Obstructive Uropathy continue Proscar & Flomax HLD continue asa, statin DVT ppx: mechanical, chronically Coumadin DISPO: Pending clinical improvement, PT/OT. Possible dc in 24 hrs. VS,Fishbone, I+O VS, Fishbone, I+O Laboratory Tests 09/23/18 05:03 Red Blood Count 3.35 L, Mean Corpuscular Volume 87.5, Mean Corpuscular Hemoglobin 28.7, Mean Corpuscular Hemoglobin Concent 32.8, Red Cell Distribution Width 14.5, Neutrophils (%) (Auto) 82.3 H, Lymphocytes (%) (Auto) 5.4 L, Monocytes (%) (Auto) 9.2 H, Eosinophils (%) (Auto) 1.2, Basophils (%) (Auto) 0.2, Neutrophils # (Auto) 5.4, Lymphocytes # (Auto) 0.4 L, Monocytes # (Auto) 0.6, Eosinophils # (Auto) 0.1, Basophils # (Auto) 0.0, Calcium Level 8.4 L Vital Signs Date Time Temp Pulse Resp B/P (MAP) Pulse Ox O2 Delivery O2 Flow Rate FiO2 09/23/18 12:00 96.0 104 20 158/70 (99) 09/23/18 08:00 96 09/22/18 00:00 09/21/18 19:00 Room Air I&O- Last 24 Hours up to 6 AM 09/23/18 06:00 Intake Total 1370 ml Output Total 1025 ml Balance 345 ml GME ATTESTATION GME ATTESTATION My faculty preceptor for this patient encounter was physically present during the encounter and was fully available. All aspects of the patient interview, examination, medical decision making process, and medical care plan development were reviewed and approved by the faculty preceptor. The faculty preceptor is aware and concurs with the plan as stated in the body of this note and will attest to such by his/her cosignature. CY SAM DO Sep 23, 2018 16:19
[2018-09-23] MEDS ORDERED: WARFARIN SOD 2 MG TAB PO SCH (17:00)
[2018-09-23] MEDS: DEXTROMETHORPHAN 60MG/10ML SUSP 90ML BTL(DELSYM) PO SCH (18:06)
[2018-09-23] MEDS: SPIRONOLACTONE 25 MG TAB PO SCH (20:49)
[2018-09-23] MEDS: TAMSULOSIN 0.4 MG CAP PO SCH (20:51)
[2018-09-23] MEDS: ATORVASTATIN 10 MG TAB PO SCH (20:53)
[2018-09-24] MEDS: DEXTROMETHORPHAN 60MG/10ML SUSP 90ML BTL(DELSYM) PO SCH ×5 (00:18→23:49)
[2018-09-24] MEDS: cefTRIAXone SOD 1 GM in D5W MINI-BAG PLUS 50 ML IV SCH (01:56)
[2018-09-24 04:00] VITALS: BP 137/71
[2018-09-24 05:52] LABS: EOS # 0.1 10^3/uL (0.0-0.50); EOS % 0.8 % (0.0-3.0); HEMATOCRIT 28.6 % (42.0-52.0); HEMOGLOBIN 9.3 g/dl (13.5-17.5); LYMPH # 0.4 10^3/uL (1.5-4.5); LYMPH % 4.6 % (24.0-44.0); MEAN CORPUSCULAR HEMOGLOBIN 27.9 pg (27.0-33.0); MEAN CORPUSCULAR HGB CONC 32.5 g/dl (32.0-36.5); MEAN CORPUSCULAR VOLUME 85.9 fl (80.0-96.0); MONO # 0.8 10^3/uL (0.0-0.8); NEUTROPHILS # 7.6 10^3/uL (1.8-7.7); NEUTROPHILS % 84.1 % (36.0-66.0); PLATELET COUNT, AUTOMATED 130 10^3/uL (150-450); RED BLOOD COUNT 3.33 10^6/uL (4.30-6.10)
[2018-09-24 06:06] LABS: INR 2.42; PROTHROMBIN TIME 26.8 SECONDS (12.1-14.4)
[2018-09-24 06:14] LABS: CALCIUM LEVEL 8.7 MG/DL (8.8-10.2); CREATININE FOR GFR 2.2 MG/DL (0.70-1.30); GLOMERULAR FILTRATION RATE 31.1 (>42); POTASSIUM SERUM 4.9 MEQ/L (3.5-5.1)
[2018-09-24 08:00] VITALS: BP 160/80
[2018-09-24] MEDS: HumaLOG INSULIN (NovoLOG) PER UNIT SC SCH ×4 (08:29→20:34)
[2018-09-24] MEDS: TORSEMIDE 20 MG TAB PO SCH (08:30)
[2018-09-24] MEDS: ASPIRIN 81 MG ENTERIC TAB PO SCH (08:30)
[2018-09-24] MEDS: ESCITALOPRAM OXALATE 10 MG TAB (LEXAPRO) PO SCH (08:30)
[2018-09-24] MEDS: AZITHROMYCIN 250 MG TAB PO SCH (08:31)
[2018-09-24] MEDS: FINASTERIDE 5 MG TAB PO SCH (08:31)
[2018-09-24] MEDS: **hydrALAZINE** 50 MG TAB PO SCH ×2 (08:31→20:34)
[2018-09-24] MEDS: diltiaZEM **CD** 180 MG CAP PO SCH (08:31)
[2018-09-24] MEDS: CARVedilol 12.5 MG TAB PO SCH ×2 (08:32→20:34)
[2018-09-24] MEDS: IPRATROPIUM 0.5MG/ALBUTEROL 2.5MG INH SOL UD 3ML (DUONEB)(J7620) NEB SCH ×3 (08:44→20:32)
--- NOTE | 2018-09-24 11:02 | IPNPDOC ---
Text Note Date of Service The patient was seen on 09/24/18. NOTE S: pt examined at bedside. Continues to complain of RLQ abd pain, worse today than yesterday. Progress with PT/OT limited due to abd pain from hematoma noted on CT yesterday. Tolerating diet and denies n/v or changes in stool or melena/hematochezia. Hemoptysis is decreasing and tissue in room shows phlegm is now yellow-pink instead of blood-tinged as before. PE: Vitals: see below General: NAD, A&O, resting comfortably Tele: no overnight events HEENT: NCAT, EOMI, anicteric sclera, MMM CV: irregular rhythm with hx AFib, rate controlled in 80-90s RESP: exp wheezing & rhonchi t, b/l rhonchi ABD: mildly tense, tender to palpation in RLQ with mild tension and protruding mass without ecchymosis, normoactive bowel sounds EXTREMITIES: no edema or calf tenderness NEURO: no deficits or acute changes A/P: 1. Hematoma in RLQ noted on CT yesterday 09/23. Possibly 2/2 recent fall prior to admission Pt complains of worsening pain today despite conservative measures with warm compresses and heating pad. Is otherwise hemodynamically stable. Given his decline of 1g Hgb in past 48hrs, concern for expanding hematoma. Discussed with Gen Surg, who recommended reducing INR and continue conservative management. Will currently withhold Coumadin and re-evaluate. Will reach out to Surgery again if no improvement 2. Community-acquired PNA RUL infiltrate on admission, repeat sputum culture +E.Coli continues to do well since weaned off O2, afebrile, WBC WNL continue Ceftriaxone & Azithro day 5 continue duoneb prn 3. Hemoptysis likely 2/2 severe coughing from PNA as pt states it started with coughing last week improving. Tissues now have yellow-pink phlegm no chest pain or discomfort. Continue supportive care, antitussive, neb tx 4. BRENDON on CKD IV, with hx of renal A stenosis s/p stent resolved s/p gentle IVF & holding nephrotoxins Cr remains at baseline after resuming home diuretics, Cr 2.3-2.6 5. Chronic Anticoagulation INR in target range today, goal 2-3 with hx AFib hold Coumadin as mentioned above 6. Uncontrolled HR Pt initially presented HR in 40-50s, resolved since withholding home Diltiazem & Coreg on admission per Cardio continue Coreg & Diltiazem home doses, no events on tele. HR WNL now. Continue monitoring 7. Chronic AFib continue Coreg & Diltiazem chronically on Coumadin 8. 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 Monitor, continue diuretics NIDDM2 ISS & consistent carb diet home glipizie & glimiperide on hold NEERAJ on NEERAJ protocol may use own CPAP HTN with hypertensive heart ds continue Hydralazine Depression stable, continue Lexapro Obstructive Uropathy continue Proscar & Flomax HLD continue asa, statin DVT ppx: mechanical, Coumadin on hold DISPO: Pending clinical improvement, PT/OT. at home is unable to care for him. Will likely require 04/01 services, which [facility] is helping set up. VS,Fishbone, I+O VS, Fishbone, I+O Laboratory Tests 09/24/18 05:23 Red Blood Count 3.33 L, Mean Corpuscular Volume 85.9, Mean Corpuscular Hemoglobin 27.9, Mean Corpuscular Hemoglobin Concent 32.5, Red Cell Distribution Width 14.6 H, Neutrophils (%) (Auto) 84.1 H, Lymphocytes (%) (Auto) 4.6 L, Monocytes (%) (Auto) 9.0 H, Eosinophils (%) (Auto) 0.8, Basophils (%) (Auto) 0.0, Neutrophils # (Auto) 7.6, Lymphocytes # (Auto) 0.4 L, Monocytes # (Auto) 0.8, Eosinophils # (Auto) 0.1, Basophils # (Auto) 0.0, Calcium Level 8.7 L Vital Signs Date Time Temp Pulse Resp B/P (MAP) Pulse Ox O2 Delivery O2 Flow Rate FiO2 09/24/18 08:31 102 160/80 09/24/18 08:00 96.7 22 97 09/24/18 02:00 Room Air 09/22/18 00:00 I&O- Last 24 Hours up to 6 AM 09/24/18 06:00 Intake Total 1380 ml Output Total 1675 ml Balance -295 ml GME ATTESTATION GME ATTESTATION My faculty preceptor for this patient encounter was physically present during the encounter and was fully available. All aspects of the patient interview, examination, medical decision making process, and medical care plan development were reviewed and approved by the faculty preceptor. The faculty preceptor is aware and concurs with the plan as stated in the body of this note and will attest to such by his/her cosignature. CY SAM DO Sep 24, 2018 11:02
[2018-09-24 12:00] VITALS: BP 152/74
[2018-09-24] MEDS: CYANOCOBALAMIN 500 MCG TAB PO SCH (12:36)
[2018-09-24 16:00] VITALS: BP 164/80
[2018-09-24] MEDS: ACETAMINOPHEN TAB 650MG DOSE (2X325MG) PO PRN (17:17)
[2018-09-24 20:00] VITALS: BP 174/94
[2018-09-24] MEDS: TAMSULOSIN 0.4 MG CAP PO SCH (20:20)
[2018-09-24] MEDS: ATORVASTATIN 10 MG TAB PO SCH (20:21)
[2018-09-24] MEDS: SPIRONOLACTONE 25 MG TAB PO SCH (20:21)
[2018-09-25] VITALS (11 sets, daily range): BP systolic 133–177; BP diastolic 71–99
[2018-09-25] MEDS: IPRATROPIUM 0.5MG/ALBUTEROL 2.5MG INH SOL UD 3ML (DUONEB)(J7620) NEB SCH ×4 (01:53→19:53)
[2018-09-25] MEDS: cefTRIAXone SOD 1 GM in D5W MINI-BAG PLUS 50 ML IV SCH (03:17)
[2018-09-25 05:37] LABS: EOS # 0.1 10^3/uL (0.0-0.50); EOS % 0.8 % (0.0-3.0); HEMATOCRIT 27.6 % (42.0-52.0); HEMOGLOBIN 9.1 g/dl (13.5-17.5); LYMPH # 0.5 10^3/uL (1.5-4.5); LYMPH % 5.5 % (24.0-44.0); MEAN CORPUSCULAR HEMOGLOBIN 28.4 pg (27.0-33.0); MEAN CORPUSCULAR VOLUME 86.3 fl (80.0-96.0); MONO # 0.9 10^3/uL (0.0-0.8); MONO % 9.9 % (0.0-5.0); NEUTROPHILS # 7.1 10^3/uL (1.8-7.7); NEUTROPHILS % 82.6 % (36.0-66.0); PLATELET COUNT, AUTOMATED 133 10^3/uL (150-450); WHITE BLOOD COUNT 8.6 10^3/uL (4.0-10.0)
[2018-09-25 05:44] LABS: CALCIUM LEVEL 8.4 MG/DL (8.8-10.2); CREATININE FOR GFR 2.42 MG/DL (0.70-1.30); GLOMERULAR FILTRATION RATE 27.8 (>42); POTASSIUM SERUM 4.8 MEQ/L (3.5-5.1)
[2018-09-25 05:50] LABS: INR 2.47; PROTHROMBIN TIME 27.3 SECONDS (12.1-14.4)
[2018-09-25] MEDS: DEXTROMETHORPHAN 60MG/10ML SUSP 90ML BTL(DELSYM) PO SCH ×3 (06:29→18:07)
[2018-09-25] MEDS: **hydrALAZINE** 50 MG TAB PO SCH ×2 (06:44→21:08)
[2018-09-25] MEDS: FINASTERIDE 5 MG TAB PO SCH (08:28)
[2018-09-25] MEDS: ASPIRIN 81 MG ENTERIC TAB PO SCH (08:28)
[2018-09-25] MEDS: diltiaZEM **CD** 180 MG CAP PO SCH (08:30)
[2018-09-25] MEDS: HumaLOG INSULIN (NovoLOG) PER UNIT SC SCH ×4 (08:30→21:07)
[2018-09-25] MEDS: ESCITALOPRAM OXALATE 10 MG TAB (LEXAPRO) PO SCH (08:30)
[2018-09-25] MEDS: TORSEMIDE 20 MG TAB PO SCH (08:32)
[2018-09-25] MEDS: CARVedilol 12.5 MG TAB PO SCH ×2 (08:33→21:08)
[2018-09-25] MEDS: AZITHROMYCIN 250 MG TAB PO SCH (08:33)
[2018-09-25] MEDS: CYANOCOBALAMIN 500 MCG TAB PO SCH (12:28)
[2018-09-25] MEDS: SPIRONOLACTONE 25 MG TAB PO SCH (21:07)
[2018-09-25] MEDS: ATORVASTATIN 10 MG TAB PO SCH (21:07)
[2018-09-25] MEDS: TAMSULOSIN 0.4 MG CAP PO SCH (21:07)
[2018-09-25] MEDS: ACETAMINOPHEN TAB 650MG DOSE (2X325MG) PO PRN (21:11)
[2018-09-26] MEDS: DEXTROMETHORPHAN 60MG/10ML SUSP 90ML BTL(DELSYM) PO SCH ×4 (00:09→17:00)
[2018-09-26] MEDS: IPRATROPIUM 0.5MG/ALBUTEROL 2.5MG INH SOL UD 3ML (DUONEB)(J7620) NEB SCH ×4 (00:41→20:52)
[2018-09-26] MEDS: cefTRIAXone SOD 1 GM in D5W MINI-BAG PLUS 50 ML IV SCH (02:29)
[2018-09-26 04:00] VITALS: BP 152/74
[2018-09-26 05:38] LABS: INR 1.96; PROTHROMBIN TIME 22.7 SECONDS (12.1-14.4)
[2018-09-26 08:00] VITALS: BP 169/91
[2018-09-26] MEDS: CARVedilol 12.5 MG TAB PO SCH ×2 (08:38→20:40)
[2018-09-26] MEDS: HumaLOG INSULIN (NovoLOG) PER UNIT SC SCH ×4 (08:38→20:34)
[2018-09-26] MEDS: ASPIRIN 81 MG ENTERIC TAB PO SCH (08:38)
[2018-09-26] MEDS: diltiaZEM **CD** 180 MG CAP PO SCH (08:42)
[2018-09-26] MEDS: FINASTERIDE 5 MG TAB PO SCH (08:42)
[2018-09-26] MEDS: TORSEMIDE 20 MG TAB PO SCH (08:42)
[2018-09-26] MEDS: ESCITALOPRAM OXALATE 10 MG TAB (LEXAPRO) PO SCH (08:42)
[2018-09-26] MEDS: AZITHROMYCIN 250 MG TAB PO SCH (08:43)
[2018-09-26] MEDS: **hydrALAZINE** 50 MG TAB PO SCH ×2 (08:43→20:39)
[2018-09-26 09:30] VITALS: BP 132/77
--- NOTE | 2018-09-26 11:06 | IPN ---
DATE OF VISIT: 09/25/2018 SUBJECTIVE: The patient is seen and examined in the room today. The patient continues to have right lower quadrant abdominal pain. The patient does not feel that his hematoma is getting worse. The patient denies the need for oxygen. The patient feels that his hemoptysis is improving. OBJECTIVE: VITAL SIGNS: Temperature is 96.8, pulse 77, respirations 18, blood pressure 134/71, pulse oximetry 99% on room air. GENERAL: The patient is alert and awake, comfortable. HEENT: Normocephalic, atraumatic. Extraocular motor grossly intact. CARDIOVASCULAR: Irregular, irregular, positive S1, S2. LUNGS: Decreased breath sounds bilaterally. Expiratory wheezes. ABDOMEN: There is tenderness to palpation in the right lower abdomen, no significant ecchymosis is noted at the hematoma site. Bowel sounds present. Abdomen is soft. EXTREMITIES: No edema. LABORATORY DATA: WBC 8.6, hemoglobin 9.1, hematocrit 27.6, platelet count is 133. Sodium 137, potassium 4.8, chloride 106, carbon dioxide 22, BUN 63, create 2.42, GFR 27.8, fasting glucose 229, calcium 8.4. ASSESSMENT AND PLAN: 1. Community acquired pneumonia. Multiple sputum cultures were performed. The patient had Escherichia coli, enterobacter cloacae complex and Staphylococcus aureus. The patient is being weaned off the oxygen. The patient is on antibiotics. Hemoptysis is improving. 2. Hematoma. Located at the right lower abdomen. Positive recent fall. The patient presented with supratherapeutic INR. Will continue to hold Coumadin. Currently the patient's INR is within therapeutic range. Continue conservative medical management. Continue to follow the hemoglobin and hematocrit. 3. Hemoptysis. The patient did have a severe cough and pneumonia. The patient is being treated for pneumonia. The patient had a supratherapeutic INR before. Will continue to adjust the Coumadin. Continue antibiotic treatments. Continue cough control. 4. Acute kidney injury on chronic kidney disease stage IV. History of renal artery stenosis status post stent. The patient's kidney function is around baseline. 5. Atrial fibrillation. Currently the heart rate is seen in the satisfactory range. The patient is on carvedilol and diltiazem. Currently the patient has therapeutic INR. 6. Diastolic congestive heart failure with severe pulmonary hypertension. The patient is on spironolactone and torsemide. 7. Insulin-dependent diabetes. Continue sliding scale. Continue consistent carbohydrate diet. 8. Cirrhosis. Torsemide and spironolactone. 9. Hypertension. On hydralazine, carvedilol, diltiazem. 10. Benign prostatic hypertrophy. On Proscar and Flomax. 11. Depression. On Lexapro. Deep venous thrombosis (DVT) prophylaxis. Currently the patient has a therapeutic INR. Will adjust the Coumadin as needed.
[2018-09-26] MEDS: CYANOCOBALAMIN 500 MCG TAB PO SCH (12:14)
[2018-09-26 14:00] VITALS: BP 135/76
--- NOTE | 2018-09-26 17:05 | IPNPDOC ---
Text Note Date of Service The patient was seen on 09/26/18. NOTE SUBJECTIVE: The patient is seen and examined in the room today. Patient states he still has right lower abdominal pain but there is no worsening of the pain. He still sees mild streak of blood when he has sputum production. He states the amount of blood has decreased. No fever or chill. OBJECTIVE: VITAL SIGNS: Listed below. GENERAL: Alert and awake, comfortable. HEENT: Normocephalic, atraumatic. Extraocular motor grossly intact. CARDIOVASCULAR: Irregular, irregular, positive S1, S2. LUNGS: Decreased breath sounds bilaterally. Expiratory wheezes. ABDOMEN: Tenderness to palpation in the right lower abdomen. No increase in abdominal hematoma. No significant ecchymosis is noted at the hematoma site. Bowel sounds present. Abdomen is soft. EXTREMITIES: No edema. LABORATORY DATA: Listed below. ASSESSMENT AND PLAN: #. Community acquired pneumonia. - Multiple sputum cultures were performed. The patient had Escherichia coli, enterobacter cloacae complex and Staphylococcus aureus. Patient does not need oxygen support. - The patient is on antibiotics. Hemoptysis is improving. Warfarin is on hold. #. Hematoma. - Located at the right lower abdomen. Patient had recent fall. The patient presented with supratherapeutic INR. - Continue to hold Coumadin. Continue warm compress and PRN pain . Continue to follow the hemoglobin and hematocrit. #. Hemoptysis. - The patient had severe coughs and pneumonia. On antibiotic treatment for pneumonia. Continue cough control. - The patient had a supratherapeutic INR before. Continue to hold warfarin. #. Acute kidney injury on chronic kidney disease stage IV. - History of renal artery stenosis status post stent. Continue monitoring renal function. #. Atrial fibrillation. - On carvedilol and diltiazem. Warfarin is on hold due to Rectus sheath hematoma and hemoptysis. #. Diastolic congestive heart failure with severe pulmonary hypertension. - The patient is on spironolactone and torsemide. #. Insulin-dependent diabetes. - Continue sliding scale. Continue consistent carbohydrate diet. #. Cirrhosis. - On Torsemide and spironolactone. #. Hypertension. - On hydralazine, carvedilol, diltiazem. #. Benign prostatic hypertrophy. On Proscar and Flomax. #. Depression. On Lexapro. #Deep venous thrombosis (DVT) prophylaxis. Currently the patient has a therapeutic INR. Will adjust the Coumadin as needed. DISPOSITION: Patient is being evaluated by physical therapy. Patient requires 04/01 home care. Social service and case management is assisting on home care situation. VS,Fishbone, I+O VS, Fishbone, I+O Vital Signs Date Time Temp Pulse Resp B/P (MAP) Pulse Ox O2 Delivery O2 Flow Rate FiO2 09/26/18 15:13 87 09/26/18 14:00 97.5 19 135/76 (95) 97 09/26/18 06:00 Room Air 09/22/18 00:00 I&O- Last 24 Hours up to 6 AM 09/26/18 06:00 Intake Total 1610 ml Output Total 1350 ml Balance 260 ml YECENIA CRAWFORD DO Sep 26, 2018 17:05
[2018-09-26 18:00] VITALS: BP 144/80
[2018-09-26] MEDS: TAMSULOSIN 0.4 MG CAP PO SCH (20:33)
[2018-09-26] MEDS: ATORVASTATIN 10 MG TAB PO SCH (20:33)
[2018-09-26] MEDS: SPIRONOLACTONE 25 MG TAB PO SCH (20:38)
[2018-09-26 22:00] VITALS: BP 168/90
[2018-09-27 02:00] VITALS: BP 177/91
[2018-09-27] MEDS: IPRATROPIUM 0.5MG/ALBUTEROL 2.5MG INH SOL UD 3ML (DUONEB)(J7620) NEB SCH ×2 (02:00→07:39)
[2018-09-27] MEDS: cefTRIAXone SOD 1 GM in D5W MINI-BAG PLUS 50 ML IV SCH (03:31)
[2018-09-27] MEDS: DEXTROMETHORPHAN 60MG/10ML SUSP 90ML BTL(DELSYM) PO SCH ×3 (03:31→12:30)
[2018-09-27 06:00] VITALS: BP 169/90
[2018-09-27 07:16] LABS: INR 1.79; PROTHROMBIN TIME 21.1 SECONDS (12.1-14.4)
[2018-09-27] MEDS: HumaLOG INSULIN (NovoLOG) PER UNIT SC SCH ×2 (08:29→12:31)
[2018-09-27] MEDS: AZITHROMYCIN 250 MG TAB PO SCH (08:30)
[2018-09-27] MEDS: ASPIRIN 81 MG ENTERIC TAB PO SCH (08:31)
[2018-09-27] MEDS: TORSEMIDE 20 MG TAB PO SCH (08:31)
[2018-09-27] MEDS: ESCITALOPRAM OXALATE 10 MG TAB (LEXAPRO) PO SCH (08:31)
[2018-09-27] MEDS: FINASTERIDE 5 MG TAB PO SCH (08:31)
[2018-09-27 08:32] VITALS: BP 162/87
[2018-09-27] MEDS: diltiaZEM **CD** 180 MG CAP PO SCH (08:32)
[2018-09-27] MEDS: **hydrALAZINE** 50 MG TAB PO SCH (08:33)
[2018-09-27] MEDS: CARVedilol 12.5 MG TAB PO SCH (08:33)
[2018-09-27 08:38] VITALS: BP 162/87
[2018-09-27 10:00] VITALS: BP 158/87
[2018-09-27] MEDS: CYANOCOBALAMIN 500 MCG TAB PO SCH (12:30)
[2018-09-27] MEDS ORDERED: CARV12.5 PO (12:51)
--- NOTE | 2018-09-27 20:25 | DSES ---
DATE OF ADMISSION: 09/19/2018 DATE OF DISCHARGE: 09/27/2018 DISCHARGE DIAGNOSIS: Community-acquired pneumonia. SECONDARY DIAGNOSES: 1. Right rectus sheath muscle hematoma. 2. Hemoptysis. 3. Acute on chronic kidney injury. 4. Atrial fibrillation. 5. Diastolic congestive heart failure, compensated. 6. Insulin-dependent diabetes. 7. Liver cirrhosis. 8. Hypertension. 9. Benign prostatic hypertrophy (BPH). 10. Depression. HOSPITAL COURSE: The patient is a 77-year-old man who was admitted back on 09/19/2018. At that time, he did present after a fall at home. He had been having nausea, vomiting, and diarrhea for four days. After vomiting, he felt lightheaded and fell backwards. He was admitted to the hospitalist service. He was found to have a right upper lobe pneumonia and he was started on a course of antibiotics which he completed while hospitalized for community-acquired pneumonia. He did have some difficulty clearing physical therapy (PT) and he did need to establish 24/7 care at home. His hospital course was complicated by hemoptysis as well as the discovery of a rectal sheath hematoma. His anticoagulation for his atrial fibrillation was held and this is progressively improving. SUBJECTIVE: The patient tells me that he is feeling well today and would like to go home. He has no complaints whatsoever. OBJECTIVE: VS: Temperature 98.3, pulse 91, respiratory rate 18, blood pressure 169/90, oxygen saturation 94% on room air. GENERAL: He is a very pleasant, elderly, man sitting on a couch. He does not appear to be in any acute distress. NEUROLOGIC: Cranial nerves II-XII are grossly intact. HEENT: He has moist mucous membranes. No elevation of central venous pressure (CVP). CARDIOVASCULAR: S1, S2, irregularly irregular. No distant heart sounds appreciated. RESPIRATORY: Examination is actually quite clear. ABDOMEN: He has ecchymosis of the right lower quadrant, some tenderness to deep palpation but he tells me that this has improved. EXTREMITIES: No clubbing, cyanosis, or edema. LABORATORY STUDIES: WBC 8.6, hemoglobin 9.1, and platelet count is 133. Chemistry Panel: Sodium 137, potassium 4.8, chloride 106, bicarbonate 22, BUN 63, creatinine 2.4, INR is 1.7. Microbiology: Sputum is positive for E. coli, Staphylococcus and Enterobacter. He did have a CT scan of the abdomen and pelvis on 09/23/2018 that revealed right rectus sheath hematoma as well as some old postsurgical changes in the spine. ASSESSMENT AND PLAN: This is a 77-year-old man with community-acquired pneumonia. 1. Community-acquired pneumonia. He has finished a course of antibiotics at this time and it has resolved. He appears to be back at his functional baseline. He has 24/7 services arranged at home and therefore discharged home at this time. 2. Hemoptysis. He did have cough from his pneumonia which has resolved. His anticoagulation is currently on hold. 3. Right rectus sheath hematoma secondary to supratherapeutic international normalized ratio (INR) at the time of his admission and a fall. He did present with an INR of 4.1. At this time, his INR is subtherapeutic. Just until he is able to heal, I have recommended that he hold his Coumadin until followup with his primary care provider. 4. Atrial fibrillation. Rate controlled with carvedilol, diltiazem. Warfarin is on hold as outlined above until followup with primary care provider (PCP). 5. Acute kidney injury. He did present with a creatinine of 3.5 and it has trended back down to 2.4 this morning. Continue outpatient followup. 6. Diastolic congestive heart failure with severe pulmonary hypertension. He is continued on spironolactone and torsemide. His volume status was actually quite well-optimized during this stay. 7. Insulin-dependent diabetes. He is continued on sliding scale. 8. Cirrhosis. He is continued on torsemide and spironolactone. 9. Hypertension. He is continued on carvedilol, diltiazem, and hydralazine. His carvedilol was titrated up during this stay and he will be discharged with a new prescription for this medication. 10. Benign prostatic hypertrophy (BPH). He is continued on Proscar and Flomax. 11. Depression. He is continued on Lexapro. DISPOSITION: The patient is being discharged home to followup with his primary care provider within seven days. He has 24/7 care. He has cleared physical therapy (PT). Activity is as prior to admission. Diet is as prior to admission. Return to the emergency room (ER) if symptoms worsen and resume Coumadin after followup with his primary care provider. MEDICATIONS AT THE TIME OF DISCHARGE: - carvedilol 50 mg twice a day - Ventolin HFA two puffs inhaled every four hours as needed for shortness of breath - aspirin 81 mg daily - atorvastatin 5 mg at bedtime - vitamin B12 500 mcg daily - diltiazem 180 mg daily - escitalopram 10 mg daily - finasteride 5 mg daily - glimepiride 4 mg daily - glipizide 2.5 mg daily - hydralazine 100 mg twice a day - C tablet one daily - levalbuterol nebulizer twice a day as needed for shortness of breath - spironolactone 25 mg at bedtime - tamsulosin 0.8 mg at bedtime - torsemide 20 mg every morning 45 minutes spent organizing safe disposition.
== END 2018-09-27 13:30 | disposition home or self-care (01) | DRG 178 ==
LOC: M ED 20:01 → M ED INP 23:49 → M PCU 09-20 04:18 → M MS5PR 09-26 09:25
PROVIDERS: ADMIT Student in an Organized Health Care Education/Training Program; ATTEND Internal Medicine
DX: J15.5 Pneumonia due to Escherichia coli (principal); I50.32 Chronic diastolic (congestive) heart failure; I13.0 Hypertensive heart and chronic kidney disease with heart failure and stage 1 through stage 4 chronic kidney disease, or unspecified chronic kidney disease; N17.9 Acute kidney failure, unspecified; N18.4 Chronic kidney disease, stage 4 (severe); R04.2 Hemoptysis; I48.2 Chronic atrial fibrillation; R00.1 Bradycardia, unspecified; R19.7 Diarrhea, unspecified; R11.2 Nausea with vomiting, unspecified; I08.0 Rheumatic disorders of both mitral and aortic valves; I27.20 Pulmonary hypertension, unspecified; N13.9 Obstructive and reflux uropathy, unspecified; E11.22 Type 2 diabetes mellitus with diabetic chronic kidney disease; S30.1XXA Contusion of abdominal wall, initial encounter; G47.31 Primary central sleep apnea; E78.5 Hyperlipidemia, unspecified; F32.9 Major depressive disorder, single episode, unspecified; D64.9 Anemia, unspecified; N40.1 Benign prostatic hyperplasia with lower urinary tract symptoms; D69.59 Other secondary thrombocytopenia; E53.8 Deficiency of other specified B group vitamins; K74.60 Unspecified cirrhosis of liver; R91.1 Solitary pulmonary nodule; J44.9 Chronic obstructive pulmonary disease, unspecified; G47.33 Obstructive sleep apnea (adult) (pediatric); Z87.891 Personal history of nicotine dependence; Z87.442 Personal history of urinary calculi; Z90.49 Acquired absence of other specified parts of digestive tract; Z79.82 Long term (current) use of aspirin; Z79.01 Long term (current) use of anticoagulants; Z79.84 Long term (current) use of oral hypoglycemic drugs; Z79.899 Other long term (current) drug therapy; W19.XXXA Unspecified fall, initial encounter; Y92.9 Unspecified place or not applicable

== ENCOUNTER → 2018-10-05 | Outpatient (CLI) | payer MEDICARE ==
[~2018-10-05] MED LIST changes: +CARV12.5 PO; +DILT180C28 PO; +LEVA1.2525 INH; +WARF4TAB51 PO
[2018-10-05 13:44] LABS: INR 1.21; PROTHROMBIN TIME 15.5 SECONDS (12.1-14.4)
== END ==
LOC: M WUC 12:07
PROVIDERS: ATTEND Family Medicine
DX: H91.93 Unspecified hearing loss, bilateral (principal)

== ENCOUNTER 2019-02-23 12:30 | Inpatient (IN) | payer MEDICARE ==
[~2019-02-23] VITALS: Ht 175.3 cm; Wt 73.5 kg
[~2019-02-23 12:30] MED LIST changes: +CYAN500T8; -GLIM4TAB; -GLIM4TAB PO; +GLIM4TAB5; +GLIM4TAB5 PO; -VITA500T3
[2019-02-23 13:59] LABS: BASO % 0.2 % (0.0-1.0); EOS % 0.2 % (0.0-3.0); LYMPH # 0.3 10^3/uL (1.5-5.0); LYMPH % 5.2 % (24.0-44.0); MEAN CORPUSCULAR HEMOGLOBIN 29.6 pg (27.0-33.0); MEAN CORPUSCULAR HGB CONC 31.6 g/dl (32.0-36.5); MEAN CORPUSCULAR VOLUME 93.8 fl (80.0-96.0); MONO # 0.4 10^3/uL (0.0-0.8); MONO % 8.4 % (0.0-5.0); NEUTROPHILS # 4.4 10^3/uL (1.5-8.5); NEUTROPHILS % 84.9 % (36.0-66.0); RED BLOOD COUNT 4.05 10^6/uL (4.30-6.10); WHITE BLOOD COUNT 5.2 10^3/uL (4.0-10.0)
[2019-02-23 14:15] LABS: INR 1.63; PROTHROMBIN TIME 19.1 SECONDS (11.8-14.0)
[2019-02-23 14:29] LABS: ALBUMIN 3.9 GM/DL (3.2-5.2); BILIRUBIN,DIRECT 0.2 MG/DL (0.0-0.2); BILIRUBIN,TOTAL 0.4 MG/DL (0.2-1.0); CK-MB VALUE MASS 3.7 NG/ML (<3.6); MB/CK RELATIVE INDEX 6.85 (< OR =4); TOTAL PROTEIN 7.1 GM/DL (6.4-8.2); TROPONIN I 0.02 NG/ML (< 0.10)
[2019-02-23 14:32] LABS: PLATELET COUNT, AUTOMATED 86 10^3/uL (150-450)
[2019-02-23] MEDS ORDERED: NS 1,000 ML IV SCH (14:45)
--- NOTE | 2019-02-23 15:27 | REP ---
CT abdomen and pelvis without IV or oral contrast: History: Renal failure. Comparison CT study September 23, 2018. CT findings: There are small bilateral pleural effusions, right larger than left. There is a mild amount of upper abdominal ascites and mild ascites is visible in the pelvis and lower abdomen. The pleural effusions are increased compared to the prior study and ascites is new compared to the prior exam. The previously noted rectus hematoma has resolved. There is a small accessory splenule. The liver and spleen are otherwise intact. There is a very small quantity of pericardial fluid. No pancreatic mass is seen. The gallbladder is surgically absent. Kidneys are atrophic. There is no evidence of hydronephrosis. Vascular calcification is noted. There are cortical renal cysts. These findings are unchanged. There is left colonic diverticulosis without CT evidence of diverticulitis. Urinary bladder appears intact. The prostate is enlarged containing one or two calcifications. Seminal vesicles are unremarkable. The patient is status post lumbosacral spine fusion surgery. Impression: Bilateral pleural effusions right greater than left. Mild diffuse ascites new from September 2018. Left colonic diverticulosis. Renal cortical atrophy bilaterally. No hydronephrosis seen. Status post cholecystectomy and appendectomy. Electronically Signed by Luis Noble MD 02/23/2019 04:06 P
[2019-02-23 15:57] LABS: MAGNESIUM LEVEL 2.4 MG/DL (1.8-2.4); URIC ACID 11.7 MG/DL (3.5-7.2)
[2019-02-23] MEDS ORDERED: PATIENT COMMENTS (16:17)
[2019-02-23] MEDS ORDERED: DEXTROSE 50% 50 ML SYRINGE IV PRN (17:45)
[2019-02-23] MEDS ORDERED: GLUCOSE 4 GM CHEW TABLET PO PRN (17:45)
[2019-02-23] MEDS ORDERED: GLUCAGON FOR INJ 1 MG VIAL (J1610) SC PRN (17:45)
[2019-02-23] MEDS ORDERED: ALBUTEROL SULFATE 2.5 MG/0.5 ML INH NEB SOLN NEB PRN (17:45)
[2019-02-23 17:59] LABS: ABG BASE EXCESS -12.8 (-2.0-2.0); ABG HCO3 12.5 MEQ/L (22.0-26.0); ABG PARTIAL PRESSURE CO2 27.8 mmHg (35.0-45.0); ABG PARTIAL PRESSURE O2 73.7 mmHg (75.0-100.0); ABG STANDARD HCO3 14.5 MEQ/L (22.0-26.0); ABG TOTAL CO2 13.4 MEQ/L (23.0-31.0); ABG pH (ARTERIAL) 7.272 UNITS (7.350-7.450)
--- NOTE | 2019-02-23 18:07 | HPEPDOC ---
General Date of Admission 02/23/19 Date of Service: Feb 23, 2019 Chief Complaint The patient is a 78-year-old male admitted with a reason for visit of General Medical Complaint. Source: Patient, RN/MD, Old records Exam Limitations: Hard of hearing, Mild cognitive slowing Severity: Moderate History of Present Illness 78 year old male with mild cognitive impairment with PMH of CKD stage 4, cirrhosis of liver, diabetes, hypertension, CHF with preserved EF, COPD , Central Sleep Apnea non complaint with CPAP with severe pulmonary hypertension with chronic right heart failure, Afib on Coumadin, hypertension with hypertensive heart disease, renal artery stenosis s/p stenting, was brought in by brother in law for dark colored liquid stools. They thought he was bleeding. Guaiac in the ED was positive, stool was light brown in color. He also complained of loose stools 3 to 4 times a day for more than a week. also complained of abdominal pain and distension. It was more to the right lower quadrant dull aching in nature about could not quantify the intensity with radiation to all over. As per family he also has been sleeping a lot and has been dizzy with poor appetite. He had a CT abdomen and pelvis done in the ED showed Bilateral pleural effusions right greater than left. Mild diffuse ascites new from September 2018. Left colonic diverticulosis. Renal cortical atrophy bilaterally. No hydronephrosis seen. His labs were significant for creatinine of 6.2 BUN of 122, bicarb of 17, k of 5.2 and uric acid of 11.2. his Hb was 12 which is higher than his baseline and his platelet was 86. He is being admitted for BRENDON on CKD with metabolic encephalopathy and fluid overload. Home Medications Scheduled Atorvastatin Calcium (Atorvastatin Calcium) 10 Mg Tab, 5 MG PO QHS, (Reported) Cyanocobalamin (Vitamin B-12) (Vitamin B-12) 500 Mcg Tab, 500 MCG PO DAILY, (Reported) AT LUNCH Diltiazem HCl (Dilt-Xr) 180 Mg Cap.er.deg, 180 MG PO DAILY, (Reported) Escitalopram Oxalate (Escitalopram Oxalate) 10 Mg Tab, 10 MG PO DAILY, (Reported) Finasteride (Finasteride) 5 Mg Tab, 5 MG PO DAILY, (Reported) Glimepiride (Glimepiride) 4 Mg Tab, 4 MG PO DAILY, (Reported) Glipizide (Glipizide Xl) 2.5 Mg Tab, 2.5 MG PO DAILY, (Reported) WITH FOOD AT LUNCH Iron,Carbonyl/Ascorbic Acid (Vitron-C Tablet) 1 Tab Tab, 1 TAB PO DAILY, (Reported) AT LUNCH Spironolactone (Spironolactone) 25 Mg Tablet, 25 MG PO QHS, (Reported) Tamsulosin HCl (Flomax) 0.4 Mg Cap, 0.8 MG PO QHS, (Reported) Torsemide (Torsemide) 20 Mg Tablet, 20 MG PO QAM, (Reported) hydrALAZINE HCL (Hydralazine HCl) 100 Mg Tab, 100 MG PO BID, (Reported) Scheduled PRN Levalbuterol HCl (Levalbuterol HCl) 1.25 Mg/3 Ml Vial.neb, 1.25 MG INH BID PRN for SHORTNESS OF BREATH, (Reported) Miscellaneous Medications [Patient Comments] , (Reported) WAITING FOR RETURN CALL FROM FAMILY [facility]ERS TO DETERMINE LAST TIME TAKEN FOR ALL MEDS. MEDICATIONS VERIFIED WITH PHARMACY Allergies Coded Allergies: No Known Allergies (Unverified , 02/23/08) Past Medical History Medical History NYHA CLASS III DIASTOLIC CHF; LVEF 65%, SEVERE PULMONARY HTN ECHO in 2019 RVSP was 89 with Right heart failure T2DM CENTRAL SLEEP APNEA, SEVERE CKD STAGE IV Baseline Creatine about 2.5 RENAL ARTERY STENOSIS S/P STENT SEVERE HTN WITH HYPERTENSIVE HEART DISEASE AFIB ON COUMADIN HLD CHRONIC ANEMIA THROMBOCYTOPENIA CIRRHOSIS OF THE LIVER OBSTRUCTIVE UROPATHY WITH CORTICAL CYSTS; RENAL ATROPHY OBSTRUCTIVE BLADDER; TRABECULATED BLADDER VALVULAR HEART DISEASE; MODERATE AORTIC AND MITRAL VALVE STENOSIS HEARING IMPAIRMENT BILATERAL History of tachycardia and cardiomyopathy. Right upper lobe lung nodule Renal artery stenosis status post left stent placement in the past. Severe prostatic enlargement. Diverticulosis of the descending and sigmoid colon. History of fusion of L4 to S1. Surgical History Lumber spinal fusion surgery after trauma CHOLECYSTECTOMY APPENDECTOMY MID-BACK SURGERY SECONDARY TO TRAUMA L KIDNEY STONES S.P LITHOTRIPSY L RENAL ARTERY STENT Family History Father: , 70s, colon cancer Mother: , 90, congestive heart failure Siblings: Sisters 3: One is from a myocardial infarction, remaining two are alive but health history is unknown Brothers 5:3 are , but two are still alive Social History * Smoker: former Smoker, quit greater than 1 year Alcohol: rarely Drugs: denies A-FIB/CHADSVASC A-FIB History Current/History of A-Fib/PAF?: Yes Current PO Anticoag Therapy: Yes Review of Systems Constitutional: Reports: Weakness, Fatigue, Lethargy; Denies: Chills, Fever, Night Sweats Eyes: Denies: Pain, Vision change ENT: Denies: Head Aches, Ear Pain, Dysphagia Skin: Reports: Bruising Pulmonary: Reports: Dyspnea, Cough Cardiovascular: Reports: Edema, Lt Headedness; Denies: Chest Pain, Palpitations Gastrointestinal: Reports: Vomiting, Abdominal Pain, Diarrhea Genitourinary: Reports: Other Symptoms (decreased urination) Hematologic: Denies: Bruising, Bleeding Excessively Musculoskeletal: Reports: Back Pain Neurological: Reports: Weakness, Confusion Psych: Reports: Memory Issues Physical Examination General Exam: Positive: Alert, Cooperative, Mild Distress Eye Exam: Positive: Conjunctiva & lids normal; Negative: Sclera icteric, Ptosis ENT Exam: Positive: Mucous membr. moist/pink, Tongue Midline, Other ENT (bruising around the left eye and left cheek after a fall 2 weeks ago.) Neck Exam: Positive: Supple, JVD; Negative: thyromegaly, +2 carotid pulse wo bruit Chest Exam: Positive: Diminished, Other (crackles at both the bases); Negative: Rhonchi, Wheezing Heart Exam: Positive: Irregular Rhythm, Normal S1, Normal S2, Murmurs (systolic murmur present) Telemetry: Positive: Atrial fibrillation Abdomen Exam: Positive: BS Hypoactive, Tenderness, Other (hugely distended and thight, ascites present) Extremity Exam: Positive: Edema (4+ bipedal edema); Negative: Clubbing, Cyanosis Neuro Exam: Positive: Normal Speech, Strength at 5/5 X4 ext, Normal Tone Psych Exam: Positive: Other (orientd to place and person.) Vital Signs Vital Signs Date Time Temp Pulse Resp B/P (MAP) Pulse Ox O2 Delivery O2 Flow Rate FiO2 02/23/19 14:18 83 145/99 (114) 87 156/84 (108) 88 141/80 (100) 02/23/19 12:31 97.1 16 97 Room Air Laboratory Data Labs 24H Laboratory Tests 2 02/23/19 13:44: Immature Granulocyte % (Auto) 1.1, White Blood Count 5.2, Red Blood Count 4.05L, Hemoglobin 12.0L, Hematocrit 38.0L, Mean Corpuscular Volume 93.8, Mean Corpuscular Hemoglobin 29.6, Mean Corpuscular Hemoglobin Concent 31.6L, Red Cell Distribution Width 15.9H, Platelet Count 86L, Neutrophils (%) (Auto) 84.9H, Lymphocytes (%) (Auto) 5.2L, Monocytes (%) (Auto) 8.4H, Eosinophils (%) (Auto) 0.2, Basophils (%) (Auto) 0.2, Neutrophils # (Auto) 4.4, Lymphocytes # (Auto) 0.3L, Monocytes # (Auto) 0.4, Eosinophils # (Auto) 0.0, Basophils # (Auto) 0.0, Nucleated Red Blood Cells % (auto) 0.4H, Immature Platelet Fraction 3.2, Prothrombin Time 19.1H, Prothromb Time International Ratio 1.63, Aspartate Amino Transf (AST/SGOT) 18, Alanine Aminotransferase (ALT/SGPT) 35, Alkaline Phosphatase 105, Total Bilirubin 0.4, Direct Bilirubin 0.2, Total Creatine Kinase 54, Creatine Kinase MB 3.7H, Creatine Kinase MB Relative Index 6.85H, Troponin I 0.02, Total Protein 7.1, Albumin 3.9, Albumin/Globulin Ratio 1.22, Lipase 295 02/23/19 13:58: POC Glucose (Misc Panel) 240H, POC Sodium (Misc Panel) 136, POC Potassium (Misc Panel) 5.2H, POC Chloride (Misc Panel) 107, POC Total CO2 (Misc Panel) 17.0L, POC Blood Urea Nitrogen (Misc Panel 122H, POC Ionized Calcium (Misc Panel) 5.0, POC Creatinine (Misc Panel) 6.2H, POC Hematocrit (Misc Panel) 37.0L 02/23/19 14:58: Total Creatine Kinase 50, Osmolality 326H, Uric Acid 11.7H, Magnesium Level 2.4 CBC/BMP Laboratory Tests 02/23/19 13:44 Red Blood Count 4.05 L, Mean Corpuscular Volume 93.8, Mean Corpuscular Hemoglobin 29.6, Mean Corpuscular Hemoglobin Concent 31.6 L, Red Cell Distribution Width 15.9 H, Neutrophils (%) (Auto) 84.9 H, Lymphocytes (%) (Auto) 5.2 L, Monocytes (%) (Auto) 8.4 H, Eosinophils (%) (Auto) 0.2, Basophils (%) ( Auto) 0.2, Neutrophils # (Auto) 4.4, Lymphocytes # (Auto) 0.3 L, Monocytes # (Auto) 0.4, Eosinophils # (Auto) 0.0, Basophils # (Auto) 0.0 Assessment/Plan 78 year old male with mild cognitive impairment with PMH of CKD stage 4, cirrhosis of liver, diabetes, hypertension, CHF with preserved EF, COPD , Central Sleep Apnea non complaint with CPAP with severe pulmonary hypertension with chronic right heart failure, Afib on Coumadin, hypertension with hypertensive heart disease, renal artery stenosis s/p stenting, was brought in by brother in law for dark colored liquid stools. They thought he was bleeding. Guaiac in the ED was positive, stool was light brown in color. He also complained of loose stools 3 to 4 times a day for more than a week. also complained of abdominal pain and distension. It was more to the right lower quadrant dull aching in nature about could not quantify the intensity with radiation to all over. As per family he also has been sleeping a lot and has been dizzy with poor appetite. He had a CT abdomen and pelvis done in the ED showed Bilateral pleural effusions right greater than left. Mild diffuse ascites new from September 2018. Left colonic diverticulosis. Renal cortical atrophy bilaterally. No hydronephrosis seen. His labs were significant for creatinine of 6.2 BUN of 122, bicarb of 17, k of 5.2 and uric acid of 11.2. his Hb was 12 which is higher than his baseline and his platelet was 86. He is being admitted for BRENDON on CKD with metabolic encephalopathy and fluid overload. BRENDON on CKD with fluid overload though patient gives a history of diarrhea clinically patient is volume overloaded No obstruction in the CT abdomen and pelvis, there is bilateral renal atrophy. i do not think it is prerenal. His abdomen is very tense so have to rule out abdominal compartment syndrome. with his h/o cirrhosis hepatorenal is also a possibility. However most probably this is progression of CKD with acute decompensation. Tran cath, monitor intake and output will consult nephrology for fluid management. will get US of the abdomen to quantify ascites and to see if it needs to be tapped. No IVF CHF exacerbation due to BRENDON and fluid overload will hold of on further IVF will consult nephro for fluid management will need diuretics. Metabolic encephalopathy due to uremia management as above Hyperkalemia 2 k diet management of BRENDON tele monitoring. Hyperuricemia will start on allopurinol. Diabetes continue glimepiride and lispro as per sliding scale Hypertension with hypertensive heart disease continue diltiazem. will hold hydralazine for now. Sleep apnea may use own CPAP Afib rate controlled continue diltiazem however will hold Coumadin as may need procedures. COPD, NEERAJ with severe pulmonary hypertension and chronic right heart failure continue albuterol prn diuretics as per nephrology Cirrhosis of liver with thrombocytopenia and ascitis etiology unknown. No history of hepatitis or large amounts of alcohol buse could be due to chronic hepatic congestion and cardiac cirrhosis will get US of abdomen to look into ascites Plan / VTE VTE Prophylaxis Ordered?: Yes TOMA LARSON MD Feb 23, 2019 17:04
--- NOTE | 2019-02-23 19:29 | REPVR ---
EXAM: US Abdomen Limited EXAM DATE/TIME: 02/23/2019 6:17 PM CLINICAL HISTORY: 78 years old, male; Abnormal findings; Abnormal radiologic finding of the abdomen; Radiologic exam and body structure: CT; Additional info: To assess ascitis and if it can be tapped TECHNIQUE: Imaging protocol: Real-time ultrasound of the abdomen with image documentation. Examination is focused on the region of clinical interest. COMPARISON: RENAL US 01/31/2018 6:41 AM FINDINGS: Liver: There is severe increased echogenicity of the liver consistent with severe fatty infiltration of the liver. Intraperitoneal space: There is only a small amount of ascites within the abdomen. This would not be sufficient ascites to perform paracentesis. IMPRESSION: There is only a small amount of ascites present. Electronically signed by: Earle Villegas On 02/23/2019 19:28:53 PM
[2019-02-23 19:39] LABS: ALBUMIN 3.6 GM/DL (3.2-5.2); BILIRUBIN,TOTAL 0.4 MG/DL (0.2-1.0); CALCIUM LEVEL 8.6 MG/DL (8.8-10.2); CREATININE FOR GFR 5.58 MG/DL (0.70-1.30); GLOMERULAR FILTRATION RATE 10.6 (>42); POTASSIUM SERUM 5.1 MEQ/L (3.5-5.1); TOTAL PROTEIN 6.5 GM/DL (6.4-8.2)
[2019-02-23 20:00] VITALS: BP 137/99
[2019-02-23] MEDS: HumaLOG INSULIN (NovoLOG) PER UNIT SC SCH ×2 (20:11→20:57)
--- NOTE | 2019-02-23 20:37 | ECGEPIP ---
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
[2019-02-23] MEDS: TAMSULOSIN 0.4 MG CAP PO SCH (21:01)
[2019-02-23] MEDS: ATORVASTATIN 10 MG TAB PO SCH (21:01)
[2019-02-23 21:03] LABS: OSMOLALITY URINE 375 MOSM/KG (500-800)
[2019-02-23 21:31] LABS: CREATININE,RANDOM URINE 77.3 MG/DL; POTASSIUM RANDOM URINE 28.6 MEQ/L; SODIUM,RANDOM URINE 48 MEQ/L
[2019-02-23] MEDS ORDERED: SODIUM BICARBONATE 100 MEQ in STERILE WATER LITER BAG 1,000 ML IV SCH (21:45)
[2019-02-23 22:59] LABS: APPEARANCE, URINE HAZY (CLEAR); BACTERIA, URINE AUTO 1+ (NEGATIVE); BILIRUBIN, URINE AUTO NEGATIVE (NEGATIVE); BLOOD, URINE BLOOD NEGATIVE (NEGATIVE); COLOR, URINE YELLOW (YELLOW); GLUCOSE, URINE (UA) AUTO NEGATIVE (NEGATIVE); KETONE, URINE AUTO NEGATIVE (NEGATIVE); LEUKOCYTE ESTERASE, URINE AUTO NEGATIVE (NEGATIVE); MUCUS, URINE SMALL (NEGATIVE); NITRITE, URINE AUTO NEGATIVE (NEGATIVE); PROTEIN, URINE AUTO 1+ mg/dL (NEGATIVE); RBC, URINE AUTO 2 /HPF (0-3); SPECIFIC GRAVITY URINE AUTO 1.012 (1.002-1.035); SQUAMOUS EPITHELIAL CELL UR AU 0 /HPF (0-6); UROBILINOGEN, URINE AUTO 0.2 mg/dL (0.0-2.0); WBC, URINE AUTO 1 /HPF (0-3)
[2019-02-23 23:59] VITALS: BP 136/80
[2019-02-24 04:00] VITALS: BP 165/92
[2019-02-24 06:13] LABS: CALCIUM LEVEL 8.7 MG/DL (8.8-10.2); CREATININE FOR GFR 5.95 MG/DL (0.70-1.30); GLOMERULAR FILTRATION RATE 9.8 (>42); POTASSIUM SERUM 4.8 MEQ/L (3.5-5.1)
[2019-02-24 06:34] LABS: EOS % 0.2 % (0.0-3.0); HEMATOCRIT 36.4 % (42.0-52.0); HEMOGLOBIN 11.5 g/dl (13.5-17.5); LYMPH # 0.3 10^3/uL (1.5-5.0); MEAN CORPUSCULAR HEMOGLOBIN 28.9 pg (27.0-33.0); MEAN CORPUSCULAR HGB CONC 31.6 g/dl (32.0-36.5); MEAN CORPUSCULAR VOLUME 91.5 fl (80.0-96.0); MONO # 0.6 10^3/uL (0.0-0.8); MONO % 10.2 % (0.0-5.0); NEUTROPHILS # 4.5 10^3/uL (1.5-8.5); NEUTROPHILS % 83.5 % (36.0-66.0); RED BLOOD COUNT 3.98 10^6/uL (4.30-6.10); WHITE BLOOD COUNT 5.4 10^3/uL (4.0-10.0)
[2019-02-24 07:12] LABS: PLATELET COUNT, AUTOMATED 87 10^3/uL (150-450)
[2019-02-24 08:00] VITALS: BP 168/88
[2019-02-24] MEDS ORDERED: GLIMEPIRIDE 2 MG TAB PO SCH (08:00)
--- NOTE | 2019-02-24 08:32 | CR ---
DATE OF CONSULTATION: 02/23/[address] TOMA LARSON REASON FOR CONSULTATION: Acute renal failure superimposed on chronic kidney disease. Mr. Zuleta is a 78-year-old gentleman with multiple chronic medical problems including mild cognitive impairment, history of type 2 diabetes, hypertension, cirrhosis of liver, stage IV of chronic kidney disease with creatinine of about 2.2 in September this year, history of chronic obstructive pulmonary disease (COPD) and sleep apnea. He was brought to the emergency room by his family due to dark-colored stools and also reported multiple liquid stools for the last couple of weeks. In the emergency room, he was found to have a serum creatinine of 6.2 and BUN 122. His uric acid level is 11.2 and potassium 5.2. The patient had a CT scan of the abdomen and pelvis done which showed ascites which is new, bilateral pleural effusions greater on the right than the left and he also had peripheral edema. He did not have any significantly distended urinary bladder on the CAT scan. There was no hydronephrosis and kidneys were bilaterally atrophic. He does have history of renal artery stenosis and recently had a renal artery stent placed for which no details are available at this point. PAST MEDICAL HISTORY (Significant for): 1. Longstanding type 2 diabetes. 2. Hypertension. 3. Cirrhosis of liver. 4. Stage IV of chronic kidney disease. 5. Diastolic congestive heart failure. 6. COPD. 7. Central sleep apnea. 8. Anemia. 9. Gout. 10. Benign prostatic hypertrophy (BPH). 11. Hyperlipidemia. MEDICATIONS (His home medications include): Atorvastatin 10 mg daily, vitamin B12 500 mcg daily, diltiazem XR 180 mg, escitalopram 10 mg daily, finasteride 5 mg daily, glimepiride 4 mg daily, glipizide XL 2.5 mg daily, spironolactone 25 mg daily, tamsulosin 0.4 mg 2 tablets at bedtime, torsemide 20 mg daily and hydralazine 100 mg twice a day. He also uses Xopenex nebulizer. ALLERGIES: No known drug allergies. PAST SURGICAL HISTORY (Significant for): 1. Lumbar spine fusion surgery after trauma. 2. Cholecystectomy. 3. Appendectomy. 4. Left kidney stones status post lithotripsy. 5. Left renal artery stent. FAMILY HISTORY: Father with colon cancer. Mother with congestive heart failure in her 90s. Three sisters - one with myocardial infarction ([place]) and remaining two are healthy. Three brothers are and two brothers are still alive. PERSONAL AND SOCIAL HISTORY: The patient lives with his sister. He is a former smoker who quit about a year ago. Denies any alcohol or drug use. REVIEW OF SYSTEMS: Denies any fever or chills. He has been feeling weak. Ears, nose and throat are unremarkable. Cardiovascular system is significant for diastolic congestive heart failure and valvular heart disease. Respiratory system is negative for hemoptysis or pleuritic type of chest pain. He has pleural effusion on his CAT scan. GI system is significant for diarrhea and dark colored stools. He has cirrhosis of liver and ascites noted on the CAT scan which is new since September this year. system is significant for BPH. Endocrine system significant for type 2 diabetes. Hematological system is significant for anemia and chronic anticoagulation. Neurological system negative for seizures or stroke. Musculoskeletal system is significant for leg edema and history of gout. Neurological system is significant for mild cognitive impairment. There is no history of seizures. PHYSICAL EXAMINATION: Elderly gentleman who is a poor historian lying in the bed without any acute distress. Temperature 96 degrees Fahrenheit, heart rate 80 per minute and respiratory rate 20 per minute. Blood pressure 136/100 mmHg and oxygen saturation 95% on room air. His head is atraumatic. Neck is supple and jugular venous distention (JVD) is about 9 cm above sternal angle. Pupils equal and reactive to light and sclera is anicteric. There is no oral thrush or ulcers. Heart sounds are regular and there is no pericardial friction rub. Systolic murmur grade 2/6 is audible. Lungs have diminished breath sounds at bases, more on the right than the left. Abdomen is soft, protuberant and nontender. Ascites is present. Bowel sounds are present and there is no audible abdominal bruit. Extremities have no cyanosis or clubbing. Lower extremity edema is 1+ bilaterally. Neurologically he is awake and without a focal deficit. LABORATORY DATA: WBC count is 5.2, hemoglobin 12.0, hematocrit 38.0 and platelets 86,000. Sodium 139, potassium 5.1, CO2 16, BUN 102 and creatinine 5.58. His osmolarity was 326, uric acid 11.7 and lactic acid 1.0. Calcium 8.6 and ammonia 41. AST 9, ALT 32 and alkaline phosphatase 98. Blood gas showed a pH of 7.27, pCO2 27.8, pO2 73.7 and bicarb 14.5. INR 1.63. CAT scan of abdomen and pelvis reviewed independently. He has bilateral pleural effusions, larger on the right and small on the left side. Kidneys are atrophic bilaterally without hydronephrosis. Ascites is present and cirrhosis is noticed. PROBLEMS: 1. Acute renal failure superimposed on chronic kidney disease. The patient had a creatinine of 2.2 back in September of this year. It is not clear whether he had any labs since September, but now his creatinine is up to almost 6. His kidneys are atrophic with very thin cortex and increased echogenicity. He does not look clinically volume depleted as he does have peripheral edema and ascites. He also has history of pulmonary hypertension and right-sided heart failure. At this point, we will not give him any diuretics. He has been given some IV fluid already and I am concerned about giving him even IV fluids. I will just hold his spironolactone and torsemide and see how he does. He is likely to require dialysis. Will try to get further information from his family and from his primary physician tomorrow morning. 2. Metabolic acidosis most likely related to acute renal failure and diarrhea. I will start sodium bicarbonate drip at a very low rate through the night and recheck his chemistry tomorrow morning. Will start with sodium bicarbonate 150 mEq in 1 liter at 50 mL per hour. 3. Hyperkalemia. His potassium level was reported higher earlier; however, it is now high normal range. Metabolic acidosis is likely contributing to it in addition to acute renal failure. No other intervention is indicated. 4. Gout. His uric acid level is 11.7 which is consistent with renal failure and possible volume depletion. However, clinically, very difficult to consider volume depletion as his neck veins are elevated and he has peripheral edema and ascites. Very gentle hydration is being started. 5. Cirrhosis of liver with ascites. This is a new finding compared with his prior CAT scan. Probably worsening hepatic function is contributing to his overall condition and he also has right-sided heart failure which is probably contributing to his peripheral edema. He remains to be seen if his kidney function improves or he will require dialysis. Thank you for involving me in the care of Mr. Zuleta. Nephrology service will follow him along with you. GALO
[2019-02-24] MEDS: FINASTERIDE 5 MG TAB PO SCH (09:54)
[2019-02-24] MEDS: allopurinoL 100 MG TAB PO SCH (09:54)
[2019-02-24] MEDS: ESCITALOPRAM OXALATE 10 MG TAB (LEXAPRO) PO SCH (09:54)
[2019-02-24] MEDS: diltiaZEM **CD** 180 MG CAP PO SCH (09:54)
[2019-02-24] MEDS: HumaLOG INSULIN (NovoLOG) PER UNIT SC SCH ×4 (09:54→20:30)
--- NOTE | 2019-02-24 10:41 | IPNPDOC ---
Subjective Date Seen The patient was seen on 02/24/19. Subjective Chief Complaint/HPI Having loose stools and dry heaving this am. No fever or chills, no chest pain or sob, no SOB or cough, still has some abdominal tenderness on the right. Objective Physical Examination General Exam: Positive: Alert, Cooperative, Mild Distress Eye Exam: Positive: Conjunctiva & lids normal; Negative: Sclera icteric, Ptosis ENT Exam: Positive: Mucous membr. moist/pink, Tongue Midline, Other ENT (bruising around the left eye and left cheek after a fall 2 weeks ago.) Neck Exam: Positive: Supple, JVD; Negative: thyromegaly, +2 carotid pulse wo bruit Chest Exam: Positive: Diminished, Other (crackles at both the bases); Negative: Rhonchi, Wheezing Heart Exam: Positive: Irregular Rhythm, Normal S1, Normal S2, Murmurs (systolic murmur present) Telemetry: Positive: Atrial fibrillation Abdomen Exam: Positive: BS Hypoactive, Tenderness, Other (hugely distended and thight, ascites present) Extremity Exam: Positive: Edema (4+ bipedal edema); Negative: Clubbing, Cyanosis Neuro Exam: Positive: Normal Speech, Strength at 5/5 X4 ext, Normal Tone Psych Exam: Positive: Other (orientd to place and person.) Assessment /Plan Assessment 78 year old male with mild cognitive impairment with PMH of CKD stage 4, cirrhosis of liver, diabetes, hypertension, CHF with preserved EF, COPD , Central Sleep Apnea non complaint with CPAP with severe pulmonary hypertension with chronic right heart failure, Afib on Coumadin, hypertension with hypertens john heart disease, renal artery stenosis s/p stenting, was brought in by brother in law for dark colored liquid stools. They thought he was bleeding. Guaiac in the ED was positive, stool was light brown in color. He also complained of loose stools 3 to 4 times a day for more than a week. also complained of abdominal pain and distension. It was more to the right lower quadrant dull aching in nature about could not quantify the intensity with radiation to all over. As per family he also has been sleeping a lot and has been dizzy with poor appetite. He had a CT abdomen and pelvis done in the ED showed Bilateral pleural effusions right greater than left. Mild diffuse ascites new from September 2018. Left colonic diverticulosis. Renal cortical atrophy bilaterally. No hydronephrosis seen. His labs were significant for creatinine of 6.2 BUN of 122, bicarb of 17, k of 5.2 and uric acid of 11.2. his Hb was 12 which is higher than his baseline and his platelet was 86. He is being admitted for BRENDON on CKD with metabolic encephalopathy and fluid overload. Diarrhea GI panel sent Stool occult blood negatve. BRENDON on CKD with fluid overload Vs progression of CKD No improvement in renal functions. Liver US with very small ascites which is not tappable so no abdominal compartment syndrome. unlikely hepatorenal as cirrhosis is early Nephrology following. May need to be started on HD this admission if no improvement Metabolic Acidosis due to acute renal failure on bicarb gtt. CHF exacerbation due to BRENDON and fluid overload Nephro for fluid management. Metabolic encephalopathy due to uremia management as above Hyperkalemia resolved 2 k diet management of BRENDON tele monitoring. Hyperuricemia due to BRENDON unlikly dehydration as patient is not volume depleted. will start on allopurinol. Diabetes continue glimepiride and lispro as per sliding scale Hypertension with hypertensive heart disease continue diltiazem. will hold hydralazine for now. Central Sleep apnea may use own CPAP Afib rate controlled continue diltiazem however will hold Coumadin as may need procedures. COPD, Central SA with severe pulmonary hypertension and chronic right heart failure continue albuterol prn diuretics as per nephrology Cirrhosis of liver with thrombocytopenia and ascitis etiology unknown. No history of hepatitis or large amounts of alcohol buse could be due to chronic hepatic congestion and cardiac cirrhosis US abdomen with minimal scites. ammonia normal lactate not elevated. Plan/VTE VTE Prophylaxis Ordered?: Yes VS, I&O, 24H, Fishbone Vital Signs/I&O Vital Signs Date Time Temp Pulse Resp B/P (MAP) Pulse Ox O2 Delivery O2 Flow Rate FiO2 02/24/19 09:54 104 168/88 02/24/19 08:00 97.2 18 94 02/23/19 16:55 Room Air I&O- Last 24 Hours up to 6 AM 02/24/19 06:00 Intake Total 295 ml Output Total 300 ml Balance -5 ml Laboratory Data 24H LABS Laboratory Tests 2 02/23/19 13:44: Immature Granulocyte % (Auto) 1.1, White Blood Count 5.2, Red Blood Count 4.05L, Hemoglobin 12.0L, Hematocrit 38.0L, Mean Corpuscular Volume 93.8, Mean Corpuscular Hemoglobin 29.6, Mean Corpuscular Hemoglobin Concent 31.6L, Red Cell Distribution Width 15.9H, Platelet Count 86L, Neutrophils (%) (Auto) 84.9H, Lymphocytes (%) (Auto) 5.2L, Monocytes (%) (Auto) 8.4H, Eosinophils (%) (Auto) 0.2, Basophils (%) (Auto) 0.2, Neutrophils # (Auto) 4.4, Lymphocytes # (Auto) 0.3L, Monocytes # (Auto) 0.4, Eosinophils # (Auto) 0.0, Basophils # (Auto) 0.0, Nucleated Red Blood Cells % (auto) 0.4H, Immature Platelet Fraction 3.2, Prothrombin Time 19.1H, Prothromb Time International Ratio 1.63, Aspartate Amino Transf (AST/SGOT) 18, Alanine Aminotransferase (ALT/SGPT) 35, Alkaline Phosphatase 105, Total Bilirubin 0.4, Direct Bilirubin 0.2, Total Creatine Kinase 54, Creatine Kinase MB 3.7H, Creatine Kinase MB Relative Index 6.85H, Troponin I 0.02, Total Protein 7.1, Albumin 3.9, Albumin/Globulin Ratio 1.22, Lipase 295 02/23/19 13:58: POC Glucose (Misc Panel) 240H, POC Sodium (Misc Panel) 136, POC Potassium (Misc Panel) 5.2H, POC Chloride (Misc Panel) 107, POC Total CO2 (Misc Panel) 17.0L, POC Blood Urea Nitrogen (Misc Panel 122H, POC Ionized Calcium (Misc Panel) 5.0, POC Creatinine (Misc Panel) 6.2H, POC Hematocrit (Misc Panel) 37.0L 02/23/19 14:58: Total Creatine Kinase 50, Osmolality 326H, Uric Acid 11.7H, Magnesium Level 2.4 02/23/19 17:39: Blood Gas Bicarbonate Standard 14.5L, Arterial Blood pH 7.272L, Arterial Blood Partial Pressure CO2 27.8L, Arterial Blood Partial Pressure O2 73.7L, Arterial Blood Total CO2 13.4L, Arterial Blood HCO3 12.5L, Arterial Blood Base Excess - 12.8L, Arterial Blood Oxygen Saturation 94.0L 02/23/19 18:46: Anion Gap 14, Glomerular Filtration Rate 10.6L, Lactic Acid Level 1.0, Blood Urea Nitrogen 102H, Creatinine 5.58H, Sodium Level 139, Potassium Level 5.1, Chloride Level 109H, Carbon Dioxide Level 16L, Calcium Level 8.6L, Aspartate Amino Transf (AST/SGOT) 9, Alanine Aminotransferase (ALT/SGPT) 32, Alkaline Phosphatase 98, Total Bilirubin 0.4, Total Protein 6.5, Albumin 3.6, Ammonia 41H, Albumin/Globulin Ratio 1.24 02/23/19 20:45: Urine Appearance HAZY, Urine Color YELLOW, Urine pH 5.0, Urine Specific [place] 1.012, Urine Protein 1+H, Urine Glucose (UA) NEGATIVE, Urine Ketones NEGATIVE, Urine Urobilinogen 0.2, Urine Bilirubin NEGATIVE, Urine Leukocyte Esterase NEGATIVE, Urine Blood NEGATIVE, Urine Nitrite NEGATIVE, Urine WBC (Auto) 1, Urine RBC (Auto) 2, Urine Hyaline Casts (Auto) 6, Urine Bacteria (Auto) 1+H, Urine Squamous Epithelial Cells 0, Urine Mucus (Auto) SMALL, Urine Sperm (Auto) , Urine Random Osmolality 375L, Urine Random Creatinine 77.3, Urine Random Sodium 48, Urine Random Potassium 28.6 02/23/19 20:53: Bedside Glucose (Misc Panel) 139H 02/24/19 05:40: Anion Gap 13, Glomerular Filtration Rate 9.8L, Blood Urea Nitrogen 102H, Creatinine 5.95H, Sodium Level 139, Potassium Level 4.8, Chloride Level 109H, Carbon Dioxide Level 17L, Calcium Level 8.7L 02/24/19 05:41: Immature Granulocyte % (Auto) 1.1, White Blood Count 5.4, Red Blood Count 3.98L, Hemoglobin 11.5L, Hematocrit 36.4L, Mean Corpuscular Volume 91.5, Mean Corpuscular Hemoglobin 28.9, Mean Corpuscular Hemoglobin Concent 31.6L, Red Cell Distribution Width 15.9H, Platelet Count 87L, Neutrophils (%) (Auto) 83.5H, Lymphocytes (%) (Auto) 5.0L, Monocytes (%) (Auto) 10.2H, Eosinophils (%) (Auto) 0.2, Basophils (%) (Auto) 0.0, Neutrophils # (Auto) 4.5, Lymphocytes # (Auto) 0.3L, Monocytes # (Auto) 0.6, Eosinophils # (Auto) 0.0, Basophils # (Auto) 0.0, Nucleated Red Blood Cells % (auto) 0.6H CBC/BMP Laboratory Tests 02/23/19 13:44 Red Blood Count 4.05 L, Mean Corpuscular Volume 93.8, Mean Corpuscular Hemoglobin 29.6, Mean Corpuscular Hemoglobin Concent 31.6 L, Red Cell Distribution Width 15.9 H, Neutrophils (%) (Auto) 84.9 H, Lymphocytes (%) (Auto) 5.2 L, Monocytes (%) (Auto) 8.4 H, Eosinophils (%) (Auto) 0.2, Basophils (%) (Auto) 0.2, Neutrophils # (Auto) 4.4, Lymphocytes # (Auto) 0.3 L, Monocytes # (Auto) 0.4, Eosinophils # (Auto) 0.0, Basophils # (Auto) 0.0 02/23/19 18:46 Calcium Level 8.6 L, Aspartate Amino Transf (AST/SGOT) 9, Alanine Aminotransferase (ALT/SGPT) 32, Alkaline Phosphatase 98, Total Bilirubin 0.4, Total Protein 6.5, Albumin 3.6 02/24/19 05:40 Calcium Level 8.7 L 02/24/19 05:41 Red Blood Count 3.98 L, Mean Corpuscular Volume 91.5, Mean Corpuscular Hemoglobin 28.9, Mean Corpuscular Hemoglobin Concent 31.6 L, Red Cell Distribution Width 15.9 H, Neutrophils (%) (Auto) 83.5 H, Lymphocytes (%) (Auto) 5.0 L, Monocytes (%) (Auto) 10.2 H, Eosinophils (%) (Auto) 0.2, Basophils (%) (Auto) 0.0, Neutrophils # (Auto) 4.5, Lymphocytes # (Auto) 0.3 L, Monocytes # (Auto) 0.6, Eosinophils # (Auto) 0.0, Basophils # (Auto) 0.0 Microbiology Microbiology 02/24/19 Gastrointestinal Tract Panel (PCR), Received Pending 02/23/19 Stool Occult Blood (NATA) - Final, Complete TOMA LARSON MD Feb 24, 2019 10:41
[2019-02-24 12:00] VITALS: BP 135/62
[2019-02-24 16:00] VITALS: BP 162/88
[2019-02-24 20:00] VITALS: BP 157/99
[2019-02-24] MEDS ORDERED: SLF 3 ML SYR IV PRN (20:30)
[2019-02-24] MEDS: ATORVASTATIN 10 MG TAB PO SCH (20:40)
[2019-02-24] MEDS: SLF 3 ML SYR IV SCH (20:41)
[2019-02-24] MEDS: TAMSULOSIN 0.4 MG CAP PO SCH (20:41)
--- NOTE | 2019-02-24 22:15 | IPN ---
DATE: 02/24/2019 Mr. Zuleta is seen this morning on his bedside. He reports frequent loose stools but denies any vomiting or abdominal pain. He has no dyspnea or chest pain. He is still weak and mostly in the bed. We started sodium bicarbonate drip last night due to metabolic acidosis in the setting of advanced renal failure and ongoing diarrhea. PHYSICAL EXAMINATION Temperature 97.2 degrees Fahrenheit, heart rate 104 per minute and respiratory rate 18 per minute. Blood pressure 168/88 mmHg and oxygen saturation 94% on room air. His head is atraumatic. Neck is supple and jugular venous distention (JVD) is markedly elevated. There is no oral thrush or ulcers. Heart: Sounds are somewhat tachycardiac. Lungs with diminished breath sounds at bases. Abdomen is soft and distended and nontender. Bowel sounds are present. Extremities: Without any cyanosis or clubbing. Lower extremity edema is 1+. Neurologically he is awake, alert and without a focal deficit. LABS: Today's labs show WBC count 5.4, hemoglobin 11.5 and hematocrit 36.4. Sodium 139, potassium 4.8, CO2 17, BUN 102 and creatinine 5.95. Glucose 117, calcium 8.7. PROBLEMS 1. Acute renal failure superimposed on chronic kidney disease. The patient has advanced renal failure with significant underlying chronic kidney disease. So far his kidney function has not improved much since admission. At this point, we will continue with gentle IV hydration in view of ascites, peripheral edema and elevated neck veins. 2. Metabolic acidosis related to advanced renal failure and ongoing diarrhea. He is on sodium bicarbonate infusion and we will continue with the same. I have discussed with the patient about potential need for dialysis. The patient consented. However he wanted me to talk to his sister which I did. His sister provided me the background information. Apparently the patient lived in [place] and had renal artery stenting done at [facility] about 3 years ago. Since he moved to [facility] he has not been followed by nephrology. In September, his creatinine was about 2.5 and a renal ultrasound and CT scan of abdomen and pelvis has revealed advanced kidney disease with bilateral atrophic kidneys and no hydronephrosis. My feeling is that he has almost end-stage renal disease and is likely to require dialysis. However, the patient does have some hearing problem and language barrier and his sister wants to make certain that he understands everything and she wants to come and talk to him before consenting. In the meantime, we will continue with gentle IV hydration and daily monitoring of kidney function. 3. Anemia. His anemia is mild and does not need any urgent intervention at this point. 4. Diarrhea. The patient continues to have liquid stools which could be related to uremic colitis. However, other causes need to be ruled out. His stool for GI panel has already been sent. We will wait for the patient and his family's decision about dialysis and once they consent then he will have a PermaCath placed and dialysis initiated unless his kidney function improves quickly.
[2019-02-24] MEDS ORDERED: PILL CUTTER 1 EACH XX PRN (22:45)
[2019-02-25] VITALS: BP 167/96
[2019-02-25 04:00] VITALS: BP 169/95
[2019-02-25] MEDS: SLF 3 ML SYR IV SCH ×3 (04:27→20:53)
[2019-02-25] MEDS: ONDANSETRON 4MG/2ML VIAL (J2405) IV PRN ×2 (04:27→12:55)
[2019-02-25 05:57] LABS: BASO % 0.2 % (0.0-1.0); EOS % 0.4 % (0.0-3.0); HEMATOCRIT 35.1 % (42.0-52.0); HEMOGLOBIN 11.2 g/dl (13.5-17.5); LYMPH # 0.4 10^3/uL (1.5-5.0); MEAN CORPUSCULAR HEMOGLOBIN 28.8 pg (27.0-33.0); MEAN CORPUSCULAR HGB CONC 31.9 g/dl (32.0-36.5); MEAN CORPUSCULAR VOLUME 90.2 fl (80.0-96.0); MONO # 0.7 10^3/uL (0.0-0.8); MONO % 12.5 % (0.0-5.0); NEUTROPHILS # 4.2 10^3/uL (1.5-8.5); NEUTROPHILS % 79.3 % (36.0-66.0); PLATELET COUNT, AUTOMATED 84 10^3/uL (150-450); RED BLOOD COUNT 3.89 10^6/uL (4.30-6.10); WHITE BLOOD COUNT 5.3 10^3/uL (4.0-10.0)
[2019-02-25 06:15] LABS: CALCIUM LEVEL 8.5 MG/DL (8.8-10.2); CREATININE FOR GFR 6.32 MG/DL (0.70-1.30); GLOMERULAR FILTRATION RATE 9.2 (>42); POTASSIUM SERUM 4.7 MEQ/L (3.5-5.1)
[2019-02-25] MEDS: HumaLOG INSULIN (NovoLOG) PER UNIT SC SCH ×4 (07:30→20:12)
[2019-02-25 08:00] VITALS: BP 150/90
[2019-02-25] MEDS: ESCITALOPRAM OXALATE 10 MG TAB (LEXAPRO) PO SCH (08:31)
[2019-02-25] MEDS: allopurinoL 100 MG TAB PO SCH (08:31)
[2019-02-25] MEDS: diltiaZEM **CD** 180 MG CAP PO SCH (08:31)
[2019-02-25] MEDS: FINASTERIDE 5 MG TAB PO SCH (08:31)
[2019-02-25 10:53] LABS: CHOLESTEROL RISK RATIO 5.1 (<5); PHOSPHORUS LEVEL 5.9 MG/DL (2.5-4.9)
[2019-02-25 11:03] LABS: HEMOGLOBIN A1c 7.6 %
[2019-02-25 12:00] VITALS: BP_SYST 154; BP_SYST 158; BP_DIAS 73; BP_DIAS 84
--- NOTE | 2019-02-25 12:13 | IPNPDOC ---
Subjective Date Seen The patient was seen on 02/25/19. Subjective Chief Complaint/HPI continues to have diarrhea, dry heaves and poor appetite. No fever or chills, no chest pain or SOb at rest. DOes get easily winded on exertion. planned for permcath placement and initiation of HD today or tomorrow. Objective Physical Examination General Exam: Positive: Alert, Cooperative, Mild Distress Eye Exam: Positive: Conjunctiva & lids normal; Negative: Sclera icteric, Ptosis ENT Exam: Positive: Mucous membr. moist/pink, Tongue Midline, Other ENT (bruising around the left eye and left cheek after a fall 2 weeks ago.) Neck Exam: Positive: Supple, JVD; Negative: thyromegaly, +2 carotid pulse wo bruit Chest Exam: Positive: Diminished, Other (crackles at both the bases); Negative: Rhonchi, Wheezing Heart Exam: Positive: Irregular Rhythm, Normal S1, Normal S2, Murmurs (systolic murmur present) Telemetry: Positive: Atrial fibrillation Abdomen Exam: Positive: BS Hypoactive, Tenderness, Other (hugely distended and thight, ascites present) Extremity Exam: Positive: Edema (4+ bipedal edema); Negative: Clubbing, Cyanosis Neuro Exam: Positive: Normal Speech, Strength at 5/5 X4 ext, Normal Tone Psych Exam: Positive: Other (orientd to place and person.) Assessment /Plan Assessment 78 year old male with mild cognitive impairment with PMH of CKD stage 4, cirrhosis of liver, diabetes, hypertension, CHF with preserved EF, COPD , Central Sleep Apnea non complaint with CPAP with severe pulmonary hypertension with chronic right heart failure, Afib on Coumadin, hypertension with hypertensive heart disease, renal artery stenosis s/p stenting, was brought in by brother in law for dark colored liquid stools. They thought he was bleeding. Guaiac in the ED was positive, stool was light brown in color. He also complained of loose stools 3 to 4 times a day for more than a week. also complained of abdominal pain and distension. It was more to the right lower quadrant dull aching in nature about could not quantify the intensity with radiation to all over. As per family he also has been sleeping a lot and has been dizzy with poor appetite. He had a CT abdomen and pelvis done in the ED showed Bilateral pleural effusions right greater than left. Mild diffuse ascites new from September 2018. Left colonic diverticulosis. Renal cortical atrophy bilaterally. No hydronephrosis seen. His labs were significant for creatinine of 6.2 BUN of 122, bicarb of 17, k of 5.2 and uric acid of 11.2. his Hb was 12 which is higher than his baseline and his platelet was 86. He is being admitted for BRENDON on CKD with metabolic encephalopathy and fluid overload. Diarrhea GI panel negative Stool occult blood negative. due to uremia. BRENDON on CKD stage 4 with fluid overload No improvement in renal function. Looks like this is progression of CKD to stage 5 planned for permcath today and initiation of HD. Metabolic Acidosis due to acute renal failure CHF exacerbation due to BRENDON and fluid overload Once on HD fluid status will be managed by HD. Metabolic encephalopathy due to uremia management as above Hyperkalemia resolved 2 k diet Hyperuricemia on allopurinol. Diabetes sugars low this am, poor oralintake, nausea , vomiting will stop glimiperide. continue lispro as per sliding scale Hypertension with hypertensive heart disease continue diltiazem. will hold hydralazine for now. Central Sleep apnea may use own CPAP Afib rate controlled continue diltiazem however will hold Coumadin as may need procedures. COPD, Central Sleep apnea with severe pulmonary hypertension and chronic right heart failure continue albuterol prn diuretics as per nephrology Cirrhosis of liver with thrombocytopenia and ascitis etiology unknown. No history of hepatitis or large amounts of alcohol buse could be due to chronic hepatic congestion and cardiac cirrhosis US abdomen with minimal ascites. ammonia normal lactate not elevated. Plan/VTE VTE Prophylaxis Ordered?: Yes VS, I&O, 24H, Fishbone Vital Signs/I&O Vital Signs Date Time Temp Pulse Resp B/P (MAP) Pulse Ox O2 Delivery O2 Flow Rate FiO2 02/25/19 08:31 150/90 02/25/19 08:00 97.2 89 18 95 02/23/19 16:55 Room Air I&O- Last 24 Hours up to 6 AM 02/25/19 06:00 Intake Total 1085 ml Output Total 325 ml Balance 760 ml Laboratory Data 24H LABS Laboratory Tests 2 02/24/19 17:51: Bedside Glucose (Misc Panel) 172H 02/24/19 20:26: Bedside Glucose (Misc Panel) 104 02/24/19 21:30: Magnesium Level 2.1 02/25/19 05:30: Immature Granulocyte % (Auto) 0.6, White Blood Count 5.3, Red Blood Count 3.89L, Hemoglobin 11.2L, Hematocrit 35.1L, Mean Corpuscular Volume 90.2, Mean Corpuscular Hemoglobin 28.8, Mean Corpuscular Hemoglobin Concent 31.9L, Red Cell Distribution Width 15.9H, Platelet Count 84L, Neutrophils (%) (Auto) 79.3H, Lymphocytes (%) (Auto) 7.0L, Monocytes (%) (Auto) 12.5H, Eosinophils (%) (Auto) 0.4, Basophils (%) (Auto) 0.2, Neutrophils # (Auto) 4.2, Lymphocytes # (Auto) 0.4L, Monocytes # (Auto) 0.7, Eosinophils # (Auto) 0.0, Basophils # (Auto) 0.0, Nucleated Red Blood Cells % (auto) 0.6H, Immature Platelet Fraction 2.4, Anion Gap 14, Glomerular Filtration Rate 9.2L, Estimated Mean Plasma Glucose 171H, Hemoglobin A1c 7.6, Blood Urea Nitrogen 112H, Creatinine 6.32H, Sodium Level 140, Potassium Level 4.7, Chloride Level 111H, Carbon Dioxide Level 15L, Calcium Level 8.5L, Phosphorus Level 5.9H, Iron Level 42L, Total Iron Binding Capacity 263, Transferrin % Saturation 16.0L, Ferritin 151, Triglycerides Level 121, LDL Cholesterol 58, Total Cholesterol 102, Non-HDL Cholesterol (LDL + VLDL) 82, Total HDL Cholesterol 20L, Cholesterol/HDL Ratio 5.100H 02/25/19 08:30: Bedside Glucose (Misc Panel) 119H 02/25/19 11:39: Bedside Glucose (Misc Panel) 96 02/25/19 11:41: CBC/BMP Laboratory Tests 02/25/19 05:30 Red Blood Count 3.89 L, Mean Corpuscular Volume 90.2, Mean Corpuscular Hemoglobin 28.8, Mean Corpuscular Hemoglobin Concent 31.9 L, Red Cell Distribution Width 15.9 H, Neutrophils (%) (Auto) 79.3 H, Lymphocytes (%) (Auto) 7.0 L, Monocytes (%) (Auto) 12.5 H, Eosinophils (%) (Auto) 0.4, Basophils (%) (Auto) 0.2, Neutrophils # (Auto) 4.2, Lymphocytes # (Auto) 0.4 L, Monocytes # (Auto) 0.7, Eosinophils # (Auto) 0.0, Basophils # (Auto) 0.0, Calcium Level 8.5 L Microbiology Microbiology 02/24/19 Gastrointestinal Tract Panel (PCR) - Final, Complete 02/23/19 Stool Occult Blood (NATA) - Final, Complete TOMA LARSON MD Feb 25, 2019 12:13
[2019-02-25] MEDS ORDERED: IRON SUCROSE 100MG 5ML VIAL (J1756 PER 1MG) IV SCH (12:30)
[2019-02-25] MEDS ORDERED: BUPIVACAINE HCL 0.5% 10 ML VIAL As Ordered ONE (14:14)
[2019-02-25] MEDS ORDERED: LIDOCAINE 2% MDV 20 ML VIAL As Ordered ONE (14:14)
[2019-02-25] MEDS ORDERED: HEPARIN SOD (PORCINE) 5000 UNITS/ML VIAL As Ordered ONE (14:14)
[2019-02-25] MEDS ORDERED: dexameTHASONE 4 MG/ML 1ML VIAL (J1100) As Ordered ONE (15:32)
[2019-02-25] MEDS ORDERED: fentaNYL 100 MCG/2 ML INJECTION (J3010) As Ordered ONE (15:32)
[2019-02-25] MEDS ORDERED: ONDANSETRON 4MG/2ML VIAL (J2405) As Ordered ONE (15:32)
[2019-02-25] MEDS ORDERED: LIDOCAINE 2% INJ 100 MG/5 ML SDV (FOR ANES.) As Ordered ONE (15:32)
[2019-02-25 18:10] VITALS: BP 158/70
[2019-02-25 20:00] VITALS: BP 137/92
[2019-02-25] MEDS: ATORVASTATIN 10 MG TAB PO SCH (20:53)
[2019-02-25] MEDS: TAMSULOSIN 0.4 MG CAP PO SCH (20:53)
--- NOTE | 2019-02-25 21:23 | REPVR ---
EXAM: CT Chest Without Contrast EXAM DATE/TIME: 02/25/2019 7:52 PM CLINICAL HISTORY: 78 years old, male; Condition or disease; Lung condition and disease; Pleural effusion; Other: Not specified; Additional info: RT pleural effusion. Esrd. Do after hd TECHNIQUE: Imaging protocol: Computed tomography of the chest without contrast. 3D rendering: MIP reconstructed images were created and reviewed. Radiation optimization: All CT scans at this facility use at least one of these dose optimization techniques: automated exposure control; mA and/or kV adjustment per patient size (includes targeted exams where dose is matched to clinical indication); or iterative reconstruction. COMPARISON: CT Chest without contrast 07/25/2018 1:04 PM FINDINGS: Tubes, catheters and devices: Right IJ central venous catheter present with tip at the SVC/right atrial junction. Lungs: Right lower lobe atelectasis/consolidation. Mild atelectasis/consolidation within the right middle lobe. Multiple pulmonary nodules within the posterior lateral right upper lobe and lateral right middle lobe, unchanged. 7 mm nodule within the lateral left lower lobe, unchanged. Pleural space: Moderate right pleural effusion, increased in size since the last exam. Small left pleural effusion, slightly smaller since the prior study. Heart: Mild cardiomegaly. Small pericardial effusion. Moderate severe coronary atherosclerosis. Aorta: Moderate atherosclerosis of the thoracic aorta. Lymph nodes: Mediastinal lymphadenopathy, unchanged compared to the prior study. Bones/joints: Degenerative spondylosis of the thoracic spine. No acute fracture. Soft tissues: Unremarkable. Intraperitoneal space: Small volume of ascites within the upper abdomen, slightly increased in size compared to the prior study. IMPRESSION: 1. Right lower lobe and right middle lobe atelectasis/consolidation. 2. Multiple pulmonary nodules within both lungs, unchanged. 3. Bilateral pleural effusions. 4. Cardiomegaly and small pericardial effusion. 5. Atherosclerosis. 6. Mediastinal lymphadenopathy, unchanged. 7. Small abdominal ascites, slightly increased in size since the prior study. Electronically signed by: Curtis Crockett On 02/25/2019 21:22:33 PM
[2019-02-26] VITALS: BP 150/80
[2019-02-26 04:00] VITALS: BP 131/78
[2019-02-26] MEDS: SLF 3 ML SYR IV SCH ×3 (05:10→20:55)
[2019-02-26 05:39] LABS: BASO % 0.2 % (0.0-1.0); EOS % 0.8 % (0.0-3.0); HEMATOCRIT 33.4 % (42.0-52.0); HEMOGLOBIN 10.6 g/dl (13.5-17.5); LYMPH # 0.3 10^3/uL (1.5-5.0); LYMPH % 6.8 % (24.0-44.0); MEAN CORPUSCULAR HEMOGLOBIN 28.6 pg (27.0-33.0); MEAN CORPUSCULAR HGB CONC 31.7 g/dl (32.0-36.5); MEAN CORPUSCULAR VOLUME 90.3 fl (80.0-96.0); MONO # 0.8 10^3/uL (0.0-0.8); MONO % 16.3 % (0.0-5.0); NEUTROPHILS # 3.7 10^3/uL (1.5-8.5); NEUTROPHILS % 75.3 % (36.0-66.0); WHITE BLOOD COUNT 4.9 10^3/uL (4.0-10.0)
[2019-02-26 05:40] LABS: PLATELET COUNT, AUTOMATED 80 10^3/uL (150-450)
[2019-02-26 05:50] LABS: CALCIUM LEVEL 8.2 MG/DL (8.8-10.2); CREATININE FOR GFR 5.45 MG/DL (0.70-1.30); GLOMERULAR FILTRATION RATE 10.9 (>42); POTASSIUM SERUM 4.2 MEQ/L (3.5-5.1)
[2019-02-26] MEDS: HumaLOG INSULIN (NovoLOG) PER UNIT SC SCH ×4 (07:30→20:50)
[2019-02-26 08:00] VITALS: BP 166/90
[2019-02-26] MEDS: FINASTERIDE 5 MG TAB PO SCH (08:17)
[2019-02-26] MEDS: allopurinoL 100 MG TAB PO SCH (08:18)
[2019-02-26] MEDS: ESCITALOPRAM OXALATE 10 MG TAB (LEXAPRO) PO SCH (08:18)
[2019-02-26] MEDS: diltiaZEM **CD** 180 MG CAP PO SCH (08:18)
[2019-02-26 12:00] VITALS: BP 168/88
--- NOTE | 2019-02-26 12:15 | IPNPDOC ---
Subjective Date Seen The patient was seen on 02/26/19. Subjective Chief Complaint/HPI No complaints this morning. Patient started on HD via permacath yesterday. tolerated the procedure well. Says the nausea is better. No diarrhea. Appetite remains poor. No fever or chills. Objective Physical Examination General Exam: Positive: Alert, Cooperative, Mild Distress Eye Exam: Positive: Conjunctiva & lids normal ENT Exam: Positive: Mucous membr. moist/pink, Tongue Midline, Other ENT Neck Exam: Positive: Supple, JVD Chest Exam: Positive: Diminished Heart Exam: Positive: Irregular Rhythm, Normal S1, Normal S2 Telemetry: Positive: Atrial fibrillation Abdomen Exam: Positive: Normal bowel sounds, Tenderness, Other (distended ) Extremity Exam: Positive: Edema Neuro Exam: Positive: Normal Speech, Strength at 5/5 X4 ext, Normal Tone Psych Exam: Positive: Other Assessment /Plan Assessment 78 year old male with mild cognitive impairment with PMH of CKD stage 4, cirrhosis of liver, diabetes, hypertension, CHF with preserved EF, COPD , Central Sleep Apnea non complaint with CPAP with severe pulmonary hypertension with chronic right heart failure, Afib on Coumadin, hypertension with hypertensive heart disease, renal artery stenosis s/p stenting, was brought in by brother in law for dark colored liquid stools. They thought he was bleeding. Guaiac in the ED was positive, stool was light brown in color. He also complained of loose stools 3 to 4 times a day for more than a week. also complained of abdominal pain and distension. It was more to the right lower quadrant dull aching in nature about could not quantify the intensity with radiation to all over. As per family he also has been sleeping a lot and has been dizzy with poor appetite. He had a CT abdomen and pelvis done in the ED showed Bilateral pleural effusions right greater than left. Mild diffuse ascites new from September 2018. Left colonic diverticulosis. Renal cortical atrophy bilaterally. No hydronephrosis seen. His labs were significant for creatinine of 6.2 BUN of 122, bicarb of 17, k of 5.2 and uric acid of 11.2. his Hb was 12 which is higher than his baseline and his platelet was 86. He is being admitted for BRENDON on CKD with metabolic encephalopathy and fluid overload. 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 due to uremia. Metabolic Acidosis due to acute renal failure resolved CHF with preserved Ef of 655 and chronic right heart failure with exacerbation with bilateral pleural effusions, atelectasis and ascites and edema. due to CKD stage 5 with fluid overload fluid status will be managed by HD. Metabolic encephalopathy due to uremia resolved Hyperkalemia resolved Hyperuricemia on allopurinol. Diabetes monitor FS glimiperide as sugars were running low. will restart when eating better continue lispro as per sliding scale Hypertension with hypertensive heart disease continue diltiazem. will hold hydralazine for now. Central Sleep apnea may use own CPAP Afib rate controlled continue diltiazem From his med reconcilliation seems like has not been on any anticoagulation. Will have to verify with family. COPD, Central Sleep apnea with severe pulmonary hypertension and chronic right heart failure continue albuterol prn Cirrhosis of liver with thrombocytopenia and ascites etiology unknown. No history of hepatitis or large amounts of alcohol abuse could be due to chronic hepatic congestion and cardiac cirrhosis US abdomen with minimal ascites. ammonia normal lactate not elevated. Bilateral pulmonary nodules with medistinal lymphadenopathy stable outpatient follow up Plan/VTE VTE Prophylaxis Ordered?: Yes VS, I&O, 24H, Fishbone Vital Signs/I&O Vital Signs Date Time Temp Pulse Resp B/P (MAP) Pulse Ox O2 Delivery O2 Flow Rate FiO2 02/26/19 04:00 97.7 86 18 131/78 (95) 90 02/23/19 16:55 Room Air I&O- Last 24 Hours up to 6 AM 02/26/19 05:59 Intake Total 900 ml Output Total 2160 ml Balance -1260 ml Laboratory Data 24H LABS Laboratory Tests 2 02/25/19 08:30: Bedside Glucose (Misc Panel) 119H 02/25/19 11:39: Bedside Glucose (Misc Panel) 96 02/25/19 11:41: 02/25/19 18:15: Bedside Glucose (Misc Panel) 76L 02/25/19 20:07: Bedside Glucose (Misc Panel) 152H 02/26/19 05:11: Immature Granulocyte % (Auto) 0.6, White Blood Count 4.9, Red Blood Count 3.70L, Hemoglobin 10.6L, Hematocrit 33.4L, Mean Corpuscular Volume 90.3, Mean Corpuscu lar Hemoglobin 28.6, Mean Corpuscular Hemoglobin Concent 31.7L, Red Cell Distribution Width 16.1H, Platelet Count 80L, Neutrophils (%) (Auto) 75.3H, Lymphocytes (%) (Auto) 6.8L, Monocytes (%) (Auto) 16.3H, Eosinophils (%) (Auto) 0.8, Basophils (%) (Auto) 0.2, Neutrophils # (Auto) 3.7, Lymphocytes # (Auto) 0.3L, Monocytes # (Auto) 0.8, Eosinophils # (Auto) 0.0, Basophils # (Auto) 0.0, Nucleated Red Blood Cells % (auto) 0.0, Anion Gap 9, Glomerular Filtration Rate 10.9L, Blood Urea Nitrogen 79H, Creatinine 5.45H, Sodium Level 139, Potassium Level 4.2, Chloride Level 109H, Carbon Dioxide Level 21, Calcium Level 8.2L CBC/BMP Laboratory Tests 02/26/19 05:11 Red Blood Count 3.70 L, Mean Corpuscular Volume 90.3, Mean Corpuscular Hemoglobin 28.6, Mean Corpuscular Hemoglobin Concent 31.7 L, Red Cell Distribution Width 16.1 H, Neutrophils (%) (Auto) 75.3 H, Lymphocytes (%) (Auto) 6.8 L, Monocytes (%) (Auto) 16.3 H, Eosinophils (%) (Auto) 0.8, Basophils (%) (Auto) 0.2, Neutrophils # (Auto) 3.7, Lymphocytes # (Auto) 0.3 L, Monocytes # (Auto) 0.8, Eosinophils # (Auto) 0.0, Basophils # (Auto) 0.0, Calcium Level 8.2 L Microbiology Microbiology 02/24/19 Gastrointestinal Tract Panel (PCR) - Final, Complete 02/23/19 Stool Occult Blood (NATA) - Final, Complete TOMA LARSON MD Feb 26, 2019 06:45
[2019-02-26 16:00] VITALS: BP 168/74
[2019-02-26 20:00] VITALS: BP 161/88
[2019-02-26] MEDS: ATORVASTATIN 10 MG TAB PO SCH (20:55)
[2019-02-26] MEDS: TAMSULOSIN 0.4 MG CAP PO SCH (20:55)
[2019-02-27] VITALS (9 sets, daily range): BP systolic 125–182; BP diastolic 72–100
[2019-02-27] MEDS ORDERED: **hydrALAZINE** 10 MG TAB PO ONE (01:00)
[2019-02-27] MEDS: SLF 3 ML SYR IV SCH ×3 (05:34→21:02)
[2019-02-27 06:28] LABS: EOS % 0.7 % (0.0-3.0); HEMATOCRIT 33.6 % (42.0-52.0); HEMOGLOBIN 10.8 g/dl (13.5-17.5); LYMPH # 0.4 10^3/uL (1.5-5.0); LYMPH % 6.3 % (24.0-44.0); MEAN CORPUSCULAR HGB CONC 32.1 g/dl (32.0-36.5); MEAN CORPUSCULAR VOLUME 90.3 fl (80.0-96.0); MONO # 0.9 10^3/uL (0.0-0.8); MONO % 16.1 % (0.0-5.0); NEUTROPHILS # 4.4 10^3/uL (1.5-8.5); NEUTROPHILS % 76.4 % (36.0-66.0); RED BLOOD COUNT 3.72 10^6/uL (4.30-6.10); WHITE BLOOD COUNT 5.7 10^3/uL (4.0-10.0)
[2019-02-27 06:31] LABS: PLATELET COUNT, AUTOMATED 80 10^3/uL (150-450)
[2019-02-27 06:47] LABS: CALCIUM LEVEL 8.4 MG/DL (8.8-10.2); CREATININE FOR GFR 5.54 MG/DL (0.70-1.30); GLOMERULAR FILTRATION RATE 10.7 (>42); POTASSIUM SERUM 4.4 MEQ/L (3.5-5.1)
[2019-02-27] MEDS: HumaLOG INSULIN (NovoLOG) PER UNIT SC SCH ×4 (07:58→20:31)
[2019-02-27] MEDS: FINASTERIDE 5 MG TAB PO SCH (08:20)
[2019-02-27] MEDS: allopurinoL 100 MG TAB PO SCH (08:21)
[2019-02-27] MEDS: ESCITALOPRAM OXALATE 10 MG TAB (LEXAPRO) PO SCH (08:21)
[2019-02-27] MEDS: diltiaZEM **CD** 180 MG CAP PO SCH (08:21)
[2019-02-27 09:56] LABS: PTH INTACT 139.8 PG/ML (18.5-88.0)
[2019-02-27 09:57] LABS: HEPATITIS B SURFACE ANTIBODY NEGATIVE (POSITIVE)
[2019-02-27 10:07] LABS: HEPATITIS B SURFACE ANTIGEN NEGATIVE (NEGATIVE)
[2019-02-27 10:34] LABS: HEPATITIS C VIRUS ABY INDEX 0.1 INDEX (<0.8)
[2019-02-27 10:35] LABS: HEPATITIS B CORE ANTIBODY IGM NEGATIVE (NEGATIVE)
--- NOTE | 2019-02-27 11:31 | IPN ---
DATE OF SERVICE: 02/25/2019 SUBJECTIVE: The patient was seen and examined at the bedside today morning. The patient's IV fluids have been stopped. There is no significant improvement in the renal function. His BUN level is more [id number], creatinine is more than 6. The patient's sister and niece were present at the bedside. I had an extensive discussion with the family. I answered multiple questions regarding initiation of dialysis, possible need of renal replacement therapy long-term if the patient's renal function does not improve. The patient himself is complaining of moderate amount of shortness of breath. Patient is agreeing for hemodialysis. OBJECTIVE: Vital signs: Temperature is 96.9 degrees Fahrenheit, blood pressure 158/84, pulse is 81, respiratory rate of 18, saturating 91% on room air. Intake and output - urine output recorded is only 350 mL since overnight. Weight in the bed scale is 82.1 kg. PHYSICAL EXAMINATION: General: The patient is awake, alert, oriented times two, laying in bed, moderate respiratory distress. Head and neck exam extraocular muscles intact. Pupils are equally round and reactive to light. Mucous membranes are moist. Neck is supple. There is moderately elevated jugular venous distention (JVD). Cardiovascular: S1, S2. 1+ edema of the bilateral lower extremities. Respiratory: Decreased breath sounds at the bases. Decreased local resonance of the right base up to the right mid lung zone. Abdomen is soft, obese, positive bowel sounds. Mild amount of abdominal wall edema. Genitourinary: Patient has an indwelling Tran catheter, a small amount of urine in the bag was noted. Musculoskeletal: No clubbing or cyanosis. 1+ edema of the bilateral lower extremities. UI APPLICATION DEVELOPER: The patient is very hard of hearing, otherwise he follows commands and moves extremities. Skin: No rashes or ulcers. LAB REVIEW: CBC showed WBC 5.3, hemoglobin 11.2, platelets are 84. BMP done today showed sodium 140, potassium 4.7, chloride 111, bicarb 15, BUN 112, creatinine is 6.3 and glucose was 68 today morning. A1c is 7.6, calcium 8.5, phosphorus 5.9, iron is 42, TIBC 263, transferrin saturation is 16%, ferritin is 151. Lipid panel was done which showed triglycerides 121, total cholesterol 102, LDL 58, HDL 20, PTH level is pending. Dialysis, hepatitis chemistry was done. Hepatitis B and hepatitis C serologies pending. Microbiology - stool occult blood is negative and GI panel is negative as well. CURRENT INPATIENT MEDICATIONS: The patient's medications were all reviewed by me. Sodium bicarbonate IV fluid has been stopped. Glimepiride has been stopped by the primary team. No other change in the medications today as compared with yesterday. ASSESSMENT: 1. Acute renal failure superimposed on chronic kidney disease stage 3 to at least stage 4. Patient has end renal failure with very high BUN level, severe metabolic acidosis and right-sided pleural effusion along with ascites. I had an extensive discussion with the family, her sister is the main patient centered care specialist. She explained the current status with the patient as well. They finally agreed to see start the patient on dialysis. I have requested vascular surgery to take the patient to operating room (OR) for placement of tunneled hemodialysis catheter and after that the patient will be dialyzed for 2 hours today. 2. Normal anion gap metabolic acidosis. It is secondary to renal failure. The patient was given bicarb containing IV fluids but he is overloaded, his bicarb is not getting better. No need of oral or IV bicarb administration at this time. His acidosis will be managed with dialysis now. 3. History of renal artery stenosis. The patient had renal artery stent about 3 years ago on the right renal artery. The patient's sister also reports that he apparently had another renal angiogram done in [place], records are not available. I will try to get the records from there. However, given the patient's current renal failure and uremia, I would not recommend doing any angiogram because there is high risk of bleeding and it is not going fix his renal failure, at this point we need to stabilize the patient first. 4. Iron-deficiency anemia. The patient is going to start Venofer with hemodialysis for a total of 10 doses. No need of Aranesp administration at this time. 5. Chronic kidney disease, mineral bone disease. The patient has hyperphosphatemia. However I expect the phosphorus level would improve with dialysis only, no need of phosphorus binders at this time. I have ordered the parathyroid hormone level as well as PTH is high he will be started on calcitriol. 6. Chronic gout secondary to chronic kidney disease. Continue current dose of allopurinol 100 mg by mouth daily. 7. Hypertension with end-stage renal disease, blood pressure levels are optimal. Continue current dose of diltiazem 180 mg by mouth daily. 8. Benign prostatic hyperplasia (BPH) with lower urinary tract symptoms. Continue current dose of finasteride and Flomax. The patient actually has an indwelling Tran catheter at this time. 9. Diabetes mellitus type 2. The patient was hypoglycemic. His sulfonylurea has been stopped. Glimepiride has renal clearance, avoid using glimepiride which can cause prolonged hypoglycemia in the renal disease patients. If needed patient can be started on glipizide, but at this point I would recommend avoiding any sulfonylurea since he had hypoglycemic episode. 10. Right-sided pleural effusion most likely secondary to renal failure and fluid overload. I am going to remove at least at 1.5 liters of fluid during dialysis today and after that I am going to have a CAT scan done post dialysis in the evening. 11. Chronic diastolic congestive heart failure. Volume status will be optimized with dialysis. No need of diuretics at this time. 12. Liver cirrhosis with ascites. The patient has small amount of ascites. I believe after fluid removal and improvement of his volume status his ascites will also slowly get better. Total critical care time spent in the management of this patient today morning was 1 hour.
[2019-02-27] MEDS ORDERED: HEPARIN 1,000 UNITS/ML 10ML VIAL (FOR RADIOLOGY& DIALYSIS ONLY) XX ONE (12:00)
--- NOTE | 2019-02-27 12:43 | IPNPDOC ---
Subjective Date Seen The patient was seen on 02/27/19. Subjective Chief Complaint/HPI Feeling a little better but still very weak. Says swelling has gone down and his breathing is better. Still has distension of his abdomen with some generalized tenderness. Objective Physical Examination General Exam: Positive: Alert, Cooperative, Mild Distress Eye Exam: Positive: Conjunctiva & lids normal ENT Exam: Positive: Mucous membr. moist/pink, Tongue Midline, Other ENT Neck Exam: Positive: Supple, JVD Chest Exam: Positive: Diminished Heart Exam: Positive: Irregular Rhythm, Normal S1, Normal S2 Telemetry: Positive: Atrial fibrillation Abdomen Exam: Positive: Normal bowel sounds, Tenderness, Other (distended ) Extremity Exam: Positive: Edema Neuro Exam: Positive: Normal Speech, Strength at 5/5 X4 ext, Normal Tone Psych Exam: Positive: Other Assessment /Plan Assessment 78 year old male with mild cognitive impairment with PMH of CKD stage 4, cirrhosis of liver, diabetes, hypertension, CHF with preserved EF, COPD , Central Sleep Apnea non complaint with CPAP with severe pulmonary hypertension with chronic right heart failure, Afib on Coumadin, hypertension with hypertensive heart disease, renal artery stenosis s/p stenting, was brought in by brother in law for dark colored liquid stools. They thought he was bleeding. Guaiac in the ED was positive, stool was light brown in color. He also complained of loose stools 3 to 4 times a day for more than a week. also complained of abdominal pain and distension. It was more to the right lower quadrant dull aching in nature about could not quantify the intensity with radiation to all over. As per family he also has been sleeping a lot and has been dizzy with poor appetite. He had a CT abdomen and pelvis done in the ED showed Bilateral pleural effusions right greater than left. Mild diffuse ascites new from September 2018. Left colonic diverticulosis. Renal cortical atr ophy bilaterally. No hydronephrosis seen. His labs were significant for creatinine of 6.2 BUN of 122, bicarb of 17, k of 5.2 and uric acid of 11.2. his Hb was 12 which is higher than his baseline and his platelet was 86. He is being admitted for BRENDON on CKD with metabolic encephalopathy and fluid overload. 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 started on HD via permacath placement this admission Diarrhea GI panel negative Stool occult blood negative. due to uremia. Metabolic Acidosis due to acute renal failure resolved CHF with preserved Ef of 65% and chronic right heart failure with exacerbation with bilateral pleural effusions, atelectasis and ascites and edema. fluid status will be managed by HD. Bilateral pleural effusions planned for right pleural tap. Metabolic encephalopathy due to uremia resolved Hyperkalemia resolved Hyperuricemia on allopurinol. Diabetes monitor FS glimiperide as sugars were running low. will restart when eating better continue lispro as per sliding scale Hypertension with hypertensive heart disease continue diltiazem. will hold hydralazine for now. Central Sleep apnea may use own CPAP Afib rate controlled continue diltiazem From his med reconcilliation seems like has not been on any anticoagulation. Will have to verify with family. COPD, Central Sleep apnea with severe pulmonary hypertension and chronic right heart failure continue albuterol prn Cirrhosis of liver with thrombocytopenia and ascites etiology unknown. No history of hepatitis or large amounts of alcohol abuse could be due to chronic hepatic congestion and cardiac cirrhosis US abdomen with minimal ascites. ammonia normal lactate not elevated. Bilateral pulmonary nodules with mediastinal lymphadenopathy stable outpatient follow up Secondary hyperparathyroidism. as per nephrology Plan/VTE VTE Prophylaxis Ordered?: Yes VS, I&O, 24H, [facility] Vital Signs/I&O Vital Signs Date Time Temp Pulse Resp B/P (MAP) Pulse Ox O2 Delivery O2 Flow Rate FiO2 02/27/19 08:21 106 125/92 02/27/19 08:00 97.1 20 95 02/23/19 16:55 Room Air I&O- Last 24 Hours up to 6 AM 02/27/19 06:00 Intake Total 1140 ml Output Total 375 ml Balance 765 ml Laboratory Data 24H LABS Laboratory Tests 2 02/26/19 17:07: Bedside Glucose (Misc Panel) 106 02/26/19 20:09: Bedside Glucose (Misc Panel) 217H 02/27/19 05:58: Immature Granulocyte % (Auto) 0.5, White Blood Count 5.7, Red Blood Count 3.72L, Hemoglobin 10.8L, Hematocrit 33.6L, Mean Corpuscular Volume 90.3, Mean Corpuscular Hemoglobin 29.0, Mean Corpuscular Hemoglobin Concent 32.1, Red Cell Distribution Width 16.0H, Platelet Count 80L, Neutrophils (%) (Auto) 76.4H, Lymphocytes (%) (Auto) 6.3L, Monocytes (%) (Auto) 16.1H, Eosinophils (%) (Auto) 0.7, Basophils (%) (Auto) 0.0, Neutrophils # (Auto) 4.4, Lymphocytes # (Auto) 0.4L, Monocytes # (Auto) 0.9H, Eosinophils # (Auto) 0.0, Basophils # (Auto) 0.0, Nucleated Red Blood Cells % (auto) 0.4H, Immature Platelet Fraction 2.1, Anion Gap 10, Glomerular Filtration Rate 10.7L, Blood Urea Nitrogen 89H, Creatinine 5.54H, Sodium Level 139, Potassium Level 4.4, Chloride Level 109H, Carbon Dioxide Level 20L, Calcium Level 8.4L CBC/BMP Laboratory Tests 02/27/19 05:58 Red Blood Count 3.72 L, Mean Corpuscular Volume 90.3, Mean Corpuscular Hemoglobin 29.0, Mean Corpuscular Hemoglobin Concent 32.1, Red Cell Distribution Width 16.0 H, Neutrophils (%) (Auto) 76.4 H, Lymphocytes (%) (Auto) 6.3 L, Monocytes (%) (Auto) 16.1 H, Eosinophils (%) (Auto) 0.7, Basophils (%) (Auto) 0.0, Neutrophils # (Auto) 4.4, Lymphocytes # (Auto) 0.4 L, Monocytes # (Auto) 0.9 H, Eosinophils # (Auto) 0.0, Basophils # (Auto) 0.0, Calcium Level 8.4 L Microbiology Microbiology 02/24/19 Gastrointestinal Tract Panel (PCR) - Final, Complete 02/23/19 Stool Occult Blood (NATA) - Final, Complete TOMA LARSON MD Feb 27, 2019 12:43
--- NOTE | 2019-02-27 13:33 | IPN ---
DATE OF SERVICE: 02/26/2019 SUBJECTIVE: The patient was seen and examined at the bedside today morning. He was dialyzed for the first time yesterday for 2 hours. He tolerated the hemodialysis procedure well. 1.5 liters of fluid was removed. His breathing is significantly better today as compared with yesterday. The patient reported that he had nausea, and he vomited last night. Otherwise, he denies any active complaints. OBJECTIVE: Vital signs: Temperature is 97.4 degrees Fahrenheit, blood pressure 166/90, pulse is 98, respiratory rate of 17, saturating 93% on room air. Intake and output: Urine output recorded is only 100 mL. Ultrafiltration with hemodialysis was 1500 mL. Weight in the bed scale is 82.6 kg. PHYSICAL EXAMINATION: General: The patient is awake, alert, oriented times two. He is hard of hearing, no apparent distress. Head and neck examination: Extraocular muscles intact. Pupils equally round and reactive to light. Mucous membranes are moist. Neck is supple. Mildly elevated jugular venous distention (JVD). Cardiovascular: S1, S2, regular rate. 2+ edema of the bilateral lower extremities. Respiratory: Decreased breath sounds at the bases. Decreased vocal resonance on the right base of the right mid lung zone. Abdomen is soft, obese, positive bowel sounds. Genitourinary: He has an indwelling Tran catheter. A small amount of urine in the bag was noted. Musculoskeletal: No clubbing or cyanosis. Pulses are 2+. 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 The patient moves extremities and follows commands. LABORATORY REVIEW: Complete blood count (CBC) showed WBC 4.9, hemoglobin 10.6, platelets are 80. Basic metabolic profile (BMP) showed sodium 139, potassium 4.2, chloride 109, bicarbonate 21, BUN 79, creatinine is 5.5, calcium is 8.2. IMAGING: A CAT scan of the chest was done yesterday, which showed that he had right lower lobe and right middle lobe atelectasis and moderate right-sided pleural effusion, multiple pulmonary nodules, cardiomegaly with a small pericardial effusion, small amount of abdominal ascites was also noted. CURRENT INPATIENT MEDICATIONS: The patient's medications were all reviewed by me. There is no change in the medications today as compared with yesterday. ASSESSMENT AND PLAN: 1. End-stage renal disease. The patient has progressed to end-stage renal disease. He was dialyzed for the first time yesterday after placement of right-sided tunneled hemodialysis catheter. Next hemodialysis will be done tomorrow morning. 2. High anion gap metabolic acidosis. His acidosis is significantly better today as compared with yesterday. Acidosis is being managed with dialysis. 3. Right-sided pleural effusion. I have ordered the thoracentesis to be done tomorrow morning by radiology department. 4. Anemia in end-stage renal disease and iron deficiency. The patient was started on Venofer with hemodialysis. Hemoglobin level is 10.6, which is optimal. No need of Aranesp administration at this time. 5. Acute decompensated congestive heart failure. The patient's volume status is being optimized with dialysis. 1.5 liters of fluid was removed yesterday. Further fluid removal will be done with dialysis tomorrow morning, and thoracentesis could also be done tomorrow. 6. Benign prostatic hypertrophy (BPH) with lower urinary tract symptoms. The patient is on Flomax and finasteride. I am going to have the Tran catheter removed today. MTDD
[2019-02-27] MEDS: ATORVASTATIN 10 MG TAB PO SCH (21:10)
[2019-02-27] MEDS: TAMSULOSIN 0.4 MG CAP PO SCH (21:10)
--- NOTE | 2019-02-27 22:41 | IPN ---
DATE: 02/27/2019 SUBJECTIVE: The patient was seen and examined at the bedside today morning. The patient reports that he is feeling better today as compared with yesterday. Today, the patient is going to have another session of hemodialysis. He is also scheduled to have ultrasound-guided right thoracentesis done. He denies any more nausea, vomiting. He does report baseline shortness of breath. OBJECTIVE: Vital signs: Temperature is 97.1 degrees Fahrenheit, blood pressure 125/92, pulse is 106, respiratory rate of 20, saturating 95% on room air. Intake and output: There is no urine output recorded today. It was 475 NH yesterday. Weight in the bed scale is 81.6 kg. PHYSICAL EXAMINATION: General: The patient is awake, alert, oriented x1, sitting up in the bed in no apparent distress. Head and neck exam: Extraocular muscles intact. Pupils equally round and reactive to light. Mucous membranes are moist. Neck is supple. There is mildly elevated JVD. Cardiovascular: S1-S2 regular rate, 1+ edema of the bilateral lower extremities. Respiratory: Decreased breath sounds bilaterally at the bases. Decreased local resonance of the right base up to the right mid lung zone. Abdomen is soft, positive bowel sounds. Nontender. No organomegaly. Genitourinary: Tran catheter has been removed. Musculoskeletal: No clubbing or cyanosis. Pulses are 2+. GENERAL EXPEDITOR: The patient is very hard of hearing and slow to understand, but otherwise he follows commands. LABORATORY REVIEW: Complete blood count (CBC) showed a WBC 5.7, hemoglobin 10.8, platelets are 80. Basic metabolic panel (BMP) showed sodium 139, potassium 4.4, chloride 109, bicarbonate 20, BUN 89, creatinine is 5.5, glucose 137, calcium 8.4. Parathyroid hormone is 139. CURRENT INPATIENT MEDICATIONS: The patient's medications were all reviewed by me. He was given an extra dose of diltiazem 30 mg by mouth overnight. No other change in the medications today as compared with yesterday. ASSESSMENT/PLAN: 1. Acute renal failure superimposed on chronic kidney disease stage IV. The patient is dialysis dependent. He was dialyzed for the first time over the weekend. He will get the second session of dialysis today for 3 hours and I will try to remove at least 2 kg of fluid as tolerated by his blood pressure. Normal anion gap metabolic acidosis. The patient is getting bicarbonate with dialysis. Bicarbonate level is expected to improve after few sessions of dialysis are done. 2. History of renal artery stenosis. The patient is going to get renal artery Duplex tomorrow morning, empty stomach. 3. Iron-deficiency anemia. Continue current dose of Venofer with dialysis. 4. Secondary hyperparathyroidism. Parathyroid hormone is acceptable for end-stage renal disease. No need of calcitriol at this time. 5. Chronic diastolic congestive heart failure. Volume status will be optimized with dialysis. Right now he is slightly decompensated. No need of diuretic at this time. 6. Large right-sided pleural effusion. The patient is going to have ultrasound guided right-sided thoracentesis done today. 7. Atrial fibrillation. Heart rate is controlled with diltiazem. The patient is not on anticoagulation.
[2019-02-28] VITALS (7 sets, daily range): BP systolic 130–192; BP diastolic 78–104
[2019-02-28 05:57] LABS: BASO % 0.2 % (0.0-1.0); EOS % 0.3 % (0.0-3.0); HEMATOCRIT 34.4 % (42.0-52.0); HEMOGLOBIN 11.3 g/dl (13.5-17.5); LYMPH # 0.5 10^3/uL (1.5-5.0); LYMPH % 7.1 % (24.0-44.0); MEAN CORPUSCULAR HGB CONC 32.8 g/dl (32.0-36.5); MEAN CORPUSCULAR VOLUME 91.2 fl (80.0-96.0); MONO # 0.8 10^3/uL (0.0-0.8); MONO % 12.9 % (0.0-5.0); NEUTROPHILS # 5.1 10^3/uL (1.5-8.5); NEUTROPHILS % 78.9 % (36.0-66.0); RED BLOOD COUNT 3.77 10^6/uL (4.30-6.10); WHITE BLOOD COUNT 6.5 10^3/uL (4.0-10.0)
[2019-02-28] MEDS: SLF 3 ML SYR IV SCH ×3 (06:03→22:00)
[2019-02-28 06:08] LABS: PLATELET COUNT, AUTOMATED 75 10^3/uL (150-450)
[2019-02-28 06:11] LABS: CALCIUM LEVEL 8.7 MG/DL (8.8-10.2); CREATININE FOR GFR 4.39 MG/DL (0.70-1.30); POTASSIUM SERUM 4.2 MEQ/L (3.5-5.1)
[2019-02-28] MEDS: HumaLOG INSULIN (NovoLOG) PER UNIT SC SCH ×4 (07:30→20:38)
[2019-02-28] MEDS: allopurinoL 100 MG TAB PO SCH (09:12)
[2019-02-28] MEDS: FINASTERIDE 5 MG TAB PO SCH (09:12)
[2019-02-28] MEDS: diltiaZEM **CD** 180 MG CAP PO SCH (09:13)
[2019-02-28] MEDS: ESCITALOPRAM OXALATE 10 MG TAB (LEXAPRO) PO SCH (09:13)
--- NOTE | 2019-02-28 11:15 | IPNPDOC ---
Subjective Date Seen The patient was seen on 02/28/19. Subjective Chief Complaint/HPI Patient is comfortable in no distress scheduled for thoracentesis today General: Denies: ROS Unobtainable, Chills, Night Sweats, Fatigue, Malaise, Normal Appetite, Other Symptoms Constitutional: Denies: Chills, Fever, Malaise, Night Sweats, Weakness, Fatigue, Weight Loss, Lethargy, Other Eyes: Denies: Pain, Vision change, Conjunctivae inflammation, Eyelid inflammation, Redness, Other ENT: Denies: Head Aches, Ear Pain, Dysphagia, Sinus Congestion, Post Nasal Drip, Sore Throat, Epistaxis, Other Symptoms Skin: Denies: Rash, Lesions, Jaundice, Bruising, Itching, Dry, Breakdown, Nail Changes, Other Pulmonary: Denies: Dyspnea, Cough, Pleuritic Chest Pain, Other Symptoms Cardiovascular: Denies: Chest Pain, Palpitations, Orthopnea, Paroxysmal Noc. Dyspnea, Edema, Lt Headedness, Other Symptoms Gastrointestinal: Denies: Nausea, Vomiting, Abdominal Pain, Diarrhea, Con stipation, Melena, Hematochezia, Other Symptoms Musculoskeletal: Denies: Neck Pain, Back Pain, Shoulder Pain, Arm Pain, Hand Pain, Leg Pain, Foot Pain, Joint Pain, Muscle Pain, Spasms, Other Symptoms Neurological: Denies: Weakness, Numbness, Incoordination, Change in speech, Confusion, Seizures, Other Symptoms Objective Physical Examination Neck Exam: Positive: Supple, JVD Chest Exam: Positive: Diminished Heart Exam: Positive: Irregular Rhythm, Normal S1, Normal S2 Telemetry: Positive: Atrial fibrillation Abdomen Exam: Positive: Normal bowel sounds, Tenderness, Other (distended ) Extremity Exam: Positive: Edema Neuro Exam: Positive: Normal Speech, Normal Tone Psych Exam: Positive: Other Assessment /Plan Problems (1) Acute kidney injury superimposed on CKD Status: Acute Problem Text: 78 year old male with mild cognitive impairment with PMH of CKD stage 4, cirrhosis of liver, diabetes, hypertension, CHF with preserved EF, COPD , Central Sleep Apnea non complaint with CPAP with severe pulmonary hypertension with chronic right heart failure, Afib on Coumadin, hypertension with hypertensive heart disease, renal artery stenosis s/p stenting, was brought in by brother in law for dark colored liquid stools. They thought he was bleeding. Guaiac in the ED was positive, stool was light brown in color. He also complained of loose stools 3 to 4 times a day for more than a week. also complained of abdominal pain and distension. It was more to the right lower quadrant dull aching in nature about could not quantify the intensity with radiation to all over. As per family he also has been sleeping a lot and has been dizzy with poor appetite. He had a CT abdomen and pelvis done in the ED showed Bilateral pleural effusions right greater than left. Mild diffuse ascites new from September 2018. Left colonic diverticulosis. Renal cortical atrophy bilaterally. No hydronephrosis seen. His labs were significant for creatinine of 6.2 BUN of 122, bicarb of 17, k of 5.2 and uric acid of 11.2. his Hb was 12 which is higher than his baseline and his platelet was 86. He is being admitted for BRENDON on CKD with metabolic encephalopathy and fluid overload. 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 started on HD via permacath placement this admission Scheduled for HD in a.m. Further, as per nephrology Nephrology follow-up appreciated (2) Pleural effusion Status: Acute Problem Text: Scheduled for bilateral pleural effusion tapped today by interventional radiology (3) Cirrhosis Status: Chronic Problem Text: Cirrhosis of liver with thrombocytopenia and ascites etiology unknown. No history of hepatitis or large amounts of alcohol abuse could be due to chronic hepatic congestion and cardiac cirrhosis US abdomen with minimal ascites. ammonia normal lactate not elevated. (4) Atrial fibrillation Status: Chronic Problem Text: Afib rate controlled continue diltiazem From his med reconcilliation seems like has not been on any anticoagulation. Will have to verify with family. (5) COPD (chronic obstructive pulmonary disease) Status: Chronic Problem Text: Continue present medications This is clinically stable Plan/VTE VTE Prophylaxis Ordered?: Yes VS, I&O, 24H, [facility] Vital Signs/I&O Vital Signs Date Time Temp Pulse Resp B/P (MAP) Pulse Ox O2 Delivery O2 Flow Rate FiO2 02/28/19 09:13 125 188/92 02/28/19 08:00 97.9 18 94 02/23/19 16:55 Room Air I&O- Last 24 Hours up to 6 AM 02/28/19 05:59 Intake Total 720 ml Output Total 3075 ml Balance -2355 ml Laboratory Data 24H LABS Laboratory Tests 2 02/27/19 16:27: Bedside Glucose (Misc Panel) 131H 02/27/19 20:28: Bedside Glucose (Misc Panel) 219H 02/28/19 05:26: Immature Granulocyte % (Auto) 0.6, White Blood Count 6.5, Red Blood Count 3.77L, Hemoglobin 11.3L, Hematocrit 34.4L, Mean Corpuscular Volume 91.2, Mean Corpuscular Hemoglobin 30.0, Mean Corpuscular Hemoglobin Concent 32.8, Red Cell Distribution Width 16.1H, Platelet Count 75L, Neutrophils (%) (Auto) 78.9H, Lymphocytes (%) (Auto) 7.1L, Monocytes (%) (Auto) 12.9H, Eosinophils (%) (Auto) 0.3, Basophils (%) (Auto) 0.2, Neutrophils # (Auto) 5.1, Lymphocytes # (Auto) 0.5L, Monocytes # (Auto) 0.8, Eosinophils # (Auto) 0.0, Basophils # (Auto) 0.0, Nucleated Red Blood Cells % (auto) 0.0, Anion Gap 8, Glomerular Filtration Rate 14.0L, Blood Urea Nitrogen 54H, Creatinine 4.39H, Sodium Level 137, Potassium Level 4.2, Chloride Level 107, Carbon Dioxide Level 22, Calcium Level 8.7L CBC/BMP Laboratory Tests 02/28/19 05:26 Red Blood Count 3.77 L, Mean Corpuscular Volume 91.2, Mean Corpuscular Hemoglobin 30.0, Mean Corpuscular Hemoglobin Concent 32.8, Red Cell Distribution Width 16.1 H, Neutrophils (%) (Auto) 78.9 H, Lymphocytes (%) (Auto) 7.1 L, Monocytes (%) (Auto) 12.9 H, Eosinophils (%) (Auto) 0.3, Basophils (%) (Auto) 0.2, Neutrophils # (Auto) 5.1, Lymphocytes # (Auto) 0.5 L, Monocytes # (Auto) 0.8, Eosinophils # (Auto) 0.0, Basophils # (Auto) 0.0, Calcium Level 8.7 L Microbiology Microbiology 02/24/19 Gastrointestinal Tract Panel (PCR) - Final, Complete 02/23/19 Stool Occult Blood (NATA) - Final, Complete GOGO MOORE MD Feb 28, 2019 11:15
--- NOTE | 2019-02-28 13:54 | REP ---
CHEST, TWO VIEWS: Two views of the chest are performed status post right thoracentesis. There is marked improvement of right pleural effusion. There is no pneumothorax. Scattered parenchymal opacities are seen throughout the right lung and to a minimal extent in the left lung base. There is cardiomegaly. Mediastinal silhouette is unchanged. Right central venous catheter is seen. IMPRESSION: No pneumothorax status post right thoracentesis. Electronically Signed by Chris Bird MD 03/01/2019 10:18 A
[2019-02-28 14:13] LABS: APPEARANCE, BODY FLUID HAZY (CLEAR); PLEURAL FL COLOR YELLOW (COLORLESS); SOURCE, BODY FLUID PLEURAL
--- NOTE | 2019-02-28 18:37 | IPN ---
DATE: 02/28/2019 SUBJECTIVE: The patient was seen and examined at the bedside today morning. He was dialyzed yesterday. He tolerated the hemodialysis procedure well. However, he reports that after the dialysis, he was nauseated at nighttime and he reports throwing up once at night. His blood pressures are still high. The patient is also going to have thoracentesis done today. OBJECTIVE: VITAL SIGNS: Temperature is 97.9 degrees Fahrenheit, blood pressure 188/92, pulse is 125, respiratory rate of 18, saturating 94% on room air. INTAKE AND OUTPUT: Urine output recorded is 100 mL. Ultrafiltration with hemodialysis was 2.5 liters yesterday. Weight in the bed scale is 79.5 kg. PHYSICAL EXAMINATION: GENERAL: The patient is awake, alert and oriented times two, sitting up in the bed, in no apparent distress. HEAD AND NECK: Extraocular muscles intact. Pupils equally round and reactive to light. Right-sided tunneled hemodialysis catheter with ecchymosis around the catheter site. CARDIOVASCULAR: S1, S2, trace edema of the bilateral lower extremities. RESPIRATORY: Mildly decreased breath sounds at the bases, otherwise no active rales or rhonchi. ABDOMEN: Soft, distended, tympanitic to percussion. MUSCULOSKELETAL: No clubbing or cyanosis. Pulses are 2+. CENTRAL NERVOUS SYSTEM (LEAD TELLER): The patient is very hard of hearing. He is slow to comprehend but otherwise he follows commands. LABORATORY REVIEW: CBC showed a WBC 6.5, hemoglobin 11.3, platelets are 75. BMP showed sodium 137, potassium 4.2, chloride 107, bicarbonate 22, BUN 54, creatinine is 4.3, calcium is 8.7. CURRENT INPATIENT MEDICATIONS: The patient's medications were all reviewed by me. There is no change in the medications today as compared with yesterday. ASSESSMENT AND PLAN: 1. End-stage renal disease. The patient is dialysis dependent. He was dialyzed yesterday. Next hemodialysis will be done tomorrow morning. 2. History of renal artery stenosis. The patient was sent to radiology but I was told by the resident physician in radiology that previously his renal artery duplex has been inconclusive because arteries could not be visualized, so Doppler was discontinued. 3. Iron-deficiency anemia. The patient continues to get iron with dialysis. Hemoglobin level is stable. 4. Chronic diastolic congestive heart failure. He got 2.5 liters of fluid removed yesterday. Fluid status is being optimized with dialysis only. No need of diuretic. 5. Right-sided pleural effusion. The patient is going to have ultrasound-guided right-sided pleural tap done. 6. Atrial fibrillation. The patient continues to be on diltiazem. He is not on anticoagulation.
[2019-02-28] MEDS: ATORVASTATIN 10 MG TAB PO SCH (20:37)
[2019-02-28] MEDS: TAMSULOSIN 0.4 MG CAP PO SCH (20:38)
[2019-02-28] MEDS: **hydrALAZINE** 50 MG TAB PO SCH (21:12)
[2019-02-28] MEDS: ONDANSETRON 4MG/2ML VIAL (J2405) IV PRN (23:54)
[2019-03-01] VITALS (7 sets, daily range): BP systolic 143–180; BP diastolic 74–100
[2019-03-01] MEDS: SLF 3 ML SYR IV SCH ×3 (05:08→20:54)
[2019-03-01 05:42] LABS: BASO % 0.2 % (0.0-1.0); EOS % 0.5 % (0.0-3.0); HEMATOCRIT 32.9 % (42.0-52.0); HEMOGLOBIN 10.5 g/dl (13.5-17.5); LYMPH # 0.4 10^3/uL (1.5-5.0); LYMPH % 7.8 % (24.0-44.0); MEAN CORPUSCULAR HEMOGLOBIN 28.7 pg (27.0-33.0); MEAN CORPUSCULAR HGB CONC 31.9 g/dl (32.0-36.5); MEAN CORPUSCULAR VOLUME 89.9 fl (80.0-96.0); MONO # 0.7 10^3/uL (0.0-0.8); NEUTROPHILS # 4.4 10^3/uL (1.5-8.5); NEUTROPHILS % 77.6 % (36.0-66.0); PLATELET COUNT, AUTOMATED 72 10^3/uL (150-450); RED BLOOD COUNT 3.66 10^6/uL (4.30-6.10); WHITE BLOOD COUNT 5.6 10^3/uL (4.0-10.0)
[2019-03-01 06:00] LABS: CALCIUM LEVEL 8.2 MG/DL (8.8-10.2); CREATININE FOR GFR 4.85 MG/DL (0.70-1.30); GLOMERULAR FILTRATION RATE 12.4 (>42); POTASSIUM SERUM 4.1 MEQ/L (3.5-5.1)
[2019-03-01] MEDS: HumaLOG INSULIN (NovoLOG) PER UNIT SC SCH ×4 (08:49→20:55)
[2019-03-01] MEDS: **hydrALAZINE** 50 MG TAB PO SCH ×2 (09:00→20:54)
--- NOTE | 2019-03-01 09:39 | REP ---
Ultrasound-guided thoracentesis The procedure was performed by HALIMA Poole, under the direct supervision of Dr. Bird. The risks and benefits of the procedure were explained to the patient and informed consent was obtained both verbally and written. Directly prior to the start of the procedure, a formal timeout was completed in the exam room. Pleural fluid in the right lung zone was localized using ultrasound guidance. The skin was prepped and draped in a sterile fashion. 8 ml of 1% lidocaine was used as a local anesthetic. Using ultrasound guidance, an 8-[id number] multi side-hole catheter was inserted and advanced into the fluid. 1,215 ml of red tinged colored fluid was withdrawn and sent to the lab for analysis. The patient tolerated the procedure well and there were no immediate complications. After the appropriate amount of monitored convalescence, the patient was discharged from the department. Reviewed by HALIMA Blanchard 02/28/2019 05:34 P Electronically Signed by Chris Bird MD 03/01/2019 09:30 A
[2019-03-01] MEDS ORDERED: HEPARIN 1,000 UNITS/ML 10ML VIAL (FOR RADIOLOGY& DIALYSIS ONLY) XX ONE (10:15)
--- NOTE | 2019-03-01 10:35 | IPNPDOC ---
Subjective Date Seen The patient was seen on 03/01/19. Subjective Chief Complaint/HPI Patient is comfortable in no apparent distress. Offers no complaints status post thoracentesis yesterday General: Denies: ROS Unobtainable, Chills, Night Sweats, Fatigue, Malaise, Normal Appetite, Other Symptoms Pulmonary: Denies: Dyspnea, Cough, Pleuritic Chest Pain, Other Symptoms Cardiovascular: Denies: Chest Pain, Palpitations, Orthopnea, Paroxysmal Noc. Dyspnea, Edema, Lt Headedness, Other Symptoms Gastrointestinal: Denies: Nausea, Vomiting, Abdominal Pain, Diarrhea, Constipation, Melena, Hematochezia, Other Symptoms Musculoskeletal: Denies: Neck Pain, Back Pain, Shoulder Pain, Arm Pain, Hand Pain, Leg Pain, Foot Pain, Joint Pain, Muscle Pain, Spasms, Other Symptoms Neurological: Denies: Weakness, Numbness, Incoordination, Change in speech, Confusion, Seizures, Other Symptoms Objective Physical Examination Neck Exam: Positive: Supple, JVD Chest Exam: Positive: Diminished Heart Exam: Positive: Irregular Rhythm, Normal S1, Normal S2 Telemetry: Positive: Atrial fibrillation Abdomen Exam: Positive: Normal bowel sounds, Tenderness, Other (distended ) Extremity Exam: Positive: Edema Neuro Exam: Positive: Normal Speech, Normal Tone Psych Exam: Positive: Other Assessment /Plan Problems (1) Acute kidney injury superimposed on CKD Status: Acute Problem Text: 78 year old male with mild cognitive impairment with PMH of CKD stage 4, cirrhosis of liver, diabetes, hypertension, CHF with preserved EF, COPD , Central Sleep Apnea non complaint with CPAP with severe pulmonary hypertension with chronic right heart failure, Afib on Coumadin, hypertension with hypertensive heart disease, renal artery stenosis s/p stenting, was brought in by brother in law for dark colored liquid stools. They thought he was bleeding. Guaiac in the ED was positive, stool was light brown in color. He also complained of loose stools 3 to 4 times a day for more than a week. also complained of abdominal pain and distension. It was more to the right lower quadrant dull aching in nature about could not quantify the intensity with radiation to all over. As per family he also has been sleeping a lot and has been dizzy with poor appetite. He had a CT abdomen and pelvis done in the ED showed Bilateral pleural effusions right greater than left. Mild diffuse ascites new from September 2018. Left colonic diverticulosis. Renal cortical atrophy bilaterally. No hydronephrosis seen. His labs were significant for creatinine of 6.2 BUN of 122, bicarb of 17, k of 5.2 and uric acid of 11.2. his Hb was 12 which is higher than his baseline and his platelet was 86. He is being admitted for BRENDON on CKD with metabolic encephalopathy and fluid overload. 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 started on HD via permacath placement this admission Scheduled for hemodialysis today Patient is ready to be discharged home once he is gets the chair placement for his dialysis and as an outpatient (2) Pleural effusion Status: Acute Problem Text: Status post right thoracentesis Patient is clinically stable and feels better Continue present meds (3) Cirrhosis Status: Chronic Problem Text: Cirrhosis of liver with thrombocytopenia and ascites etiology unknown. No history of hepatitis or large amounts of alcohol abuse could be due to chronic hepatic congestion and cardiac cirrhosis US abdomen with minimal ascites. ammonia normal lactate not elevated. (4) Atrial fibrillation Status: Chronic Problem Text: Afib rate controlled continue diltiazem As per patient, he does not take anticoagulation secondary to risk of bleeding (5) COPD (chronic obstructive pulmonary disease) Status: Chronic Problem Text: Continue present medications This is clinically stable Plan/VTE VTE Prophylaxis Ordered?: Yes VS, I&O, 24H, Fishbone Vital Signs/I&O Vital Signs Date Time Temp Pulse Resp B/P (MAP) Pulse Ox O2 Delivery O2 Flow Rate FiO2 03/01/19 08:00 98.0 112 18 160/84 (109) 96 02/23/19 16:55 Room Air I&O- Last 24 Hours up to 6 AM 03/01/19 06:00 Intake Total 540 ml Output Total 650 ml Balance -110 ml Laboratory Data 24H LABS Laboratory Tests 2 02/28/19 11:25: Bedside Glucose (Misc Panel) 158H 02/28/19 13:20: Body Fluid WBC (Auto) 129H, Body Fluid RBC (Auto) 6, Body Fluid Mononuclear Cells % Auto 85.3H, Fluid Polymorphonuclear Cell % Auto 14.7H, Pleural Fluid Source PLEURAL, Pleural Fluid Color YELLOW, Pleural Fluid Appearance HAZY 02/28/19 16:12: Bedside Glucose (Misc Panel) 126H 02/28/19 20:03: Bedside Glucose (Misc Panel) 162H 03/01/19 05:12: Immature Granulocyte % (Auto) 0.9, White Blood Count 5.6, Red Blood Count 3.66L, Hemoglobin 10.5L, Hematocrit 32.9L, Mean Corpuscular Volume 89.9, Mean Corpuscular Hemoglobin 28.7, Mean Corpuscular Hemoglobin Concent 31.9L, Red Cell Distribution Width 16.5H, Platelet Count 72L, Neutrophils (%) (Auto) 77.6H, Lymphocytes (%) (Auto) 7.8L, Monocytes (%) (Auto) 13.0H, Eosinophils (%) (Auto) 0.5, Basophils (%) (Auto) 0.2, Neutrophils # (Auto) 4.4, Lymphocytes # (Auto) 0.4L, Monocytes # (Auto) 0.7, Eosinophils # (Auto) 0.0, Basophils # (Auto) 0.0, Nucleated Red Blood Cells % (auto) 0.0, Immature Platelet Fraction 2.7, Anion Gap 9, Glomerular Filtration Rate 12.4L, Blood Urea Nitrogen 60H, Creatinine 4.85H, Sodium Level 137, Potassium Level 4.1, Chloride Level 106, Carbon Dioxide Level 22, Calcium Level 8.2L CBC/BMP Laboratory Tests 03/01/19 05:12 Red Blood Count 3.66 L, Mean Corpuscular Volume 89.9, Mean Corpuscular Hemoglobin 28.7, Mean Corpuscular Hemoglobin Concent 31.9 L, Red Cell Distribution Width 16.5 H, Neutrophils (%) (Auto) 77.6 H, Lymphocytes (%) (Auto) 7.8 L, Monocytes (%) (Auto) 13.0 H, Eosinophils (%) (Auto) 0.5, Basophils (%) (Auto) 0.2, Neutrophils # (Auto) 4.4, Lymphocytes # (Auto) 0.4 L, Monocytes # (Auto) 0.7, Eosinophils # (Auto) 0.0, Basophils # (Auto) 0.0, Calcium Level 8.2 L Microbiology Microbiology 02/28/19 Gram Stain - Final, Resulted 02/28/19 Body Fluid Culture, Resulted Pending 02/24/19 Gastrointestinal Tract Panel (PCR) - Final, Complete 02/23/19 Stool Occult Blood (NATA) - Final, Complete GOGO MOORE MD Mar 01, 2019 10:35
[2019-03-01] MEDS ORDERED: LIDOCAINE 2% MDV 20 ML VIAL As Ordered ONE (11:02)
--- NOTE | 2019-03-01 12:22 | ROOPDOC ---
[facility] Report Of Operation Report of Operation DATE OF PROCEDURE: 03/01/19 PREPROCEDURE DIAGNOSES: Acute renal failure, bleeding around exit site from tunneled central venous catheter. POSTPROCEDURE DIAGNOSES: Acute renal failure, bleeding around exit site from tunneled central venous catheter. PROCEDURE: Right internal jugular vein tunneled central venous catheter evaluation and placement of a suture at the catheter exit site in the right chest. SURGEON: Dr. Krystin Zuniga M.D., MD MEDICAL STAFF COORDINATOR: None ANESTHESIA: Local with 10 mL of 2% lidocaine. ESTIMATED BLOOD LOSS: None COMPLICATIONS: None. PROCEDURE NOTE: Patient was brought to the interventional suite and placed supine and then prepped and draped in a standard surgical fashion. The dressing on the right internal jugular vein tunneled central venous catheter was removed. There was clot around the exit site but no active bleeding noted. The clot was removed in the chest cleaned with no active bleeding again noted. A [id number] 2-0 Prolene suture was placed at the exit site to tighten the skin around the catheter. Dressings were then applied. All instrument, sponge and needle counts were correct at the end of the case. Dr. Zuniga was present for and directed the entire case. Patient was transferred back to the floor in stable condition. The right internal jugular vein tunneled central venous catheter is stable for continue use for renal replacement therapy via hemodialysis. Harish Zuniga MD Mar 01, 2019 12:22
--- NOTE | 2019-03-01 12:26 | ROOPDOC ---
[facility] Report Of Operation Report of Operation DATE OF PROCEDURE: 02/25/2019 PREPROCEDURE DIAGNOSES: End-stage renal disease requiring access for renal replacement therapy. POSTPROCEDURE DIAGNOSES: End-stage renal disease requiring access for renal replacement therapy. PROCEDURE: Ultrasound guided right internal jugular vein cannulation. Fluoroscopic guided right internal jugular vein 19 cm tip to cuff tunneled central venous catheter insertion. ATTENDING SURGEON: DR. Irvin Zuniga M.D. WET MIX OPERATOR: None INDICATION:Patient is an 78-year-old male with acute renal failure who requires access for renal replacement therapy. Patient will undergo ultrasound and fluoroscopic guided placement of a right internal jugular vein tunneled central venous catheter. The procedure was described and explained to the patient in detail including drawing of pictures demonstrating the procedure and anatomy. Risks, benefits and alternative treatment options were discussed with the patient. Alternative treatment options included but were not limited to no intervention. Benefits included but were not limited to access for hemodialysis until permanent access for renal replacement therapy is created. Risks included, but were not limited to infection, bleeding, pneumothorax, hemothorax, cannulation site deep venous thrombosis, possible need for open surgical intervention, allergic reaction or complication from prepping and draping materials, possible need for transfusion of blood products, anesthetic complications, cerebrovascular accident, myocardial infarction, pulmonary embolus, deep venous thrombosis, loss of limb, loss of life, poor satisfaction and poor outcome. Risks of not performing the procedure included but were not limited to inability to obtain renal replacement therapy via hemodialysis and . The patient's questions were answered. The patient voices understanding of these risks, benefits and alternative treatment options. The patient voices acceptance of the risks associated with the procedure and agrees to proceed with an ultrasound and fluoroscopic guided right internal jugular vein tunneled central venous catheter insertion. There were no promises or guarantees made to the patient regarding the outcome or results of the procedure. ANESTHESIA: Local MAC with 20 mL of 2% lidocaine mixed with 0.5% Marcaine. EBL: 5 ml. IVF: 50 ml. FLUORO TIME: 0.1 minutes. CONTRAST: None. COMPLICATIONS: None. DRAINS: None. SPECIMENS: None. IMPLANTS: Right internal jugular vein tunneled central venous catheter with use of a 19 cm tip to cuff [place] hemodialysis catheter. DESCRIPTION OF PROCEDURE: Patient was taken to the angiography suite, placed supine on the angiography room table and then prepped and draped in a standard surgical fashion. A timeout was conducted by myself and the team members in the room confirming the correct patient, procedure and laterality. Ultrasound guidance was used to cannulate the right internal jugular vein using a micropuncture needle after anesthetizing the overlying skin and subcutaneous tissue with 1% lidocaine mixed with 0.5% Marcaine. The cannulation of the right internal jugular vein was performed with real-time concurrent visualization of the entry of the micropuncture needle into the right internal jugular vein with a hardcopy image preserved. The ultrasound showed the right internal jugular vein to be widely patent, easily compressible and free of thrombus. The micropuncture wire was advanced through the micropuncture needle which was u psized to a micropuncture sheath. An Amplatz wire was advanced through the micropuncture sheath which was then used to sequentially dilate the right internal jugular vein under fluoroscopic guidance. An introducer sheath was then placed over the Amplatz wire and the wire was removed. The catheter was tunneled through a puncture wound in the right chest after anesthetizing the ove rlying skin and subcutaneous tissue with 1% lidocaine mixed with 0.5% Marcaine and brought out through a puncture wound at the right internal jugular vein entry site. The catheter was then advanced through the introducer sheath which had been positioned under fluoroscopic guidance. The catheter was positioned under fluoroscopic guidance with the tip in the superior vena cava right atrial junction. Both ports of the catheter were aspirated, noted to aspirate easily and then flushed with heparinized saline. The catheter was secured to the right anterior chest wall using #2-0 Prolene suture after anesthetizing the overlying skin and subcutaneous tissue with 1% lidocaine mixed with 0.5% Marcaine. The puncture wound in the right neck was closed using #4-0 Monocryl in inverted interrupted fashion. Steri-Strips and dressings were applied. The patient tolerated the procedure well. All instrument, sponge and needle counts were correct at the end of the case. There were no complications. Dr. Zuniga was present for and directed the entire case. Patient was transferred to the recovery area and subsequently to the PCU in critical condition in stable condition. The tunneled central venous catheter is stable for use for hemodialysis access. RADIOLOGIC SUPERVISION AND INTERPRETATION: The initial ultrasound showed the right internal jugular vein to be easily compressible, widely patent and free of thrombus. Ultrasound was used to guide cannulation of the right internal jugular vein with real-time concurrent visualization of the entry of the needle into the right internal jugular vein with a hardcopy image preserved. Fluoroscopic guidance was then used to sequentially dilate the right internal jugular vein, place an introducer sheath and position the catheter with the tip in the superior vena cava/right atrial junction. Final fluoroscopic image showed the catheter to be in good position and good alignment with no pneumo- or hemothorax noted with the tip in the superior vena cava/right atrial junction. The tunneled central venous catheter is stable for use for hemodialysis access. Harish Zuniga MD Feb 27, 2019 21:28
[2019-03-01] MEDS: allopurinoL 100 MG TAB PO SCH (16:48)
[2019-03-01] MEDS: FINASTERIDE 5 MG TAB PO SCH (16:49)
[2019-03-01] MEDS: ESCITALOPRAM OXALATE 10 MG TAB (LEXAPRO) PO SCH (16:49)
--- NOTE | 2019-03-01 18:34 | IPN ---
DATE: 03/01/2019 SUBJECTIVE: The patient was seen and examined at the bedside today morning. The patient continues to be tachycardiac with a history of atrial fibrillation. I have increased his diltiazem dose to 240 mg daily. He got the right-sided thoracentesis done yesterday and about 1215 mL of fluid was removed. Today is the patient's regular day of dialysis. OBJECTIVE: Vital signs: Temperature is 98 degrees Fahrenheit. Blood pressure 160/84, pulse was 112, respiratory rate of 18, saturating 96% on room air. Intake and output. There is no urine output recorded. He had an episode of vomiting today morning. Weight on the bed scale is 77.8 kg. PHYSICAL EXAMINATION: General: The patient is awake, alert, oriented times two, sitting up in the bed in no apparent distress. Head and neck exam: Extraocular muscles intact. Pupils equally round and reactive to light. Mucous membranes are moist. Right internal jugular (IJ) tunneled dialysis catheter with ecchymosis and oozing of the blood and soaked dressing at the catheter exit site. Cardiovascular: S1, S2, trace edema of the bilateral lower extremities. Respiratory: Chest is clear to auscultation bilaterally. Bilateral equal air entry. No rales or rhonchi. Abdomen: Soft, distended, positive bowel sounds. Nontender. Musculoskeletal: No clubbing or cyanosis. Pulses are 2+. 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 LAB REVIEW: CBC showed a WBC of 5.6, hemoglobin 10.5, platelets are 72. BMP showed sodium 137, potassium 4.1, chloride 106, bicarbonate 22, BUN 60, creatinine is 4.8, calcium 8.2. IMAGING: Thoracentesis was done yesterday, 1200 mL of fluid was removed. CURRENT INPATIENT MEDICATIONS. The patient's medications were all reviewed by me. I have increased the diltiazem dose to 240 mg by mouth daily. He was started on hydralazine 50 mg by mouth twice a day. No other change in medications today as compared with yesterday. ASSESSMENT/PLAN: 1. End-stage renal disease. The patient will be dialyzed today. Ultrafiltration goal will be around 1.5 liters as tolerated by his blood pressure. 2. Bleeding from right internal jugular (IJ) tunneled hemodialysis catheter site. I have discussed with vascular surgery, and they plan to put a stitch at the exit site to stop the bleeding. 3. Iron deficiency anemia. Continue Venofer with dialysis. No need of Aranesp. 4. Chronic diastolic congestive heart failure. 1.5 liters of fluid will be removed as tolerated. Volume status is getting better. 5. Right-sided pleural effusion. He got the thoracentesis done yesterday. The patient feels significantly better. 6. Atrial fibrillation with rapid ventricular rate. Heart rate is not controlled at this time. I have increased the diltiazem dose to 240 mg by mouth daily. No anticoagulation because of active bleeding from the catheter site and low platelet count.
[2019-03-01] MEDS: ATORVASTATIN 10 MG TAB PO SCH (20:54)
[2019-03-01] MEDS: TAMSULOSIN 0.4 MG CAP PO SCH (20:54)
[2019-03-02 04:00] VITALS: BP 168/78
[2019-03-02] MEDS: SLF 3 ML SYR IV SCH ×3 (05:12→22:16)
[2019-03-02 06:05] VITALS: BP 167/92
[2019-03-02 06:11] LABS: BASO % 0.2 % (0.0-1.0); EOS % 0.4 % (0.0-3.0); HEMATOCRIT 33.5 % (42.0-52.0); HEMOGLOBIN 10.6 g/dl (13.5-17.5); LYMPH # 0.4 10^3/uL (1.5-5.0); LYMPH % 7.8 % (24.0-44.0); MEAN CORPUSCULAR HEMOGLOBIN 28.8 pg (27.0-33.0); MEAN CORPUSCULAR HGB CONC 31.6 g/dl (32.0-36.5); MONO # 0.8 10^3/uL (0.0-0.8); MONO % 14.9 % (0.0-5.0); NEUTROPHILS # 4.2 10^3/uL (1.5-8.5); NEUTROPHILS % 76.2 % (36.0-66.0); RED BLOOD COUNT 3.68 10^6/uL (4.30-6.10); WHITE BLOOD COUNT 5.5 10^3/uL (4.0-10.0)
[2019-03-02 06:12] LABS: PLATELET COUNT, AUTOMATED 69 10^3/uL (150-450)
[2019-03-02 06:33] LABS: CALCIUM LEVEL 8.8 MG/DL (8.8-10.2); CREATININE FOR GFR 3.45 MG/DL (0.70-1.30); GLOMERULAR FILTRATION RATE 18.4 (>42); POTASSIUM SERUM 4.2 MEQ/L (3.5-5.1)
[2019-03-02] MEDS: allopurinoL 100 MG TAB PO SCH (07:45)
[2019-03-02] MEDS: ESCITALOPRAM OXALATE 10 MG TAB (LEXAPRO) PO SCH (07:45)
[2019-03-02] MEDS: FINASTERIDE 5 MG TAB PO SCH (07:45)
[2019-03-02] MEDS: HumaLOG INSULIN (NovoLOG) PER UNIT SC SCH ×4 (07:46→20:13)
[2019-03-02] MEDS: **hydrALAZINE** 50 MG TAB PO SCH ×2 (07:46→20:15)
--- NOTE | 2019-03-02 10:27 | IPNPDOC ---
Subjective Date Seen The patient was seen on 03/02/19. Subjective Chief Complaint/HPI Patient comfortable, in no apparent distress, sleeping comfortably, easily arousable General: Denies: ROS Unobtainable, Chills, Night Sweats, Fatigue, Malaise, Normal Appetite, Other Symptoms Constitutional: Denies: Chills, Fever, Malaise, Night Sweats, Weakness, Fatigue, Weight Loss, Lethargy, Other Pulmonary: Denies: Dyspnea, Cough, Pleuritic Chest Pain, Other Symptoms Cardiovascular: Denies: Chest Pain, Palpitations, Orthopnea, Paroxysmal Noc. Dyspnea, Edema, Lt Headedness, Other Symptoms Gastrointestinal: Denies: Nausea, Vomiting, Abdominal Pain, Diarrhea, Constipation, Melena, Hematochezia, Other Symptoms Musculoskeletal: Denies: Neck Pain, Back Pain, Shoulder Pain, Arm Pain, Hand Pain, Leg Pain, Foot Pain, Joint Pain, Muscle Pain, Spasms, Other Symptoms Neurological: Denies: Weakness, Numbness, Incoordination, Change in speech, Confusion, Seizures, Other Symptoms Objective Physical Examination Neck Exam: Positive: Supple, JVD Chest Exam: Positive: Clear to auscultation, Normal air movement Heart Exam: Positive: Irregular Rhythm, Normal S1, Normal S2 Telemetry: Positive: Atrial fibrillation Abdomen Exam: Positive: Normal bowel sounds, Tenderness, Other (distended ) Extremity Exam: Positive: Edema Neuro Exam: Positive: Normal Speech, Normal Tone Psych Exam: Positive: Other Assessment /Plan Problems (1) Acute kidney injury superimposed on CKD Status: Acute Problem Text: 78 year old male with mild cognitive impairment with PMH of CKD stage 4, cirrhosis of liver, diabetes, hypertension, CHF with preserved EF, COPD , Central Sleep Apnea non complaint with CPAP with severe pulmonary hypertension with chronic right heart failure, Afib on Coumadin, hypertension with hyperte nsive heart disease, renal artery stenosis s/p stenting, was brought in by brother in law for dark colored liquid stools. They thought he was bleeding. Guaiac in the ED was positive, stool was light brown in color. He also complained of loose stools 3 to 4 times a day for more than a week. also com plained of abdominal pain and distension. It was more to the right lower quadrant dull aching in nature about could not quantify the intensity with radiation to all over. As per family he also has been sleeping a lot and has been dizzy with poor appetite. He had a CT abdomen and pelvis done in the ED showed Bilateral pleural effusions right greater than left. Mild diffuse ascites new from September 2018. Left colonic diverticulosis. Renal cortical atrophy bilaterally. No hydronephrosis seen. His labs were significant for creatinine of 6.2 BUN of 122, bicarb of 17, k of 5.2 and uric acid of 11.2. his Hb was 12 which is higher than his baseline and his platelet was 86. He is being admitted for BREDNON on CKD with metabolic encephalopathy and fluid overload. 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 started on HD via permacath placement this admission Hemodialysis schedule as per nephrology Patient is ready to be discharged home once he is gets the chair placement for his dialysis and as an outpatient PT and progress Diet renal diet Activity as tolerated (2) Pleural effusion Status: Acute Problem Text: Status post right thoracentesis Patient is clinically stable and feels better Continue present meds (3) Cirrhosis Status: Chronic Problem Text: Cirrhosis of liver with thrombocytopenia and ascites etiology unknown. No history of hepatitis or large amounts of alcohol abuse could be due to chronic hepatic congestion and cardiac cirrhosis US abdomen with minimal ascites. ammonia normal lactate not elevated. (4) Atrial fibrillation Status: Chronic Problem Text: Afib rate controlled continue diltiazem As per patient, he does not take anticoagulation secondary to risk of bleeding (5) COPD (chronic obstructive pulmonary disease) Status: Chronic Problem Text: Continue present medications This is clinically stable Plan/VTE VTE Prophylaxis Ordered?: Yes VS, I&O, 24H, Fishbone Vital Signs/I&O Vital Signs Date Time Temp Pulse Resp B/P (MAP) Pulse Ox O2 Delivery O2 Flow Rate FiO2 03/02/19 07:45 112 160/90 03/02/19 06:05 97.7 20 97 I&O- Last 24 Hours up to 6 AM 03/02/19 06:00 Intake Total 1280 ml Output Total 2125 ml Balance -845 ml Laboratory Data 24H LABS Laboratory Tests 2 03/01/19 11:36: Bedside Glucose (Misc Panel) 229H 03/01/19 16:53: Bedside Glucose (Misc Panel) 152H 03/01/19 20:49: Bedside Glucose (Misc Panel) 107 03/02/19 05:45: Immature Granulocyte % (Auto) 0.5, White Blood Count 5.5, Red Blood Count 3.68L, Hemoglobin 10.6L, Hematocrit 33.5L, Mean Corpuscular Volume 91.0, Mean Corpuscular Hemoglobin 28.8, Mean Corpuscular Hemoglobin Concent 31.6L, Red Cell Distribution Width 16.5H, Platelet Count 69L, Neutrophils (%) (Auto) 76.2H, Lymphocytes (%) (Auto) 7.8L, Monocytes (%) (Auto) 14.9H, Eosinophils (%) (Auto) 0.4, Basophils (%) (Auto) 0.2, Neutrophils # (Auto) 4.2, Lymphocytes # (Auto) 0.4L, Monocytes # (Auto) 0.8, Eosinophils # (Auto) 0.0, Basophils # (Auto) 0.0, Nucleated Red Blood Cells % (auto) 0.0, Immature Platelet Fraction 3.3, Anion Gap 9, Glomerular Filtration Rate 18.4L, Blood Urea Nitrogen 30H, Creatinine 3.45H, Sodium Level 138, Potassium Level 4.2, Chloride Level 105, Carbon Dioxide Level 24, Calcium Level 8.8 CBC/BMP Laboratory Tests 03/02/19 05:45 Red Blood Count 3.68 L, Mean Corpuscular Volume 91.0, Mean Corpuscular Hemoglobin 28.8, Mean Corpuscular Hemoglobin Concent 31.6 L, Red Cell Distribution Width 16.5 H, Neutrophils (%) (Auto) 76.2 H, Lymphocytes (%) (Auto) 7.8 L, Monocytes (%) (Auto) 14.9 H, Eosinophils (%) (Auto) 0.4, Basophils (%) (Auto) 0.2, Neutrophils # (Auto) 4.2, Lymphocytes # (Auto) 0.4 L, Monocytes # (Auto) 0.8, Eosinophils # (Auto) 0.0, Basophils # (Auto) 0.0, Calcium Level 8.8 Microbiology Microbiology 02/28/19 Gram Stain - Final, Complete 02/28/19 Body Fluid Culture - Final, Complete 02/24/19 Gastrointestinal Tract Panel (PCR) - Final, Complete 02/23/19 Stool Occult Blood (NATA) - Final, Complete GOGO MOORE MD Mar 02, 2019 10:27
[2019-03-02] MEDS ORDERED: CARD120C3 PO (10:30)
[2019-03-02] MEDS ORDERED: ALB2.5NEB NEB (10:31)
[2019-03-02 14:00] VITALS: BP 164/84
--- NOTE | 2019-03-02 14:33 | IPN ---
DATE OF SERVICE: 03/02/2019 SUBJECTIVE: The patient was seen and examined the bedside today morning. He reports that right-sided IJ catheter site bleeding is better now. He got the stitch placed by vascular surgery. He was also dialyzed yesterday. He tolerated the hemodialysis procedure well, 2 liters of fluid was removed. OBJECTIVE: Vital signs: Temperature is 97.7 degrees Fahrenheit, blood pressure 160/90, pulse is 112, respiratory rate 20, saturating 97% on room air. Intake and output - There is no urine output recorded. Ultrafiltration with hemodialysis was 2 liters yesterday. Weight in the bed scale is 80.1 kg. PHYSICAL EXAMINATION: General: The patient is awake, alert, oriented times two laying in bed, in no apparent distress. Head and neck exam extraocular muscles intact. Pupils equally round and reactive to light. Mucous membranes are moist. Neck is supple. The right IJ tunneled hemodialysis catheter. No more bleeding from the catheter site. Cardiovascular: S1, S2, regular rate. Trace edema of the bilateral lower extremities. Respiratory: Chest is clear to auscultation bilaterally. Bilateral equal air entry. No rales or rhonchi. Abdomen: Soft, positive bowel sounds. Nontender. No organomegaly. Musculoskeletal: No clubbing or cyanosis. Pulses are 2+. 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 LAB REVIEW: CBC showed a WBC 5.5, hemoglobin 10.6, platelets are 69. BMP showed sodium 138, potassium 4.2, chloride 105, bicarb 24, BUN 30, creatinine is 3.4. CURRENT INPATIENT MEDICATIONS: The patient's medications were all reviewed by me. There is no change in the medications today as compared with yesterday. ASSESSMENT AND PLAN: 1. End-stage renal disease. The patient is being dialyzed Wednesday, Wednesday, Wednesday, however, his outpatient dialysis will be Wednesday, , Wednesday. The patient will be evaluated tomorrow morning for need of dialysis. 2. Iron-deficiency anemia. Continue current dose of Venofer. Hemoglobin levels are optimal. No need of Aranesp. 3. Chronic diastolic congestive heart failure. Volume status is improving. Continue fluid removal during dialysis. Dry weight will be set as outpatient. 4. Active fibrillation. Diltiazem dose was increased to 240 mg by mouth daily yesterday. No active fibrillation because of bleeding from the catheter site. 5. DISPOSITION: The patient is optimized from nephrology standpoint for discharge home whenever he is cleared from physical therapy.
[2019-03-02] MEDS: TAMSULOSIN 0.4 MG CAP PO SCH (20:14)
[2019-03-02] MEDS: ATORVASTATIN 10 MG TAB PO SCH (20:14)
[2019-03-02 22:00] VITALS: BP 163/86
[2019-03-03 06:00] VITALS: BP 168/79
[2019-03-03] MEDS: FINASTERIDE 5 MG TAB PO SCH (06:32)
[2019-03-03] MEDS: **hydrALAZINE** 50 MG TAB PO SCH ×2 (06:35→20:18)
[2019-03-03] MEDS: allopurinoL 100 MG TAB PO SCH (06:35)
[2019-03-03] MEDS: ESCITALOPRAM OXALATE 10 MG TAB (LEXAPRO) PO SCH (06:35)
[2019-03-03] MEDS: SLF 3 ML SYR IV SCH ×3 (06:36→20:18)
[2019-03-03] MEDS: HumaLOG INSULIN (NovoLOG) PER UNIT SC SCH ×4 (09:19→20:12)
[2019-03-03 10:00] VITALS: BP 150/84
--- NOTE | 2019-03-03 11:30 | IPNPDOC ---
Subjective Date Seen The patient was seen on 03/03/19. Subjective Chief Complaint/HPI Patient is asymptomatic in no apparent distress clear for discharge General: Denies: ROS Unobtainable, Chills, Night Sweats, Fatigue, Malaise, Normal Appetite, Other Symptoms Skin: Denies: Rash, Lesions, Jaundice, Bruising, Itching, Dry, Breakdown, Nail Changes, Other Pulmonary: Denies: Dyspnea, Cough, Pleuritic Chest Pain, Other Symptoms Cardiovascular: Denies: Chest Pain, Palpitations, Orthopnea, Paroxysmal Noc. Dyspnea, Edema, Lt Headedness, Other Symptoms Gastrointestinal: Denies: Nausea, Vomiting, Abdominal Pain, Diarrhea, Constipation, Melena, Hematochezia, Other Symptoms Musculoskeletal: Denies: Neck Pain, Back Pain, Shoulder Pain, Arm Pain, Hand Pain, Leg Pain, Foot Pain, Joint Pain, Muscle Pain, Spasms, Other Symptoms Neurological: Denies: Weakness, Numbness, Incoordination, Change in speech, Confusion, Seizures, Other Symptoms Objective Physical Examination Neck Exam: Positive: Supple, JVD Chest Exam: Positive: Clear to auscultation, Normal air movement Heart Exam: Positive: Irregular Rhythm, Normal S1, Normal S2 Telemetry: Positive: Atrial fibrillation Abdomen Exam: Positive: Normal bowel sounds, Tenderness, Other (distended ) Extremity Exam: Positive: Edema Neuro Exam: Positive: Normal Speech, Normal Tone Psych Exam: Positive: Other Assessment /Plan Problems (1) Acute kidney injury superimposed on CKD Status: Acute Problem Text: 78 year old male with mild cognitive impairment with PMH of CKD stage 4, cirrhosis of liver, diabetes, hypertension, CHF with preserved EF, COPD , Central Sleep Apnea non complaint with CPAP with severe pulmonary hypertension with chronic right heart failure, Afib on Coumadin, hypertension with hypertensive heart disease, renal artery stenosis s/p stenting, was brought in by brother in law for dark colored liquid stools. They thought he was bleeding. Guaiac in the ED was positive, stool was light brown in color. He also complained of loose stools 3 to 4 times a day for more than a week. also complained of abdominal pain and distension. It was more to the right lower quadrant dull aching in nature about could not quantify the intensity with radiation to all over. As per family he also has been sleeping a lot and has been dizzy with poor appetite. He had a CT abdomen and pelvis done in the ED showed Bilateral pleural effusions right greater than left. Mild diffuse ascites new from September 2018. Left colonic diverticulosis. Renal cortical atrophy bilaterally. No hydronephrosis seen. His labs were significant for creatinine of 6.2 BUN of 122, bicarb of 17, k of 5.2 and uric acid of 11.2. his Hb was 12 which is higher than his baseline and his platelet was 86. He is being admitted for BRENDON on CKD with metabolic encephalopathy and fluid overload. 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 started on HD via permacath placement this admission Hemodialysis schedule as per nephrology Diet renal diet Activity as tolerated Patient will be discharged tomorrow once cleared by physical therapy today and home care arrangements are made Patient has a chair already available for hemodialysis as an outpatient (2) Pleural effusion Status: Acute Problem Text: Status post right thoracentesis Patient is clinically stable and feels better Continue present meds (3) Cirrhosis Status: Chronic Problem Text: Cirrhosis of liver with thrombocytopenia and ascites etiology unknown. No history of hepatitis or large amounts of alcohol abuse could be due to chronic hepatic congestion and cardiac cirrhosis US abdomen with minimal ascites. ammonia normal lactate not elevated. (4) Atrial fibrillation Status: Chronic Problem Text: Afib rate controlled continue diltiazem As per patient, he does not take anticoagulation secondary to risk of bleeding (5) COPD (chronic obstructive pulmonary disease) Status: Chronic Problem Text: Continue present medications This is clinically stable Plan/VTE VTE Prophylaxis Ordered?: Yes VS, I&O, 24H, Fishbone Vital Signs/I&O Vital Signs Date Time Temp Pulse Resp B/P (MAP) Pulse Ox O2 Delivery O2 Flow Rate FiO2 03/03/19 10:00 97.9 100 18 150/84 (106) 92 I&O- Last 24 Hours up to 6 AM 03/03/19 05:59 Intake Total 1080 ml Output Total 100 ml Balance 980 ml Laboratory Data 24H LABS Laboratory Tests 2 03/02/19 12:09: Bedside Glucose (Misc Panel) 163H 03/02/19 16:12: Bedside Glucose (Misc Panel) 192H 03/02/19 19:58: Bedside Glucose (Misc Panel) 160H 03/03/19 06:46: Bedside Glucose (Misc Panel) 146H Microbiology Microbiology 02/28/19 Gram Stain - Final, Complete 02/28/19 Body Fluid Culture - Final, Complete 02/24/19 Gastrointestinal Tract Panel (PCR) - Final, Complete 02/23/19 Stool Occult Blood (NATA) - Final, Complete GOGO MOORE MD Mar 03, 2019 11:30
[2019-03-03] MEDS ORDERED: HEPARIN 1,000 UNITS/ML 10ML VIAL (FOR RADIOLOGY& DIALYSIS ONLY) XX ONE (12:30)
[2019-03-03 14:00] VITALS: BP 146/74
[2019-03-03] MEDS: ATORVASTATIN 10 MG TAB PO SCH (20:18)
[2019-03-03] MEDS: TAMSULOSIN 0.4 MG CAP PO SCH (20:18)
[2019-03-03 20:40] VITALS: BP 178/116
[2019-03-03 21:00] VITALS: BP 170/90
[2019-03-03 23:00] VITALS: BP 166/89
[2019-03-04 06:00] VITALS: BP 186/80
[2019-03-04] MEDS: allopurinoL 100 MG TAB PO SCH (06:29)
[2019-03-04] MEDS: FINASTERIDE 5 MG TAB PO SCH (06:29)
[2019-03-04] MEDS: ESCITALOPRAM OXALATE 10 MG TAB (LEXAPRO) PO SCH (06:29)
[2019-03-04] MEDS: SLF 3 ML SYR IV SCH ×3 (06:29→20:03)
[2019-03-04] MEDS: **hydrALAZINE** 50 MG TAB PO SCH ×3 (06:30→20:02)
[2019-03-04] MEDS: HumaLOG INSULIN (NovoLOG) PER UNIT SC SCH ×4 (07:06→20:01)
--- NOTE | 2019-03-04 09:17 | IPN ---
DATE OF SERVICE: 03/03/2019 SUBJECTIVE: The patient was seen and examined the bedside today morning. He is hemodynamically stable in the hospital. It is his regular day of dialysis. However, as outpatient he has been assigned Wednesday, , Wednesday chair. The patient denies any active complaints. He states he is no longer having nausea or vomiting now. OBJECTIVE: Vital signs: Temperature is 97.9 degrees Fahrenheit, blood pressure 150/84, pulse is 100, respiratory rate of 18, saturating 92% on room air. Intake and output: There is no urine output recorded. Weight in the bed scale is 81.1 kg. PHYSICAL EXAMINATION: General: The patient is awake, alert, oriented times two, laying in bed, in no apparent distress. Head and neck exam: Extraocular muscles intact. Pupils equally round and reactive to light. Mucous membranes are moist. Neck is supple. Right internal jugular (IJ) tunneled hemodialysis catheter. Cardiovascular: S1, S2, regular rate. Trace edema of the bilateral lower extremities. Respiratory: Chest is clear to auscultation bilaterally. Bilateral equal air entry. No rales or rhonchi. Abdomen: Soft, positive bowel sounds. Nontender. Genitourinary: Bladder is not palpable. Musculoskeletal: No clubbing or cyanosis. Pulses are 2+. Central nervous system (PER DIEM NURSE): He is hard of hearing and has baseline dementia. LAB REVIEW: CBC showed WBC of 5.5, hemoglobin 10.6 and that is on the lab yesterday, and BMP on yesterday's labs showed a potassium of 4.2. CURRENT INPATIENT MEDICATIONS: The patient's medications were all reviewed by me. There is no change in the medications today as compared with yesterday. ASSESSMENT/PLAN: 1. End-stage renal disease on hemodialysis. The patient will be dialyzed today. I will try to remove at least 2.5 mL of fluid as tolerated by his blood pressure. Outpatient dialysis schedule be Wednesday, , Wednesday. 2. Iron-deficiency anemia. Continue current dose of Venofer. Hemoglobin levels are stable. 3. Chronic diastolic congestive heart failure. Volume status is improving with the ultrafiltration during dialysis. 4. Atrial fibrillation. Continue current dose of diltiazem. He is not a candidate for anticoagulation. 5. History of BPH with urinary retention. Continue current dose of Flomax and finasteride. Tran catheter was removed. Bladder scan is being done, and the patient shows no evidence of urinary retention. DISPOSITION: The patient will likely get discharged over the next 24 hours and he will be dialyzed as outpatient tomorrow afternoon.
[2019-03-04] MEDS ORDERED: DILT240C47 PO (11:18)
--- NOTE | 2019-03-04 11:24 | DS.PDOC ---
Discharge Summary General Date of Admission Feb 23, 2019 at 17:04 Date of Discharge 03/04/19 Primary Care Physician: A Attending Physician: GOGO MOORE MD Specialist/Consultants Involve: A Discharge Summary PROCEDURES PERFORMED DURING STAY: None. ADMITTING DIAGNOSES: 1. BRENDON, CK D, stage IV, diabetes mellitus, hypertension, CHF with preserved EF, COPD, Central sleep apnea, chronic right heart failure, A. fib, renal artery stenosis . DISCHARGE DIAGNOSES: 1. BRENDON, ESRD, on HD, hypertension, CHF with preserved EF, COPD, Central sleep apnea, chronic right heart failure, atrial fibrillation, renal artery stenosis. COMPLICATIONS/CHIEF COMPLAINT: Acute Kidney Injury Cirrhosis. HISTORY OF PRESENT ILLNESS: 78 year old male with mild cognitive impairment with PMH of CKD stage 4, cirrhosis of liver, diabetes, hypertension, CHF with preserved EF, COPD , Central Sleep Apnea non complaint with CPAP with severe pulmonary hypertension with chronic right heart failure, Afib on Coumadin, h ypertension with hypertensive heart disease, renal artery stenosis s/p stenting, was brought in by brother in law for dark colored liquid stools. They thought he was bleeding. Guaiac in the ED was positive, stool was light brown in color. He also complained of loose stools 3 to 4 times a day for more than a week. also complained of abdominal pain and distension. It was more to the right lower quadrant dull aching in nature about could not quantify the intensity with radiation to all over. As per family he also has been sleeping a lot and has been dizzy with poor appetite. He had a CT abdomen and pelvis done in the ED showed Bilateral pleural effusions right greater than left. Mild diffuse ascites new from September 2018. Left colonic diverticulosis. Renal cortical atrophy bilaterally. No hydronephrosis seen. His labs were significant for creatinine of 6.2 BUN of 122, bicarb of 17, k of 5.2 and uric acid of 11.2. his Hb was 12 which is higher than his baseline and his platelet was 86. He is being admitted for BRENDON on CKD with metabolic encephalopathy and fluid overload.. HOSPITAL COURSE: CKD stage 5 to ESRD with bilateral atrophic kidneys. started on HD via permacath placement this admission Hemodialysis as an outpatient Wednesday, and Wednesday Diet renal diet has been recommended Activity as tolerated Patient will be discharged home today with home care arrangements Patient has a chair already available for hemodialysis as an outpatient Patient is also Status post right thoracentesis Patient is clinically stable and feels better Continue patient meds , Cirrhosis of liver with thrombocytopenia and ascites etiology unknown. No history of hepatitis or large amounts of alcohol abuse could be due to chronic hepatic congestion and cardiac cirrhosis US abdomen with minimal ascites. ammonia normal lactate not elevated. Follow with GI and PCP as an outpatient Also has a history of atrial fibrillation, he required higher dose of Cardizem and Cardizem has been started at 240 mg by mouth daily, new prescription has been provided Latisha does not take anticoagulation secondary to risk of bleeding COPD remained stable during his admission. This time. Continue outpatient meds ]. DISCHARGE MEDICATIONS: Please see below. ALLERGIES: Please see below. PHYSICAL EXAMINATION ON DISCHARGE: VITAL SIGNS: Please see below. GENERAL: Within normal limits HEENT: PERRLA. Extraocular muscles intact NECK: Supple CARDIOVASCULAR EXAMINATION: S1, S2, regular RESPIRATORY EXAMINATION: Clear to A&P ABDOMINAL EXAMINATION: , Soft, nontender, bowel sound present EXTREMITIES: No clubbing, cyanosis, edema] SKIN: Normal NEUROLOGICAL EXAMINATION: No focal motor sensory deficit PSYCHIATRIC EXAMINATION: Normal LABORATORY DATA: Please see below. IMAGING: PROGNOSIS: Good ACTIVITY: As tolerated. DIET: Renal diet DISCHARGE PLAN: Outpatient hemodialysis Tuesdays, and Saturdays DISPOSITION: . Home DISCHARGE INSTRUCTIONS: 1. As per discharge instructions. ITEMS TO FOLLOWUP ON ON OUTPATIENT: 1. Follow-up with nephrology in one week. DISCHARGE CONDITION: Stable. TIME SPENT ON DISCHARGE: 35 minutes. Vital Signs/I&Os Vital Signs Date Time Temp Pulse Resp B/P (MAP) Pulse Ox O2 Delivery O2 Flow Rate FiO2 03/04/19 06:31 105 03/04/19 06:30 186/80 03/04/19 06:00 97.9 30 93 I&O- Last 24 Hours up to 6 AM 03/04/19 06:00 Intake Total 560 ml Output Total 2725 ml Balance -2165 ml Laboratory Data Labs 24H Laboratory Tests 2 03/03/19 11:51: Bedside Glucose (Misc Panel) 216H 03/03/19 17:12: Bedside Glucose (Misc Panel) 85 03/03/19 20:05: Bedside Glucose (Misc Panel) 179H 03/04/19 06:10: Bedside Glucose (Misc Panel) 159H FSBS Laboratory Tests Test 03/03/19 11:51 03/03/19 17:12 03/03/19 20:05 03/04/19 06:10 Range/Units Bedside Glucose (Misc Panel) 216 85 179 159 83-110 MG/DL Microbiology Microbiology 02/28/19 Gram Stain - Final, Complete 02/28/19 Body Fluid Culture - Final, Complete 02/24/19 Gastrointestinal Tract Panel (PCR) - Final, Complete 02/23/19 Stool Occult Blood (NATA) - Final, Complete Discharge Medications Scheduled Atorvastatin Calcium (Atorvastatin Calcium) 10 Mg Tab, 5 MG PO QHS, (Reported) Cyanocobalamin (Vitamin B-12) (Vitamin B-12) 500 Mcg Tab, 500 MCG PO DAILY, (Reported) AT LUNCH Diltiazem HCl (Diltiazem 24Hr ER) 240 Mg Cap.er.24h, 240 MG PO DAILY Diltiazem Hcl (Cardizem Cd) 120 Mg Cap.er.24h, 240 MG PO DAILY Escitalopram Oxalate (Escitalopram Oxalate) 10 Mg Tab, 10 MG PO DAILY, (Reported) Finasteride (Finasteride) 5 Mg Tab, 5 MG PO DAILY, (Reported) Glimepiride (Glimepiride) 4 Mg Tab, 4 MG PO DAILY, (Reported) Glipizide (Glipizide Xl) 2.5 Mg Tab, 2.5 MG PO DAILY, (Reported) WITH FOOD AT LUNCH Iron,Carbonyl/Ascorbic Acid (Vitron-C Tablet) 1 Tab Tab, 1 TAB PO DAILY, (Reported) AT LUNCH Spironolactone (Spironolactone) 25 Mg Tablet, 25 MG PO QHS, (Reported) Tamsulosin HCl (Flomax) 0.4 Mg Cap, 0.8 MG PO QHS, (Reported) Torsemide (Torsemide) 20 Mg Tablet, 20 MG PO QAM, (Reported) hydrALAZINE HCL (Hydralazine HCl) 100 Mg Tab, 100 MG PO BID, (Reported) Scheduled PRN Levalbuterol HCl (Levalbuterol HCl) 1.25 Mg/3 Ml Vial.neb, 1.25 MG INH BID PRN for SHORTNESS OF BREATH, (Reported) Allergies Coded Allergies: No Known Allergies (Unverified , 02/23/08) GOGO MOORE MD Mar 04, 2019 11:24
[2019-03-04 12:00] VITALS: BP 140/72
--- NOTE | 2019-03-04 13:28 | REP ---
PA and lateral chest: Comparison is 02/28/2019. There is no pneumothorax. The right costophrenic angle is slightly effaced as an interval change suggesting increasing right pleural effusion. There are scattered opacities throughout the lung vang bilaterally, unchanged. Cardiac size is enlarged, unchanged. There is a soft tissue density lateral to the trachea, unchanged, possibly paramediastinal pleural fluid. The right IJ dual lumen central venous catheter is unchanged. The bandar, mediastinum, skeletal structures are otherwise unremarkable. Impression: There is a slightly larger volume of right pleural fluid on the comparison study. There is no pneumothorax. There is no other interval change. Electronically Signed by Chris Monk MD 03/04/2019 01:20 P
[2019-03-04 14:00] VITALS: BP 160/98
[2019-03-04] MEDS ORDERED: HEPARIN 1,000 UNITS/ML 10ML VIAL (FOR RADIOLOGY& DIALYSIS ONLY) XX ONE (18:30)
[2019-03-04] MEDS: TAMSULOSIN 0.4 MG CAP PO SCH (20:02)
[2019-03-04] MEDS: ATORVASTATIN 10 MG TAB PO SCH (20:02)
[2019-03-04 22:00] VITALS: BP 176/78
[2019-03-05] MEDS: SLF 3 ML SYR IV SCH ×3 (05:11→22:16)
[2019-03-05 06:00] VITALS: BP 182/96
[2019-03-05] MEDS: **hydrALAZINE** 50 MG TAB PO SCH ×3 (06:09→22:15)
--- NOTE | 2019-03-05 07:42 | IPN ---
DATE: 03/04/2019 Mr. Zuleta is seen this morning. He denies any nausea or vomiting. He does feel short of breath when he walks. He has no fever or chills. He has been dialyzed and there was a plan for possible discharge today and go to outpatient dialysis clinic for his dialysis today. PHYSICAL EXAMINATION Temperature 97.9 degrees Fahrenheit, heart rate 105 per minute and respiratory rate 20 per minute. Blood pressure 186/80 mmHg this morning and oxygen saturation 93% on room air. Head is atraumatic. Neck is supple and jugular venous distention (JVD) difficult to be assessed. He has a right sided Perma-Cath on upper chest. Heart: Sounds are tachycardiac and lungs with bibasilar crackles. Abdomen: Soft and nontender and bowel sounds are normal. Extremities: Without any cyanosis or clubbing. Neurologically he is grossly intact. LABS: The patient did not have any labs since March 02. PROBLEMS 1. End-stage renal disease. The patient has been dialyzed and he is scheduled for outpatient dialysis later today. If he does not get discharged then we will plan to dialyze him here. 2. Shortness of breath. This is chronic and he did have a right-sided pleural effusion on admission which was drained. I will get a chest x-ray to assess his volume status and follow up for pleural effusion. Depending upon his chest x-ray will make a decision if he needs to have an ultrafiltration today or he can be discharged for outpatient dialysis. 3. Hypertension. Blood pressure is still somewhat high. We will monitor and adjust his medications as outpatient. 4. Anemia. His anemia has improved and stable. No intervention is needed at this time. 5. Disposition: From renal standpoint, the patient can be discharged to home and go to outpatient dialysis clinic for dialysis today as I have already now reviewed his chest x-ray which showed only blunting of costophrenic angle and no significant pleural effusion or pulmonary edema. ADDENDUM: Mr. Zuleta was scheduled for discharge today and in fact he was discharged by the hospitalist service. I received a phone call from his sister who expressed inability to pick him up as she just brought her sick home from [facility] with heart problems. The patient was scheduled for outpatient dialysis today, but his sister is unable to bring him for dialysis due to her 's illness. She requested that discharge be postponed to tomorrow. His discharge is being cancelled and the patient will be dialyzed in the hospital today and he will be discharged to home tomorrow. He did have a chest x-ray earlier which did show significant chronic changes and blunting of costophrenic angles, slightly larger pleural effusion on the right side. Will try to remove about 2 liters of fluid with dialysis today. Edited 03/05/2019 @ 0914 [facility]
[2019-03-05] MEDS: ESCITALOPRAM OXALATE 10 MG TAB (LEXAPRO) PO SCH (08:44)
[2019-03-05] MEDS: allopurinoL 100 MG TAB PO SCH (08:44)
[2019-03-05] MEDS: FINASTERIDE 5 MG TAB PO SCH (08:44)
[2019-03-05] MEDS: HumaLOG INSULIN (NovoLOG) PER UNIT SC SCH ×4 (08:44→22:21)
[2019-03-05 08:49] VITALS: BP 150/90
--- NOTE | 2019-03-05 11:22 | IPNPDOC ---
Subjective Date Seen The patient was seen on 03/05/19. Subjective Chief Complaint/HPI Patient is comfortable could not be discharged yesterday hr administrative assistant was not available will be discharged either today or tomorrow once the sister is here to take patient home, he offers no new complaints General: Denies: ROS Unobtainable, Chills, Night Sweats, Fatigue, Malaise, Normal Appetite, Other Symptoms Constitutional: Denies: Chills, Fever, Malaise, Night Sweats, Weakness, Fatigue, Weight Loss, Lethargy, Other Skin: Denies: Rash, Lesions, Jaundice, Bruising, Itching, Dry, Breakdown, Nail Changes, Other Cardiovascular: Denies: Chest Pain, Palpitations, Orthopnea, Paroxysmal Noc. Dyspnea, Edema, Lt Headedness, Other Symptoms Gastrointestinal: Denies: Nausea, Vomiting, Abdominal Pain, Diarrhea, Constipation, Melena, Hematochezia, Other Symptoms Endocrine: Denies: Polydipsia, Polyphagia, Polyuria, Heat Intolerance, Cold Intolerance, Other Endocrine Sx Musculoskeletal: Denies: Neck Pain, Back Pain, Shoulder Pain, Arm Pain, Hand Pain, Leg Pain, Foot Pain, Joint Pain, Muscle Pain, Spasms, Other Symptoms Neurological: Denies: Weakness, Numbness, Incoordination, Change in speech, Confusion, Seizures, Other Symptoms Objective Physical Examination Neck Exam: Positive: Supple, JVD Chest Exam: Positive: Clear to auscultation, Normal air movement Heart Exam: Positive: Irregular Rhythm, Normal S1, Normal S2 Telemetry: Positive: Atrial fibrillation Abdomen Exam: Positive: Normal bowel sounds, Tenderness, Other (distended ) Extremity Exam: Positive: Edema Neuro Exam: Positive: Normal Speech, Normal Tone Psych Exam: Positive: Other Assessment /Plan Problems (1) Acute kidney injury superimposed on CKD Status: Acute Problem Text: 78 year old male with mild cognitive impairment with PMH of CKD stage 4, cirrhosis of liver, diabetes, hypertension, CHF with preserved EF, COPD , Central Sleep Apnea non complaint with CPAP with severe pulmonary hypertension with chronic right heart failure, Afib on Coumadin, hypertension with hypertensive heart disease, renal artery stenosis s/p stenting, was brought in by brother in law for dark colored liquid stools. They thought he was bleeding. Guaiac in the ED was positive, stool was light brown in color. He also complained of loose stools 3 to 4 times a day for more than a week. also complained of abdominal pain and distension. It was more to the right lower q uadrant dull aching in nature about could not quantify the intensity with radiation to all over. As per family he also has been sleeping a lot and has been dizzy with poor appetite. He had a CT abdomen and pelvis done in the ED showed Bilateral pleural effusions right greater than left. Mild diffuse ascites new from September 2018. Left colonic diverticulosis. Renal cortical atrop hy bilaterally. No hydronephrosis seen. His labs were significant for creatinine of 6.2 BUN of 122, bicarb of 17, k of 5.2 and uric acid of 11.2. his Hb was 12 which is higher than his baseline and his platelet was 86. He is being admitted for BRENDON on CKD with metabolic encephalopathy and fluid overload. 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 started on HD via permacath placement this admission Hemodialysis schedule as per nephrology Diet renal diet Activity as tolerated Patient rated to be discharged was the family arrives to take him home either today or tomorrow Patient has a chair already available for hemodialysis as an outpatient (2) Pleural effusion Status: Acute Problem Text: Status post right thoracentesis Patient is clinically stable and feels better Continue present meds (3) Cirrhosis Status: Chronic Problem Text: Cirrhosis of liver with thrombocytopenia and ascites etiology unknown. No history of hepatitis or large amounts of alcohol abuse could be due to chronic hepatic congestion and cardiac cirrhosis US abdomen with minimal ascites. ammonia normal lactate not elevated. (4) Atrial fibrillation Status: Chronic Problem Text: Afib rate controlled continue diltiazem As per patient, he does not take anticoagulation secondary to risk of bleeding (5) COPD (chronic obstructive pulmonary disease) Status: Chronic Problem Text: Continue present medications This is clinically stable Plan/VTE VTE Prophylaxis Ordered?: Yes VS, I&O, 24H, Fishbone Vital Signs/I&O Vital Signs Date Time Temp Pulse Resp B/P (MAP) Pulse Ox O2 Delivery O2 Flow Rate FiO2 03/05/19 08:49 150/90 (110) 03/05/19 06:10 113 03/05/19 06:00 97.2 30 95 I&O- Last 24 Hours up to 6 AM 03/05/19 06:00 Intake Total 880 ml Output Total 2250 ml Balance -1370 ml Laboratory Data 24H LABS Laboratory Tests 2 03/04/19 12:23: Bedside Glucose (Misc Panel) 147H 03/04/19 20:00: Bedside Glucose (Misc Panel) 238H 03/05/19 05:50: Bedside Glucose (Misc Panel) 156H Microbiology Microbiology 02/28/19 Gram Stain - Final, Complete 02/28/19 Body Fluid Culture - Final, Complete 02/24/19 Gastrointestinal Tract Panel (PCR) - Final, Complete 02/23/19 Stool Occult Blood (NATA) - Final, Complete GOGO MOORE MD Mar 05, 2019 11:22
[2019-03-05 14:00] VITALS: BP 177/97
[2019-03-05 22:00] VITALS: BP 158/92
[2019-03-05] MEDS: TAMSULOSIN 0.4 MG CAP PO SCH (22:16)
[2019-03-05] MEDS: ATORVASTATIN 10 MG TAB PO SCH (22:16)
[2019-03-06] MEDS: SLF 3 ML SYR IV SCH ×3 (05:40→20:31)
[2019-03-06 06:00] VITALS: BP 152/98
[2019-03-06] MEDS: ESCITALOPRAM OXALATE 10 MG TAB (LEXAPRO) PO SCH (08:31)
[2019-03-06] MEDS: allopurinoL 100 MG TAB PO SCH (08:31)
[2019-03-06] MEDS: **hydrALAZINE** 50 MG TAB PO SCH ×3 (08:31→20:31)
[2019-03-06] MEDS: FINASTERIDE 5 MG TAB PO SCH (08:31)
[2019-03-06] MEDS: HumaLOG INSULIN (NovoLOG) PER UNIT SC SCH ×4 (08:32→20:36)
[2019-03-06] MEDS: METOPROLOL TART 25 MG TABLET PO SCH ×2 (12:10→18:29)
--- NOTE | 2019-03-06 12:16 | IPNPDOC ---
Subjective Date Seen The patient was seen on 03/06/19. Subjective Chief Complaint/HPI Patient wanted to be discharged again today, but he complained that he is not feeling good. Generalized weakness, difficulty breathing, but no chest pain, discharge was canceled and further workup has been initiated General: Reports: Fatigue Pulmonary: Reports: Dyspnea Cardiovascular: Denies: Chest Pain, Palpitations, Orthopnea, Paroxysmal Noc. Dyspnea, Edema, Lt Headedness, Other Symptoms Gastrointestinal: Denies: Nausea, Vomiting, Abdominal Pain, Diarrhea, Constipation, Melena, Hematochezia, Other Symptoms Musculoskeletal: Denies: Neck Pain, Back Pain, Shoulder Pain, Arm Pain, Hand Pain, Leg Pain, Foot Pain, Joint Pain, Muscle Pain, Spasms, Other Symptoms Neurological: Denies: Weakness, Numbness, Incoordination, Change in speech, Confusion, Seizures, Other Symptoms Objective Physical Examination Neck Exam: Positive: Supple, JVD Chest Exam: Positive: Diminished (diminished breath sounds bilaterally but no rales or wheezing) Heart Exam: Positive: Irregular Rhythm, Normal S1, Normal S2 Telemetry: Positive: Atrial fibrillation Abdomen Exam: Positive: Normal bowel sounds, Tenderness, Other (distended ) Extremity Exam: Positive: Edema Neuro Exam: Positive: Normal Speech, Normal Tone Psych Exam: Positive: Other Assessment /Plan Problems (1) Acute kidney injury superimposed on CKD Status: Acute Problem Text: 78 year old male with mild cognitive impairment with PMH of CKD stage 4, cirrhosis of liver, diabetes, hypertension, CHF with preserved EF, COPD , Central Sleep Apnea non complaint with CPAP with severe pulmonary hypertension with chronic right heart failure, Afib on Coumadin, hypertension with hypertensive heart disease, renal artery stenosis s/p stenting, was brought in by brother in law for dark colored liquid stools. They thought he was bleeding. Guaiac in the ED was positive, stool was light brown in color. He also co mplained of loose stools 3 to 4 times a day for more than a week. also complained of abdominal pain and distension. It was more to the right lower quadrant dull aching in nature about could not quantify the intensity with radiation to all over. As per family he also has been sleeping a lot and has been dizzy with poor appetite. He had a CT abdomen and pelvis done in the ED showed Bilateral pleural effusions right greater than left. Mild diffuse ascites new from September 2018. Left colonic diverticulosis. Renal cortical atrophy bilaterally. No hydronephrosis seen. His labs were significant for creatinine of 6.2 BUN of 122, bicarb of 17, k of 5.2 and uric acid of 11.2. his Hb was 12 which is higher than his baseline and his platelet was 86. He is being admitted for BRENDON on CKD with metabolic encephalopathy and fluid overload. 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 started on HD via permacath placement this admission We will hold patient discharge today Discuss with Dr. Ryan patient will get hemodialysis done and patient today CBC CMP BNP Chest x-ray electrocardiogram ordered Further management depending on the pending workup (2) Pleural effusion Status: Acute Problem Text: Status post right thoracentesis . We will repeat chest x-ray again to rule out reaccumulation of thoracentesis If needed will call IR for draining it (3) Cirrhosis Status: Chronic Problem Text: Cirrhosis of liver with thrombocytopenia and ascites etiology unknown. No history of hepatitis or large amounts of alcohol abuse could be due to chronic hepatic congestion and cardiac cirrhosis US abdomen with minimal ascites. ammonia normal lactate not elevated. (4) Atrial fibrillation Status: Chronic Problem Text: Afib Patient in rapid ventricular response, Started on metoprolol 25 mg by mouth every 6 hours tells 03/07/2019 6 AM Will increase Cardizem CD to 360 mg by mouth daily as of tomorrow morning Patient also started on eliquis for anticoagulation Discharge patient home once the ventricular rate is under control (5) COPD (chronic obstructive pulmonary disease) Status: Chronic Problem Text: Continue present medications This is clinically stable Plan/VTE VTE Prophylaxis Ordered?: Yes VS, I&O, 24H, Fishbone Vital Signs/I&O Vital Signs Date Time Temp Pulse Resp B/P (MAP) Pulse Ox O2 Delivery O2 Flow Rate FiO2 03/06/19 08:32 103 152/98 03/06/19 06:00 96.9 28 94 I&O- Last 24 Hours up to 6 AM 03/06/19 06:00 Intake Total 1320 ml Output Total 300 ml Balance 1020 ml Laboratory Data 24H LABS Laboratory Tests 2 03/05/19 16:50: Bedside Glucose (Misc Panel) 83 03/05/19 20:09: Bedside Glucose (Misc Panel) 182H 03/06/19 07:34: Bedside Glucose (Misc Panel) 153H 03/06/19 11:13: Bedside Glucose (Misc Panel) 186H Microbiology Microbiology 02/28/19 Gram Stain - Final, Complete 02/28/19 Body Fluid Culture - Final, Complete 02/24/19 Gastrointestinal Tract Panel (PCR) - Final, Complete GOGO MOORE MD Mar 06, 2019 12:16
--- NOTE | 2019-03-06 12:42 | REP ---
PA and lateral chest: Comparison is 03/04/2019. There is a right pleural effusion, unchanged. There are scattered opacities throughout the lung vang bilaterally, unchanged. There is cardiomegaly, unchanged. The soft tissue density along the right lateral margin of the trachea is unchanged, possibly pleural fluid. The right IJ dual lumen central venous catheter is unchanged. The bandar, mediastinum, skeletal structures are unchanged. Impression: The right pleural effusion is unchanged. The scattered lung densities are unchanged. The right paramediastinal soft tissue density is unchanged, possibly pleural fluid. Electronically Signed by Chris Monk MD 03/06/2019 12:34 P
[2019-03-06 13:00] VITALS: BP 157/91
[2019-03-06 13:33] LABS: HEMATOCRIT 36.7 % (42.0-52.0); HEMOGLOBIN 11.7 g/dl (13.5-17.5); MEAN CORPUSCULAR HEMOGLOBIN 28.9 pg (27.0-33.0); MEAN CORPUSCULAR HGB CONC 31.9 g/dl (32.0-36.5); MEAN CORPUSCULAR VOLUME 90.6 fl (80.0-96.0); RED BLOOD COUNT 4.05 10^6/uL (4.30-6.10); WHITE BLOOD COUNT 6.9 10^3/uL (4.0-10.0)
[2019-03-06 13:53] LABS: PLATELET COUNT, AUTOMATED 94 10^3/uL (150-450)
[2019-03-06 14:00] VITALS: BP 155/89
[2019-03-06 14:03] LABS: CALCIUM LEVEL 8.4 MG/DL (8.8-10.2); CREATININE FOR GFR 4.52 MG/DL (0.70-1.30); GLOMERULAR FILTRATION RATE 13.5 (>42); POTASSIUM SERUM 3.7 MEQ/L (3.5-5.1)
[2019-03-06] MEDS: APIXABAN 5 MG TAB (ELIQUIS) PO SCH ×2 (14:12→20:30)
--- NOTE | 2019-03-06 19:28 | IPN ---
DATE: 03/05/2019 Mr. Zuleta is seen this morning on his bedside. His discharge was cancelled yesterday as his sister could not pick him up yesterday. Patient was dialyzed in the afternoon. He tolerated his dialysis treatment well. We removed 2 liters of fluid. Patient is feeling better today and denies any nausea or vomiting. He feels that his dyspnea has improved. PHYSICAL EXAMINATION: Temperature 97.2 degrees Fahrenheit, heart rate 113 per minute and respiratory rate 20 per minute. Blood pressure 150/90 mmHg and oxygen saturation 98% on room air. Head is atraumatic. Neck is supple and jugular venous distention (JVD) does not seem to be abnormally elevated. His heart sounds are tachycardiac. Lungs with slightly diminished breath sounds and basilar crepitations. Abdomen soft and nontender and bowel sounds are normal. Extremities without any cyanosis or clubbing. Neurologically he seems to be at his baseline mentation. PROBLEMS: 1. End-stage renal disease. Patient has been dialyzed and he started dialysis during this admission. He will continue with outpatient dialysis after discharge. Patient and family services will arrange for transportation prior to discharge tomorrow. 2. Congestive heart failure and dyspnea. His volume status seems clinically well-compensated and we will continue to manage it with dialysis. 2.2 liters of fluid was removed yesterday. 3. Anemia. At present, his anemia is stable and does not need any urgent intervention. DISPOSITION: From a renal standpoint, patient is ready for discharge; however he needs to have transportation arranged for outpatient dialysis and his family has to pick him up. His sister is likely to pick him up tomorrow.
--- NOTE | 2019-03-06 20:18 | ECGEPIP ---
[facility] Test Date: 2019-03-06 Pat Name: TORSTEN DAY Department: Room: [place] [address] Gender: Male Dental Aide: YOLANDE : 1940 Requested By: GOGO MOORE Order Number: [id number] Reading MD: Evangelista Dodge Measurements Intervals Paulina Rate: 118 P: IN: 0 QRS: -25 QRSD: 106 T: 65 QT: 349 QTc: 490 Interpretive Statements Atrial fibrillation with moderate ventricular response Low QRS complex voltage in the limb leads Indeterminate QRS axis Chronic pulmonary disease pattern Compared to prior tracing of 02/23/2019, heart rate is faster Electronically Signed on 03-06-2019 20:18:02 EDT by Evangelista Dodge
[2019-03-06] MEDS: TAMSULOSIN 0.4 MG CAP PO SCH (20:30)
[2019-03-06] MEDS: ATORVASTATIN 10 MG TAB PO SCH (20:30)
[2019-03-06 22:00] VITALS: BP 146/87
[2019-03-07] MEDS: METOPROLOL TART 25 MG TABLET PO SCH ×2 (00:23→06:07)
[2019-03-07 06:00] VITALS: BP 148/91
[2019-03-07] MEDS: ESCITALOPRAM OXALATE 10 MG TAB (LEXAPRO) PO SCH (06:06)
[2019-03-07] MEDS: FINASTERIDE 5 MG TAB PO SCH (06:07)
[2019-03-07] MEDS: APIXABAN 5 MG TAB (ELIQUIS) PO SCH ×2 (06:08→20:58)
[2019-03-07] MEDS: SLF 3 ML SYR IV SCH ×3 (06:10→20:59)
[2019-03-07 08:00] VITALS: BP 126/62
[2019-03-07] MEDS: HumaLOG INSULIN (NovoLOG) PER UNIT SC SCH ×4 (08:06→20:59)
[2019-03-07] MEDS: diltiaZEM **CD** 180 MG CAP PO SCH (08:40)
[2019-03-07] MEDS: **hydrALAZINE** 50 MG TAB PO SCH ×3 (08:41→20:57)
[2019-03-07] MEDS: allopurinoL 100 MG TAB PO SCH (08:47)
--- NOTE | 2019-03-07 09:15 | IPN ---
DATE OF VISIT: 03/06/2019 Mr. Zuleta is seen this afternoon on his bedside. He was scheduled for discharge today, however did not feel well and he was found to be in rapid atrial fibrillation this morning. His discharge has been cancelled. I was informed by the hospitalist service this afternoon. The patient has been treated with diltiazem and metoprolol and his heart rate has improved. At present, he denies any nausea or vomiting. His dyspnea is better today. There is no chest pain. On physical exam, temperature 98.3 degrees Fahrenheit, heart rate about 100 per minute and respiratory rate 24 per minute. Blood pressure 155/89 mmHg and oxygen saturation 99% on room air. His head is atraumatic. Neck is supple and jugular venous distention (JVD) is not abnormally elevated. Heart sounds are tachycardiac and irregular in rhythm. Lungs with scattered basilar crackles. Abdomen soft and nontender, and bowel sounds are normal. Extremities without any cyanosis or clubbing. Neurologically, he is at his baseline mentation. Labs done this afternoon showed a WBC count 6.9, hemoglobin 11.7 and hematocrit 36.7. Platelets are 94,000. Sodium 137, potassium 3.7, BUN 34 and creatinine 4.52. A proBNP level is 29,824. He had a chest x-ray repeated today, which did not show any change since his last imaging. He does have a right pleural effusion with some chronic scarring in his lungs. PROBLEMS: 1. End-stage renal disease. Patient has been dialyzed during this admission and his last dialysis was done on Wednesday. We will plan to dialyze him again tomorrow. At present, there is no emergent indication for dialysis today. He is oxygenating 99% on room air and I feel that his symptoms were related to rapid atrial fibrillation. 2. Atrial fibrillation with rapid ventricular rate. Patient was treated with Cardizem and beta-song and his ventricular rate has already improved. He was on anticoagulation in the past, which has been stopped. I feel that anticoagulation is indicated and patient is being started on Eliquis 5 mg twice a day. 3. Congestive heart failure and right pleural effusion. His right pleural effusion is only small since he had thoracentesis. His volume status is probably slightly decompensated related to rapid atrial fibrillation. We will remove 2-3 liters of fluid with dialysis tomorrow and see how he does. 4. Anemia. His anemia is very mild and stable and does not need any urgent intervention. 5. Hypertension. Blood pressure is reasonably well-controlled on current meds and no changes are being made today. AGLO
[2019-03-07] MEDS ORDERED: HEPARIN 1,000 UNITS/ML 10ML VIAL (FOR RADIOLOGY& DIALYSIS ONLY) XX ONE (11:00)
--- NOTE | 2019-03-07 13:24 | IPNPDOC ---
Text Note Date of Service The patient was seen on 03/07/19. NOTE Subjective: Patient was seen and examined at the bedside. , Patient denies any chest pain, shortness of breath or palpitations. He denies any nausea, vomiting, abdominal pain or diarrhea. Objective: Vitals (See below) General: Lying in bed, no acute distress, comfortable, AAOx3 HEENT: NC, AT CVS: +S1S2 Lungs: Fair air entry b/l, -w/r/r Abdomen: Soft, ND, NT Extremities: - Edema, - Calf tenderness Assessment and plan: BRENDON on CKD, progression to HD - Patient has presented to the emergency room with dark colored stools - Found to have significant elevation of Cr, has been started on HR - Progression of CKD4 to CKD5 with HD - Outpatient Chair has been established; will anticipate discharge with next 24 48 hours Pleural effusion - CT chest 02/25: 1. Right lower lobe and right middle lobe atelectasis/con solidation. 2. Multiple pulmonary nodules within both lungs, unchanged. 3. Bilateral pleural effusions. 4. Cardiomegaly and small pericardial effusion. 5. Atherosclerosis. 6. Mediastinal lymphadenopathy, unchanged. 7. Small abdominal ascites, slightly increased in size since the prior study. - s/p Thoracentesis 02/28 with IR; 1215 cc fluid removed Status: Acute Problem Text: Status post right thoracentesis . We will repeat chest x-ray again to rule out reaccumulation of thoracentesis If needed will call IR for draining it Cirrhosis - Has thrombocytopenia and ascites etiology unknown - No history of hepatitis or large amounts of alcohol abuse could be due to chronic hepatic congestion and cardiac cirrhosis - US abdomen 02/23: There is only a small amount of ascites present. A. fib - On 03/03 the patient was found to be in A. fib with RVR - Currently, patient appears to have A. fib but is rate controlled - c/w Adjusted dose of Cardizem - c/w Full anticoagulation with Eliquis DLP - c/w Atorvastatin COPD - no evidence of exacerbation - c/w inhaled therapy as ordered BPH - c/w Tamsulosin and Finasteride Mood disorder - c/w Escitalopram GI prophylaxis - c/w DVT prophylaxis - c/w full anticoagulation with Eliquis VS,Fishbone, I+O VS, Fishbone, I+O Laboratory Tests 03/06/19 13:17 Red Blood Count 4.05 L, Mean Corpuscular Volume 90.6, Mean Corpuscular Hemoglobin 28.9, Mean Corpuscular Hemoglobin Concent 31.9 L, Red Cell Distri bution Width 16.3 H, Calcium Level 8.4 L Vital Signs Date Time Temp Pulse Resp B/P (MAP) Pulse Ox O2 Delivery O2 Flow Rate FiO2 03/07/19 08:41 126/62 03/07/19 08:40 80 03/07/19 08:00 98.2 18 94 I&O- Last 24 Hours up to 6 AM 03/07/19 05:59 Intake Total 936 ml Output Total 0 ml Balance 936 ml MAANDEEP CARMEN MD Mar 07, 2019 13:24
--- NOTE | 2019-03-07 18:45 | IPN ---
DATE: 03/07/2019 Mr. Zuleta is seen this morning on his bedside. He is feeling better today and reports that he slept better last night. His dyspnea and discomfort have improved. He denies any nausea, vomiting, fever or chills. Yesterday, he was noticed to be in rapid atrial fibrillation and was treated with Cardizem and metoprolol. His heart rate has now improved. He was also started on Eliquis 5 mg twice a day yesterday. PHYSICAL EXAMINATION: Temperature 98.2 degrees Fahrenheit, heart rate 80 per minute and respiratory rate 18 per minute. Blood pressure 126/62 mmHg and oxygen saturation 94% on room air. His head is atraumatic. Neck is supple and jugular venous distention (JVD) difficult to be assessed. Right sided Perma-Cath is present on upper chest without any signs of infection or bleeding. Heart sounds are irregular in rhythm. Lungs with slightly diminished breath sounds bilaterally. Abdomen is soft and nontender and bowel sounds are normal. Extremities without any cyanosis or clubbing. Neurologically, he is at his baseline mentation without a focal neurological deficit. LABORATORY DATA: His laboratories done yesterday afternoon showed a hemoglobin 11.7 and hematocrit 36.7. Platelets 94,000 and WBC count 6.9. His sodium was 137 and potassium 3.7. BUN was 34 and creatinine 4.52. A BNP level was almost 30,000. PROBLEMS: 1. End-stage renal disease. The patient started dialysis during this admission and he was last dialyzed on Wednesday. We plan to dialyze him again this afternoon. 2. Congestive heart failure and pleural effusion. The patient had a large right pleural effusion on admission and had a thoracentesis done. He still has small pleural effusion bilaterally and we will try to remove about three liters of fluid today and see how he tolerates. 3. Anemia. His anemia is stable and does not need any intervention. 4. Atrial fibrillation. His ventricular rate is well-controlled now and he will continue with Eliquis for anticoagulation.
[2019-03-07] MEDS: ATORVASTATIN 10 MG TAB PO SCH (20:58)
[2019-03-07] MEDS: TAMSULOSIN 0.4 MG CAP PO SCH (20:58)
[2019-03-07 22:00] VITALS: BP 140/82
[2019-03-08] MEDS: SLF 3 ML SYR IV SCH ×2 (05:41→13:01)
[2019-03-08 06:00] VITALS: BP 130/85
[2019-03-08] MEDS: HumaLOG INSULIN (NovoLOG) PER UNIT SC SCH ×2 (08:03→11:27)
[2019-03-08] MEDS: FINASTERIDE 5 MG TAB PO SCH (08:03)
[2019-03-08] MEDS: ESCITALOPRAM OXALATE 10 MG TAB (LEXAPRO) PO SCH (08:04)
[2019-03-08] MEDS: diltiaZEM **CD** 180 MG CAP PO SCH (08:04)
[2019-03-08] MEDS: **hydrALAZINE** 50 MG TAB PO SCH ×2 (08:04→16:11)
[2019-03-08] MEDS: APIXABAN 5 MG TAB (ELIQUIS) PO SCH (08:04)
[2019-03-08] MEDS: allopurinoL 100 MG TAB PO SCH (08:04)
[2019-03-08 09:25] LABS: BASO % 0.5 % (0.0-1.0); EOS % 0.5 % (0.0-3.0); HEMATOCRIT 34.9 % (42.0-52.0); HEMOGLOBIN 11.1 g/dl (13.5-17.5); LYMPH # 0.5 10^3/uL (1.5-5.0); LYMPH % 8.9 % (24.0-44.0); MEAN CORPUSCULAR HEMOGLOBIN 29.7 pg (27.0-33.0); MEAN CORPUSCULAR HGB CONC 31.8 g/dl (32.0-36.5); MEAN CORPUSCULAR VOLUME 93.3 fl (80.0-96.0); MONO # 0.6 10^3/uL (0.0-0.8); MONO % 10.1 % (0.0-5.0); NEUTROPHILS # 4.4 10^3/uL (1.5-8.5); NEUTROPHILS % 79.3 % (36.0-66.0); RED BLOOD COUNT 3.74 10^6/uL (4.30-6.10); WHITE BLOOD COUNT 5.5 10^3/uL (4.0-10.0)
[2019-03-08 09:27] LABS: PLATELET COUNT, AUTOMATED 89 10^3/uL (150-450)
[2019-03-08 09:47] LABS: CALCIUM LEVEL 8.6 MG/DL (8.8-10.2); CREATININE FOR GFR 4.02 MG/DL (0.70-1.30); GLOMERULAR FILTRATION RATE 15.4 (>42); MAGNESIUM LEVEL 1.9 MG/DL (1.8-2.4); POTASSIUM SERUM 3.4 MEQ/L (3.5-5.1)
[2019-03-08] MEDS ORDERED: DILT1CAP46 PO (10:04)
[2019-03-08] MEDS ORDERED: ELIQ5TAB PO (10:04)
[2019-03-08] MEDS ORDERED: POTASSIUM CHLORIDE 10 MEQ SR TABLET PO ONE (12:00)
--- NOTE | 2019-03-08 13:04 | DS.PDOC ---
Discharge Summary General Date of Admission Feb 23, 2019 at 17:04 Date of Discharge 03/08/2019 Discharge Summary PROCEDURES PERFORMED DURING STAY: 02/25/2019 - Dr. Zuniga - Placement of dialysis access point ADMITTING DIAGNOSES / DISCHARGE DIAGNOSES: BRENDON on CKD, progression to HD Pleural effusion Cirrhosis A. fib DLP COPD BPH Mood disorder DVT prophylaxis COMPLICATIONS/CHIEF COMPLAINT: Worsening renal function HISTORY OF PRESENT ILLNESS: Patient is a 78-year-old male with a past medical history of mild cognitive impairment, CKD4, cirrhosis of liver, diabetes, hypertension, CHF with preserved EF, COPD , Central Sleep Apnea non complaint with CPAP with severe pulmonary hypertension with chronic right heart failure, Afib on Coumadin, hypertension with hypertensive heart disease, renal artery stenosis s/p stenting, was brought in by brother in law for dark colored liquid stools. He was admitted for BRENDON on CKD with metabolic encephalopathy and fluid overload. Nephrology and vascular surgery will called on consultation. HOSPITAL COURSE: BRENDON on CKD, progression to HD - Patient has presented to the emergency room with dark colored stools - Found to have significant elevation of Cr, has been started on HR - Progression of CKD4 to CKD5 with HD - Outpatient Chair has been established; patient has been scheduled for outpatient dialysis on Wednesday, and Wednesday Pleural effusion - CT chest 02/25: 1. Right lower lobe and right middle lobe atelectasis/consolidation. 2. Multiple pulmonary nodules within both lungs, unchanged. 3. Bilateral pleural effusions. 4. Cardiomegaly and small pericardial effusion. 5. Atherosclerosis. 6. Mediastinal lymphadenopathy, unchanged. 7. S mall abdominal ascites, slightly increased in size since the prior study. - s/p Thoracentesis 02/28 with IR; 1215 cc fluid removed Cirrhosis - Has thrombocytopenia and ascites etiology unknown - No history of hepatitis or large amounts of alcohol abuse could be due to chronic hepatic congestion and cardiac cirrhosis - US abdomen 02/23: There is only a small amount of ascites present. A. fib - On 03/03 the patient was found to be in A. fib with RVR - Currently, patient appears to have A. fib but is rate controlled - c/w Adjusted dose of Cardizem; updated dose sent to pharmacy - c/w Full anticoagulation with Eliquis DLP - c/w Atorvastatin COPD - no evidence of exacerbation - c/w inhaled therapy as ordered BPH - c/w Tamsulosin and Finasteride Mood disorder - c/w Escitalopram DVT prophylaxis - c/w full anticoagulation with Eliquis DISCHARGE MEDICATIONS: Please see below. ALLERGIES: Please see below. PHYSICAL EXAMINATION ON DISCHARGE: Vitals (See below) General: Lying in bed, no acute distress, comfortable, AAOx3 HEENT: NC, AT CVS: +S1S2 Lungs: Fair air entry b/l, no appreciable wheezing, rhonchi, rales Abdomen: Soft, nondistended and nontender Extremities: No evidence of edema, - Calf tenderness LABORATORY DATA: Please see below. ACTIVITY: [As tolerated]. DISCHARGE PLAN: Follow-up with Dr. Dilcia carreonn Dr. Ryan within 7 days Remain compliant with treatment plan and medications Return to the ER if you experience any problems DISPOSITION: Home DISCHARGE CONDITION: [Stable]. TIME SPENT ON DISCHARGE: 34 minutes Vital Signs/I&Os Vital Signs Date Time Temp Pulse Resp B/P (MAP) Pulse Ox O2 Delivery O2 Flow Rate FiO2 03/08/19 08:04 90 152/77 03/08/19 06:00 98.5 18 92 I&O- Last 24 Hours up to 6 AM 03/08/19 06:00 Intake Total 1251 ml Output Total 3300 ml Balance -2049 ml Laboratory Data Labs 24H Laboratory Tests 2 03/07/19 17:45: Bedside Glucose (Misc Panel) 111H 03/07/19 20:36: Bedside Glucose (Misc Panel) 141H 03/08/19 06:29: Bedside Glucose (Misc Panel) 142H 03/08/19 08:50: Immature Granulocyte % (Auto) 0.7, White Blood Count 5.5, Red Blood Count 3.74L, Hemoglobin 11.1L, Hematocrit 34.9L, Mean Corpuscular Volume 93.3, Mean Corpu scular Hemoglobin 29.7, Mean Corpuscular Hemoglobin Concent 31.8L, Red Cell Distribution Width 16.2H, Platelet Count 89L, Neutrophils (%) (Auto) 79.3H, Lymphocytes (%) (Auto) 8.9L, Monocytes (%) (Auto) 10.1H, Eosinophils (%) (Auto) 0.5, Basophils (%) (Auto) 0.5, Neutrophils # (Auto) 4.4, Lymphocytes # (Auto) 0.5L, Monocytes # (Auto) 0.6, Eosinophils # (Auto) 0.0, Basophils # (Auto) 0.0, Nucleated Red Blood Cells % (auto) 0.0, Immature Platelet Fraction 3.4, Anion Gap 9, Glomerular Filtration Rate 15.4L, Blood Urea Nitrogen 32H, Creatinine 4.02H, Sodium Level 137, Potassium Level 3.4L, Chloride Level 102, Carbon Dioxide Level 26, Calcium Level 8.6L, Magnesium Level 1.9 03/08/19 11:24: Bedside Glucose (Misc Panel) 296H CBC/BMP Laboratory Tests 03/08/19 08:50 Red Blood Count 3.74 L, Mean Corpuscular Volume 93.3, Mean Corpuscular Hemoglobin 29.7, Mean Corpuscular Hemoglobin Concent 31.8 L, Red Cell Distribution Width 16.2 H, Neutrophils (%) (Auto) 79.3 H, Lymphocytes (%) (Auto) 8.9 L, Monocytes (%) (Auto) 10.1 H, Eosinophils (%) (Auto) 0.5, Basophils (%) (Auto) 0.5, Neutrophils # (Auto) 4.4, Lymphocytes # (Auto) 0.5 L, Monocytes # (Auto) 0.6, Eosinophils # (Auto) 0.0, Basophils # (Auto) 0.0, Calcium Level 8.6 L FSBS Laboratory Tests Test 03/07/19 17:45 03/07/19 20:36 03/08/19 06:29 03/08/19 11:24 Range/Units Bedside Glucose (Misc Panel) 111 141 142 296 83-110 MG/DL Microbiology Microbiology 02/28/19 Gram Stain - Final, Complete 02/28/19 Body Fluid Culture - Final, Complete Discharge Medications Scheduled Apixaban (Eliquis) 5 Mg Tablet, 1 TAB PO BID Atorvastatin Calcium (Atorvastatin Calcium) 10 Mg Tab, 5 MG PO QHS, (Reported) Cyanocobalamin (Vitamin B-12) (Vitamin B-12) 500 Mcg Tab, 500 MCG PO DAILY, (Reported) AT LUNCH Diltiazem Hcl (Diltiazem 24Hr ER) 360 Mg Cap.er.24h, 1 CAP PO DAILY Escitalopram Oxalate (Escitalopram Oxalate) 10 Mg Tab, 10 MG PO DAILY, (Reported) Finasteride (Finasteride) 5 Mg Tab, 5 MG PO DAILY, (Reported) Glimepiride (Glimepiride) 4 Mg Tab, 4 MG PO DAILY, (Reported) Glipizide (Glipizide Xl) 2.5 Mg Tab, 2.5 MG PO DAILY, (Reported) WITH FOOD AT LUNCH Iron,Carbonyl/Ascorbic Acid (Vitron-C Tablet) 1 Tab Tab, 1 TAB PO DAILY, (Re ported) AT LUNCH Spironolactone (Spironolactone) 25 Mg Tablet, 25 MG PO QHS, (Reported) Tamsulosin HCl (Flomax) 0.4 Mg Cap, 0.8 MG PO QHS, (Reported) Torsemide (Torsemide) 20 Mg Tablet, 20 MG PO QAM, (Reported) hydrALAZINE HCL (Hydralazine HCl) 100 Mg Tab, 100 MG PO BID, (Reported) Scheduled PRN Levalbuterol HCl (Levalbuterol HCl) 1.25 Mg/3 Ml Vial.neb, 1.25 MG INH BID PRN for SHORTNESS OF BREATH, (Reported) Allergies Coded Allergies: No Known Allergies (Unverified , 02/23/08) AMANDEEP CARMEN MD Mar 08, 2019 13:04
[2019-03-08 14:00] VITALS: BP 148/73
[2019-03-08 16:11] VITALS: BP 164/88
--- NOTE | 2019-03-08 17:58 | IPN ---
DATE: 03/08/2019 Mr. Zuleta is seen this morning on his bedside. He is feeling well today and reports that his dyspnea has improved. He was dialyzed yesterday and we were able to remove about 3300 mL of fluid. His atrial fibrillation has been well-controlled now with heart rate in the 80s. The patient denies any nausea, vomiting, chest pain, leg edema, fever or chills. PHYSICAL EXAMINATION: Temperature 98.5 degrees Fahrenheit, heart rate 90 per minute and respiratory rate 18 per minute. Blood pressure 152/77 mmHg and oxygen saturation 92% on room air. Head is atraumatic. Neck is supple and without jugular venous distention (JVD) or thyroid enlargement. Right upper chest Perma-Cath is present without any signs of infection or bleeding. Heart sounds are irregular in rhythm. Lungs sound clear to auscultation. Abdomen is soft and nontender and bowel sounds are normal. Extremities without any cyanosis or clubbing. Neurologically, he is awake, alert and at his baseline mentation. LABORATORY DATA: Today's laboratories show WBC count 5.5, hemoglobin 11.1 and hematocrit 34.9. Platelets are 89,000. Sodium 137, potassium 3.4, CO2 26, BUN 32 and creatinine 4.02. PROBLEMS: 1. End-stage renal disease. The patient is currently dialysis dependent and he was dialyzed yesterday. He will be scheduled for next dialysis as an outpatient on 03/09/2019. 2. Hypoxemia and congestive heart failure. His volume status is clinically well-compensated and we will continue to manage it with dialysis. At this point, there is no emergent need for dialysis today. 3. Hypokalemia, related to dialysis and it will be corrected. I will give him one dose of potassium chloride 20 mEq by mouth today prior to discharge. 4. Hypertension. Blood pressure seems well-controlled on current antihypertensive medications. 5. Atrial fibrillation. His ventricular rate is now well-controlled and he will continue with current dose of beta song and calcium channel song. He is also on Eliquis 5 mg twice a day. DISPOSITION: From a renal standpoint, the patient can be discharged to home today and he will followup in dialysis clinic as an outpatient. He is scheduled for next dialysis tomorrow.
== END 2019-03-08 17:02 | disposition home or self-care (01) | DRG 673 ==
LOC: M ED 12:30 → M ED INP 17:04 → M PCU 20:00 → M MSPAV 03-02 06:00
PROVIDERS: ADMIT Internal Medicine Nephrology; ATTEND Internal Medicine
PROC: 0W993ZZ Drainage of Right Pleural Cavity, Percutaneous Approach (ICD-10-PCS; 2019-02-28)
PROC: 0JH63XZ Insertion of Tunneled Vascular Access Device into Chest Subcutaneous Tissue and Fascia, Percutaneous Approach (ICD-10-PCS; principal; 2019-03-01)
PROC: 02HV33Z Insertion of Infusion Device into Superior Vena Cava, Percutaneous Approach (ICD-10-PCS; 2019-03-01)
PROC: 0JC60ZZ Extirpation of Matter from Chest Subcutaneous Tissue and Fascia, Open Approach (ICD-10-PCS; 2019-03-01)
PROC: 5A1D70Z Performance of Urinary Filtration, Intermittent, Less than 6 Hours Per Day (ICD-10-PCS; 2019-03-01)
DX: N17.9 Acute kidney failure, unspecified (principal); G93.41 Metabolic encephalopathy; I50.33 Acute on chronic diastolic (congestive) heart failure; K26.4 Chronic or unspecified duodenal ulcer with hemorrhage; I13.2 Hypertensive heart and chronic kidney disease with heart failure and with stage 5 chronic kidney disease, or end stage renal disease; R18.8 Other ascites; E87.2 Acidosis; T82.868A Thrombosis due to vascular prosthetic devices, implants and grafts, initial encounter; D62 Acute posthemorrhagic anemia; N18.6 End stage renal disease; E11.22 Type 2 diabetes mellitus with diabetic chronic kidney disease; J44.9 Chronic obstructive pulmonary disease, unspecified; G47.31 Primary central sleep apnea; I27.29 Other secondary pulmonary hypertension; I50.812 Chronic right heart failure; Z91.19 Patient's noncompliance with other medical treatment and regimen; R19.7 Diarrhea, unspecified; I48.91 Unspecified atrial fibrillation; E79.0 Hyperuricemia without signs of inflammatory arthritis and tophaceous disease; K76.1 Chronic passive congestion of liver; E87.5 Hyperkalemia; D50.9 Iron deficiency anemia, unspecified; I70.1 Atherosclerosis of renal artery; N40.1 Benign prostatic hyperplasia with lower urinary tract symptoms; R33.9 Retention of urine, unspecified; Y83.1 Surgical operation with implant of artificial internal device as the cause of abnormal reaction of the patient, or of later complication, without mention of misadventure at the time of the procedure; G31.84 Mild cognitive impairment of uncertain or unknown etiology; D69.59 Other secondary thrombocytopenia; N28.1 Cyst of kidney, acquired; N26.1 Atrophy of kidney (terminal); H91.93 Unspecified hearing loss, bilateral; K57.30 Diverticulosis of large intestine without perforation or abscess without bleeding; Z79.4 Long term (current) use of insulin; Z79.01 Long term (current) use of anticoagulants; Z98.1 Arthrodesis status; Z79.899 Other long term (current) drug therapy; Z90.49 Acquired absence of other specified parts of digestive tract; Z87.442 Personal history of urinary calculi; Z95.828 Presence of other vascular implants and grafts; Z87.891 Personal history of nicotine dependence; Z99.2 Dependence on renal dialysis; K20.9 Esophagitis, unspecified; K74.69 Other cirrhosis of liver; I08.0 Rheumatic disorders of both mitral and aortic valves; G47.33 Obstructive sleep apnea (adult) (pediatric); E86.0 Dehydration; R00.0 Tachycardia, unspecified

== ENCOUNTER 2019-03-11 21:11 | Inpatient (IN) | payer MEDICARE ==
[~2019-03-11] VITALS: Ht 175.3 cm; Wt 79.0 kg
[2019-03-11] MEDS: TAMSULOSIN 0.4 MG CAP PO SCH (21:00)
[2019-03-11] MEDS: HumaLOG INSULIN (NovoLOG) PER UNIT SC SCH (21:00)
[~2019-03-11 21:11] MED LIST changes: +ALB2.5NEB NEB; +CARD120C3 PO; +DILT240C47 PO; +ELIQ5TAB PO; +GLIM4TAB; +GLIM4TAB PO; -GLIM4TAB5; -GLIM4TAB5 PO; +PATIENT COMMENTS
[2019-03-11 23:28] LABS: BASO % 0.1 % (0.0-1.0); EOS % 0.1 % (0.0-3.0); HEMATOCRIT 20.3 % (42.0-52.0); LYMPH # 0.3 10^3/uL (1.5-5.0); LYMPH % 3.9 % (24.0-44.0); MEAN CORPUSCULAR HEMOGLOBIN 29.6 pg (27.0-33.0); MEAN CORPUSCULAR HGB CONC 31.5 g/dl (32.0-36.5); MONO # 0.7 10^3/uL (0.0-0.8); MONO % 8.4 % (0.0-5.0); NEUTROPHILS # 7.3 10^3/uL (1.5-8.5); NEUTROPHILS % 86.4 % (36.0-66.0); PLATELET COUNT, AUTOMATED 103 10^3/uL (150-450); RED BLOOD COUNT 2.16 10^6/uL (4.30-6.10); WHITE BLOOD COUNT 8.5 10^3/uL (4.0-10.0)
[2019-03-11 23:38] LABS: HEMOGLOBIN 6.4 g/dl (13.5-17.5)
[2019-03-12] VITALS (9 sets, daily range): BP systolic 95–163; BP diastolic 52–85
[2019-03-12 00:04] LABS: CALCIUM LEVEL 8.1 MG/DL (8.8-10.2); CREATININE FOR GFR 2.28 MG/DL (0.70-1.30); GLOMERULAR FILTRATION RATE 29.7 (>42); POTASSIUM SERUM 3.3 MEQ/L (3.5-5.1)
--- NOTE | 2019-03-12 00:44 | HPEPDOC ---
[facility] Medical History & Physical Date of Admission Mar 12, 2019 Date of Service: Mar 12, 2019 Primary Care Physician: MARQUITA DOUGLAS MD @ Attending Physician: JYOTI BOWEN MD History and Physical TIME OF SERVICE: 1:55 AM CHIEF COMPLAINT: Dizziness HISTORY OF PRESENT ILLNESS: This is a 78 old male who was dizzy after dialysis yesterday afternoon. Per d/w the ED provider he recently started dialysis; his dizziness may have been due to dialysis disequilibrium syndrome. He received some IV fluids, but his dizziness did improve, therefore he was sent to the emergency department. Per discussion with the ED provider, his hemoglobin was noted to be 6.4; a few days ago was 11.1. Rectal exam was guaiac positive and melena was noted. The patient denies having associated chest pain, palpitations, or dyspnea. He does admit to being told he looks more pale than usual. He had a fall 2 weeks ago and hit the left side of his face and his chest. REVIEW OF SYSTEMS: 12 point review of systems negative except as listed in HPI PAST MEDICAL/ SURGICAL HISTORY: ESRD Chronic hypertension/chronic diastolic congestive heart failure DM Afib eliquis Chronic anemia. Pulmonary hypertension with cor pulmonale Moderate aortic valve stenosis/moderate mitral valve stenosis COPD Sleep apnea, noncompliant with CPAP Liver cirrhosis, complicated by thrombocytopenia Hearing loss. BPH Status post cholecystectomy. Status post appendectomy. Status post lumbar spinal fusion surgery That is post lithotripsy to manage nephrolithiasis. Status post left renal artery stent placement SOCIAL HISTORY: Quit smoking FAMILY HISTORY: Renal disease. Colon cancer. Congestive heart failure. ALLERGIES: Please see below. HOME MEDICATIONS: Please see below. PHYSICAL EXAMINATION: VITAL SIGNS: Please see below. GENERAL APPEARANCE: Well-nourished, well-developed, not in apparent distress HEENT: Normocephalic, atraumatic, mucous members are dry. There is no angular chelitis or loss of paillae on tougue, does have conjunctival pallor CARDIOVASCULAR: Regular rate and rhythm. No murmurs, rubs or gallops, LUNGS: Clear to auscultation bilaterally on room air. Not using accessory muscles ABDOMEN: Soft and nontender. Palpation MUSCULOSKELETAL: Range of motion is intact in all 4 extremities INTEGUMENT: He has ecchymosis surrounding the left orbit and at the right upper chest posteriorly where the perm a-Cath is placed NEUROLOGICAL: Nerves to 12 grossly intact , except for auditory speech not dysarthric PSYCHIATRIC: Asleep but arousable with vocal stimuli, able to understand and follow commands LABORATORY DATA: See below. IMAGING: None MICROBIOLOGY: Please see below. ASSESSMENT: Mr. Zuleta is a 72 yr old male with past medical history of ESRD, chronic hypertension, chronic diastolic congestive heart failure, diabetes, A. fib, chronic anemia, pulmonary hypertension with cor pulmonale, cardiac valvulopathy, COPD, sleep apnea, liver cirrhosis, and hearing loss who will be admitted for management of acute on chronic symptomatic anemia. PLAN: 1.Acute on Chronic Symptomatic Anemia Likely multifactorial in nature (GI bleed + CKD ) His hemoglobin stopped almost 5 points in 3 days His MCV is normal Stool occult was positive and there was melena Plan:admit to med surg / c.w blood transfusions / f/u serial H/H / reticulocyte #, iron panel w ferritin, / clear liquid diet pending consult GI consult for c- scope 2.Tachycardia ,likely due to mild dehydration Resolved after IV fluids MAP is 85 Plan: telemetry / monitor vitals 3. ESRD Plan: Nephro consult /the daytime team can talk to nephrology about starting Venofer and Epogen 4.DM -recent A1C 7.6% Plan: diabetic diet / f/u accuchecks / hypoglycemia protocol / sliding scale insulin / hold oral anti-glycemics 5. Afib Plan: Hold apixaban 6.Chronic hypertension/chronic diastolic congestive heart failure Plan: Resume antihypertensive meds 7. Stable COPD Plan: Resume home meds 8.BPH Plan: Resume home meds DVT Px w SCDs & hold Eliquis Disposition pending clinical course Vital Signs Vital Signs Date Time Temp Pulse Resp B/P (MAP) Pulse Ox O2 Delivery O2 Flow Rate FiO2 03/11/19 23:00 118 16 134/64 (87) 96 Room Air 03/11/19 21:26 97.8 Laboratory Data Labs 24H Laboratory Tests 2 03/11/19 23:13: Immature Granulocyte % (Auto) 1.1, White Blood Count 8.5, Red Blood Count 2.16L, Hemoglobin 6.4*L, Hematocrit 20.3L, Mean Corpuscular Volume 94.0, Mean Corpuscular Hemoglobin 29.6, Mean Corpuscular Hemoglobin Concent 31.5L, Red Cell Distribution Width 17.2H, Platelet Count 103L, Neutrophils (%) (Auto) 86.4H, Lymphocytes (%) (Auto) 3.9L, Monocytes (%) (Auto) 8.4H, Eosinophils (%) (Auto) 0.1, Basophils (%) (Auto) 0.1, Neutrophils # (Auto) 7.3, Lymphocytes # (Auto) 0.3L, Monocytes # (Auto) 0.7, Eosinophils # (Auto) 0.0, Basophils # (Auto) 0.0, Nucleated Red Blood Cells % (auto) 0.4H, Anion Gap 11, Glomerular Filtration Rate 29.7L, Blood Urea Nitrogen 46H, Creatinine 2.28H, Sodium Level 141, Potassium Level 3.3L, Chloride Level 104, Carbon Dioxide Level 26, Calcium Level 8.1L CBC/BMP Laboratory Tests 03/11/19 23:13 Red Blood Count 2.16 L, Mean Corpuscular Volume 94.0, Mean Corpuscular Hemoglobin 29.6, Mean Corpuscular Hemoglobin Concent 31.5 L, Red Cell Distribut ion Width 17.2 H, Neutrophils (%) (Auto) 86.4 H, Lymphocytes (%) (Auto) 3.9 L, Monocytes (%) (Auto) 8.4 H, Eosinophils (%) (Auto) 0.1, Basophils (%) (Auto) 0.1, Neutrophils # (Auto) 7.3, Lymphocytes # (Auto) 0.3 L, Monocytes # (Auto) 0.7, Eosinophils # (Auto) 0.0, Basophils # (Auto) 0.0, Calcium Level 8.1 L Home Medications Scheduled Apixaban (Eliquis) 5 Mg Tablet, 5 MG PO BID Atorvastatin Calcium (Atorvastatin Calcium) 10 Mg Tab, 5 MG PO QHS Cyanocobalamin (Vitamin B-12) (Vitamin B-12) 500 Mcg Tab, 500 MCG PO DAILY AT LUNCH Diltiazem HCl (Diltiazem 24Hr ER) 360 Mg Tab.er.24h, 360 MG PO DAILY Escitalopram Oxalate (Escitalopram Oxalate) 10 Mg Tab, 10 MG PO DAILY Finasteride (Finasteride) 5 Mg Tab, 5 MG PO DAILY Glimepiride (Glimepiride) 4 Mg Tab, 4 MG PO DAILY Glipizide (Glipizide ER) 2.5 Mg Tab.er.24, 2.5 MG PO DAILY TAKES WITH FOOD AT LUNCH Iron,Carbonyl/Ascorbic Acid (Vitron-C Tablet) 1 Tab Tab, 1 TAB PO DAILY AT LUNCH Tamsulosin HCl (Flomax) 0.4 Mg Cap, 0.8 MG PO QHS hydrALAZINE HCL (Hydralazine HCl) 100 Mg Tab, 100 MG PO BID Scheduled PRN Levalbuterol HCl (Levalbuterol HCl) 1.25 Mg/3 Ml Vial.neb, 1.25 MG INH BID PRN for SHORTNESS OF BREATH Allergies Coded Allergies: No Known Allergies (Unverified , 02/23/08) A-FIB/CHADSVASC A-FIB History Current/History of A-Fib/PAF?: Yes Current PO Anticoag Therapy: Yes Age/Risk Factor Scoring CHADSVASC: CHADSVASC Response (Comments) Value Age Risk Factor Age >/= 75 years old 2 Gender Risk Factor Male 0 Hx of CHF Yes 1 Hx of HTN Yes 1 Hx of Stroke/TIA/or VTE No 0 Hx of Diabetes Yes 1 Hx of Vascular Disease No 0 Total 5 Treatment Treatment ordered: Holding Other (bc of acute on chronic anemia) JYOTI BOWEN MD Mar 12, 2019 00:44
[2019-03-12] MEDS ORDERED: DILT1TAB7 PO (00:46)
[2019-03-12] MEDS ORDERED: GLIP2.5T6 PO (00:46)
[2019-03-12] MEDS ORDERED: ELIQ5TAB PO (00:46)
[2019-03-12] MEDS ORDERED: GLUCAGON FOR INJ 1 MG VIAL (J1610) SC PRN (01:00)
[2019-03-12] MEDS ORDERED: DEXTROSE 50% 50 ML SYRINGE IV PRN (01:00)
[2019-03-12] MEDS ORDERED: GLUCOSE 4 GM CHEW TABLET PO PRN (01:00)
[2019-03-12 01:23] LABS: PERCENT SATURATION 97.3 % (19.7-50.0)
[2019-03-12] MEDS ORDERED: LEVALBUTEROL 1.25 MG/0.5 ML CONCENTRATE NEB INH PRN (03:30)
[2019-03-12] MEDS ORDERED: ONDANSETRON 4MG/2ML VIAL (J2405) IV ONE (04:00)
[2019-03-12 07:29] LABS: HEMATOCRIT 23.8 % (42.0-52.0); HEMOGLOBIN 7.8 g/dl (13.5-17.5); MEAN CORPUSCULAR HEMOGLOBIN 30.2 pg (27.0-33.0); MEAN CORPUSCULAR HGB CONC 32.8 g/dl (32.0-36.5); MEAN CORPUSCULAR VOLUME 92.2 fl (80.0-96.0); PLATELET COUNT, AUTOMATED 104 10^3/uL (150-450); RED BLOOD COUNT 2.58 10^6/uL (4.30-6.10); WHITE BLOOD COUNT 8.8 10^3/uL (4.0-10.0)
[2019-03-12] MEDS: NS 1,000 ML IV SCH ×2 (07:34→23:58)
[2019-03-12 07:55] LABS: CALCIUM LEVEL 7.6 MG/DL (8.8-10.2); CREATININE FOR GFR 2.8 MG/DL (0.70-1.30); GLOMERULAR FILTRATION RATE 23.4 (>42); POTASSIUM SERUM 3.9 MEQ/L (3.5-5.1)
[2019-03-12] MEDS: HumaLOG INSULIN (NovoLOG) PER UNIT SC SCH ×4 (08:30→20:42)
[2019-03-12] MEDS ORDERED: **hydrALAZINE** 50 MG TAB PO SCH (09:00)
[2019-03-12] MEDS ORDERED: PANTOPRAZOLE 40MG INJ (PROTONIX) (C9113) IV SCH (09:00)
[2019-03-12] MEDS: ONDANSETRON 4MG/2ML VIAL (J2405) IV PRN ×2 (09:24→13:17)
[2019-03-12] MEDS: FINASTERIDE 5 MG TAB PO SCH (10:00)
[2019-03-12] MEDS: ESCITALOPRAM OXALATE 10 MG TAB (LEXAPRO) PO SCH (10:00)
[2019-03-12] MEDS: diltiaZEM **CD** 180 MG CAP PO SCH ×2 (10:06→15:48)
[2019-03-12] MEDS ORDERED: NS 1,000 ML IV SCH (10:48)
[2019-03-12] MEDS ORDERED: PANTOPRAZOLE 40MG INJ (PROTONIX) (C9113) IV ONE (11:30)
[2019-03-12] MEDS ORDERED: HEPARIN 1,000 UNITS/ML 10ML VIAL (FOR RADIOLOGY& DIALYSIS ONLY) XX ONE (12:00)
[2019-03-12] MEDS: CYANOCOBALAMIN 500 MCG TAB PO SCH (12:00)
[2019-03-12] MEDS ORDERED: PANTOPRAZOLE SODIUM 40 MG in D5W 50 ML IV SCH (12:00)
[2019-03-12 12:13] LABS: HEMATOCRIT 23.7 % (42.0-52.0); HEMOGLOBIN 7.7 g/dl (13.5-17.5)
[2019-03-12] MEDS ORDERED: OCTREOTIDE ACETATE 100 MCG/ML VIAL (J2354) IV ONE (13:00)
[2019-03-12] MEDS ORDERED: CETACAINE SPRAY 5GM As Ordered ONE (13:03)
--- NOTE | 2019-03-12 13:33 | CR ---
DATE OF CONSULTATION: 03/12/2019 STATUS OF THE PATIENT: Inpatient. REQUESTING PHYSICIAN: Hospitalist service. REASON FOR CONSULTATION: Bright red blood per rectum and coffee-ground emesis. HISTORY OF PRESENT ILLNESS: This is a 78-year-old male with a past medical history significant for severe pulmonary hypertension, cardiac cirrhosis, end-stage renal disease, on Eliquis for atrial fibrillation. He has recently started hemodialysis and his hemoglobin has been followed. His most recent hemoglobin is in the 11 range and since it has fallen over the past 2 weeks down to 6.4. The patient presents to the emergency room complaining of several bloody stools at home. He also has a history of melanotic stools. While waiting admission he had some dark bloody emesis. PAST MEDICAL HISTORY: 1. Atrial fibrillation on Eliquis. 2. Pulmonary hypertension with cor pulmonology and cardiac cirrhosis. 3. Aortic valve stenosis. 4. Chronic obstructive pulmonary disease (COPD). 5. Benign prostatic hypertrophy. SURGICAL HISTORY: Left renal artery stent, status post appendectomy, status post cholecystectomy. SOCIAL HISTORY: Negative for tobacco. Negative for alcohol. FAMIL HISTORY: Noncontributory. ALLERGIES: NO KNOWN DRUG ALLERGIES. PHYSICAL EXAMINATION: He is awake, alert and oriented times three. He appears quite comfortably in bed. Temperature 98.2, pulse is 109, respiratory rate 18, blood pressure 95/52/124/64, pulse oximetry 93% on room air. Head, eyes, ears, nose and throat are grossly without abnormality except for conjunctival pallor. Neck is negative for lymphadenopathy. Positive for jugular venous distention (JVD). Chest: Coarse distant breath sounds. No rhonchi or crackles. Heart is irregularly irregular, S1, S2. Positive murmur. Abdomen: Soft, nontender. Positive bowel sounds. No masses palpable. Extremities: 1-2+ pedal edema. Rectal examination deferred as per patient's request. LAB WORK: Hemoglobin 6.4/7.8 status post 2 units packed RBCs. WBCs 8.5/8.8, platelet count of 103/104. BUN 46/60. Creatinine 2.28/2.8. Imaging including CT abdomen and pelvis and ultrasound right upper quadrant on 02/23/2019, chest CT 02/25/2019 and echocardiogram of 07/28/2018 have all been reviewed. IMPRESSION: 1. Acute posthemorrhagic anemia with tachycardia and fragile blood pressure. 2. Bright red blood per rectum. 3. Hematemesis in the form of coffee grounds and dark fluid. 4. Cirrhosis of liver likely related to severe pulmonary hypertension. RECOMMENDATIONS: 1. Upper gastrointestinal (GI) bleeding suspected and would recommend and esophagogastroduodenoscopy (EGD) variceal bleeding versus ulceration versus other. 2. Colonoscopy can be considered depending on findings of upper endoscopy; however, at this time this is on hold. 3. Continue proton pump inhibitor (PPI) and transfuse as needed. I will empirically start him on octreotide while we are awaiting upper endoscopy.
--- NOTE | 2019-03-12 13:58 | CR ---
DATE OF CONSULTATION: 03/12/2019 REQUESTING PHYSICIAN: Dr. Linh Jacome CONSULTING PHYSICIAN: Dr. Sanz REASON FOR CONSULTATION: Management of end-stage renal disease and anemia. CHIEF COMPLAINT: Patient presented to the hospital yesterday with dizziness. HISTORY OF PRESENT ILLNESS: Jeremias Zuleta is a 78-year-old male with past medical history of end-stage renal disease recently started on hemodialysis during previous hospitalization, history of diabetes mellitus type 2, atrial fibrillation, multiple other comorbidities as mentioned below. He gets dialyzed on a Wednesday, , Wednesday schedule and after dialysis he felt dizzy. He was given IV fluids after the dialysis; however, his dizziness symptoms did not improve so he was sent to the emergency department for further evaluation. The patient was found to have significant symptomatic anemia with a hemoglobin of 6.4. He was admitted under the hospitalist service. Moreover, he was found to have melena. He was given PRBC transfusion. Nephrology service was called for further help in the management of this patient with end-stage renal disease and further optimization of his anemia. I saw and evaluated the patient today morning at the bedside. He reports that whenever he vomits he has blood in the vomitus and his blood pressure was also low today morning so he had been started on IV fluid hydration. The patient is possibly having a GI bleed. The patient is being transferred to the progressive care unit now. PAST MEDICAL HISTORY: Past medical history of end-stage renal disease on hemodialysis. History of hypertension. Chronic diastolic congestive heart failure. Diabetes mellitus type 2. Atrial fibrillation rate controlled with diltiazem and anticoagulated with Eliquis. Pulmonary hypertension and cor pulmonale. Chronic obstructive pulmonary disease (COPD). Obstructive sleep apnea, noncompliant with CPAP. History of liver cirrhosis. Hearing loss. Benign prostatic hypertrophy (BPH). History of indwelling Tran catheter in the past. PAST SURGICAL HISTORY: Status post a right IJ tunneled hemodialysis catheter placement. Status post cholecystectomy. Status post appendectomy. Status post lumbar spinal fusion surgery. History of lithotripsy in the past. History of left renal artery stent placement in the past. ALLERGIES: No known drug allergies. FAMILY HISTORY: No significant family history of end-stage renal disease requiring hemodialysis. SOCIAL HISTORY: The patient lives with his sister he denies any smoking, illicit drug abuse or alcohol abuse. REVIEW OF SYSTEMS: Constitutional: He denies any fevers or chills. He does report feeling weak. Eyes: He denies any blurry vision, double vision. ENT: Denies any dysphagia, odynophagia. Cardiovascular: He denies any chest pain or palpitation. Respiratory: He denies any shortness of breath or cough. GI: He reports vomiting which contains blood. Genitourinary: Denies any dysuria or hematuria. Musculoskeletal: He denies any muscle aches and pains. Skin: He denies any rashes or ulcers. Hematologic/Oncologic: He denies any easy bleeding or bruising, but he does report melena. 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 He does report hearing difficulty. Endocrine: He reports history of diabetes mellitus type 2. All other review of systems is symmetric negative. PHYSICAL EXAMINATION: GENERAL: The patient is awake, alert, oriented times two, laying in bed. VITAL SIGNS: Temperature is 98.2 degrees Fahrenheit, blood pressure was 95/52 in the morning, pulse 109, respiratory rate 24, saturating 94% on room air. INTAKE AND OUTPUT: He had 100 mL of emesis so far since overnight. HEAD AND NECK EXAM: Extraocular muscles intact. Pupils equally round and reactive to light. Mucous membranes are moist. Neck is supple. He has a right IJ tunneled hemodialysis catheter. CARDIOVASCULAR: S1, S2 irregularly irregular. No edema of the bilateral lower extremities. RESPIRATORY: Chest is clear to auscultation bilaterally. Bilateral equal air entry. No rales or rhonchi. ABDOMEN: Soft, positive bowel sounds. Nontender. No organomegaly. GENITOURINARY: Bladder is not palpable. MUSCULOSKELETAL: No clubbing or cyanosis. Pulses are 2+. 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 Apart from that he is hard of hearing he follows commands and moves extremities. LAB REVIEW: CBC showed a WBC of 8.58, hemoglobin 6.4 on arrival, repeat hemoglobin is 7.7 after 1 unit of PRBC. BMP today showed sodium 140, potassium 3.9, chloride 102, bicarb 28, BUN 60, creatinine is 2.8, calcium 7.6, iron is 214, transferrin saturation 97.3, ferritin is 1726. CURRENT INPATIENT MEDICATIONS: The patient's medications were all reviewed by me. He is getting normal saline at 110 mL per hour. He has been started on a Sandostatin drip at 10 mL per hour. He is on vitamin B12 500 mcg p.o. daily, diltiazem 360 mg p.o. daily, Lexapro 10 mg daily, finasteride 5 mg daily, hydralazine 100 mg p.o. twice a day has been held because of soft blood pressures. He is on insulin sliding scale. He has been started on Protonix drip. No other change in the medications today as compared with yesterday. ASSESSMENT: 78-year-old male with a history of end-stage renal disease on hemodialysis, hypertension, chronic diastolic congestive heart failure, atrial fibrillation anticoagulated with Eliquis, pulmonary hypertension and cor pulmonale, and history of cirrhosis admitted this time with symptomatic anemia and acute gastrointestinal (GI) bleed. PLAN: 1. Acute GI bleed. Patient came in with a hemoglobin 6.4. He has melena and he is reporting hematemesis as well. He has history of cirrhosis and anticoagulation. He is being transferred to the progressive care unit. The patient was given IV Protonix. He is also started on octreotide infusion. He needs the endoscopy done by GI. Continue IV fluid hydration. Transfuse p.r.n. for hemoglobin less than 8. Rest of the management is as per primary team and GI recommendations. I am also going to start the patient on Aranesp with dialysis. 2. End-stage renal disease on hemodialysis. The patient's regular dialysis days are Wednesday, and Wednesday. He was just dialyzed according to his regimen yesterday. No urgent need of hemodialysis at this time. 3. Atrial fibrillation. Rate is controlled with diltiazem. Anticoagulation is on hold because of GI bleed. 4. Hypertension with end-stage renal disease. Continue the diltiazem only. Hydralazine is on hold because of low blood pressures. 5. BPH with lower urinary tract symptoms. The patient used to be on Tran catheter, Tran catheter has been removed. Continue current dose of finasteride and Flomax at this time. Thank you for involving me in the in the care of this patient. I shall be happy to follow the patient along with you tomorrow morning.
[2019-03-12] MEDS ORDERED: OCTREOTIDE ACETATE 1,200 MCG in NS 238.8 ML IV SCH (14:00)
[2019-03-12] MEDS ORDERED: LIDOCAINE 2% INJ 100 MG/5 ML SDV (FOR ANES.) As Ordered ONE (14:37)
[2019-03-12] MEDS ORDERED: PROPOFOL 500 MG/50 ML VIAL As Ordered ONE (14:37)
[2019-03-12] MEDS ORDERED: PHENYLephrine HCL 500 MCG/5 ML (100MCG/ML) SYRINGE (J2370) As Ordered ONE (14:37)
--- NOTE | 2019-03-12 14:47 | ROOR ---
Patient Name: Jeremias Zuleta Procedure Date: 03/12/2019 1:02 PM Date of : 1940 Age: 78 Gender: Male Note Status: Finalized Procedure: Upper GI endoscopy Indications: Acute post hemorrhagic anemia, Hematemesis, Hematochezia, Recent gastrointestinal bleeding Providers: Willy OLGUIN MD Referring MD: 2. Inpatient 2. Inpatient Requesting Provider: Medicines: Monitored Anesthesia Care Complications: No immediate complications. Procedure: Pre-Anesthesia Assessment: - The heart rate, respiratory rate, oxygen saturations, blood pressure, adequacy of pulmonary ventilation, and response to care were monitored throughout the procedure. The Endoscope was introduced through the mouth, and advanced to the second part of duodenum. The upper GI endoscopy was accomplished without difficulty. The patient tolerated the procedure well. Findings: Moderately severe esophagitis with no bleeding was found in the lower third of the esophagus. The entire examined stomach was normal. Biopsies were taken with a cold forceps for Helicobacter pylori testing. Two oozing cratered duodenal ulcers with adherent clot were found in the first portion of the duodenum. The largest lesion was 10 mm in largest dimension. For hemostasis, four hemostatic clips were successfully placed. There was no bleeding at the end of the procedure. Impression: - Moderately severe reflux esophagitis. - Normal stomach. Biopsied. - Two duodenal ulcers- One with adherent clot, the other oozing. Clips were placed. Recommendation: - Use a proton pump inhibitor IV or PO Q q12 hrs/BID fdor 1 week, then q day. - Use sucralfate tablets 1 gram PO QID for 1 week, thern d/c sucralfate. - Clear liquid diet today. - Return patient to [facility] for ongoing care. Willy Olguin MD Willy OLGUIN MD 03/12/2019 2:47:15 PM Electronically signed by Willy OLGUIN MD Number of Addenda: 0 Note Initiated On: 03/12/2019 1:02 PM Estimated Blood Loss: Estimated blood loss: none.
--- NOTE | 2019-03-12 16:28 | IPNPDOC ---
Text Note Date of Service The patient was seen on 03/12/19. NOTE Subjective: Patient developed hematemesis in the morning, he did have 2 bowel movements with red blood. GI team urgently took him for endoscopy Objective: General: Pale male HEAD AND NECK EXAM: Extraocular muscles intact. Pupils equally round and reactive to light. Mucous membranes are moist. Neck is supple. He has a right IJ tunneled hemodialysis catheter. CARDIOVASCULAR: S1, S2 irregularly irregular, the cardiac rate 110. No edema of the bilateral lower extremities. RESPIRATORY: Chest is clear to auscultation bilaterally. Bilateral equal air entry. No rales or rhonchi. ABDOMEN: Soft, hyperactive bowel sound. Nontender. No organomegaly. GENITOURINARY: Bladder is not palpable. MUSCULOSKELETAL: No clubbing or cyanosis. Pulses are 2+. 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 Apart from that he is hard of hearing he follows commands and moves extremities. Assessment and plan 78-year-old male with a history of end-stage renal disease on hemodialysis, hypertension, chronic diastolic congestive heart failure, atrial fibrillation anticoagulated with Eliquis, pulmonary hypertension and cor pulmonale, and history of cirrhosis admitted this time with symptomatic anemia and acute gastrointestinal (GI) bleed GI bleeding Acute EGD was done and showed: Two duodenal ulcers- One with adherent clot, the other oozing. Clips were placed. Dr. Olguin commended a proton pump inhibitor IV or PO Q q12 hrs/BID for 1 week, then q day, sucralfate tablets 1 gram PO QID for 1 week, then d/c sucralfate. Clear liquid diet today. Patient received 2 blood unit of transfusion today Acute on Chronic Symptomatic Anemia See above Tachycardia Secondary to A. fib and dehydration Blood transfusion IV fluid, diltiazem ESRD Continue dialysis Maintenance Advisor on board DM -recent A1C 7.6% Insulin sliding scale Afib Plan: Hold apixaban Continue diltiazem hypertension Antihypertensive medications on hold for now due to hypotension chronic diastolic congestive heart failure Not on acute exacerbation Stable COPD Plan: Resume home meds BPH Plan: Resume home meds VS,Fishbone, I+O VS, Fishbone, I+O Laboratory Tests 03/11/19 23:13 Red Blood Count 2.16 L, Mean Corpuscular Volume 94.0, Mean Corpuscular Hemoglobin 29.6, Mean Corpuscular Hemoglobin Concent 31.5 L, Red Cell Distribution Width 17.2 H, Neutrophils (%) (Auto) 86.4 H, Lymphocytes (%) (Auto) 3.9 L, Monocytes (%) (Auto) 8.4 H, Eosinophils (%) (Auto) 0.1, Basophils (%) (Auto) 0.1, Neutrophils # (Auto) 7.3, Lymphocytes # (Auto) 0.3 L, Monocytes # (Auto) 0.7, Eosinophils # (Auto) 0.0, Basophils # (Auto) 0.0, Calcium Level 8.1 L 03/12/19 06:52 Red Blood Count 2.58 L, Mean Corpuscular Volume 92.2, Mean Corpuscular Hemoglobin 30.2, Mean Corpuscular Hemoglobin Concent 32.8, Red Cell Distribution Width 17.7 H, Calcium Level 7.6 L 03/12/19 12:05 Vital Signs Date Time Temp Pulse Resp B/P (MAP) Pulse Ox O2 Delivery O2 Flow Rate FiO2 03/12/19 15:48 97 113/72 03/12/19 15:30 97.7 20 96 2.0 03/12/19 01:15 Room Air I&O- Last 24 Hours up to 6 AM 03/12/19 06:00 Intake Total 480 ml Balance 480 ml RADHA MARTINEZ DO Mar 12, 2019 16:28
[2019-03-12] MEDS: SUCRALFATE 1 GM TAB PO SCH ×2 (16:59→21:12)
[2019-03-12 19:49] LABS: HEMATOCRIT 30.3 % (42.0-52.0)
[2019-03-12 20:01] LABS: HEMOGLOBIN 9.9 g/dl (13.5-17.5)
[2019-03-12] MEDS: TAMSULOSIN 0.4 MG CAP PO SCH (21:12)
[2019-03-12] MEDS: PANTOPRAZOLE 40MG INJ (PROTONIX) (C9113) IV SCH (21:12)
[2019-03-13] VITALS (8 sets, daily range): BP systolic 110–142; BP diastolic 58–79
[2019-03-13 01:58] LABS: HEMATOCRIT 28.7 % (42.0-52.0); HEMOGLOBIN 9.7 g/dl (13.5-17.5)
[2019-03-13 07:32] LABS: HEMATOCRIT 29.7 % (42.0-52.0); HEMOGLOBIN 9.5 g/dl (13.5-17.5); MEAN CORPUSCULAR HEMOGLOBIN 29.4 pg (27.0-33.0); PLATELET COUNT, AUTOMATED 109 10^3/uL (150-450); RED BLOOD COUNT 3.23 10^6/uL (4.30-6.10); WHITE BLOOD COUNT 8.4 10^3/uL (4.0-10.0)
[2019-03-13 08:16] LABS: CALCIUM LEVEL 7.7 MG/DL (8.8-10.2); CREATININE FOR GFR 4.15 MG/DL (0.70-1.30); GLOMERULAR FILTRATION RATE 14.9 (>42); POTASSIUM SERUM 3.9 MEQ/L (3.5-5.1)
--- NOTE | 2019-03-13 08:20 | ECGEPIP ---
[facility] - ED Test Date: 2019-03-11 Pat Name: TORSTEN DAY Department: Room: [place] [address] Gender: Male Database Administration Manager: maritza : 1940 Requested By: MAGUE ADKINS Order Number: [id number] Reading MD: Trena Valenzuela Measurements Intervals [place] Rate: 117 P: RI: 0 QRS: 85 QRSD: 106 T: 70 QT: 373 QTc: 522 Interpretive Statements ATRIAL FIBRILLATION WITH RAPID VENTRICULAR RESPONSE WITH ABERRANT CONDUCTION OR EDYTA VENTRICULAR PREMATURE COMPLEXES LOW QRS VOLTAGE IN EXTREMITY LEADS PATTERN CONSISTENT WITH PULMONARY DISEASE ST DEPRESSION, CONSIDER SUBENDOCARDIAL INJURY, CLINICAL CORRELATION COMPARED 03/06/19 Electronically Signed on 03-13-2019 8:20:28 EDT by Trena Valenzuela
[2019-03-13] MEDS: PANTOPRAZOLE 40MG INJ (PROTONIX) (C9113) IV SCH ×2 (08:47→20:36)
[2019-03-13] MEDS: HumaLOG INSULIN (NovoLOG) PER UNIT SC SCH ×4 (08:47→20:10)
[2019-03-13] MEDS: diltiaZEM **CD** 180 MG CAP PO SCH (08:48)
[2019-03-13] MEDS: SUCRALFATE 1 GM TAB PO SCH ×4 (08:48→20:37)
[2019-03-13] MEDS: ESCITALOPRAM OXALATE 10 MG TAB (LEXAPRO) PO SCH (08:48)
[2019-03-13] MEDS: FINASTERIDE 5 MG TAB PO SCH (08:48)
--- NOTE | 2019-03-13 10:05 | IPNPDOC ---
Text Note Date of Service The patient was seen on 03/13/19. NOTE Subjective: Patient has a good appetite, overnight he developed 1 bowel movement w/o blood Objective: General: NAD HEAD AND NECK EXAM: Extraocular muscles intact. Pupils equally round and reactive to light. Mucous membranes are moist. Neck is supple. He has a right IJ tunneled hemodialysis catheter. CARDIOVASCULAR: S1, S2 irregularly irregular, the cardiac rate 110. No edema of the bilateral lower extremities. RESPIRATORY: Chest is clear to auscultation bilaterally. Bilateral equal air entry. No rales or rhonchi. ABDOMEN: Soft, hyperactive bowel sound. Nontender. No organomegaly. GENITOURINARY: Bladder is not palpable. MUSCULOSKELETAL: No clubbing or cyanosis. Pulses are 2+. 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 Apart from that he is hard of hearing he follows commands and moves extremities. Assessment and plan 78-year-old male with a history of end-stage renal disease on hemodialysis, hypertension, chronic diastolic congestive heart failure, atrial fibrillation anticoagulated with Eliquis, pulmonary hypertension and cor pulmonale, and history of cirrhosis admitted this time with symptomatic anemia and acute gastrointestinal (GI) bleed. On 03/12/19 EGD was done, he was found to have 2 duodenal ulcers, clips were placed. GI bleeding Resolved EGD was done and showed: Two duodenal ulcers- One with adherent clot, the other oozing. Clips were placed. Dr. Olguin commended a proton pump inhibitor IV or PO Q q12 hrs/BID for 1 week, then q day, sucralfate tablets 1 gram PO QID for 1 week, then d/c sucralfate. Continue clear liquid diet Acute on Chronic Symptomatic Anemia Hemoglobin markedly improved and stable after blood transfusion and EGD See above Tachycardia Resolved Secondary to A. fib and dehydration Continue diltiazem ESRD Continue dialysis Electronic Maintenance Supervisor on board DM -recent A1C 7.6% Insulin sliding scale Afib Plan: resume apixaban HR is under control Continue diltiazem hypertension Continue diltiazem with parameters chronic diastolic congestive heart failure Not on acute exacerbation Stable COPD Plan: Resume home meds BPH Plan: Resume home meds VS,Fishbone, I+O VS, Fishbone, I+O Laboratory Tests 03/12/19 12:05 03/12/19 19:40 03/13/19 01:53 03/13/19 07:21 Red Blood Count 3.23 L, Mean Corpuscular Volume 92.0, Mean Corpuscular Hemoglobin 29.4, Mean Corpuscular Hemoglobin Concent 32.0, Red Cell Distribution Width 18.5 H, Calcium Level 7.7 L Vital Signs Date Time Temp Pulse Resp B/P (MAP) Pulse Ox O2 Delivery O2 Flow Rate FiO2 03/13/19 08:48 84 132/79 03/13/19 08:00 96.5 20 95 03/13/19 07:15 2.0 03/12/19 01:15 Room Air I&O- Last 24 Hours up to 6 AM 03/13/19 06:00 Intake Total 3697 ml Output Total 100 ml Balance 3597 ml RADHA MARTINEZ DO Mar 13, 2019 10:05
[2019-03-13] MEDS: CYANOCOBALAMIN 500 MCG TAB PO SCH (13:01)
--- NOTE | 2019-03-13 14:27 | IPNPDOC ---
Date Seen The patient was seen on 03/13/19. Progress Note NEPHROLOGY SERVICE PROGRESS NOTE SUBJECTIVE: Patient was seen and examined at the bedside this morning. The results of his EGD were explained to him. The patient is [id number] and does not quite demonstrate understanding. He does not report any more vomitus with blood. He appears stable. He denies any lightheadedness or dizziness at this time. He has no other complaints. OBJECTIVE PHYSICAL EXAMINATION: VITAL SIGNS: Please see below. GENERAL: laying in bed, appears stated age, calm, cooperative, in no acute distress HEENT: EOMI, moist mucus membranes with normal dentition, neck is supple with no signs of lymphadenopathy or thyromegaly CARDIOVASCULAR: irregularly irregular rhythm with no obvious murmurs/rubs/gallops appreciated RESPIRATORY: clear to auscultation bilaterally with no adventitious breath sounds appreciated ABDOMINAL: nontender to palpation with no masses or organomegaly, +BS EXTREMITIES: No clubbing/cyanosis/edema appreciated NEUROLOGICAL: CN 2-12 intact without any obvious focal deficits PSYCHOLOGICAL: normal mood/affect, AAOx3 LABORATORY DATA, IMAGING STUDIES, MICROBIOLOGY: Please see below. ASSESSMENT AND PLAN: This is a 78 YO M with ESRD on HD (, , S), AF on Eliquis, chronic dCHF, HTN who presented with dizziness, found to have hgb 6.4 and to have 2 gastric ulcers (one oozing) on endoscopy. Today his hgb has improved and he denies any more vomiting or hematemesis. PROBLEMS: 1. Acute UGI bleed: -The patient was found to have 2 gastric ulcers (one oozing) on upper endoscopy -Continue Protonix and Carafate per GI recommendations at this time -Hgb up to 9.5 this morning s/p 4U pRBC transfusion. Will continue to monitor with CBC tomorrow -The patient has been started on Aranesp -d/c IVF -Stopped Eliquis 2/2 UGI bleed. In any case, Eliquis should be renally dosed in this patient at 2.5mg once he is hemodynamically stable. 2. ESRD on HD (, , S): -The patient will be dialyzed tomorrow 3. Atrial fibrillation: -Please hold Eliquis at this time 4. HTN:BPs are stable in the 130s/60s-70s at this time -Hold Hydralazine -Continue Diltiazem 5. BPH: -Continue Finasteride and Flomax DISPOSITION: pending clinical improvement VS, I&O, 24H, Fishbone Vital Signs/I&O Vital Signs Date Time Temp Pulse Resp B/P (MAP) Pulse Ox O2 Delivery O2 Flow Rate FiO2 03/13/19 12:10 2.0 03/13/19 12:00 97.0 68 18 132/61 (84) 95 03/12/19 01:15 Room Air I&O- Last 24 Hours up to 6 AM 03/13/19 06:00 Intake Total 3697 ml Output Total 100 ml Balance 3597 ml Laboratory Data 24H LABS Laboratory Tests 2 03/12/19 16:41: Bedside Glucose (Misc Panel) 186H 03/12/19 20:09: Bedside Glucose (Misc Panel) 181H 03/13/19 07:21: Nucleated Red Blood Cells % (auto) 0.4H, Anion Gap 9, Glomerular Filtration Rate 14.9L, Blood Urea Nitrogen 74H, Creatinine 4.15H, Sodium Level 139, Potassium Level 3.9, Chloride Level 106, Carbon Dioxide Level 24, Calcium Level 7.7L 03/13/19 07:26: Bedside Glucose (Misc Panel) 145H 03/13/19 12:04: Bedside Glucose (Misc Panel) 202H CBC/BMP Laboratory Tests 03/12/19 19:40 03/13/19 01:53 03/13/19 07:21 Red Blood Count 3.23 L, Mean Corpuscular Volume 92.0, Mean Corpuscular Hemoglobin 29.4, Mean Corpuscular Hemoglobin Concent 32.0, Red Cell Distribution Width 18.5 H, Calcium Level 7.7 L GME ATTESTATION GME ATTESTATION My faculty preceptor for this patient encounter was physically present during the encounter and was fully available. All aspects of the patient interview, examination, medical decision making process, and medical care plan development were reviewed and approved by the faculty preceptor. The faculty preceptor is aware and concurs with the plan as stated in the body of this note and will attest to such by his/her cosignature. CANDIDA LAMB MD Mar 13, 2019 14:27
[2019-03-13 14:57] LABS: HEMOGLOBIN 10.1 g/dl (13.5-17.5)
[2019-03-13 19:59] LABS: HEMATOCRIT 29.9 % (42.0-52.0); HEMOGLOBIN 9.6 g/dl (13.5-17.5)
[2019-03-13] MEDS: TAMSULOSIN 0.4 MG CAP PO SCH (20:37)
[2019-03-13] MEDS: ATORVASTATIN 10 MG TAB PO SCH (20:37)
[2019-03-13] MEDS ORDERED: APIXABAN 5 MG TAB (ELIQUIS) PO SCH (21:00)
[2019-03-14 00:17] LABS: HEMATOCRIT 29.3 % (42.0-52.0); HEMOGLOBIN 9.4 g/dl (13.5-17.5)
[2019-03-14 04:00] VITALS: BP 130/68
[2019-03-14 06:16] LABS: HEMATOCRIT 27.4 % (42.0-52.0); HEMOGLOBIN 8.8 g/dl (13.5-17.5)
[2019-03-14 06:48] LABS: CREATININE FOR GFR 5.16 MG/DL (0.70-1.30); GLOMERULAR FILTRATION RATE 11.6 (>42); POTASSIUM SERUM 3.5 MEQ/L (3.5-5.1)
[2019-03-14] MEDS: HumaLOG INSULIN (NovoLOG) PER UNIT SC SCH ×4 (07:30→21:00)
[2019-03-14 08:00] VITALS: BP 145/81
[2019-03-14] MEDS: SUCRALFATE 1 GM TAB PO SCH ×5 (09:00→20:56)
--- NOTE | 2019-03-14 10:26 | IPNPDOC ---
Subjective Date Seen The patient was seen on 03/14/19. Subjective Chief Complaint/HPI Comfortable now on clear liquid diet. Offers no new complaints at the present time, scheduled for HD today General: Denies: ROS Unobtainable, Chills, Night Sweats, Fatigue, Malaise, Normal Appetite, Other Symptoms Constitutional: Denies: Chills, Fever, Malaise, Night Sweats, Weakness, Fatigue, Weight Loss, Lethargy, Other Pulmonary: Denies: Dyspnea, Cough, Pleuritic Chest Pain, Other Symptoms Cardiovascular: Denies: Chest Pain, Palpitations, Orthopnea, Paroxysmal Noc. Dyspnea, Edema, Lt Headedness, Other Symptoms Gastrointestinal: Denies: Nausea, Vomiting, Abdominal Pain, Diarrhea, Constipation, Melena, Hematochezia, Other Symptoms Hematologic: Denies: Bruising, Bleeding Excessively, Petecchia, Purpura, Enlarged Lymph Nodes, Other Hematologic Endocrine: Denies: Polydipsia, Polyphagia, Polyuria, Heat Intolerance, Cold Intolerance, Other Endocrine Sx Musculoskeletal: Denies: Neck Pain, Back Pain, Shoulder Pain, Arm Pain, Hand Pain, Leg Pain, Foot Pain, Joint Pain, Muscle Pain, Spasms, Other Symptoms Neurological: Denies: Weakness, Numbness, Incoordination, Change in speech, Confusion, Seizures, Other Symptoms Objective Physical Examination General Exam: Positive: Alert, Cooperative Eye Exam: Positive: PERRLA, Conjunctiva & lids normal ENT Exam: Positive: Atraumatic, Mucous membr. moist/pink Neck Exam: Positive: Supple Chest Exam: Positive: Clear to auscultation, Normal air movement Heart Exam: Positive: Rate Normal, Normal S1 Abdomen Exam: Positive: Normal bowel sounds, Soft Extremity Exam: Positive: Normal pulses Skin Exam: Positive: Nl turgor and temperature Assessment /Plan Problems (1) GI (gastrointestinal bleed) Status: Acute Problem Text: 78-year-old male with a history of end-stage renal disease on hemodialysis, hypertension, chronic diastolic congestive heart failure, atrial fibrillation anticoagulated with Eliquis, pulmonary hypertension and cor pulmonale, and history of cirrhosis admitted this time with symptomatic anemia and acute gastrointestinal (GI) bleed. On 03/12/19 EGD was done, he was found to have 2 duodenal ulcers, clips were placed. GI bleeding has now resolved Patient was on clear liquid diet. which will be upgraded to advance diet as tolerated Change Protonix to 40 mg by mouth twice a day Will restart at the quest on discharge at smaller dose secondary to renal dysfunction Continue sucralfate for 1 week (2) Symptomatic anemia Status: Acute Problem Text: Anemia secondary to acute blood loss Dose of bleeding was gastric ulcers H&H is stable now, hemoglobin 8.8, hematocrit 27.4 Monitor H&H. till Discharge (3) ESRD (end stage renal disease) on dialysis Status: Chronic Problem Text: End-stage renal disease on hemodialysis Scheduled for dialysis today Plan/VTE VTE Prophylaxis Ordered?: Yes VS, I&O, 24H, Fishbone Vital Signs/I&O Vital Signs Date Time Temp Pulse Resp B/P (MAP) Pulse Ox O2 Delivery O2 Flow Rate FiO2 03/14/19 08:02 2.0 03/14/19 08:00 97.0 95 18 145/81 (102) 94 03/12/19 01:15 Room Air I&O- Last 24 Hours up to 6 AM 03/14/19 06:00 Intake Total 920 ml Output Total 0 ml Balance 920 ml Laboratory Data 24H LABS Laboratory Tests 2 03/13/19 12:04: Bedside Glucose (Misc Panel) 202H 03/13/19 16:54: Bedside Glucose (Misc Panel) 164H 03/13/19 19:49: Bedside Glucose (Misc Panel) 129H 03/14/19 05:20: Anion Gap 12, Glomerular Filtration Rate 11.6L, Blood Urea Nitrogen 80H, Creatinine 5.16H, Sodium Level 140, Potassium Level 3.5, Chloride Level 103, Carbon Dioxide Level 25, Calcium Level 8.0L, Magnesium Level 2.0 CBC/BMP Laboratory Tests 03/13/19 14:39 03/13/19 19:47 03/14/19 00:03 03/14/19 05:20 Calcium Level 8.0 L 03/14/19 06:00 GOGO MOORE MD Mar 14, 2019 10:26
[2019-03-14] MEDS ORDERED: DARBEPOETIN 100 MCG/0.5 ML *DIALYSIS* SYRINGE (J0882) IV SCH (10:30)
[2019-03-14 12:00] VITALS: BP 139/91
[2019-03-14] MEDS ORDERED: HEPARIN 1,000 UNITS/ML 10ML VIAL (FOR RADIOLOGY& DIALYSIS ONLY) XX ONE (12:00)
[2019-03-14] MEDS: PANTOPRAZOLE 40MG TAB (PROTONIX) PO SCH ×2 (13:18→20:57)
[2019-03-14] MEDS: FINASTERIDE 5 MG TAB PO SCH (13:18)
[2019-03-14] MEDS: diltiaZEM **CD** 180 MG CAP PO SCH (13:18)
[2019-03-14] MEDS: ESCITALOPRAM OXALATE 10 MG TAB (LEXAPRO) PO SCH (13:19)
[2019-03-14] MEDS: CYANOCOBALAMIN 500 MCG TAB PO SCH (13:19)
--- NOTE | 2019-03-14 13:56 | IPNPDOC ---
Date Seen The patient was seen on 03/14/19. Progress Note NEPHROLOGY SERVICE PROGRESS NOTE SUBJECTIVE: Patient was seen and examined at the bedside this morning in dialysis. He does not have any complaints, nor were there any issues reported overnight. His hgb decreased to 8.8 this morning. He is eating, but not nearly enough. He is not vomiting, but he does report some dark stools. Otherwise, he is not reporting any lightheadedness/dizziness or SOB. OBJECTIVE PHYSICAL EXAMINATION: VITAL SIGNS: Please see below. GENERAL: laying in bed, appears stated age, calm, cooperative, in no acute distress HEENT: EOMI, moist mucus membranes with normal dentition, neck is supple with no signs of lymphadenopathy or thyromegaly CARDIOVASCULAR: irregularly irregular rhythm with no obvious murmurs/rubs/gallops appreciated RESPIRATORY: clear to auscultation bilaterally with no adventitious breath sounds appreciated ABDOMINAL: nontender to palpation with no masses or organomegaly, +BS EXTREMITIES: No clubbing/cyanosis/edema appreciated NEUROLOGICAL: CN 2-12 intact without any obvious focal deficits PSYCHOLOGICAL: normal mood/affect, AAOx3 LABORATORY DATA, IMAGING STUDIES, MICROBIOLOGY: Please see below. ASSESSMENT AND PLAN: This is a 78 YO M with ESRD on HD (, , ), AF on Eliquis, chronic dCHF, HTN who presented with dizziness, found to have hgb 6.4 and to have 2 gastric ulcers (one oozing) on endoscopy. PROBLEMS: 1. Acute UGI bleed: -The patient was found to have 2 gastric ulcers (one oozing) on upper endoscopy and mild chronic inflammation on gastric biopsy. He continues to have dark stools, but this may just be resolving from bleeding ulcers. His Hgb did drop to 8.8 today which may mean the bleeding is ongoing. Will have to monitor with subsequent CBCs -Continue Protonix and Carafate per GI recommendations at this time -s/p 4U pRBC transfusion. Will continue to monitor CBC Q6H and transfuse if necessary -Continue Aranesp -Stopped Eliquis 2/2 UGI bleed. In any case, Eliquis should be renally dosed in this patient at 2.5mg once he is hemodynamically stable. 2. ESRD on HD (, ): -The patient will be dialyzed today 3. Atrial fibrillation: -Please hold Eliquis at this time 4. HTN:BPs are stable in the 130s/60s-70s at this time -Hold Hydralazine -Continue Diltiazem 5. BPH: -Continue Finasteride and Flomax DISPOSITION: pending clinical improvement VS, I&O, 24H, Fishbone Vital Signs/I&O Vital Signs Date Time Temp Pulse Resp B/P (MAP) Pulse Ox O2 Delivery O2 Flow Rate FiO2 03/14/19 04:00 2.0 03/14/19 04:00 97.3 80 16 130/68 (88) 94 03/12/19 01:15 Room Air I&O- Last 24 Hours up to 6 AM 03/14/19 06:00 Intake Total 920 ml Output Total 0 ml Balance 920 ml Laboratory Data 24H LABS Laboratory Tests 2 03/13/19 12:04: Bedside Glucose (Misc Panel) 202H 03/13/19 16:54: Bedside Glucose (Misc Panel) 164H 03/13/19 19:49: Bedside Glucose (Misc Panel) 129H 03/14/19 05:20: Anion Gap 12, Glomerular Filtration Rate 11.6L, Blood Urea Nitrogen 80H, Creatinine 5.16H, Sodium Level 140, Potassium Level 3.5, Chloride Level 103, Carbon Dioxide Level 25, Calcium Level 8.0L, Magnesium Level 2.0 CBC/BMP Laboratory Tests 03/13/19 14:39 03/13/19 19:47 03/14/19 00:03 03/14/19 05:20 Calcium Level 8.0 L 03/14/19 06:00 GME ATTESTATION GME ATTESTATION My faculty preceptor for this patient encounter was physically present during the encounter and was fully available. All aspects of the patient interview, examination, medical decision making process, and medical care plan development were reviewed and approved by the faculty preceptor. The faculty preceptor is aware and concurs with the plan as stated in the body of this note and will attest to such by his/her cosignature. CANDIDA LAMB MD Mar 14, 2019 07:40
[2019-03-14 16:05] VITALS: BP 166/83
[2019-03-14] MEDS ORDERED: SLF 3 ML SYR IV PRN (17:15)
[2019-03-14] MEDS ORDERED: MAG SULF 1GM/100ML (MAG RUN) 1 GM in IV 1 EA IV ONE (19:45)
[2019-03-14] MEDS ORDERED: POTASSIUM CHLORIDE 10 MEQ SR TABLET PO ONE ×2 (19:45→23:00)
[2019-03-14 20:00] VITALS: BP 151/78
[2019-03-14 20:26] LABS: HEMATOCRIT 28.9 % (42.0-52.0); HEMOGLOBIN 9.1 g/dl (13.5-17.5)
[2019-03-14] MEDS: TAMSULOSIN 0.4 MG CAP PO SCH (20:57)
[2019-03-14] MEDS: ATORVASTATIN 10 MG TAB PO SCH (20:57)
[2019-03-14] MEDS: SLF 3 ML SYR IV SCH (21:09)
[2019-03-14 23:59] VITALS: BP 128/73
[2019-03-15 04:00] VITALS: BP 158/83
[2019-03-15] MEDS: SLF 3 ML SYR IV SCH ×3 (05:16→20:33)
[2019-03-15 05:23] LABS: BASO % 0.4 % (0.0-1.0); EOS % 0.5 % (0.0-3.0); HEMATOCRIT 29.5 % (42.0-52.0); HEMOGLOBIN 9.2 g/dl (13.5-17.5); LYMPH # 0.4 10^3/uL (1.5-5.0); LYMPH % 7.4 % (24.0-44.0); MEAN CORPUSCULAR HEMOGLOBIN 29.8 pg (27.0-33.0); MEAN CORPUSCULAR HGB CONC 31.2 g/dl (32.0-36.5); MEAN CORPUSCULAR VOLUME 95.5 fl (80.0-96.0); MONO # 0.6 10^3/uL (0.0-0.8); NEUTROPHILS # 4.4 10^3/uL (1.5-8.5); NEUTROPHILS % 79.1 % (36.0-66.0); PLATELET COUNT, AUTOMATED 106 10^3/uL (150-450); RED BLOOD COUNT 3.09 10^6/uL (4.30-6.10); WHITE BLOOD COUNT 5.6 10^3/uL (4.0-10.0)
[2019-03-15 05:46] LABS: ALBUMIN 2.8 GM/DL (3.2-5.2); BILIRUBIN,TOTAL 0.7 MG/DL (0.2-1.0); CALCIUM LEVEL 8.3 MG/DL (8.8-10.2); CREATININE FOR GFR 3.57 MG/DL (0.70-1.30); GLOMERULAR FILTRATION RATE 17.7 (>42); POTASSIUM SERUM 3.6 MEQ/L (3.5-5.1)
[2019-03-15 08:00] VITALS: BP 165/79
[2019-03-15] MEDS: SUCRALFATE 1 GM TAB PO SCH ×4 (08:26→20:32)
[2019-03-15] MEDS: ESCITALOPRAM OXALATE 10 MG TAB (LEXAPRO) PO SCH (08:26)
[2019-03-15] MEDS: FINASTERIDE 5 MG TAB PO SCH (08:26)
[2019-03-15] MEDS: diltiaZEM **CD** 180 MG CAP PO SCH (08:26)
[2019-03-15] MEDS: PANTOPRAZOLE 40MG TAB (PROTONIX) PO SCH ×2 (08:26→20:32)
[2019-03-15] MEDS: HumaLOG INSULIN (NovoLOG) PER UNIT SC SCH ×4 (08:26→20:32)
--- NOTE | 2019-03-15 10:27 | IPNPDOC ---
Subjective Date Seen The patient was seen on 03/15/19. Subjective Chief Complaint/HPI Patient is comfortable offers no new complaints, in no apparent distress General: Denies: ROS Unobtainable, Chills, Night Sweats, Fatigue, Malaise, Normal Appetite, Other Symptoms Constitutional: Denies: Chills, Fever, Malaise, Night Sweats, Weakness, Fatigue, Weight Loss, Lethargy, Other Pulmonary: Denies: Dyspnea, Cough, Pleuritic Chest Pain, Other Symptoms Cardiovascular: Denies: Chest Pain, Palpitations, Orthopnea, Paroxysmal Noc. Dyspnea, Edema, Lt Headedness, Other Symptoms Gastrointestinal: Denies: Nausea, Vomiting, Abdominal Pain, Diarrhea, Constipation, Melena, Hematochezia, Other Symptoms Endocrine: Denies: Polydipsia, Polyphagia, Polyuria, Heat Intolerance, Cold Intolerance, Other Endocrine Sx Musculoskeletal: Denies: Neck Pain, Back Pain, Shoulder Pain, Arm Pain, Hand Pain, Leg Pain, Foot Pain, Joint Pain, Muscle Pain, Spasms, Other Symptoms Neurological: Denies: Weakness, Numbness, Incoordination, Change in speech, Confusion, Seizures, Other Symptoms Objective Physical Examination General Exam: Positive: Alert, Cooperative Eye Exam: Positive: PERRLA, Conjunctiva & lids normal ENT Exam: Positive: Atraumatic, Mucous membr. moist/pink Neck Exam: Positive: Supple Chest Exam: Positive: Clear to auscultation, Normal air movement Heart Exam: Positive: Rate Normal, Normal S1 Abdomen Exam: Positive: Normal bowel sounds, Soft Extremity Exam: Positive: Normal pulses Skin Exam: Positive: Nl turgor and temperature Assessment /Plan Problems (1) GI (gastrointestinal bleed) Status: Acute Problem Text: 78-year-old male with a history of end-stage renal disease on hemodialysis, hypertension, chronic diastolic congestive heart failure, atrial fibrillation anticoagulated with Eliquis, pulmonary hypertension and cor pulmonale, and history of cirrhosis admitted this time with symptomatic anemia and acute gastrointestinal (GI) bleed. On 03/12/19 EGD was done, he was found to have 2 duodenal ulcers, clips were placed. GI bleeding has now resolved Patient tolerating oral diet very well Change Protonix to 40 mg by mouth twice a day Will restart eliquis on discharge at smaller dose secondary to renal dysfunction Continue sucralfate for 1 week Once titrated off oxygen. He can be discharged home Discussed with the case management today regarding discharge planning (2) Symptomatic anemia Status: Acute Problem Text: Anemia secondary to acute blood loss Dose of bleeding was gastric ulcers , Hemoglobin is 9.2, stable (3) ESRD (end stage renal disease) on dialysis Status: Chronic Problem Text: End-stage renal disease on hemodialysis Had a dialysis done yesterday , Hopefully patient will be discharged today Plan/VTE VTE Prophylaxis Ordered?: Yes VS, I&O, 24H, Fishbone Vital Signs/I&O Vital Signs Date Time Temp Pulse Resp B/P (MAP) Pulse Ox O2 Delivery O2 Flow Rate FiO2 03/15/19 08:26 94 165/79 03/15/19 08:00 97.0 16 96 2.0 03/12/19 01:15 Room Air I&O- Last 24 Hours up to 6 AM 03/15/19 06:00 Intake Total 1068 ml Output Total 1750 ml Balance -682 ml Laboratory Data 24H LABS Laboratory Tests 2 03/14/19 13:02: Bedside Glucose (Misc Panel) 108 03/14/19 17:04: Bedside Glucose (Misc Panel) 124H 03/14/19 20:26: Bedside Glucose (Misc Panel) 172H 03/15/19 04:46: Immature Granulocyte % (Auto) 1.6, White Blood Count 5.6, Red Blood Count 3.09L, Hemoglobin 9.2L, Hematocrit 29.5L, Mean Corpuscular Volume 95.5, Mean Corpuscular Hemoglobin 29.8, Mean Corpuscular Hemoglobin Concent 31.2L, Red Cell Distribution Width 17.4H, Platelet Count 106L, Neutrophils (%) (Auto) 79.1H, Lymphocytes (%) (Auto) 7.4L, Monocytes (%) (Auto) 11.0H, Eosinophils (%) (Auto) 0.5, Basophils (%) (Auto) 0.4, Neutrophils # (Auto) 4.4, Lymphocytes # (Auto) 0.4L, Monocytes # (Auto) 0.6, Eosinophils # (Auto) 0.0, Basophils # (Auto) 0.0, Nucleated Red Blood Cells % (auto) 0.9H, Anion Gap 8, Glomerular Filtration Rate 17.7L, Blood Urea Nitrogen 34#H, Creatinine 3.57H, Sodium Level 141, Potassium Level 3.6, Chloride Level 105, Carbon Dioxide Level 28, Calcium Level 8.3L, Aspartate Amino Transf (AST/SGOT) 48H, Alanine Aminotransferase (ALT/SGPT) 118H, Alkaline Phosphatase 106, Total Bilirubin 0.7, Total Protein 6.0L, Albumin 2.8L, Albumin/Globulin Ratio 0.88L CBC/BMP Laboratory Tests 03/14/19 19:53 03/15/19 04:46 Red Blood Count 3.09 L, Mean Corpuscular Volume 95.5, Mean Corpuscular Hemoglob in 29.8, Mean Corpuscular Hemoglobin Concent 31.2 L, Red Cell Distribution Width 17.4 H, Neutrophils (%) (Auto) 79.1 H, Lymphocytes (%) (Auto) 7.4 L, Monocytes (%) (Auto) 11.0 H, Eosinophils (%) (Auto) 0.5, Basophils (%) (Auto) 0.4, Neutrophils # (Auto) 4.4, Lymphocytes # (Auto) 0.4 L, Monocytes # (Auto) 0.6, Eosinophils # (Auto) 0.0, Basophils # (Auto) 0.0, Calcium Level 8.3 L, Aspartate Amino Transf (AST/SGOT) 48 H, Alanine Aminotransferase (ALT/SGPT) 118 H, Alkaline Phosphatase 106, Total Bilirubin 0.7, Total Protein 6.0 L, Albumin 2.8 L Microbiology Microbiology 03/14/19 Stool Occult Blood (NATA) - Final, Complete GOGO MOORE MD Mar 15, 2019 10:27
--- NOTE | 2019-03-15 11:50 | IPNPDOC ---
Date Seen The patient was seen on 03/15/19. Progress Note NEPHROLOGY SERVICE PROGRESS NOTE SUBJECTIVE: Patient was seen and examined at the bedside this morning. He has no complaints. He does report that his stool is no longer black. He is not having any issues with breathing, although he wishes not to wear supplemental oxygen any longer. Nursing reports that during activity his oxygen saturation falls below 88%. OBJECTIVE PHYSICAL EXAMINATION: VITAL SIGNS: Please see below. GENERAL: laying in bed, appears stated age, calm, cooperative, in no acute distress HEENT: EOMI, moist mucus membranes with normal dentition, neck is supple with no signs of lymphadenopathy or thyromegaly CARDIOVASCULAR: irregularly irregular rhythm with no obvious mu rmurs/rubs/gallops appreciated RESPIRATORY: clear to auscultation bilaterally with no adventitious breath sounds appreciated ABDOMINAL: nontender to palpation with no masses or organomegaly, +BS EXTREMITIES: No clubbing/cyanosis/edema appreciated NEUROLOGICAL: CN 2-12 intact without any obvious focal deficits PSYCHOLOGICAL: normal mood/affect, AAOx3 LABORATORY DATA, IMAGING STUDIES, MICROBIOLOGY: Please see below. ASSESSMENT AND PLAN: This is a 78 YO M with ESRD on HD (, , ), AF on Eliquis , chronic dCHF, HTN who presented with dizziness, found to have hgb 6.4 and to have 2 gastric ulcers (one oozing) on endoscopy. PROBLEMS: 1. Acute UGI bleed: -The patient was found to have 2 gastric ulcers (one oozing) on upper endoscopy and mild chronic inflammation on gastric biopsy. He was having dark stools, but this is resolving. Hgb is stable at 9.2 today. -Continue Protonix and Carafate as per GI recommendations at this time -s/p 4U pRBC transfusion. No indication for further transfusions needed. -Continue Aranesp with dialysis -Continue holding Eliquis 2/2 UGI bleed. Upon discharge, Eliquis should be renally dosed in this patient at 2.5mg once he is hemodynamically stable. 2. ESRD on HD (, , ): -The patient will be dialyzed tomorrow -Ordered a CXR today because of continued 2L oxygen requirement and possible pleural effusion from fluid overload 3. Atrial fibrillation: -Please hold Eliquis until discharge, and send home on 2.5mg daily 4. HTN: BP mildly elevated -Restarted hydralazine due to hypertension -Continue Diltiazem 5. BPH: -Continue Finasteride and Flomax DISPOSITION: The patient is cleared from a Nephrology standpoint. Should there be any further questions, please do not hesitate to let us know. Thank you. VS, I&O, 24H, Fishbone Vital Signs/I&O Vital Signs Date Time Temp Pulse Resp B/P (MAP) Pulse Ox O2 Delivery O2 Flow Rate FiO2 03/15/19 04:00 97.2 100 16 158/83 (108) 93 2.0 03/12/19 01:15 Room Air I&O- Last 24 Hours up to 6 AM 03/15/19 05:59 Intake Total 1068 ml Output Total 1750 ml Balance -682 ml Laboratory Data 24H LABS Laboratory Tests 2 03/14/19 13:02: Bedside Glucose (Misc Panel) 108 03/14/19 17:04: Bedside Glucose (Misc Panel) 124H 03/14/19 20:26: Bedside Glucose (Misc Panel) 172H 03/15/19 04:46: Immature Granulocyte % (Auto) 1.6, White Blood Count 5.6, Red Blood Count 3.09L, Hemoglobin 9.2L, Hematocrit 29.5L, Mean Corpuscular Volume 95.5, Mean Corpuscular Hemoglobin 29.8, Mean Corpuscular Hemoglobin Concent 31.2L, Red Cell Distribution Width 17.4H, Platelet Count 106L, Neutrophils (%) (Auto) 79.1H, Lymphocytes (%) (Auto) 7.4L, Monocytes (%) (Auto) 11.0H, Eosinophils (%) (Auto) 0.5, Basophils (%) (Auto) 0.4, Neutrophils # (Auto) 4.4, Lymphocytes # (Auto) 0.4L, Monocytes # (Auto) 0.6, Eosinophils # (Auto) 0.0, Basophils # (Auto) 0.0, Nucleated Red Blood Cells % (auto) 0.9H, Anion Gap 8, Glomerular Filtration Rate 17.7L, Blood Urea Nitrogen 34#H, Creatinine 3.57H, Sodium Level 141, Potassium L evel 3.6, Chloride Level 105, Carbon Dioxide Level 28, Calcium Level 8.3L, Aspartate Amino Transf (AST/SGOT) 48H, Alanine Aminotransferase (ALT/SGPT) 118H, Alkaline Phosphatase 106, Total Bilirubin 0.7, Total Protein 6.0L, Albumin 2.8L, Albumin/Globulin Ratio 0.88L CBC/BMP Laboratory Tests 03/14/19 19:53 03/15/19 04:46 Red Blood Count 3.09 L, Mean Corpuscular Volume 95.5, Mean Corpuscular Hemoglobin 29.8, Mean Corpuscular Hemoglobin Concent 31.2 L, Red Cell Distribution Width 17.4 H, Neutrophils (%) (Auto) 79.1 H, Lymphocytes (%) (Auto) 7.4 L, Monocytes (%) (Auto) 11.0 H, Eosinophils (%) (Auto) 0.5, Basophils (%) (Auto) 0.4, Neutrophils # (Auto) 4.4, Lymphocytes # (Auto) 0.4 L, Monocytes # (Auto) 0.6, Eosinophils # (Auto) 0.0, Basophils # (Auto) 0.0, Calcium Level 8.3 L, Aspartate Amino Transf (AST/SGOT) 48 H, Alanine Aminotransferase (ALT/SGPT) 118 H, Alkaline Phosphatase 106, Total Bilirubin 0.7, Total Protein 6.0 L, Albumin 2.8 L Microbiology Microbiology 03/14/19 Stool Occult Blood (NATA) - Final, Complete GME ATTESTATION GME ATTESTATION My faculty preceptor for this patient encounter was physically present during the encounter and was fully available. All aspects of the patient interview, examination, medical decision making process, and medical care plan development were reviewed and approved by the faculty preceptor. The faculty preceptor is aware and concurs with the plan as stated in the body of this note and will attest to such by his/her cosignature. CANDIDA LAMB MD Mar 15, 2019 08:09
[2019-03-15 12:00] VITALS: BP 164/80
[2019-03-15] MEDS: **hydrALAZINE HCL** 25 MG TAB PO SCH ×2 (12:03→23:36)
[2019-03-15] MEDS: CYANOCOBALAMIN 500 MCG TAB PO SCH (12:03)
--- NOTE | 2019-03-15 15:23 | REP ---
Chest x-ray: Two views. History: Possible fluid overload. Increased oxygen requirement. Comparison chest x-ray: March 06, 2019. Findings: There is a right-sided central venous tunnel catheter again noted in the expected location of the superior vena cava unchanged. There is blunting of the right lateral and both posterior pleural angles consistent with pleural effusions, right larger than left. The right effusion appears to have increased somewhat since the 03/06/2019 study. There are increased parenchymal markings in the right lung unchanged. Fissural thickening is again noted. Cardiac enlargement is again noted unchanged. Impression: Small bilateral pleural effusions, right greater than left. Fissural thickening. Increased parenchymal markings right lung. Electronically Signed by Luis Noble MD 03/15/2019 04:05 P
[2019-03-15 16:00] VITALS: BP 161/84
[2019-03-15 20:00] VITALS: BP 161/83
[2019-03-15] MEDS: ATORVASTATIN 10 MG TAB PO SCH (20:32)
[2019-03-15] MEDS: TAMSULOSIN 0.4 MG CAP PO SCH (20:32)
[2019-03-15 23:59] VITALS: BP 133/74
[2019-03-16 04:00] VITALS: BP 140/76
[2019-03-16 05:04] LABS: HEMATOCRIT 30.2 % (42.0-52.0); HEMOGLOBIN 9.5 g/dl (13.5-17.5); MEAN CORPUSCULAR HEMOGLOBIN 29.8 pg (27.0-33.0); MEAN CORPUSCULAR HGB CONC 31.5 g/dl (32.0-36.5); MEAN CORPUSCULAR VOLUME 94.7 fl (80.0-96.0); PLATELET COUNT, AUTOMATED 106 10^3/uL (150-450); RED BLOOD COUNT 3.19 10^6/uL (4.30-6.10); WHITE BLOOD COUNT 5.7 10^3/uL (4.0-10.0)
[2019-03-16 08:00] VITALS: BP_SYST 127; BP_SYST 164; BP_DIAS 80; BP_DIAS 83
[2019-03-16 08:16] LABS: ALBUMIN 3.2 GM/DL (3.2-5.2); BILIRUBIN,TOTAL 0.8 MG/DL (0.2-1.0); CALCIUM LEVEL 8.3 MG/DL (8.8-10.2); CREATININE FOR GFR 4.55 MG/DL (0.70-1.30); GLOMERULAR FILTRATION RATE 13.4 (>42); POTASSIUM SERUM 3.5 MEQ/L (3.5-5.1); TOTAL PROTEIN 6.1 GM/DL (6.4-8.2)
[2019-03-16] MEDS: SUCRALFATE 1 GM TAB PO SCH ×4 (09:00→20:27)
[2019-03-16] MEDS: HumaLOG INSULIN (NovoLOG) PER UNIT SC SCH ×4 (09:00→21:00)
[2019-03-16] MEDS: SLF 3 ML SYR IV SCH ×3 (10:41→20:28)
--- NOTE | 2019-03-16 10:51 | IPNPDOC ---
Subjective Date Seen The patient was seen on 03/16/19. Subjective Chief Complaint/HPI Patient is comfortable in no distress. His sister is unable to pick him up today. He is scheduled for hemodialysis in inpatient and will be discharged home tomorrow General: Denies: ROS Unobtainable, Chills, Night Sweats, Fatigue, Malaise, Normal Appetite, Other Symptoms Pulmonary: Denies: Dyspnea, Cough, Pleuritic Chest Pain, Other Symptoms Cardiovascular: Denies: Chest Pain, Palpitations, Orthopnea, Paroxysmal Noc. Dyspnea, Edema, Lt Headedness, Other Symptoms Gastrointestinal: Denies: Nausea, Vomiting, Abdominal Pain, Diarrhea, Constipation, Melena, Hematochezia, Other Symptoms Musculoskeletal: Denies: Neck Pain, Back Pain, Shoulder Pain, Arm Pain, Hand Pain, Leg Pain, Foot Pain, Joint Pain, Muscle Pain, Spasms, Other Symptoms Neurological: Denies: Weakness, Numbness, Incoordination, Change in speech, Confusion, Seizures, Other Symptoms Objective Physical Examination Chest Exam: Positive: Clear to auscultation, Normal air movement Heart Exam: Positive: Rate Normal, Normal S1 Abdomen Exam: Positive: Normal bowel sounds, Soft Extremity Exam: Positive: Normal pulses Skin Exam: Positive: Nl turgor and temperature Assessment /Plan Problems (1) GI (gastrointestinal bleed) Status: Acute Problem Text: 78-year-old male with a history of end-stage renal disease on hemodialysis, hypertension, chronic diastolic congestive heart failure, atrial fibrillation anticoagulated with Eliquis, pulmonary hypertension and cor pulmonale, and history of cirrhosis admitted this time with symptomatic anemia and acute gastrointestinal (GI) bleed. On 03/12/19 EGD was done, he was found to have 2 duodenal ulcers, clips were placed. GI bleeding has now resolved Patient tolerating oral diet very well Change Protonix to 40 mg by mouth twice a day Will restart eliquis on discharge at smaller dose secondary to renal dysfunction Continue sucralfate for 1 week Oxygen has been titrated off Patient's sister unable to take patient home today secondary to some personal reasons. Patient is a scheduled for hemodialysis today . He will be discharged home in a.m. (2) Symptomatic anemia Status: Acute Problem Text: Anemia secondary to acute blood loss Dose of bleeding was gastric ulcers Hemoglobin has been stable (3) ESRD (end stage renal disease) on dialysis Status: Chronic Problem Text: End-stage renal disease on hemodialysis Patient is scheduled for dialysis today Fully. He'll be discharged tomorrow morning and further dialysis as an outpatient Plan/VTE VTE Prophylaxis Ordered?: Yes VS, I&O, 24H, Fishbone Vital Signs/I&O Vital Signs Date Time Temp Pulse Resp B/P (MAP) Pulse Ox O2 Delivery O2 Flow Rate FiO2 03/16/19 08:00 97.3 72 18 127/83 (98) 93 03/15/19 13:02 1.0 03/12/19 01:15 Room Air I&O- Last 24 Hours up to 6 AM 03/16/19 06:00 Intake Total 878 ml Output Total 400 ml Balance 478 ml Laboratory Data 24H LABS Laboratory Tests 2 03/15/19 11:52: Bedside Glucose (Misc Panel) 138H 03/15/19 16:42: Bedside Glucose (Misc Panel) 129H 03/15/19 20:30: Bedside Glucose (Misc Panel) 202H 03/16/19 04:27: Anion Gap 9, Glomerular Filtration Rate 13.4L, Blood Urea Nitrogen 39H, Creatinine 4.55H, Sodium Level 140, Potassium Level 3.5, Chloride Level 104, Carbon Dioxide Level 27, Calcium Level 8.3L, Aspartate Amino Transf (AST/SGOT) 26, Alanine Aminotransferase (ALT/SGPT) 93H, Alkaline Phosphatase 114, Total Bilirubin 0.8, Total Protein 6.1L, Albumin 3.2, Albumin/Globulin Ratio 1.10 03/16/19 04:28: Nucleated Red Blood Cells % (auto) 0.7H CBC/BMP Laboratory Tests 03/16/19 04:27 Calcium Level 8.3 L, Aspartate Amino Transf (AST/SGOT) 26, Alanine Aminotransferase (ALT/SGPT) 93 H, Alkaline Phosphatase 114, Total Bilirubin 0.8, Total Protein 6.1 L, Albumin 3.2 03/16/19 04:28 Red Blood Count 3.19 L, Mean Corpuscular Volume 94.7, Mean Corpuscular Hemoglobin 29.8, Mean Corpuscular Hemoglobin Concent 31.5 L, Red Cell Distribution Width 18.2 H Microbiology Microbiology 03/14/19 Stool Occult Blood (NATA) - Final, Complete GOGO MOORE MD Mar 16, 2019 10:51
--- NOTE | 2019-03-16 11:23 | IPNPDOC ---
Date Seen The patient was seen on 03/16/19. Progress Note NEPHROLOGY SERVICE PROGRESS NOTE SUBJECTIVE: Patient was seen and examined at the bedside this morning in dialysis. He reports seeing bright red blood when he wipes after having a bowel movement yesterday and this morning. He tells us he has never had a colonscopy done before. He also was not able to sleep well. Otherwise, he has no complaints. He is not having any issues with breathing at this time. OBJECTIVE PHYSICAL EXAMINATION: VITAL SIGNS: Please see below. GENERAL: laying in bed, appears stated age, calm, cooperative, in no acute distress HEENT: EOMI, moist mucus membranes with normal dentition, neck is supple with no signs of lymphadenopathy or thyromegaly CARDIOVASCULAR: irregularly irregular rhythm with no obvious murmurs/rubs/gallops appreciated RESPIRATORY: clear to auscultation bilaterally with no adventitious breath sounds appreciated ABDOMINAL: nontender to palpation with no masses or organomegaly, +BS EXTREMITIES: No clubbing/cyanosis/edema appreciated NEUROLOGICAL: CN 2-12 intact without any obvious focal deficits PSYCHOLOGICAL: normal mood/affect, AAOx3 LABORATORY DATA, IMAGING STUDIES, MICROBIOLOGY: Please see below. ASSESSMENT AND PLAN: This is a 78 YO M with ESRD on HD (, , S), AF on Eliquis, chronic dCHF, HTN who presented with dizziness, found to have hgb 6.4 and to have 2 gastric ulcers (one oozing) on endoscopy. PROBLEMS: 1. Acute UGI bleed: -The patient was found to have 2 gastric ulcers (one oozing) on upper endoscopy and mild chronic inflammation on gastric biopsy. Hgb is stable at 9.5 -Would recommend the patient arrange for colonoscopy outpatient after discharge. Not urgent given that his hgb is now stable. -Continue Protonix and Carafate as per GI recommendations at this time -s/p 4U pRBC transfusion. No indication for further transfusions needed. -Continue Aranesp with dialysis -Continue holding Eliquis 2/2 UGI bleed. Upon discharge, Eliquis should be renally dosed in this patient at 2.5mg once he is hemodynamically stable. 2. ESRD on HD (, , S): -The patient was dialyzed today -CXR ordered yesterday demonstrates small bilateral pleural effusions. He does have a history of pleural effusion large enough that required throacentesis drainage in prior hospitalizations, but these are somewhat small. 3. Atrial fibrillation: -Please hold Eliquis until discharge, and send home on 2.5mg daily 4. HTN: BP mildly elevated -Restarted hydralazine due to hypertension -Continue Diltiazem 5. BPH: -Continue Finasteride and Flomax DISPOSITION: The patient is cleared from a Nephrology standpoint and is to resume his normal dialysis treatment as prescribed in the outpatient setting. Colonoscopy is recommended. VS, I&O, 24H, Fishbone Vital Signs/I&O Vital Signs Date Time Temp Pulse Resp B/P (MAP) Pulse Ox O2 Delivery O2 Flow Rate FiO2 03/16/19 04:00 97.4 94 18 140/76 (97) 92 03/15/19 13:02 1.0 03/12/19 01:15 Room Air I&O- Last 24 Hours up to 6 AM 03/16/19 06:00 Intake Total 878 ml Output Total 400 ml Balance 478 ml Laboratory Data 24H LABS Laboratory Tests 2 03/15/19 11:52: Bedside Glucose (Misc Panel) 138H 03/15/19 16:42: Bedside Glucose (Misc Panel) 129H 03/15/19 20:30: Bedside Glucose (Misc Panel) 202H 03/16/19 04:28: Nucleated Red Blood Cells % (auto) 0.7H CBC/BMP Laboratory Tests 03/16/19 04:28 Red Blood Count 3.19 L, Mean Corpuscular Volume 94.7, Mean Corpuscular Hemoglobin 29.8, Mean Corpuscular Hemoglobin Concent 31.5 L, Red Cell Distri bution Width 18.2 H Microbiology Microbiology 03/14/19 Stool Occult Blood (NATA) - Final, Complete GME ATTESTATION GME ATTESTATION My faculty preceptor for this patient encounter was physically present during the encounter and was fully available. All aspects of the patient interview, examination, medical decision making process, and medical care plan development were reviewed and approved by the faculty preceptor. The faculty preceptor is aware and concurs with the plan as stated in the body of this note and will att est to such by his/her cosignature. CANDIDA LAMB MD Mar 16, 2019 07:54
[2019-03-16 13:00] VITALS: BP 134/87
[2019-03-16] MEDS: FINASTERIDE 5 MG TAB PO SCH (13:19)
[2019-03-16] MEDS: ESCITALOPRAM OXALATE 10 MG TAB (LEXAPRO) PO SCH (13:19)
[2019-03-16] MEDS: PANTOPRAZOLE 40MG TAB (PROTONIX) PO SCH ×2 (13:19→20:28)
[2019-03-16] MEDS: CYANOCOBALAMIN 500 MCG TAB PO SCH (13:19)
[2019-03-16] MEDS: **hydrALAZINE HCL** 25 MG TAB PO SCH (13:20)
[2019-03-16] MEDS: diltiaZEM **CD** 180 MG CAP PO SCH (13:22)
[2019-03-16 16:00] VITALS: BP 134/67
[2019-03-16 19:00] VITALS: BP 140/67
[2019-03-16] MEDS: ATORVASTATIN 10 MG TAB PO SCH (20:28)
[2019-03-16] MEDS: TAMSULOSIN 0.4 MG CAP PO SCH (20:28)
[2019-03-17] VITALS: BP 150/72
[2019-03-17] MEDS: **hydrALAZINE HCL** 25 MG TAB PO SCH ×2 (00:47→11:59)
[2019-03-17 04:00] VITALS: BP 165/95
[2019-03-17] MEDS: SLF 3 ML SYR IV SCH (06:00)
[2019-03-17 08:00] VITALS: BP 154/82
[2019-03-17] MEDS: ONDANSETRON 4MG/2ML VIAL (J2405) IV PRN (08:19)
[2019-03-17] MEDS: SUCRALFATE 1 GM TAB PO SCH ×2 (09:45→11:59)
[2019-03-17] MEDS: diltiaZEM **CD** 180 MG CAP PO SCH (09:45)
[2019-03-17] MEDS: ESCITALOPRAM OXALATE 10 MG TAB (LEXAPRO) PO SCH (09:45)
[2019-03-17] MEDS: FINASTERIDE 5 MG TAB PO SCH (09:45)
[2019-03-17] MEDS: PANTOPRAZOLE 40MG TAB (PROTONIX) PO SCH (09:45)
[2019-03-17] MEDS ORDERED: ELIQ2.5T PO (09:46)
[2019-03-17] MEDS: HumaLOG INSULIN (NovoLOG) PER UNIT SC SCH ×2 (09:46→11:59)
[2019-03-17] MEDS ORDERED: SUCR1TA PO (09:46)
[2019-03-17] MEDS ORDERED: PROTPAK PO (09:46)
--- NOTE | 2019-03-17 11:53 | IPNPDOC ---
Date Seen The patient was seen on 03/17/19. Progress Note NEPHROLOGY SERVICE PROGRESS NOTE SUBJECTIVE: Patient was seen and examined at the bedside this morning. He is not having any issues eating/drinking. He does state that his stomach was upset last night and is unsure of the reason. This morning he feels better. He had dialysis yesterday with no issues. Primary team states he is set for discharge today. OBJECTIVE PHYSICAL EXAMINATION: VITAL SIGNS: Please see below. GENERAL: laying in bed, appears stated age, calm, cooperative, in no acute distress HEENT: EOMI, moist mucus membranes with normal dentition, neck is supple with no signs of lymphadenopathy or thyromegaly CARDIOVASCULAR: irregularly irregular rhythm with no obvious murmurs/rubs/gallops appreciated RESPIRATORY: clear to auscultation bilaterally with no adventitious breath sounds appreciated ABDOMINAL: nontender to palpation with no masses or organomegaly, +BS EXTREMITIES: 2+ pitting edema in feet up to mid-calf bilaterally NEUROLOGICAL: CN 2-12 intact without any obvious focal deficits PSYCHOLOGICAL: normal mood/affect, AAOx3 LABORATORY DATA, IMAGING STUDIES, MICROBIOLOGY: Please see below. ASSESSMENT AND PLAN: This is a 78 YO M with ESRD on HD (, , S), AF on Eliquis, chronic dCHF, HTN who presented with dizziness, found to have hgb 6.4 and to have 2 gastric ulcers (one oozing) on endoscopy. PROBLEMS: 1. Acute UGI bleed: -The patient was found to have 2 gastric ulcers (one oozing) on upper endoscopy and mild chronic inflammation on gastric biopsy. Hgb is stable at 9.5 -Would recommend the patient arrange for colonoscopy outpatient after discharge. Not urgent given that his hgb is now stable. -Continue Protonix and Carafate as per GI recommendations at this time -s/p 4U pRBC transfusion. No indication for further transfusions needed. -Continue Aranesp with dialysis -Continue holding Eliquis 2/2 UGI bleed. Upon discharge, Eliquis should be renally dosed in this patient at 2.5mg once he is hemodynamically stable. 2. ESRD on HD (, , S): -The patient was dialyzed yesterday and 3L removed. -CXR demonstrates small bilateral pleural effusions. He does have a history of pleural effusion large enough that required throacentesis drainage in prior hospitalizations, but these are somewhat small. Breath sounds are clear to auscultation bilaterally. 3. Atrial fibrillation: -Please hold Eliquis until discharge, and send home on 2.5mg daily 4. HTN: BP mildly elevated -Restarted hydralazine due to hypertension -Continue Diltiazem 5. BPH: -Continue Finasteride and Flomax DISPOSITION: The patient is cleared from a Nephrology standpoint and is to resume his normal dialysis treatment as prescribed in the outpatient setting. Colonoscopy is recommended. VS, I&O, 24H, Fishbone Vital Signs/I&O Vital Signs Date Time Temp Pulse Resp B/P (MAP) Pulse Ox O2 Delivery O2 Flow Rate FiO2 03/17/19 08:00 97.2 109 20 154/82 (106) 97 2.0 03/12/19 01:15 Room Air I&O- Last 24 Hours up to 6 AM 03/17/19 06:00 Intake Total 576 ml Output Total 3000 ml Balance -2424 ml Laboratory Data 24H LABS Laboratory Tests 2 03/16/19 12:28: Bedside Glucose (Misc Panel) 109 03/16/19 14:00: 03/16/19 17:30: Bedside Glucose (Misc Panel) 216H 03/16/19 20:36: Bedside Glucose (Misc Panel) 128H 03/17/19 07:38: Bedside Glucose (Misc Panel) 129H Microbiology Microbiology 03/14/19 Stool Occult Blood (NATA) - Final, Complete GME ATTESTATION GME ATTESTATION My faculty preceptor for this patient encounter was physically present during the encounter and was fully available. All aspects of the patient interview, examination, medical decision making process, and medical care plan development were reviewed and approved by the faculty preceptor. The faculty preceptor is aware and concurs with the plan as stated in the body of this note and will attest to such by his/her cosignature. CANDIDA LAMB MD Mar 17, 2019 08:12
[2019-03-17 11:59] VITALS: BP 160/72
[2019-03-17 12:00] VITALS: BP 160/72
[2019-03-17] MEDS: CYANOCOBALAMIN 500 MCG TAB PO SCH (12:07)
--- NOTE | 2019-03-17 14:18 | DS.PDOC ---
Discharge Summary General Date of Admission Mar 12, 2019 at 00:35 Date of Discharge 03/17/19 Discharge Summary PROCEDURES PERFORMED DURING STAY: EGD. ADMITTING DIAGNOSES: 1. Symptomatic anemia. DISCHARGE DIAGNOSES: 1. Gastric ulcers, acute blood loss anemia, end-stage renal disease on dialysis, hypertension, chronic diastolic congestive heart failure, atrial fibrillation anticoagulated with Eliquis, pulmonary hypertension and cor pulmonale, and history of cirrhosis. COMPLICATIONS/CHIEF COMPLAINT: Symptomatic Anemia. HISTORY OF PRESENT ILLNESS: This is a 78 old male who was dizzy after dialysis yesterday afternoon. Per d/w the ED provider he recently started dialysis; his dizziness may have been due to dialysis disequilibrium syndrome. He received some IV fluids, but his dizziness did improve, therefore he was sent to the emergency department. Per discussion with the ED provider, his hemoglobin was noted to be 6.4; a few days ago was 11.1. Rectal exam was guaiac positive and melena was noted. The patient denies having associated chest pain, palpitations, or dyspnea. He does admit to being told he looks more pale than usual. He had a fall 2 weeks ago and hit the left side of his face and his chest.. HOSPITAL COURSE: 78-year-old male with a history of end-stage renal disease on hemodialysis, hypertension, chronic diastolic congestive heart failure, atrial fibrillation anticoagulated with Eliquis, pulmonary hypertension and cor pulmonale, and history of cirrhosis admitted this time with symptomatic anemia and acute gastrointestinal (GI) bleed. On 03/12/19 EGD was done, he was found to have 2 duodenal ulcers, clips were placed. GI bleeding has now resolved Patient tolerating oral diet very well and can be discharged home on his regular diet Change Protonix to 40 mg by mouth twice a day and will be discharged home on by mouth once a day Will restart eliquis at 2.5 by mouth twice a day on discharge secondary to renal dysfunction Continue sucralfate for 1 week. Patient has been advised and he understands very well Oxygen has been titrated off during his stay in the and hospital Regarding his dialysis. He will follow-up as an outpatient on Wednesday, , Wednesday schedule Follow with PCP in one week. Has been advised . DISCHARGE MEDICATIONS: Please see below. ALLERGIES: Please see below. PHYSICAL EXAMINATION ON DISCHARGE: VITAL SIGNS: Please see below. GENERAL: Within normal limits HEENT: PERRLA. Extraocular muscles intact NECK: Supple CARDIOVASCULAR EXAMINATION: S1, S2, regular RESPIRATORY EXAMINATION: Clear to A&P ABDOMINAL EXAMINATION: Benign EXTREMITIES: No clubbing, cyanosis, edema SKIN: Normal NEUROLOGICAL EXAMINATION: No focal motor sensory deficit PSYCHIATRIC EXAMINATION: Normal LABORATORY DATA: Please see below. IMAGING: Chest x-ray:Impression: Small bilateral pleural effusions, right greater than left. Fissural thickening. Increased parenchymal markings right lung. PROGNOSIS: GERD ACTIVITY: As tolerated. DIET: As tolerated DISCHARGE PLAN: Follow-up with PCP as outpatient in one week DISPOSITION: . Home DISCHARGE INSTRUCTIONS: 1. As per discharge instructions. ITEMS TO FOLLOWUP ON ON OUTPATIENT: 1. With PCP in one week. DISCHARGE CONDITION: Stable. TIME SPENT ON DISCHARGE: 45 minutes. Vital Signs/I&Os Vital Signs Date Time Temp Pulse Resp B/P (MAP) Pulse Ox O2 Delivery O2 Flow Rate FiO2 03/17/19 12:00 97.0 104 18 160/72 (101) 95 2.0 03/12/19 01:15 Room Air I&O- Last 24 Hours up to 6 AM 03/17/19 06:00 Intake Total 576 ml Output Total 3000 ml Balance -2424 ml Laboratory Data Labs 24H Laboratory Tests 2 03/16/19 17:30: Bedside Glucose (Misc Panel) 216H 03/16/19 20:36: Bedside Glucose (Misc Panel) 128H 03/17/19 07:38: Bedside Glucose (Misc Panel) 129H 03/17/19 11:34: Bedside Glucose (Misc Panel) 167H FSBS Laboratory Tests Test 03/16/19 17:30 03/16/19 20:36 03/17/19 07:38 03/17/19 11:34 Range/Units Bedside Glucose (Misc Panel) 216 128 129 167 83-110 MG/DL Microbiology Microbiology 03/14/19 Stool Occult Blood (NATA) - Final, Complete Discharge Medications Scheduled Apixaban (Eliquis) 2.5 Mg Tablet, 2.5 MG PO BID Atorvastatin Calcium (Atorvastatin Calcium) 10 Mg Tab, 5 MG PO QHS, (Reported) Cyanocobalamin (Vitamin B-12) (Vitamin B-12) 500 Mcg Tab, 500 MCG PO DAILY, (Reported) AT LUNCH Diltiazem HCl (Diltiazem 24Hr ER) 360 Mg Tab.er.24h, 360 MG PO DAILY, (Reported) Escitalopram Oxalate (Escitalopram Oxalate) 10 Mg Tab, 10 MG PO DAILY, (Reported) Finasteride (Finasteride) 5 Mg Tab, 5 MG PO DAILY, (Reported) Glimepiride (Glimepiride) 4 Mg Tab, 4 MG PO DAILY, (Reported) Glipizide (Glipizide ER) 2.5 Mg Tab.er.24, 2.5 MG PO DAILY, (Reported) TAKES WITH FOOD AT LUNCH Iron,Carbonyl/Ascorbic Acid (Vitron-C Tablet) 1 Tab Tab, 1 TAB PO DAILY, (Reported) AT LUNCH Pantoprazole Sodium (Protonix) 40 Mg Granpkt.dr, 40 MG PO DAILY Sucralfate (Sucralfate) 1 Gm Tablet, 1 GM PO QID Tamsulosin HCl (Flomax) 0.4 Mg Cap, 0.8 MG PO QHS, (Reported) hydrALAZINE HCL (Hydralazine HCl) 100 Mg Tab, 100 MG PO BID, (Reported) Scheduled PRN Levalbuterol HCl (Levalbuterol HCl) 1.25 Mg/3 Ml Vial.neb, 1.25 MG INH BID PRN for SHORTNESS OF BREATH, (Reported) Allergies Coded Allergies: No Known Allergies (Unverified , 02/23/08) GOGO MOORE MD Mar 17, 2019 14:18
== END 2019-03-17 15:16 | disposition home health service (06) | DRG 377 ==
LOC: EDBD 21:11 → M ED 21:11 → M ED INP 03-12 00:35 → M MSPAV 03-12 01:34 → M PCU 03-12 11:30
PROVIDERS: ADMIT Internal Medicine; ATTEND Internal Medicine
PROC: 0DB68ZX Excision of Stomach, Via Natural or Artificial Opening Endoscopic, Diagnostic (ICD-10-PCS; 2019-03-12)
PROC: 30233N1 Transfusion of Nonautologous Red Blood Cells into Peripheral Vein, Percutaneous Approach (ICD-10-PCS; 2019-03-12)
PROC: 0W3P8ZZ Control Bleeding in Gastrointestinal Tract, Via Natural or Artificial Opening Endoscopic (ICD-10-PCS; principal; 2019-03-12 12:16)
PROC: 5A1D70Z Performance of Urinary Filtration, Intermittent, Less than 6 Hours Per Day (ICD-10-PCS; 2019-03-14)
DX: K26.4 Chronic or unspecified duodenal ulcer with hemorrhage (principal); N18.6 End stage renal disease; D62 Acute posthemorrhagic anemia; I13.2 Hypertensive heart and chronic kidney disease with heart failure and with stage 5 chronic kidney disease, or end stage renal disease; I50.32 Chronic diastolic (congestive) heart failure; D69.59 Other secondary thrombocytopenia; K20.9 Esophagitis, unspecified; I48.91 Unspecified atrial fibrillation; Z79.01 Long term (current) use of anticoagulants; I27.20 Pulmonary hypertension, unspecified; K74.69 Other cirrhosis of liver; I27.81 Cor pulmonale (chronic); Z79.899 Other long term (current) drug therapy; E11.9 Type 2 diabetes mellitus without complications; I08.0 Rheumatic disorders of both mitral and aortic valves; J44.9 Chronic obstructive pulmonary disease, unspecified; N40.0 Benign prostatic hyperplasia without lower urinary tract symptoms; Z91.19 Patient's noncompliance with other medical treatment and regimen; G47.33 Obstructive sleep apnea (adult) (pediatric); E86.0 Dehydration; R00.0 Tachycardia, unspecified

== ENCOUNTER 2019-03-21 20:06 | Inpatient (IN) | payer MEDICARE ==
[~2019-03-21] VITALS: Ht 175.3 cm; Wt 72.0 kg
[~2019-03-21 20:06] MED LIST changes: +DILT1TAB7 PO; +ELIQ2.5T PO; +GLIP2.5T6 PO; +PROTPAK PO; +SUCR1TA PO
[2019-03-21] MEDS ORDERED: DEXTROSE 50% 50 ML SYRINGE IV STA (20:57)
[2019-03-21] MEDS ORDERED: D10W/0.45% SODIUM CHLORIDE 1,000 ML IV SCH (21:45)
[2019-03-21 21:53] LABS: BASO % 0.2 % (0.0-1.0); EOS % 0.5 % (0.0-3.0); HEMATOCRIT 32.2 % (42.0-52.0); HEMOGLOBIN 10.1 g/dl (13.5-17.5); LYMPH % 3.5 % (24.0-44.0); MEAN CORPUSCULAR HGB CONC 31.4 g/dl (32.0-36.5); MEAN CORPUSCULAR VOLUME 95.5 fl (80.0-96.0); MONO # 0.6 10^3/uL (0.0-0.8); MONO % 8.9 % (0.0-5.0); NEUTROPHILS # 5.7 10^3/uL (1.5-8.5); NEUTROPHILS % 86.3 % (36.0-66.0); PLATELET COUNT, AUTOMATED 128 10^3/uL (150-450); RED BLOOD COUNT 3.37 10^6/uL (4.30-6.10); WHITE BLOOD COUNT 6.6 10^3/uL (4.0-10.0)
[2019-03-21 21:58] LABS: CALCIUM LEVEL 8.5 MG/DL (8.8-10.2); CREATININE FOR GFR 3.47 MG/DL (0.70-1.30); GLOMERULAR FILTRATION RATE 18.3 (>42); POTASSIUM SERUM 3.5 MEQ/L (3.5-5.1)
[2019-03-21] MEDS ORDERED: SUCR1TA PO (22:07)
[2019-03-21] MEDS ORDERED: PROTPAK PO (22:07)
[2019-03-21] MEDS ORDERED: ELIQ2.5T PO (22:08)
[2019-03-21] MEDS ORDERED: GLUCAGON FOR INJ 1 MG VIAL (J1610) IV STA (22:28)
[2019-03-21] MEDS ORDERED: ACETAMINOPHEN TAB 650MG DOSE (2X325MG) PO PRN (22:30)
[2019-03-21 22:37] LABS: LYMPH # 0.2 10^3/uL (1.5-5.0)
--- NOTE | 2019-03-21 22:43 | HPEPDOC ---
General Date of Admission 03/21/19 Date of Service: Mar 21, 2019 Primary Care Physician: LEIDY LARSON MD Attending Physician: GOGO MOORE MD Chief Complaint The patient is a 78-year-old male admitted with a reason for visit of Low Blood Sugar. Source: Patient Exam Limitations: No limitations Timing/Duration: Other (since yesterday) Severity: Moderate Associated Symptoms: Other (. Diaphoresis) History of Present Illness This is 78 years old pleasant white male with past medical history of multiple medical problems including end-stage renal disease on hemodialysis Wednesday, and Saturdays chronic hypertension, chronic diastolic heart failure, diabetes mellitus, A. fib, chronic anemia, pulmonary hypertension and cor pulmonale. Aortic wall stenosis, moderate mitral stenosis, COPD, sleep apnea, liver cirrhosis, thrombocytopenia, hearing loss, benign prosthetic hypertrophy has been complaining of diaphoresis since yesterday and today, while he was getting dialysis done. He was found to have a blood sugar of 22 and was trans ferred to emergency room with hypoglycemia. In ED, patient received D50, but his fingerstick was still under 50 and he finally, he received D10 drip with his last fingerstick at 55 and we will called in to admit patient for observation to ICU. He complains of chest pain, shortness of breath, nausea, vomiting, etc. Home Medications Scheduled Apixaban (Eliquis) 2.5 Mg Tablet, 2.5 MG PO BID, (Reported) Atorvastatin Calcium (Atorvastatin Calcium) 10 Mg Tab, 5 MG PO QHS, (Reported) Cyanocobalamin (Vitamin B-12) (Vitamin B-12) 500 Mcg Tab, 500 MCG PO DAILY, (Reported) AT LUNCH Diltiazem HCl (Diltiazem 24Hr ER) 360 Mg Tab.er.24h, 360 MG PO DAILY, (Reported) Escitalopram Oxalate (Escitalopram Oxalate) 10 Mg Tab, 10 MG PO DAILY, (Reported) Finasteride (Finasteride) 5 Mg Tab, 5 MG PO DAILY, (Reported) Glimepiride (Glimepiride) 4 Mg Tab, 4 MG PO DAILY, (Reported) Glipizide (Glipizide ER) 2.5 Mg Tab.er.24, 2.5 MG PO DAILY, (Reported) TAKES WITH FOOD AT LUNCH Iron,Carbonyl/Ascorbic Acid (Vitron-C Tablet) 1 Tab Tab, 1 TAB PO DAILY, (Reported) AT LUNCH Pantoprazole Sodium (Protonix) 40 Mg Granpkt.dr, 40 MG PO DAILY, (Reported) Sucralfate (Sucralfate) 1 Gm Tablet, 1 GM PO QID, (Reported) Tamsulosin HCl (Flomax) 0.4 Mg Cap, 0.8 MG PO QHS, (Reported) hydrALAZINE HCL (Hydralazine HCl) 100 Mg Tab, 100 MG PO BID, (Reported) Scheduled PRN Levalbuterol HCl (Levalbuterol HCl) 1.25 Mg/3 Ml Vial.neb, 1.25 MG INH BID PRN for SHORTNESS OF BREATH, (Reported) Allergies Coded Allergies: No Known Allergies (Unverified , 03/21/19) Past Medical History Medical History End-stage renal disease on hemodialysis, chronic hypertension, chronic diastolic congestive heart failure, diabetes mellitus type 2, atrial fibrillation, chronic anemia, high pulmonary hypertension, cor pulmonale, moderate aortic wall stenosis, moderate mitral stenosis, COPD, sleep apnea, liver cirrhosis, thrombocytopenia, hearing loss, BPH Surgical History Status post cholecystectomy, appendectomy, lumbar spinal fusion surgery and lithotripsy, status post left renal artery stent placement Family History Significant Family History: No pertinent family hx Social History * Smoker: former Smoker Alcohol: Denies Drugs: denies A-FIB/CHADSVASC A-FIB History Current/History of A-Fib/PAF?: No Review of Systems Constitutional: Reports: Night Sweats Eyes: Denies: Pain, Vision change, Conjunctivae inflammation, Eyelid inflammation, Redness, Other ENT: Denies: Head Aches, Ear Pain, Dysphagia, Sinus Congestion, Post Nasal Drip, Sore Throat, Epistaxis, Other Symptoms Skin: Denies: Rash, Lesions, Jaundice, Bruising, Itching, Dry, Breakdown, Nail Changes, Other Pulmonary: Denies: Dyspnea, Cough, Pleuritic Chest Pain, Other Symptoms Cardiovascular: Denies: Chest Pain, Palpitations, Orthopnea, Paroxysmal Noc. Dyspnea, Edema, Lt Headedness, Other Symptoms Gastrointestinal: Denies: Nausea, Vomiting, Abdominal Pain, Diarrhea, Constipation, Melena, Hematochezia, Other Symptoms Hematologic: Denies: Bruising, Bleeding Excessively, Petecchia, Purpura, Enlarged Lymph Nodes, Other Hematologic Endocrine: Denies: Polydipsia, Polyphagia, Polyuria, Heat Intolerance, Cold Intolerance, Other Endocrine Sx Musculoskeletal: Denies: Neck Pain, Back Pain, Shoulder Pain, Arm Pain, Hand Pain, Leg Pain, Foot Pain, Joint Pain, Muscle Pain, Spasms, Other Symptoms Neurological: Denies: Weakness, Numbness, Incoordination, Change in speech, Confusion, Seizures, Other Symptoms Psych: Denies: Mood Normal, Anxiety, Depression, Memory Issues, Thoughts of Self Harm, Anger, Thoughts of Harming Other, Other Psych Physical Examination General Exam: Positive: Alert, Cooperative Eye Exam: Positive: PERRLA ENT Exam: Positive: Atraumatic, Mucous membr. moist/pink Neck Exam: Positive: Supple Chest Exam: Positive: Clear to auscultation, Normal air movement Heart Exam: Positive: Rate Normal, Normal S1, Normal S2 Abdomen Exam: Positive: Normal bowel sounds, Soft Extremity Exam: Positive: Normal pulses Skin Exam: Positive: Nl turgor and temperature Neuro Exam: Positive: Strength at 5/5 X4 ext, Sensation Intact Psych Exam: Positive: Mood NL, Oriented x 3 Vital Signs Vital Signs Date Time Temp Pulse Resp B/P (MAP) Pulse Ox O2 Delivery O2 Flow Rate FiO2 03/21/19 22:00 104 158/86 (110) 96 Nasal Cannula 2.0 03/21/19 21:30 32 03/21/19 20:23 96.0 Laboratory Data Labs 24H Laboratory Tests 2 03/21/19 20:43: Anion Gap 6L, Glomerular Filtration Rate 18.3L, Blood Urea Nitrogen 20H, Creatinine 3.47H, Sodium Level 139, Potassium Level 3.5, Chloride Level 100, Carbon Dioxide Level 33H, Calcium Level 8.5L 03/21/19 21:16: Bedside Glucose (Misc Panel) 94 03/21/19 21:29: Bedside Glucose (Misc Panel) 68L 03/21/19 21:46: Bedside Glucose (Misc Panel) 51L 03/21/19 22:00: Bedside Glucose (Misc Panel) 54L 03/21/19 22:18: Bedside Glucose (Misc Panel) 53L CBC/BMP Laboratory Tests 03/21/19 20:43 Calcium Level 8.5 L Problems (1) Hypoglycemia due to type 2 diabetes mellitus Status: Acute Problem Text: Hyperglycemia, most likely secondary to oral hypoglycemic agents. Patient as per patient, he had a poor appetite. His his dietary status has not been good lately, but he is been taking his medications regularly Admit patient to ICU for further close observation Fingerstick blood sugar every hour Glucagon 1 mg IV 1 stat Afterwards to continue D 10 850 mL per hour until the blood sugars are persistently more than 70 Patient will probably need reduced dose of his medications or change to long- acting insulin Hold by mouth antihypoglycemic agents Continue all present home medications (2) ESRD (end stage renal disease) on dialysis Status: Chronic Problem Text: Patient is has a history of end-stage renal disease on hemodialysis Wednesday, and Saturdays Will request nephrology consultation by Dr. Rayn in a.m. (3) GI (gastrointestinal bleed) Status: Chronic Problem Text: History of GI bleed secondary to gastric ulcers D Protonix as per orders (4) Atrial fibrillation Status: Chronic Problem Text: cardiac monitor Continue home medications include apaxiban Plan / VTE VTE Prophylaxis Ordered?: Yes GOGO MOORE MD Mar 21, 2019 22:43
[2019-03-21 23:07] VITALS: BP 165/91
[2019-03-21] MEDS: SUCRALFATE 1 GM TAB PO SCH (23:16)
[2019-03-21] MEDS: TAMSULOSIN 0.4 MG CAP PO SCH (23:16)
[2019-03-21] MEDS: APIXABAN 2.5 MG TAB (ELIQUIS) PO SCH (23:16)
[2019-03-21] MEDS: ATORVASTATIN 10 MG TAB PO SCH (23:17)
[2019-03-21] MEDS: **hydrALAZINE** 50 MG TAB PO SCH (23:17)
[2019-03-22] VITALS (34 sets, daily range): BP systolic 129–179; BP diastolic 60–92
[2019-03-22] MEDS: D10W/0.45% SODIUM CHLORIDE 1,000 ML IV SCH ×2 (00:10→05:37)
[2019-03-22] MEDS ORDERED: PREVNAR 13 VACCINE SYRINGE (CPT CODE:90670) IM SCH (01:30)
[2019-03-22] MEDS ORDERED: GLUCAGON FOR INJ 1 MG VIAL (J1610) IV STA (02:16)
[2019-03-22] MEDS ORDERED: DEXTROSE 50% 50 ML SYRINGE IV STA ×4 (02:16→08:21)
[2019-03-22 05:10] LABS: HEMATOCRIT 30.9 % (42.0-52.0); HEMOGLOBIN 9.6 g/dl (13.5-17.5); MEAN CORPUSCULAR HEMOGLOBIN 29.8 pg (27.0-33.0); MEAN CORPUSCULAR HGB CONC 31.1 g/dl (32.0-36.5); PLATELET COUNT, AUTOMATED 111 10^3/uL (150-450); RED BLOOD COUNT 3.22 10^6/uL (4.30-6.10); WHITE BLOOD COUNT 7.7 10^3/uL (4.0-10.0)
[2019-03-22 05:29] LABS: ALBUMIN 2.9 GM/DL (3.2-5.2); BILIRUBIN,TOTAL 0.7 MG/DL (0.2-1.0); CALCIUM LEVEL 7.8 MG/DL (8.8-10.2); CREATININE FOR GFR 3.93 MG/DL (0.70-1.30); GLOMERULAR FILTRATION RATE 15.9 (>42); POTASSIUM SERUM 3.6 MEQ/L (3.5-5.1); TOTAL PROTEIN 5.9 GM/DL (6.4-8.2)
[2019-03-22] MEDS ORDERED: GLUCAGON FOR INJ 1 MG VIAL (J1610) SC PRN (07:45)
[2019-03-22] MEDS ORDERED: GLUCOSE 4 GM CHEW TABLET PO PRN (07:45)
[2019-03-22] MEDS ORDERED: POTASSIUM CHLORIDE 10 MEQ SR TABLET PO ONE (08:00)
[2019-03-22] MEDS: OCTREOTIDE ACETATE 1,200 MCG in NS 238.8 ML IV SCH (08:26)
[2019-03-22] MEDS: PANTOPRAZOLE 40MG TAB (PROTONIX) PO SCH (08:27)
[2019-03-22] MEDS: FINASTERIDE 5 MG TAB PO SCH (08:27)
[2019-03-22] MEDS: SUCRALFATE 1 GM TAB PO SCH ×4 (08:27→21:50)
[2019-03-22] MEDS: ESCITALOPRAM OXALATE 10 MG TAB (LEXAPRO) PO SCH (08:27)
[2019-03-22] MEDS: **hydrALAZINE** 50 MG TAB PO SCH ×2 (08:27→21:50)
[2019-03-22 08:37] LABS: CK-MB VALUE MASS 3.7 NG/ML (<3.6); MB/CK RELATIVE INDEX 4.81 (< OR =4); TROPONIN I 0.31 NG/ML (< 0.10)
[2019-03-22] MEDS ORDERED: diltiaZEM **CD** 180 MG CAP PO SCH (09:00)
[2019-03-22] MEDS: APIXABAN 2.5 MG TAB (ELIQUIS) PO SCH ×2 (09:29→21:50)
[2019-03-22] MEDS: LEVALBUTEROL 1.25 MG/0.5 ML CONCENTRATE NEB INH PRN (09:53)
[2019-03-22] MEDS: DEXTROSE 50% 50 ML SYRINGE IV PRN ×3 (10:07→11:35)
[2019-03-22] MEDS ORDERED: HEPARIN 1,000 UNITS/ML 10ML VIAL (FOR RADIOLOGY& DIALYSIS ONLY) IV ONE (11:00)
[2019-03-22] MEDS ORDERED: HEPARIN 1,000 UNITS/ML 10ML VIAL (FOR RADIOLOGY& DIALYSIS ONLY) XX ONE (11:00)
--- NOTE | 2019-03-22 11:07 | IPNPDOC ---
Text Note Date of Service The patient was seen on 03/22/19. NOTE Subjective: Patient stated that he feels much better in the morning. Patient denies any chest pain Patient denies fever, chills, nausea, vomiting, shortness of breath, palpitati ons Objective: General Exam: Positive: Alert, Cooperative Eye Exam: Positive: PERRLA ENT Exam: Positive: Atraumatic, Mucous membr. moist/pink Neck Exam: Positive: Supple Chest Exam: Positive: Clear to auscultation, Normal air movement Heart Exam: Positive: Rate Normal, Normal S1, Normal S2 Abdomen Exam: Positive: Normal bowel sounds, Soft Extremity Exam: Positive: Normal pulses Skin Exam: Positive: Nl turgor and temperature Neuro Exam: Positive: Strength at 5/5 X4 ext, Sensation Intact Psych Exam: Positive: Mood NL, Oriented x 3 Assessment and plan Patient 78 years old male with past medical history of end-stage renal diseases on dialysis Wednesday, , Wednesday, diabetes mellitus type 2, CHF, atrial fibrillation presented hospital with profound hypoglycemia Hypoglycemia Most likely secondary to oral hypoglycemic agents Hyperglycemia protocol DC oral hypoglycemic agents In the morning glucose level of 63 Continue to monitor glucose level Patient will benefit from insulin treatment at home settings. By mouth hypoglycemic agent could be unsafe for him in setting of dialysis End-stage renal diseases Continue dialysis Atrial fibrillation Continue apixaban Continue cardioprotective medication heart rate is under control for now VS,Fishbone, I+O VS, Fishbone, I+O Laboratory Tests 03/21/19 20:43 Red Blood Count 3.37 L, Mean Corpuscular Volume 95.5, Mean Corpuscular Hemoglobin 30.0, Mean Corpuscular Hemoglobin Concent 31.4 L, Red Cell Distribution Width 18.3 H, Neutrophils (%) (Auto) 86.3 H, Lymphocytes (%) (Auto) 3.5 L, Monocytes (%) (Auto) 8.9 H, Eosinophils (%) (Auto) 0.5, Basophils (%) (Auto) 0.2, Neutrophils # (Auto) 5.7, Lymphocytes # (Auto) 0.2 L, Monocytes # (Auto) 0.6, Eosinophils # (Auto) 0.0, Basophils # (Auto) 0.0, Calcium Level 8.5 L 03/22/19 05:01 Red Blood Count 3.22 L, Mean Corpuscular Volume 96.0, Mean Corpuscular Hemoglobin 29.8, Mean Corpuscular Hemoglobin Concent 31.1 L, Red Cell Distribution Width 18.3 H, Calcium Level 7.8 L, Aspartate Amino Transf (AST/SGOT) 15, Alanine Aminotransferase (ALT/SGPT) 26, Total Creatine Kinase 77, Alkaline Phosphatase 104, Total Bilirubin 0.7, Total Protein 5.9 L, Albumin 2.9 L Vital Signs Date Time Temp Pulse Resp B/P (MAP) Pulse Ox O2 Delivery O2 Flow Rate FiO2 03/22/19 10:00 106 170/92 (118) 97 1.0 03/22/19 09:53 12 03/22/19 08:00 98.0 03/21/19 22:45 Nasal Cannula I&O- Last 24 Hours up to 6 AM 03/22/19 06:00 Intake Total 1575 ml Output Total 50 ml Balance 1525 ml RADHA MARTINEZ DO Mar 22, 2019 11:07
[2019-03-22 12:12] LABS: HEMATOCRIT 33.2 % (42.0-52.0); HEMOGLOBIN 10.3 g/dl (13.5-17.5); MEAN CORPUSCULAR HEMOGLOBIN 30.2 pg (27.0-33.0); MEAN CORPUSCULAR VOLUME 97.4 fl (80.0-96.0); PLATELET COUNT, AUTOMATED 100 10^3/uL (150-450); RED BLOOD COUNT 3.41 10^6/uL (4.30-6.10); WHITE BLOOD COUNT 6.2 10^3/uL (4.0-10.0)
[2019-03-22] MEDS: CYANOCOBALAMIN 500 MCG TAB PO SCH (12:55)
[2019-03-22 13:01] LABS: CK-MB VALUE MASS 3.5 NG/ML (<3.6); MB/CK RELATIVE INDEX 4.61 (< OR =4); TROPONIN I 0.3 NG/ML (< 0.10)
--- NOTE | 2019-03-22 13:26 | CR ---
DATE OF CONSULTATION: 03/22/2019 CONSULTATION FOR: Andriy Jackson MD REASON FOR CONSULTATION: Is to assist in the management of end-stage renal disease and hypervolemia. HISTORY OF PRESENT ILLNESS: Mr. Zuleta is a 78-year-old gentleman who was admitted to [facility] last evening due to severe hypoglycemia. He came for his regular dialysis treatment and reported not feeling well. At the end of dialysis, he became very confused and disoriented, and his blood sugar was found to be only 22 mg/dl. He was given D50, and blood sugar improved to 120 range. However, he remains confused and disoriented due to which he was sent to the emergency room. He has been getting hypoglycemic and has required multiple doses of D50 and also is receiving D10W intravenously and 150 mL/hr. He was also short of breath even prior to dialysis yesterday and is more short of breath this morning. A nephrology consultation was requested, and the patient is seen in intensive care unit. PAST MEDICAL AND SURGICAL HISTORY: Significant for: 1. History of chronic obstructive pulmonary disease (COPD). 2. Hypertension. 3. Diabetes. 4. End-stage renal disease, recently started dialysis. 5. Chronic diastolic congestive heart failure. 6. Atrial fibrillation. 7. Recent history of gastrointestinal (GI) bleed requiring transfusions. 8. Pulmonary hypertension and cor. pulmonale. 9. History of aortic valve stenosis. 10. History of sleep apnea. 11. History of chronic thrombocytopenia. 12. History of benign prostatic hypertrophy (BPH). 13. History of cirrhosis. PAST SURGICAL HISTORY: Is significant for renal stent placement in his renal artery which was done at [facility] a few months ago. There is history of cholecystectomy, appendectomy, lumbar spinal fusion surgery, lithotripsy, and left renal artery stent placement. He now has a PermCath placed for hemodialysis. MEDICATIONS: Chronic medications include atorvastatin 10 mg daily, vitamin B12 500 mcg daily, diltiazem ER 360 mg daily, escitalopram 10 mg daily, finasteride 5 mg daily, glimepiride 4 mg daily, glipizide ER 2.5 mg daily, multivitamin with vitamin C one tablet daily, pantoprazole 40 mg daily, Carafate 1 gram four times a day, tamsulosin 0.4 mg at bedtime, and hydralazine 100 mg twice a day. ALLERGIES: The patient has no known drug allergies. PERSONAL AND SOCIAL HISTORY: The patient lives with his sister and denies any alcohol or drug use. He is a former smoker. FAMILY HISTORY: Is negative for end-stage renal disease. REVIEW OF SYSTEMS: The patient is a poor historian and also has some language barrier. He denies any fever or chills. He was just not feeling well yesterday during dialysis and became confused, disoriented, and hypoglycemic toward the end of dialysis treatment. 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 Nose and throat are unremarkable. Cardiovascular system is significant for atrial fibrillation and diastolic congestive heart failure. He is quite short of breath and decompensated at present. Respiratory system is significant for COPD and obstructive sleep apnea. Gastrointestinal (GI) system is significant for recent history of GI bleed. He has history of cirrhosis. Genitourinary () system is negative for dysuria or hematuria. He underwent a left renal artery stent placement several months ago. Musculoskeletal system significant for chronic degenerative arthritis and leg edema. Endocrine system is significant for type 2 diabetes and secondary hyperparathyroidism. Psychosocial system negative for depression or anxiety. Neurological system is negative for seizures or stroke. Hematological system significant for anemia of chronic kidney disease and recent GI bleed. His anticoagulation has been stopped. PHYSICAL EXAMINATION: The patient is seen in the intensive care unit. He is lying in the bed with head end elevated at about 60 degrees. Temperature 98 degrees Fahrenheit, heart rate 108 per minute, and respiratory rate 20 per minute. Blood pressure 172/80 mmHg and oxygen saturation 97% on 1 liter oxygen. Head is atraumatic. There is no oral thrush or ulcers. Pupils equal and reactive to light, and extraocular muscles are intact. Neck veins are markedly distended, and trachea is midline. Heart sounds are tachycardiac and irregular in rhythm. Lungs with diminished breath sounds and expiratory wheezing. Abdomen: Soft, protuberant, and nontender. Bowel sounds are normal. Extremities have no cyanosis or clubbing. Neurologically, he is awake and at his baseline mentation. Today's laboratories show WBC count 7.7, hemoglobin 9.6, and hematocrit 30.9. Platelets 111. Sodium 139, potassium 3.6, CO2 29, BUN 28, and creatinine 3.93. Glucose was 52 early this morning and is now 86. His fingerstick blood sugars have been again as low as 22 at 10:04 a.m. and most recent one at 63 at 10:56 a.m.. PROBLEMS: 1. End-stage renal disease. The patient was dialyzed yesterday, and he completed most of the treatment. He was tapering off about 1/2 hour early. His electrolytes are stable, but volume status is decompensated. 2. Acute on chronic combined congestive heart failure. The patient is grossly volume overloaded. We are going to stop his intravenous (IV) fluids and will arrange for dialysis this afternoon in order to remove about 3-4 liters of fluid. 3. Recurrent hypoglycemia. Most likely, this is caused by oral hypoglycemic agents. It is not clear whether he made an error and broke his pills twice. He continues to have recurrent hypoglycemia despite intravenous D10W. He is volume overloaded, so I am going to stop his IV fluid, which he is receiving at 150 mL/hr. We will give him D50 as needed every hour to 2 hours. He will need continued close monitoring of his blood sugars. 4. Hypertension. His blood pressure is also somewhat high, and he is volume overloaded. We hope that after removal of fluid, his blood pressure be easy to control. I will recommend to continue his chronic antihypertensive medications. Will continue to use angiotensin-converting enzyme (ADELA) inhibitor or angiotensin receptor song as needed now, as he is on dialysis and no problems with hyperkalemia. 5. Anemia. He does have chronic anemia and recently had a GI bleed. At present, it is stable and does not need any urgent intervention. 6. Atrial fibrillation. His ventricular rate is moderately well controlled. He is to continue with calcium channel song, and anticoagulation has been stopped due to GI bleed. Thank you for involving me in the care of Mr. Zuleta. We will follow him along with you.
[2019-03-22 17:17] LABS: HEMATOCRIT 37.9 % (42.0-52.0); HEMOGLOBIN 11.7 g/dl (13.5-17.5); MEAN CORPUSCULAR HEMOGLOBIN 30.4 pg (27.0-33.0); MEAN CORPUSCULAR HGB CONC 30.9 g/dl (32.0-36.5); MEAN CORPUSCULAR VOLUME 98.4 fl (80.0-96.0); PLATELET COUNT, AUTOMATED 105 10^3/uL (150-450); RED BLOOD COUNT 3.85 10^6/uL (4.30-6.10); WHITE BLOOD COUNT 6.8 10^3/uL (4.0-10.0)
[2019-03-22] MEDS: TAMSULOSIN 0.4 MG CAP PO SCH (21:50)
[2019-03-22] MEDS: ATORVASTATIN 10 MG TAB PO SCH (21:51)
[2019-03-22] MEDS ORDERED: LOPERAMIDE 2 MG CAP PO ONE (23:45)
[2019-03-23] VITALS (15 sets, daily range): BP systolic 112–182; BP diastolic 70–106
[2019-03-23 05:06] LABS: HEMOGLOBIN 10.2 g/dl (13.5-17.5); MEAN CORPUSCULAR HEMOGLOBIN 29.5 pg (27.0-33.0); MEAN CORPUSCULAR VOLUME 98.3 fl (80.0-96.0); PLATELET COUNT, AUTOMATED 105 10^3/uL (150-450); RED BLOOD COUNT 3.46 10^6/uL (4.30-6.10); WHITE BLOOD COUNT 6.1 10^3/uL (4.0-10.0)
[2019-03-23] MEDS: OCTREOTIDE ACETATE 1,200 MCG in NS 238.8 ML IV SCH (05:08)
[2019-03-23 05:26] LABS: CALCIUM LEVEL 8.1 MG/DL (8.8-10.2); CREATININE FOR GFR 3.49 MG/DL (0.70-1.30); GLOMERULAR FILTRATION RATE 18.2 (>42); MAGNESIUM LEVEL 1.7 MG/DL (1.8-2.4); POTASSIUM SERUM 4.2 MEQ/L (3.5-5.1)
[2019-03-23] MEDS: HumaLOG INSULIN (NovoLOG) PER UNIT SC SCH ×3 (08:20→17:12)
[2019-03-23] MEDS: ESCITALOPRAM OXALATE 10 MG TAB (LEXAPRO) PO SCH (08:20)
[2019-03-23] MEDS: FINASTERIDE 5 MG TAB PO SCH (08:20)
[2019-03-23] MEDS: **hydrALAZINE** 50 MG TAB PO SCH ×2 (08:21→20:48)
[2019-03-23] MEDS: LISINOPRIL 20 MG TAB PO SCH (08:21)
[2019-03-23] MEDS: PANTOPRAZOLE 40MG TAB (PROTONIX) PO SCH (08:21)
[2019-03-23] MEDS: SUCRALFATE 1 GM TAB PO SCH ×4 (08:21→20:56)
[2019-03-23] MEDS: APIXABAN 2.5 MG TAB (ELIQUIS) PO SCH ×2 (08:21→20:56)
[2019-03-23] MEDS ORDERED: METOPROLOL 5 MG/5 ML VIAL IV PRN (08:30)
[2019-03-23] MEDS ORDERED: METOPROLOL TART 50 MG TAB PO SCH (09:00)
[2019-03-23] MEDS: LEVALBUTEROL 1.25 MG/0.5 ML CONCENTRATE NEB INH PRN (09:17)
--- NOTE | 2019-03-23 10:34 | IPNPDOC ---
Date Seen The patient was seen on 03/23/19. Progress Note SUBJECTIVE: Mr. Zuleta was seen and examined at the bedside in the ICU this morning. He had dialysis yesterday with 4L fluid removed. He seems to have difficulty breathing and he is in atrial fibrillation with RVR at a rate of 120-130. He tells us his breathing got better with dialysis but today it is difficult for him to breath again. Otherwise, he is eating and drinking well. OBJECTIVE PHYSICAL EXAMINATION: VITAL SIGNS: Please see below. GENERAL: laying in bed, appears stated age, calm, cooperative, in no acute distress HEENT: EOMI, PERRLA, normocephalic/atraumatic, neck is supple with no lymphadenopathy or thyromegaly CARDIOVASCULAR: JVD is elevated at 12-13 cm above sternal angle, irregularly irregular rhythm, no murmurs/rubs/gallops RESPIRATORY: Clear to auscultation bilaterally with no adventitious breath sounds appreciated ABDOMINAL: soft, nontender, +BS, no masses/organomegaly EXTREMITIES: 1+ pitting edema in lower extremities bilaterally NEUROLOGICAL: CN 2-12 intact with no obvious focal deficits PSYCHOLOGICAL: AAOx3, normal mood/affect LABORATORY DATA, IMAGING STUDIES, MICROBIOLOGY: Please see below. ASSESSMENT AND PLAN: This is a 78 YO M with ESRD and DM2 admitted with severe hypoglycemia 2/2 overdose of oral hypoglycemic agent. Nephrology consulted for management of his hemodialysis. PROBLEMS: 1. ESRD: Patient was dialyzed yesterday and 4L removed. While his fluid status has improved, he still appears fluid overloaded and therefore will have another dialysis session at the bedside today. -Electrolytes are WNL 2. Atrial fibrillation with RVR: Patient had HR in the 120s-130s this morning and acutely short of breath. As lungs were clear, this shortness of breath is most likely due to his uncontrolled AF. -Recommend more aggressive rate control with beta song -Continue Eliquis 3. Recurrent hypoglycemia: likely 2/2 to oral hypoglycemic agent overdose. -Appears to have resolved. Blood glucose within acceptable range today 4. Acute on chronic CHF: -Continue holding IVF. Patient will get another dialysis today to optimize fluid status. 5. HTN: blood pressure improved with dialysis yesterday -Continue Lisinopril 6. Anemia: stable DISPOSITION: Pending improvement of fluid status. VS, I&O, 24H, Fishbone Vital Signs/I&O Vital Signs Date Time Temp Pulse Resp B/P (MAP) Pulse Ox O2 Delivery O2 Flow Rate FiO2 03/23/19 08:39 126 157/89 (111) 97 03/23/19 08:00 98.0 22 03/23/19 04:39 2.0 03/21/19 22:45 Nasal Cannula I&O- Last 24 Hours up to 6 AM 03/23/19 05:59 Intake Total 1960 ml Output Total 4175 ml Balance -2215 ml Laboratory Data 24H LABS Laboratory Tests 2 03/22/19 10:29: Bedside Glucose (Misc Panel) 58L 03/22/19 10:56: Bedside Glucose (Misc Panel) 63L 03/22/19 11:33: Bedside Glucose (Misc Panel) 38*L 03/22/19 12:00: Bedside Glucose (Misc Panel) 61L 03/22/19 12:01: Nucleated Red Blood Cells % (auto) 0.0 03/22/19 12:17: Total Creatine Kinase 76, Creatine Kinase MB 3.5, Creatine Kinase MB Relative Index 4.61H, Troponin I 0.30H 03/22/19 12:35: Bedside Glucose (Misc Panel) 111H 03/22/19 13:32: Bedside Glucose (Misc Panel) 133H 03/22/19 14:30: Bedside Glucose (Misc Panel) 112H 03/22/19 17:02: Nucleated Red Blood Cells % (auto) 0.0 03/22/19 20:08: Bedside Glucose (Misc Panel) 244H 03/22/19 21:57: Bedside Glucose (Misc Panel) 204H 03/23/19 02:11: Bedside Glucose (Misc Panel) 229H 03/23/19 04:35: Nucleated Red Blood Cells % (auto) 0.0, Anion Gap 6L, Glomerular Filtration Rate 18.2L, Blood Urea Nitrogen 20H, Creatinine 3.49H, Sodium Level 140, Potassium Level 4.2, Chloride Level 104, Carbon Dioxide Level 30, Calcium Level 8.1L, Magnesium Level 1.7L 03/23/19 06:09: Bedside Glucose (Misc Panel) 209H 03/23/19 07:22: Bedside Glucose (Misc Panel) 221H CBC/BMP Laboratory Tests 03/22/19 12:01 Red Blood Count 3.41 L, Mean Corpuscular Volume 97.4 H, Mean Corpuscular Hemoglobin 30.2, Mean Corpuscular Hemoglobin Concent 31.0 L, Red Cell Distribution Width 18.5 H 03/22/19 17:02 Red Blood Count 3.85 L, Mean Corpuscular Volume 98.4 H, Mean Corpuscular Hemoglobin 30.4, Mean Corpuscular Hemoglobin Concent 30.9 L, Red Cell Distribution Width 18.6 H 03/23/19 04:35 Red Blood Count 3.46 L, Mean Corpuscular Volume 98.3 H, Mean Corpuscular Hemoglobin 29.5, Mean Corpuscular Hemoglobin Concent 30.0 L, Red Cell Distribution Width 18.4 H, Calcium Level 8.1 L GME ATTESTATION GME ATTESTATION My faculty preceptor for this patient encounter was physically present during the encounter and was fully available. All aspects of the patient interview, examination, medical decision making process, and medical care plan development were reviewed and approved by the faculty preceptor. The faculty preceptor is aware and concurs with the plan as stated in the body of this note and will attest to such by his/her cosignature. CANDIDA LAMB MD Mar 23, 2019 10:34
[2019-03-23] MEDS ORDERED: HEPARIN 1,000 UNITS/ML 10ML VIAL (FOR RADIOLOGY& DIALYSIS ONLY) IV ONE (11:00)
[2019-03-23] MEDS ORDERED: HEPARIN 1,000 UNITS/ML 10ML VIAL (FOR RADIOLOGY& DIALYSIS ONLY) XX ONE (11:00)
[2019-03-23] MEDS: CYANOCOBALAMIN 500 MCG TAB PO SCH (12:06)
--- NOTE | 2019-03-23 17:04 | IPNPDOC ---
Text Note Date of Service The patient was seen on 03/23/19. NOTE Subjective: Patient stated that his breathing is better today after dialysis session yesterday, he complains of palpitations. Objective: General Exam: Positive: Alert, Cooperative Eye Exam: Positive: PERRLA ENT Exam: Positive: Atraumatic, Mucous membr. moist/pink Neck Exam: Positive: Supple Chest Exam: Positive: Clear to auscultation, Normal air movement Heart Exam: Positive: s1s2 irregularly irregular tachycardic rate 140, plus JVD Abdomen Exam: Positive: Normal bowel sounds, Soft Extremity Exam: Positive: Normal pulses Skin Exam: Positive: Nl turgor and temperature Neuro Exam: Positive: Strength at 5/5 X4 ext, Sensation Intact Psych Exam: Positive: Mood NL, Oriented x 3 Assessment and plan Patient 78 years old male with past medical history of end-stage renal diseases on dialysis Wednesday, , Wednesday, diabetes mellitus type 2, CHF, atrial fibrillation presented hospital with profound hypoglycemia Hypoglycemia Most likely secondary to oral hypoglycemic agents Hyperglycemia protocol DC oral hypoglycemic agents Blood glucose level is stable Continue to monitor glucose level Insulin sliding scale Patient will benefit from insulin treatment at home settings. By mouth hypoglycemic agent could be unsafe for him in setting of dialysis. End-stage renal diseases Continue dialysis Most likely patient was volume overloaded Atrial fibrillation with rvr Continue apixaban Continue cardioprotective medication I changed her diltiazem to metoprolol 50 mg 3 times a day Lopressor 5 mg IV when necessary VS,Fishbone, I+O VS, Fishbone, I+O Laboratory Tests 03/22/19 17:02 Red Blood Count 3.85 L, Mean Corpuscular Volume 98.4 H, Mean Corpuscular Hemoglobin 30.4, Mean Corpuscular Hemoglobin Concent 30.9 L, Red Cell Distribution Width 18.6 H 03/23/19 04:35 Red Blood Count 3.46 L, Mean Corpuscular Volume 98.3 H, Mean Corpuscular Hemoglobin 29.5, Mean Corpuscular Hemoglobin Concent 30.0 L, Red Cell Distribution Width 18.4 H, Calcium Level 8.1 L Vital Signs Date Time Temp Pulse Resp B/P (MAP) Pulse Ox O2 Delivery O2 Flow Rate FiO2 03/23/19 12:00 97.6 112 20 137/79 (98) 94 1.0 03/21/19 22:45 Nasal Cannula I&O- Last 24 Hours up to 6 AM 03/23/19 06:00 Intake Total 1630 ml Output Total 4125 ml Balance -2495 ml RADHA MARTINEZ DO Mar 23, 2019 17:04
[2019-03-23] MEDS: METOPROLOL TART 50 MG TAB PO SCH ×2 (17:25→20:56)
[2019-03-23] MEDS: TAMSULOSIN 0.4 MG CAP PO SCH (20:56)
[2019-03-23] MEDS: ATORVASTATIN 10 MG TAB PO SCH (20:57)
[2019-03-24 04:00] VITALS: BP 142/81
[2019-03-24 05:42] LABS: HEMATOCRIT 32.6 % (42.0-52.0); HEMOGLOBIN 9.9 g/dl (13.5-17.5); MEAN CORPUSCULAR HEMOGLOBIN 29.4 pg (27.0-33.0); MEAN CORPUSCULAR HGB CONC 30.4 g/dl (32.0-36.5); MEAN CORPUSCULAR VOLUME 96.7 fl (80.0-96.0); PLATELET COUNT, AUTOMATED 103 10^3/uL (150-450); RED BLOOD COUNT 3.37 10^6/uL (4.30-6.10); WHITE BLOOD COUNT 6.2 10^3/uL (4.0-10.0)
[2019-03-24 06:10] LABS: CALCIUM LEVEL 8.7 MG/DL (8.8-10.2); CREATININE FOR GFR 3.12 MG/DL (0.70-1.30); GLOMERULAR FILTRATION RATE 20.7 (>42); POTASSIUM SERUM 4.1 MEQ/L (3.5-5.1)
[2019-03-24] MEDS: HumaLOG INSULIN (NovoLOG) PER UNIT SC SCH ×3 (07:39→17:58)
[2019-03-24 08:00] VITALS: BP 131/76
[2019-03-24] MEDS: **hydrALAZINE** 50 MG TAB PO SCH ×2 (08:06→20:51)
[2019-03-24] MEDS: ESCITALOPRAM OXALATE 10 MG TAB (LEXAPRO) PO SCH (08:06)
[2019-03-24] MEDS: APIXABAN 2.5 MG TAB (ELIQUIS) PO SCH ×2 (08:06→20:51)
[2019-03-24] MEDS: SUCRALFATE 1 GM TAB PO SCH ×4 (08:06→20:51)
[2019-03-24] MEDS: PANTOPRAZOLE 40MG TAB (PROTONIX) PO SCH (08:06)
[2019-03-24] MEDS: METOPROLOL TART 50 MG TAB PO SCH ×3 (08:07→20:50)
[2019-03-24] MEDS: LISINOPRIL 20 MG TAB PO SCH (08:07)
[2019-03-24] MEDS: FINASTERIDE 5 MG TAB PO SCH (08:07)
[2019-03-24] MEDS ORDERED: HEPARIN 1,000 UNITS/ML 10ML VIAL (FOR RADIOLOGY& DIALYSIS ONLY) IV ONE (11:00)
[2019-03-24] MEDS ORDERED: HEPARIN 1,000 UNITS/ML 10ML VIAL (FOR RADIOLOGY& DIALYSIS ONLY) XX ONE (11:00)
--- NOTE | 2019-03-24 11:03 | IPNPDOC ---
Date Seen The patient was seen on 03/24/19. Progress Note SUBJECTIVE: Mr. Zuleta was seen and examined at the bedside this morning. He states he feels his breathing is bad again this morning. He complained of palpitations after dialysis yesterday, but this may be from his AF with RVR. HR is under better control today. He still looks somewhat fluid overloaded. OBJECTIVE PHYSICAL EXAMINATION: VITAL SIGNS: Please see below. GENERAL: laying in bed, appears stated age, calm, cooperative, in no acute distress HEENT: EOMI, PERRLA, normocephalic/atraumatic, neck is supple with no lymphadenopathy or thyromegaly CARDIOVASCULAR: JVD is elevated at 12-13 cm above sternal angle but improved from yesterday, irregularly irregular rhythm, no murmurs/rubs/gallops RESPIRATORY: Clear to auscultation bilaterally with no adventitious breath sounds appreciated ABDOMINAL: soft, nontender, +BS, no masses/organomegaly EXTREMITIES: 1+ pitting edema in lower extremities bilaterally NEUROLOGICAL: CN 2-12 intact with no obvious focal deficits PSYCHOLOGICAL: AAOx3, normal mood/affect LABORATORY DATA, IMAGING STUDIES, MICROBIOLOGY: Please see below. ASSESSMENT AND PLAN: This is a 78 YO M with ESRD and DM2 admitted with severe hypoglycemia 2/2 overdose of oral hypoglycemic agent. Nephrology consulted for management of his hemodialysis. PROBLEMS: 1. ESRD: Patient will be dialyzed again today. While his fluid status has improved, he still appears fluid overloaded and therefore will need to have more fluid removed. -Electrolytes are WNL 2. Atrial fibrillation with RVR: Patient had HR in the 120s-130s yesterday. This has somewhat improved with Metoprolol. Breathing issues seem more related to AF than to fluid overload. -Continue metoprolol -Continue Eliquis 3. Recurrent hypoglycemia: likely 2/2 to oral hypoglycemic agent overdose. -Appears to have resolved. Blood glucose within acceptable range today 4. Acute on chronic CHF: -Continue holding IVF. Fluid management with dialysis 5. HTN: blood pressure improved with dialysis yesterday -Continue Lisinopril 6. Anemia: stable DISPOSITION: Pending improvement of fluid status. VS, I&O, 24H, Fishbone Vital Signs/I&O Vital Signs Date Time Temp Pulse Resp B/P (MAP) Pulse Ox O2 Delivery O2 Flow Rate FiO2 03/24/19 08:07 108 131/76 03/24/19 08:00 1.0 03/24/19 08:00 98.0 18 95 03/21/19 22:45 Nasal Cannula I&O- Last 24 Hours up to 6 AM 03/24/19 06:00 Intake Total 1180 ml Output Total 4000 ml Balance -2820 ml Laboratory Data 24H LABS Laboratory Tests 2 03/23/19 18:06: Bedside Glucose (Misc Panel) 82L 03/23/19 19:53: Bedside Glucose (Misc Panel) 130H 03/24/19 05:29: Nucleated Red Blood Cells % (auto) 0.0, Anion Gap 7L, Glomerular Filtration Rate 20.7L, Blood Urea Nitrogen 20H, Creatinine 3.12H, Sodium Level 139, Potassium Level 4.1, Chloride Level 103, Carbon Dioxide Level 29, Calcium Level 8.7L, Magnesium Level 2.0 CBC/BMP Laboratory Tests 03/24/19 05:29 Red Blood Count 3.37 L, Mean Corpuscular Volume 96.7 H, Mean Corpuscular Hemoglobin 29.4, Mean Corpuscular Hemoglobin Concent 30.4 L, Red Cell Distribution Width 17.3 H, Calcium Level 8.7 L GME ATTESTATION GME ATTESTATION My faculty preceptor for this patient encounter was physically present during the encounter and was fully available. All aspects of the patient interview, examination, medical decision making process, and medical care plan development were reviewed and approved by the faculty preceptor. The faculty preceptor is aw are and concurs with the plan as stated in the body of this note and will attest to such by his/her cosignature. CANDIDA LAMB MD Mar 24, 2019 11:03
[2019-03-24 12:00] VITALS: BP 149/72
[2019-03-24] MEDS: CYANOCOBALAMIN 500 MCG TAB PO SCH (12:15)
--- NOTE | 2019-03-24 12:57 | IPNPDOC ---
Text Note Date of Service The patient was seen on 03/24/19. NOTE Subjective: On telemetry patient had multiple PVCs up to 13 per minute. Patient stated that his shortness of breath resolved. Objective: General Exam: Positive: Alert, Cooperative Eye Exam: Positive: PERRLA ENT Exam: Positive: Atraumatic, Mucous membr. moist/pink Neck Exam: Positive: Supple Chest Exam: Positive: Clear to auscultation, Normal air movement Heart Exam: Positive: s1s2 irregularly irregular, plus JVD Abdomen Exam: Positive: Normal bowel sounds, Soft Extremity Exam: Positive: Normal pulses Skin Exam: Positive: Nl turgor and temperature Neuro Exam: Positive: Strength at 5/5 X4 ext, Sensation Intact Psych Exam: Positive: Mood NL, Oriented x 3 Assessment and plan Patient 78 years old male with past medical history of end-stage renal diseases on dialysis Wednesday, , Wednesday, diabetes mellitus type 2, CHF, atrial fibrillation presented hospital with profound hypoglycemia Hypoglycemia Most likely secondary to oral hypoglycemic agents Hyperglycemia protocol DC oral hypoglycemic agents Blood glucose level is stable Continue to monitor glucose level Insulin sliding scale Patient will benefit from insulin treatment at home settings. By mouth hypoglycemic agent could be unsafe for him in setting of dialysis. Plan to discharge him on insulin End-stage renal diseases Continue dialysis Most likely patient was volume overloaded Atrial fibrillation with rvr On telemetry multiple PVC per minute up to 14. Appreciate/agree with cardio logist consult Continue apixaban Continue cardioprotective medication I changed her diltiazem to metoprolol 50 mg 3 times a day Lopressor 5 mg IV when necessary HTN Blood pressures under control VS,Janeee, I+O VS, Kerwinbone, I+O Laboratory Tests 03/24/19 05:29 Red Blood Count 3.37 L, Mean Corpuscular Volume 96.7 H, Mean Corpuscular Hemoglobin 29.4, Mean Corpuscular Hemoglobin Concent 30.4 L, Red Cell Distribution Width 17.3 H, Calcium Level 8.7 L Vital Signs Date Time Temp Pulse Resp B/P (MAP) Pulse Ox O2 Delivery O2 Flow Rate FiO2 03/24/19 08:07 108 131/76 03/24/19 08:00 1.0 03/24/19 08:00 98.0 18 95 03/21/19 22:45 Nasal Cannula I&O- Last 24 Hours up to 6 AM 03/24/19 06:00 Intake Total 1180 ml Output Total 4000 ml Balance -2820 ml RADHA MARTINEZ DO Mar 24, 2019 12:57
[2019-03-24 16:00] VITALS: BP 132/71
[2019-03-24 20:00] VITALS: BP 106/55
[2019-03-24] MEDS: TAMSULOSIN 0.4 MG CAP PO SCH (20:51)
[2019-03-24] MEDS: ATORVASTATIN 10 MG TAB PO SCH (20:52)
[2019-03-25] VITALS: BP 128/78
[2019-03-25 04:00] VITALS: BP 119/78
[2019-03-25 06:55] LABS: CALCIUM LEVEL 8.4 MG/DL (8.8-10.2); CREATININE FOR GFR 4.43 MG/DL (0.70-1.30); GLOMERULAR FILTRATION RATE 13.8 (>42); MAGNESIUM LEVEL 1.7 MG/DL (1.8-2.4); POTASSIUM SERUM 3.7 MEQ/L (3.5-5.1)
[2019-03-25] MEDS ORDERED: POTASSIUM CHLORIDE 10 MEQ SR TABLET PO ONE (07:30)
[2019-03-25 08:00] VITALS: BP 156/75
[2019-03-25] MEDS: HumaLOG INSULIN (NovoLOG) PER UNIT SC SCH ×3 (08:23→17:29)
[2019-03-25] MEDS: SUCRALFATE 1 GM TAB PO SCH ×4 (08:23→21:24)
[2019-03-25] MEDS: APIXABAN 2.5 MG TAB (ELIQUIS) PO SCH ×2 (08:23→21:24)
[2019-03-25] MEDS: FINASTERIDE 5 MG TAB PO SCH (08:24)
[2019-03-25] MEDS: ESCITALOPRAM OXALATE 10 MG TAB (LEXAPRO) PO SCH (08:24)
[2019-03-25] MEDS: PANTOPRAZOLE 40MG TAB (PROTONIX) PO SCH (08:24)
--- NOTE | 2019-03-25 08:39 | CR ---
DATE OF CONSULTATION: 03/24/2019 REFERRING PROVIDER: Dr. Senior REASON FOR CONSULTATION: Atrial fibrillation. HISTORY OF PRESENT ILLNESS: 78-year-old man who recently started hemodialysis because of progression of his underlying renal failure. He was admitted on 03/22/2019 with severe hypoglycemia. He was found to have a blood sugar of 22. He was given D50 and his blood sugar improved up to 120s. He appears to be in atrial fibrillation and his heart rate is uncontrolled, cardiology consult was called. When I saw Mr. Jeremias Zuleta, he was supine in bed, a very pleasant and quiet gentleman. He denies any complaint of chest pain, palpitations, pedal edema, orthopnea, syncope or near syncope. He was flat in his bed, in no acute distress at rest. He denies any active bleeding. He was recently admitted for anemia secondary to acute blood loss due to gastrointestinal (GI) bleeding. He denies any recurrence. He has no cough, hemoptysis or fever. He had no nausea, vomiting, diarrhea, melena or hematemesis. PAST MEDICAL HISTORY: Positive for end stage renal disease (ESRD) and had recently started hemodialysis, diastolic heart failure, atrial fibrillation that has been persistent, hypertension, diabetes mellitus, chronic obstructive pulmonary disease (COPD), obstructive sleep apnea, chronic thrombocytopenia, benign prostatic hypertrophy (BPH), and cirrhosis of the liver as well as underlying valvular heart disease involving the aortic valve. There is no history of coronary artery disease, cardiomyopathy or sudden cardiac .. There is no history of transient ischemic attack (TIA)/CVA. PAST SURGICAL HISTORY: Positive for cholecystectomy, appendectomy, surgery done on his lumbar spine, lithotripsy, left renal artery stent placement and he recently had a PermCath placed for his hemodialysis. He was found in the past to have significant renal artery stenosis. CURRENT MEDICATIONS: Metoprolol tartrate 15 mg by mouth three times a day, lisinopril 20 mg by mouth daily, metoprolol tartrate 5 mg IV every 2 hours as needed, insulin Lispro, vitamin B12 500 mg by mouth daily, lisinopril 10 mg by mouth daily, finasteride 5 mg by mouth daily, pantoprazole 40 mg by mouth daily, and also D50, glucose tablets and Glucagon for episodes of hypoglycemia. He is also on tamsulosin, sulcrulfate, hydralazine 100 mg by mouth twice a day, atorvastatin 5 mg by mouth hour of sleep, Eliquis 2.5 mg by mouth twice a day, Xopenex 1.25 mg via inhalation twice a day, Tylenol 650 mg by mouth every 4 hours as needed for mild pain or fever. SOCIAL HISTORY: The patient lives with his . In no acute distress at rest and very pleasant. He does not smoke or abuse alcohol. PHYSICAL EXAMINATION: The patient is alert and oriented, in no acute distress at rest and very pleasant and quiet. His vital signs when I saw him revealed a blood pressure of 132/71 with a pulse of 103, respirations 18 and his maximum temperature was 96.9 degrees Fahrenheit with an oxygen saturation of 98% on room air. Examination of the Head: Atraumatic. Neck; Supple. No jugular venous distention (JVD) appreciated. No carotid bruits. Lungs: Did not reveal any wheezing or crackles. Heart examination revealed irregular heart sounds without gallops. Mildly tachycardiac. The PMI is displaced inferiorly and laterally. There is no rub. There are no murmurs. LABORATORY DATA: CBC done today revealed WBC of 6.2, hemoglobin 9.9, hematocrit 32.6 and platelets 103,000. BMP done today revealed a sodium of 139, potassium 4.1, chloride 103, CO2 29, BUN 20, creatinine 3.2, GFR 20.7, fasting glucose 176, calcium 8.7 and serum magnesium 2.0. IMPRESSION: Atrial fibrillation that seems to be chronic and persistent, probably permanent. He has underlying history of chronic kidney disease and hemodialysis, hypertension, hyperlipidemia, and diabetes mellitus. His medications were reviewed and will continue the same for now. If tomorrow, his heart rhythm is the same, I will increase his beta-song and decrease his lisinopril. He would benefit from a higher dose of the Eliquis (apixaban) in view of his weight and his age, but because of the recent anemia due to acute blood loss, he may continue the same 2.5 mg by mouth twice a day. He probably had an echocardiogram done in the past and this will be reviewed and then further recommendations will be given. It was a pleasure to participate in the care of Mr. Jeremias Zuleta for his underlying cardiac condition. I will continue to monitor him along with you. He appears to be stable at this present time. Please do not hesitate to call if any questions.
[2019-03-25] MEDS: **hydrALAZINE** 50 MG TAB PO SCH ×2 (09:00→21:24)
[2019-03-25] MEDS: METOPROLOL TART 50 MG TAB PO SCH ×3 (09:00→21:24)
--- NOTE | 2019-03-25 09:37 | ECGEPIP ---
[facility] Test Date: 2019-03-22 Pat Name: TORSTEN DAY Department: Room: [place] [address] Gender: Male Branch Officer: YOLANDE : 1940 Requested By: RADHA MARTINEZ Order Number: [id number] Reading MD: Cirilo Palacios Measurements Intervals [place] Rate: 116 P: UT: 0 QRS: 56 QRSD: 106 T: 86 QT: 352 QTc: 489 Interpretive Statements ATRIAL FIBRILLATION WITH RAPID VENTRICULAR RESPONSE WITH ABERRANT CONDUCTION OR VENTRICULAR PREMATURE COMPLEXES INDETERMINATE AXIS LOW QRS VOLTAGE IN EXTREMITY LEADS PATTERN CONSISTENT WITH PULMONARY DISEASE MODERATE ST DEPRESSION SIMILAR TO 03/21/19 Electronically Signed on 03-25-2019 9:37:27 EDT by Cirilo Palacios
--- NOTE | 2019-03-25 11:23 | IPNPDOC ---
Text Note Date of Service The patient was seen on 03/25/19. NOTE Subjective: No any acute events overnight. His breathing markedly improved. Patient denies fever, chills, nausea, vomiting, diarrhea or dysuria Objective: General Exam: Positive: Alert, Cooperative Eye Exam: Positive: PERRLA ENT Exam: Positive: Atraumatic, Mucous membr. moist/pink Neck Exam: Positive: Supple Chest Exam: Positive: Clear to auscultation, Normal air movement Heart Exam: Positive: s1s2 irregularly irregular, no JVD Abdomen Exam: Positive: Normal bowel sounds, Soft Extremity Exam: Positive: Normal pulses Skin Exam: Positive: Nl turgor and temperature Neuro Exam: Positive: Strength at 5/5 X4 ext, Sensation Intact Psych Exam: Positive: Mood NL, Oriented x 3 Assessment and plan Patient 78 years old male with past medical history of end-stage renal diseases on dialysis Wednesday, , Wednesday, diabetes mellitus type 2, CHF, atrial fibrillation presented hospital with profound hypoglycemia Hypoglycemia Most likely secondary to oral hypoglycemic agents Hyperglycemia protocol DC oral hypoglycemic agents Blood glucose level is stable Continue to monitor glucose level Insulin sliding scale Patient will benefit from insulin treatment at home settings. By mouth hypoglycemic agent could be unsafe for him in setting of dialysis. Plan to discharge him on insulin End-stage renal diseases Continue dialysis Most likely patient was volume overloaded Atrial fibrillation with rvr Heart rate is under control On telemetry multiple PVC per minute up to 14. Dr. Lacey consulted patient and recommended to continue current medication regimen Continue apixaban I changed her diltiazem to metoprolol 50 mg 3 times a day Lopressor 5 mg IV when necessary HTN Blood pressures under control VS,Toño, I+O VS, Toño, I+O Laboratory Tests 03/25/19 05:55 Calcium Level 8.4 L Vital Signs Date Time Temp Pulse Resp B/P (MAP) Pulse Ox O2 Delivery O2 Flow Rate FiO2 03/25/19 08:00 98.6 97 17 156/75 (102) 97 03/24/19 12:00 1.0 03/21/19 22:45 Nasal Cannula I&O- Last 24 Hours up to 6 AM 03/25/19 06:00 Intake Total 1260 ml Output Total 4000 ml Balance -2740 ml RADHA MARTINEZ DO Mar 25, 2019 11:23
[2019-03-25 14:50] VITALS: BP 150/60
[2019-03-25] MEDS: CYANOCOBALAMIN 500 MCG TAB PO SCH (15:09)
[2019-03-25] MEDS: LISINOPRIL 20 MG TAB PO SCH (15:10)
[2019-03-25] MEDS ORDERED: DARBEPOETIN 100 MCG/0.5 ML *DIALYSIS* SYRINGE (J0882) IV SCH (15:30)
--- NOTE | 2019-03-25 16:06 | IPN ---
DATE: 03/25/2019 SUBJECTIVE: The patient was seen and examined the bedside today morning during hemodialysis. He is tolerating the hemodialysis procedure well. His volume status is significantly better. He has been getting [id number] hemodialysis and ultrafiltration for the last 4 days. He denies any active complaints. OBJECTIVE: Vital signs: Temperature is 90.6 degrees Fahrenheit, blood pressure 150/62, pulse is 103, respiratory rate of 17, saturating 97% on room air. Intake and output: There is no urine output recorded. Ultrafiltration with hemodialysis was 4 liters yesterday, and he is getting more fluid removal done today. Weight in the bed scale was 72 kg yesterday. PHYSICAL EXAMINATION: GENERAL: The patient is awake, alert, oriented times three, getting hemodialysis done. No apparent distress. HEAD AND NECK: Extraocular muscles intact. Pupils equally round and reactive to light. Mucous membranes are moist. Neck is supple. There is no jugular venous distention (JVD). CARDIOVASCULAR: S1, S2, regular rate. No edema of the bilateral lower extremities. RESPIRATORY: Chest is clear to auscultation bilaterally. Bilateral equal air entry. No rales or rhonchi. ABDOMEN: Soft, positive bowel sounds, nontender. No organomegaly. MUSCULOSKELETAL: No clubbing or cyanosis. Pulses are 2+. CENTRAL NERVOUS SYSTEM: No focal deficit. The patient is [id number]. Otherwise, he moves extremities and follows commands. LABORATORY REVIEW: CBC showed WBC of 6.2, hemoglobin 9.9, and that was from yesterday. BMP done today showed potassium of 3.7, BUN 40, creatinine is 4.4. CURRENT INPATIENT MEDICATIONS: The patient's medications were all reviewed by me. His metoprolol IV has been stopped. He has been started on metoprolol tartrate 50 mg by mouth three times a day. He continues to be on Carafate. No other change in the medications today as compared with yesterday. ASSESSMENT AND PLAN: 1. End-stage renal disease, on hemodialysis. The patient is being dialyzed today again. Ultrafiltration goal will be around the 2-2.5 kg as tolerated by his blood pressure. 2. Atrial fibrillation with rapid ventricular rate. The patient's metoprolol dose has been changed to 50 mg by mouth three times a day. His Eliquis was decreased to 2.5 mg by mouth twice a day after gastrointestinal (GI) bleed. 3. Anemia and end-stage renal disease. Hemoglobin level is optimal. I am going to start him on Aranesp with dialysis. 4. Acute on chronic decompensated diastolic congestive heart failure. The patient got [id number] ultrafiltration hemodialysis for the last 4 days. Weight is getting better. His dry weight will be adjusted to around 70 kg. 5. Hypertension with hypertensive heart disease and end-stage renal disease. Continue current dose of hydralazine 100 mg by mouth twice a day, lisinopril 20 mg by mouth daily, metoprolol 50 mg by mouth three times a day. 6. Recent GI bleed. The patient continues to be on Carafate 1 gram by mouth four times a day. It will be stopped within a month because of risk of aluminum toxicity in renal failure.
[2019-03-25] MEDS: ATORVASTATIN 10 MG TAB PO SCH (21:24)
[2019-03-25] MEDS: TAMSULOSIN 0.4 MG CAP PO SCH (21:24)
[2019-03-25 22:00] VITALS: BP 144/89
[2019-03-26 06:00] VITALS: BP 142/89
[2019-03-26 06:06] LABS: CALCIUM LEVEL 8.5 MG/DL (8.8-10.2); CREATININE FOR GFR 4.4 MG/DL (0.70-1.30); GLOMERULAR FILTRATION RATE 13.9 (>42); MAGNESIUM LEVEL 1.8 MG/DL (1.8-2.4); POTASSIUM SERUM 4.4 MEQ/L (3.5-5.1)
[2019-03-26] MEDS: HumaLOG INSULIN (NovoLOG) PER UNIT SC SCH ×3 (08:45→18:10)
[2019-03-26] MEDS: SUCRALFATE 1 GM TAB PO SCH ×4 (08:46→20:54)
[2019-03-26] MEDS: LISINOPRIL 20 MG TAB PO SCH (08:46)
[2019-03-26] MEDS: FINASTERIDE 5 MG TAB PO SCH (08:46)
[2019-03-26] MEDS: METOPROLOL TART 50 MG TAB PO SCH (08:46)
[2019-03-26] MEDS: PANTOPRAZOLE 40MG TAB (PROTONIX) PO SCH (08:47)
[2019-03-26] MEDS: ESCITALOPRAM OXALATE 10 MG TAB (LEXAPRO) PO SCH (08:47)
[2019-03-26] MEDS: APIXABAN 2.5 MG TAB (ELIQUIS) PO SCH ×2 (08:47→20:54)
[2019-03-26] MEDS: **hydrALAZINE** 50 MG TAB PO SCH ×2 (08:49→20:55)
[2019-03-26] MEDS: CYANOCOBALAMIN 500 MCG TAB PO SCH (12:33)
[2019-03-26] MEDS ORDERED: METOPROLOL TART 50 MG TAB PO ONE (13:00)
[2019-03-26 14:00] VITALS: BP 127/77
--- NOTE | 2019-03-26 15:51 | IPNPDOC ---
Text Note Date of Service The patient was seen on 03/26/19. NOTE Subjective: No any acute events overnight. Glucose levels under control. Patient denies fever, chills, nausea, vomiting, diarrhea or dysuria Objective: General Exam: Positive: Alert, Cooperative Eye Exam: Positive: PERRLA ENT Exam: Positive: Atraumatic, Mucous membr. moist/pink Neck Exam: Positive: Supple Chest Exam: Positive: Clear to auscultation, Normal air movement Heart Exam: Positive: s1s2 irregularly irregular, no JVD Abdomen Exam: Positive: Normal bowel sounds, Soft Extremity Exam: Positive: Normal pulses Skin Exam: Positive: Nl turgor and temperature Neuro Exam: Positive: Strength at 5/5 X4 ext, Sensation Intact Psych Exam: Positive: Mood NL, Oriented x 3 Assessment and plan Patient 78 years old male with past medical history of end-stage renal diseases on dialysis Wednesday, , Wednesday, diabetes mellitus type 2, CHF, atrial fibrillation presented hospital with profound hypoglycemia Hypoglycemia Most likely secondary to oral hypoglycemic agents Hyperglycemia protocol DC oral hypoglycemic agents Blood glucose level is stable Continue to monitor glucose level Insulin sliding scale Patient will benefit from insulin treatment at home settings. By mouth hypoglycemic agent could be unsafe for him in setting of dialysis. Plan to discharge him on insulin sliding scale End-stage renal diseases Continue dialysis Most likely patient was volume overloaded Atrial fibrillation with rvr Heart rate is under control On telemetry multiple PVC per minute up to 14. Dr. Lacey consulted patient and recommended to continue current medication regimen Continue apixaban I changed her diltiazem to metoprolol 50 mg 3 times a day Lopressor 5 mg IV when necessary HTN Blood pressures under control PT cleared him to be discharged. However, patient will need supervision for 31/12 due to advanced dementia. He leaves in his sister house, his sister stated that she cannot take him today and she will able to take him tomorrow VS,Fishbone, I+O VS, Fishbone, I+O Laboratory Tests 03/26/19 05:21 Calcium Level 8.5 L Vital Signs Date Time Temp Pulse Resp B/P (MAP) Pulse Ox O2 Delivery O2 Flow Rate FiO2 03/26/19 14:00 97.1 107 20 127/77 (94) 97 03/24/19 12:00 1.0 03/21/19 22:45 Nasal Cannula I&O- Last 24 Hours up to 6 AM 03/26/19 06:00 Intake Total 810 ml Output Total 2000 ml Balance -1190 ml RADHA MARTINEZ DO Mar 26, 2019 15:51
--- NOTE | 2019-03-26 15:56 | IPN ---
DATE: 03/26/2019 SUBJECTIVE: Patient was seen and examined at the bedside today morning. He is afebrile, hemodynamically stable. He was dialyzed yesterday; 2 liters of fluid was removed. Volume status is significantly better. He reports that he will possibly get discharged back tomorrow morning. OBJECTIVE: VITAL SIGNS: Temperature is 98.6 degrees Fahrenheit, blood pressure 136/85, pulse is 94, respiratory of 18, saturating 99% on room air. INTAKE AND OUTPUT: There is no urine output recorded. Ultrafiltration with hemodialysis was 2 liters yesterday. Weight in the bed scale is not available. PHYSICAL EXAMINATION: GENERAL: Patient is awake, alert, oriented times three, laying in bed in no apparent distress. HEAD AND NECK EXAM: Extraocular muscles intact. Pupils equally round and reactive to light. Mucous membranes are moist. Neck is supple. He has a right internal jugular (IJ) tunneled hemodialysis catheter. CARDIOVASCULAR: S1, S2. Regular rate. No edema of the bilateral lower extremities. RESPIRATORY: Chest is clear to auscultation bilaterally. Bilateral equal air entry. No rales or rhonchi. ABDOMEN: Soft. Positive bowel sounds. Nontender. No organomegaly. MUSCULOSKELETAL: No clubbing or cyanosis. Pulses are 2+. CENTRAL NERVOUS SYSTEM (BULK TANK DRIVER): No focal deficit. Power is 5/5 in all extremities. He is hard of hearing. LABORATORY REVIEW: Complete blood count (CBC) showed a hemoglobin of 9.9 and that was two days ago. Basic metabolic panel (BMP) done today showed sodium 139, potassium 4.4, chloride 106, bicarbonate 28, BUN 37, creatinine is 4.4. CURRENT INPATIENT MEDICATIONS: Patient's medications were all reviewed by me. His metoprolol dose has been changed to 100 mg by mouth twice a day. No other change in the medications today as compared with yesterday. ASSESSMENT AND PLAN: 1. End-stage renal disease on hemodialysis. Patient's volume status is optimized. Next hemodialysis will be as outpatient after discharge. 2. Atrial fibrillation. His heart rate is well controlled now. Metoprolol dose has been changed to 100 mg by mouth twice a day per primary team. He continues to be on Eliquis 2.5 mg by mouth twice a day. 3. Anemia in end-stage renal disease. Patient is on Aranesp with dialysis. The rest of anemia management will be done as outpatient. 4. Acute on chronic diastolic congestive heart failure. Volume status is significantly better. He got udxn-ye-nzbq hemodialysis and ultrafiltration for about four days. New dry weight will be set close to 70 kg as outpatient. 5. Hypertension with hypertensive heart disease. Continue current dose of hydralazine, lisinopril. Metoprolol was also increased because of atrial fibrillation. DISPOSITION: It is okay to discharge the patient from a nephrology standpoint. He will be followed up as outpatient at dialysis center.
[2019-03-26] MEDS: METOPROLOL TARTRATE 100 MG TAB PO SCH (20:54)
[2019-03-26] MEDS: ATORVASTATIN 10 MG TAB PO SCH (20:54)
[2019-03-26] MEDS: TAMSULOSIN 0.4 MG CAP PO SCH (20:55)
[2019-03-26 22:00] VITALS: BP 131/68
--- NOTE | 2019-03-27 05:30 | IPN ---
DATE OF VISIT: 03/26/2019 HISTORY: Mr. Jeremias Zuleta was seen early this morning, he was sitting up in bed in no acute distress and having lunch. He had a more dialysis yesterday and tolerated it well. He stated that he probably will go home tomorrow 03/27/2019. He denies any chest pain, palpitations. There is no pedal edema. There is no orthopnea or paroxysmal nocturnal dyspnea (PND). He was initially seen for atrial fibrillation with rapid ventricular rate and at the same time, his telemetry revealed runs of ventricular tachycardia. PHYSICAL EXAMINATION: The patient is alert and awak, in no acute distress at rest. VITAL SIGNS: He is vital signs earlier today reveal blood pressure of 136/85 with pulse that varies between 90 and 110, respiration 18 and his maximum temperature is 98.7 degrees Fahrenheit with an oxygen saturation of 99% on room air. He had a negative fluid balance of 1.3 liters on 03/25/2019. HEAD: Atraumatic. NECK: Neck is supple and no jugular venous distention (JVD) appreciated. He was sitting up. LUNGS: Did not reveal any wheezing or crackles. HEART: Examination revealed irregular, irregularly heart sound without gallops. The point of maximal impulse (PMI) is not displaced. There is no rub. ABDOMEN: Abdomen is soft and nontender. EXTREMITIES: There is no pedal edema. NEUROLOGIC EXAMINATION: Negative for focal deficit. LABORATORY DATA: BMP done on 03/26 2019 revealed a sodium of 139, potassium 4.4, chloride 106, CO2 28, BUN 37, creatinine 4.4, GFR 13.9 and fasting glucose 192 with a calcium of 8.5. Serum magnesium is 1.8. Telemetry was reviewed and today revealed atrial fibrillation with a rapid ventricular rate when I was at the bedside. IMPRESSION: 1. Atrial fibrillation, persistent. 2. Ventricular tachycardia, noted on telemetry. Normal left ventricular ejection fraction (LVEF). 3. Hypertension. 4. Diabetes mellitus. 5. Hyperlipidemia. 6. End-stage renal disease (ESRD). Mr. Jeremias Zuleta seems to stable from a cardiac point of view and his medication were reviewed and I will continue same. I have increased his beta-song from 50 mg by mouth every 8 hours to 100 mg by mouth twice a day. He is on a small dose of Apixaban for prevention of thrombolytic events because of recent gastrointestinal (GI) bleed, I will continue the same for now. Recently, he had an echocardiogram that revealed normal LVEF. It seems that from a cardiac point of view he is stable and he may be discharged home tomorrow 03/26/2019 and we will see him as outpatient if he stays in town. Please do not hesitate to call if any questions while in town.
[2019-03-27 06:00] VITALS: BP 127/70
[2019-03-27 06:36] LABS: CALCIUM LEVEL 8.3 MG/DL (8.8-10.2); CREATININE FOR GFR 5.88 MG/DL (0.70-1.30); MAGNESIUM LEVEL 1.7 MG/DL (1.8-2.4); POTASSIUM SERUM 4.4 MEQ/L (3.5-5.1)
[2019-03-27] MEDS ORDERED: MAGNESIUM CHLORIDE 64 MG TABCR (SLO MAG) PO SCH (09:00)
[2019-03-27] MEDS: HumaLOG INSULIN (NovoLOG) PER UNIT SC SCH ×2 (09:06→12:28)
[2019-03-27] MEDS: FINASTERIDE 5 MG TAB PO SCH (09:07)
[2019-03-27] MEDS: **hydrALAZINE** 50 MG TAB PO SCH (09:07)
[2019-03-27 09:08] VITALS: BP 155/84
[2019-03-27] MEDS: PANTOPRAZOLE 40MG TAB (PROTONIX) PO SCH (09:08)
[2019-03-27] MEDS: ESCITALOPRAM OXALATE 10 MG TAB (LEXAPRO) PO SCH (09:08)
[2019-03-27] MEDS: METOPROLOL TARTRATE 100 MG TAB PO SCH (09:08)
[2019-03-27] MEDS: APIXABAN 2.5 MG TAB (ELIQUIS) PO SCH (09:08)
[2019-03-27] MEDS: LISINOPRIL 20 MG TAB PO SCH (09:08)
[2019-03-27] MEDS ORDERED: BLOOKIT21 XX (10:42)
[2019-03-27] MEDS: SUCRALFATE 1 GM TAB PO SCH ×2 (10:42→13:42)
[2019-03-27] MEDS ORDERED: ALCOPAD25 TOP (10:42)
[2019-03-27] MEDS ORDERED: GLUC1TES2 XX (10:42)
[2019-03-27] MEDS ORDERED: PEN1MIS21 SC (10:42)
[2019-03-27] MEDS ORDERED: LANC30MI XX (10:42)
[2019-03-27] MEDS ORDERED: ACET1TAB55 PO (10:51)
[2019-03-27] MEDS ORDERED: LOPR1TAB7 PO (10:51)
[2019-03-27] MEDS ORDERED: MAGN64TASA PO (10:51)
[2019-03-27] MEDS ORDERED: LISI-538 PO (10:51)
[2019-03-27] MEDS ORDERED: INSUHUMDS SC (10:51)
--- NOTE | 2019-03-27 12:03 | IPNPDOC ---
Date Seen The patient was seen on 03/27/19. Progress Note NEPHROLOGY SERVICE PROGRESS NOTE: SUBJECTIVE: Mr. Zuleta was seen and examined at the bedside this morning. He states he feels his breathing has improved, although sometimes it is difficult for him to take a deep breath. He is set to get discharged today and to report to outpatient dialysis tomorrow. OBJECTIVE PHYSICAL EXAMINATION: VITAL SIGNS: Please see below. GENERAL: sleeping in bedside chair, appears stated age, calm, cooperative, in no acute distress HEENT: EOMI, PERRLA, normocephalic/atraumatic, neck is supple with no lymphadenopathy or thyromegaly CARDIOVASCULAR: JVD is elevated at 10-11 cm above sternal angle, irregularly irregular rhythm, no murmurs/rubs/gallops RESPIRATORY: Clear to auscultation bilaterally with no adventitious breath sounds appreciated ABDOMINAL: soft, nontender, +BS, no masses/organomegaly EXTREMITIES: 1+ pitting edema in lower extremities bilaterally NEUROLOGICAL: CN 2-12 intact with no obvious focal deficits PSYCHOLOGICAL: AAOx3, normal mood/affect LABORATORY DATA, IMAGING STUDIES, MICROBIOLOGY: Please see below. ASSESSMENT AND PLAN: This is a 78 YO M with ESRD and DM2 admitted with severe hypoglycemia 2/2 overdose of oral hypoglycemic agent. Nephrology consulted for management of his hemodialysis. PROBLEMS: 1. ESRD: Patient was dialyzed several times last week. Fluid status has improved and he can return to his normal // regimen. -Electrolytes are WNL -Dry weight will be set to 70kg for subsequent HD 2. Atrial fibrillation with RVR: Patient had HR in the 120s-130s yesterday. This has somewhat improved with Metoprolol. Breathing issues seem more related to AF than to fluid overload. -Continue metoprolol at current dose 100mg BID -Continue Eliquis at current renally dosed 2.5mg BID 3. Recurrent hypoglycemia: likely 2/2 to oral hypoglycemic agent overdose. -Appears to have resolved. Blood glucose within acceptable range today 4. Acute on chronic CHF: -Fluid status is optimized at this time 5. HTN: blood pressure improved with dialysis yesterday -Continue Lisinopril, metoprolol 6. Anemia: stable DISPOSITION: Patient is stable and fully optimized from a Nephrology standpoint. He can be discharged at this time and is to report to his regularly scheduled dialysis day tomorrow morning. GME ATTESTATION My faculty preceptor for this patient encounter was physically present during the encounter and was fully available. All aspects of the patient interview, examination, medical decision making process, and medical care plan development were reviewed and approved by the faculty preceptor. The faculty preceptor is aware and concurs with the plan as stated in the body of this note and will attest to such by his/her cosignature. VS, I&O, 24H, Fishbone Vital Signs/I&O Vital Signs Date Time Temp Pulse Resp B/P (MAP) Pulse Ox O2 Delivery O2 Flow Rate FiO2 03/27/19 09:08 87 155/84 03/27/19 06:00 98.1 18 99 03/24/19 12:00 1.0 03/21/19 22:45 Nasal Cannula I&O- Last 24 Hours up to 6 AM 03/27/19 06:00 Intake Total 1900 ml Output Total 0 ml Balance 1900 ml Laboratory Data 24H LABS Laboratory Tests 2 03/26/19 12:25: Bedside Glucose (Misc Panel) 98 03/26/19 17:19: Bedside Glucose (Misc Panel) 229H 03/26/19 20:27: Bedside Glucose (Misc Panel) 141H 03/27/19 05:28: Anion Gap 6L, Glomerular Filtration Rate 10.0L, Blood Urea Nitrogen 56#H, Creatinine 5.88H, Sodium Level 139, Potassium Level 4.4, Chloride Level 107, Carbon Dioxide Level 26, Calcium Level 8.3L, Magnesium Level 1.7L 03/27/19 11:24: Bedside Glucose (Misc Panel) 131H CBC/BMP Laboratory Tests 03/27/19 05:28 Calcium Level 8.3 L CANDIDA LAMB MD Mar 27, 2019 12:03
[2019-03-27] MEDS: CYANOCOBALAMIN 500 MCG TAB PO SCH (12:28)
--- NOTE | 2019-03-27 17:40 | DS.PDOC ---
Discharge Summary General Date of Admission Mar 22, 2019 at 11:59 Date of Discharge 03/27/19 Attending Physician: RADHA MARTINEZ DO Discharge Summary PROCEDURES PERFORMED DURING STAY: None ADMITTING DIAGNOSES: Hypoglycemia End-stage renal diseases Atrial fibrillation with rvr HTN DISCHARGE DIAGNOSES: Hypoglycemia End-stage renal diseases Atrial fibrillation with rvr HTN COMPLICATIONS/CHIEF COMPLAINT: Hypoglycemia Due To Type 2 Diabetes Mellitus. HISTORY OF PRESENT ILLNESS:: Mr. Zuleta is a 78-year-old gentleman who was admitted to [facility] last evening due to severe hypoglycemia. He came for his regular dialysis treatment and reported not feeling well. At the end of dialysis, he became very confused and disoriented, and his blood sugar was found to be only 22 mg/dl. He was given D50, and blood sugar improved to 120 range. However, he remains confused and disoriented due to which he was sent to the emergency room. He has been getting hypoglycemic and has required multiple doses of D50 and also is receiving D10W intravenously and 150 mL/hr. He was also short of breath even prior to dialysis yesterday and is more short of breath this morning HOSPITAL COURSE: During hospital course following issue addressed Hypoglycemia Most likely secondary to oral hypoglycemic agents DC oral hypoglycemic agents Blood glucose level became stable Pt received Insulin sliding scale Patient will benefit from insulin treatment at home settings. By mouth hypoglycemic agent could be unsafe for him in setting of dialysis. Plan to discharge him on insulin sliding scale End-stage renal diseases Continue dialysis Most likely patient was volume overloaded Atrial fibrillation with rvr Heart rate is under control On telemetry multiple PVC per minute up to 14. Dr. Lacey consulted patient and recommended to continue current medication regimen Continue apixaban I changed her diltiazem to metoprolol 50 mg 3 times a day Lopressor 5 mg IV when necessary HTN Blood pressures under control DISCHARGE MEDICATIONS: Please see below. ALLERGIES: Please see below. PHYSICAL EXAMINATION ON DISCHARGE: VITAL SIGNS: Please see below. General Exam: Positive: Alert, Cooperative Eye Exam: Positive: PERRLA ENT Exam: Positive: Atraumatic, Mucous membr. moist/pink Neck Exam: Positive: Supple Chest Exam: Positive: Clear to auscultation, Normal air movement Heart Exam: Positive: s1s2 irregularly irregular, no JVD Abdomen Exam: Positive: Normal bowel sounds, Soft Extremity Exam: Positive: Normal pulses Skin Exam: Positive: Nl turgor and temperature Neuro Exam: Positive: Strength at 5/5 X4 ext, Sensation Intact Psych Exam: Positive: Mood NL, Oriented x 3 LABORATORY DATA: Please see below. PROGNOSIS: Favorable ACTIVITY: As tolerated DIET: Diabetes DISCHARGE PLAN: DISPOSITION: 01 Home, Self-Care. DISCHARGE INSTRUCTIONS: PT cleared him to be discharged. However, patient will need supervision for 31/12 due to advanced dementia ITEMS TO FOLLOWUP ON ON OUTPATIENT: Insulin sliding scale. 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 Vital Signs/I&Os Vital Signs Date Time Temp Pulse Resp B/P (MAP) Pulse Ox O2 Delivery O2 Flow Rate FiO2 03/27/19 09:08 87 155/84 03/27/19 06:00 98.1 18 99 03/24/19 12:00 1.0 03/21/19 22:45 Nasal Cannula I&O- Last 24 Hours up to 6 AM 03/27/19 06:00 Intake Total 1900 ml Output Total 0 ml Balance 1900 ml Laboratory Data Labs 24H Laboratory Tests 2 03/26/19 20:27: Bedside Glucose (Misc Panel) 141H 03/27/19 05:28: Anion Gap 6L, Glomerular Filtration Rate 10.0L, Blood Urea Nitrogen 56#H, Creatinine 5.88H, Sodium Level 139, Potassium Level 4.4, Chloride Level 107, Carbon Dioxide Level 26, Calcium Level 8.3L, Magnesium Level 1.7L 03/27/19 11:24: Bedside Glucose (Misc Panel) 131H CBC/BMP Laboratory Tests 03/27/19 05:28 Calcium Level 8.3 L FSBS Laboratory Tests Test 03/26/19 20:27 03/27/19 11:24 Range/Units Bedside Glucose (Misc Panel) 141 131 83-110 MG/DL Discharge Medications Scheduled Apixaban (Eliquis) 2.5 Mg Tablet, 2.5 MG PO BID, (Reported) Atorvastatin Calcium (Atorvastatin Calcium) 10 Mg Tab, 5 MG PO QHS, (Reported) Blood Sugar Diagnostic (Advanced Glucose Test Strips) 1 Each Strip, 1 STRIP XX ASDIRECTED Cyanocobalamin (Vitamin B-12) (Vitamin B-12) 500 Mcg Tab, 500 MCG PO DAILY, (Reported) AT LUNCH Escitalopram Oxalate (Escitalopram Oxalate) 10 Mg Tab, 10 MG PO DAILY, (Reported) Finasteride (Finasteride) 5 Mg Tab, 5 MG PO DAILY, (Reported) Insulin Human Lispro (Humalog) 100 Unit/1 Ml Vial, 0 UNITS SC ACHS use insulin scale as per hospital Iron,Carbonyl/Ascorbic Acid (Vitron-C Tablet) 1 Tab Tab, 1 TAB PO DAILY, (Reported) AT LUNCH Lisinopril (Lisinopril) 20 Mg Tablet, 20 MG PO DAILY Magnesium Chloride (Mag64) 64 Mg Tablet.dr, 64 MG PO DAILY Metoprolol Tartrate (Lopressor) 100 Mg Tablet, 100 MG PO BID Pantoprazole Sodium (Protonix) 40 Mg Granpkt.dr, 40 MG PO DAILY, (Reported) Sucralfate (Sucralfate) 1 Gm Tablet, 1 GM PO QID, (Reported) Tamsulosin HCl (Flomax) 0.4 Mg Cap, 0.8 MG PO QHS, (Reported) hydrALAZINE HCL (Hydralazine HCl) 100 Mg Tab, 100 MG PO BID, (Reported) Scheduled PRN Acetaminophen (Acetaminophen) 325 Mg Tablet, 650 MG PO Q4H PRN for PAIN OR FEVER Levalbuterol HCl (Levalbuterol HCl) 1.25 Mg/3 Ml Vial.neb, 1.25 MG INH BID PRN for SHORTNESS OF BREATH, (Reported) Allergies Coded Allergies: No Known Allergies (Unverified , 03/21/19) RADHA MARTINEZ DO Mar 27, 2019 17:40
--- NOTE | 2019-03-28 07:31 | ECGEPIP ---
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 : 1940 Requested By: MAGUE ADKINS Order Number: [id number] Reading MD: Javier Gardner Measurements Intervals [place] Rate: 106 P: [place]: 0 QRS: 94 QRSD: 112 T: 0 QT: 341 QTc: 454 Interpretive Statements ATRIAL FIBRILLATION WITH RAPID VENTRICULAR RESPONSE WITH ABERRANT CONDUCTION OR VENTRICULAR PREMATURE COMPLEXES BORDERLINE RIGHT AXIS DEVIATION LOW QRS VOLTAGE IN EXTREMITY LEADS MODERATE INTRAVENTRICULAR CONDUCTION DELAY ST DEVIATION AND MODERATE T-WAVE ABNORMALITY, CONSIDER LATERAL ISCHEMIA BASELINE ARTIFACT AFFECTS INTERPRETATION Electronically Signed on 03-28-2019 7:30:45 EDT by Javier Gardner
== END 2019-03-27 14:52 | disposition home or self-care (01) | DRG 637 ==
LOC: M ED 20:06 → M ED INP 20:07 → M ICU 23:03 → OBSVTOIN 03-22 11:59 → M PCU 03-23 13:15 → M MSPAV 03-25 14:48
PROVIDERS: ADMIT Internal Medicine; ATTEND Internal Medicine
PROC: 5A1D70Z Performance of Urinary Filtration, Intermittent, Less than 6 Hours Per Day (ICD-10-PCS; principal; 2019-03-22)
DX: E11.649 Type 2 diabetes mellitus with hypoglycemia without coma (principal); I50.33 Acute on chronic diastolic (congestive) heart failure; I48.21 Permanent atrial fibrillation; I13.2 Hypertensive heart and chronic kidney disease with heart failure and with stage 5 chronic kidney disease, or end stage renal disease; N18.6 End stage renal disease; N25.81 Secondary hyperparathyroidism of renal origin; E11.22 Type 2 diabetes mellitus with diabetic chronic kidney disease; Z87.11 Personal history of peptic ulcer disease; Z99.2 Dependence on renal dialysis; Z87.891 Personal history of nicotine dependence; Z95.828 Presence of other vascular implants and grafts; Z79.01 Long term (current) use of anticoagulants; Z79.84 Long term (current) use of oral hypoglycemic drugs; Z79.899 Other long term (current) drug therapy; I27.20 Pulmonary hypertension, unspecified; J44.9 Chronic obstructive pulmonary disease, unspecified; I27.81 Cor pulmonale (chronic); I35.0 Nonrheumatic aortic (valve) stenosis; N40.0 Benign prostatic hyperplasia without lower urinary tract symptoms; G47.30 Sleep apnea, unspecified; D69.6 Thrombocytopenia, unspecified; D63.1 Anemia in chronic kidney disease; Z98.1 Arthrodesis status; K74.60 Unspecified cirrhosis of liver; Z90.49 Acquired absence of other specified parts of digestive tract; Z87.442 Personal history of urinary calculi; T38.3X5A Adverse effect of insulin and oral hypoglycemic [antidiabetic] drugs, initial encounter

== ENCOUNTER 2019-04-25 17:01 | Emergency (ER) | payer MEDICARE ==
[~2019-04-25 17:01] MED LIST changes: +ACET1TAB55 PO; +ALCOPAD25 TOP; +BLOOKIT21 XX; -GLIM4TAB; -GLIM4TAB PO; +GLIM4TAB3; +GLIM4TAB3 PO; +GLUC1TES2 XX; +INSUHUMDS SC; +LANC30MI XX; +LOPR1TAB7 PO; +MAGN64TASA PO; +PEN1MIS21 SC
[2019-04-25] MEDS ORDERED: SODIUM BICARBONATE 8.4% INJ 50MEQ 50 ML VIAL ONE (17:02)
[2019-04-25] MEDS ORDERED: EPINEPHrine 1MG/10ML SYRINGE 1.5IN ONE (17:02)
== END 2019-04-25 18:43 | disposition expired ==
LOC: M ED 17:01
DX: I46.9 Cardiac arrest, cause unspecified (principal); I21.9 Acute myocardial infarction, unspecified; J44.9 Chronic obstructive pulmonary disease, unspecified; N28.9 Disorder of kidney and ureter, unspecified; Z99.2 Dependence on renal dialysis; Z87.891 Personal history of nicotine dependence; Z79.899 Other long term (current) drug therapy; Z79.4 Long term (current) use of insulin; Z79.01 Long term (current) use of anticoagulants